=== PATIENT | female | born 2000 | race Caucasian/White ===

== ENCOUNTER 2023-01-05 09:22 | Emergency (ER) | payer OTHER, SELFPAY ==
[2023-01-05 09:25] VITALS: BP 122/92; PULSE 104; RESP 18; TEMP 36.8; O2SAT 99; BMI 31.2
--- NOTE | 2023-01-05 09:39 | XR_ITS ---
The [address] [address] Patient Name: FABY GALAN MRN: [id number] date: 2000 Sex: F Assigned Patient Location: ER Current Patient Location: ER Accession/Order Number: [id number] Exam Date: 01/05/2023 09:53 Report Date: 01/05/2023 10:54 At the request of: SAMANTA SALINAS Procedure: XR femur RT 2V PROCEDURE: XR femur RT 2V COMPARISON: None. HISTORY: trauma FINDINGS: BONES:No fracture, acute abnormality, or significant arthropathy. SOFT TISSUES:Negative. No visible soft tissue swelling. EFFUSION:None visible. OTHER: Negative. XR/XR femur RT 2V IMPRESSION: No acute radiographic abnormality Electronically authenticated by: FRANDY SAUCEDO Date: 01/05/2023 10:54
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
[2023-01-05] MEDS: ORPHENADRINE 60 MG/ 2 ML VIAL IM (10:03)
[2023-01-05] MEDS: METHYLPREDNISOLONE SOD SUCC PF 40 MG/ML VIAL IM (10:03)
== END 2023-01-05 11:42 | disposition home or self-care (01) ==
PROVIDERS: Emergency Provider Emergency Medicine
DX: M79.604 Pain in right leg (principal); V49.49XA Driver injured in collision with other motor vehicles in traffic accident, initial encounter
CPT/HCPCS: 73552; 96372; 99284; J2920

== ENCOUNTER 2023-06-28 14:50 | Emergency (ER) | payer OTHER, SELFPAY ==
[2023-06-28 15:05] VITALS: BP 97/74; PULSE 87; TEMP 37.1; O2SAT 99; BMI 31.1
--- NOTE | 2023-06-28 15:11 | ED.MEDCLEAR1 ---
HPI - Medical Clearance General Chief complaint: Medical Clearance Stated complaint: DIZZINESS Time Seen by Provider: 06/28/23 14:57 Source: patient Mode of arrival: walk-in Limitations: altered mental status Limitations comment: Mental Disability History of Present Illness HPI Narrative: The patient states that she is here to get out-patient testing done so that she can enroll in the [facility] program in [place] for people with eating disorders. She said that she has to get an EKG, labs and an H&P from her doctor. When she called her PCP, she was told that they could not get her in for a week or two. She decided to come to the ER to get these things done. She has no complaints. She eats fruit but says that she sometimes goes long periods of time without eating and refused to eat certain things out of concern for getting fat. She admits to poor body image. She is not making herself vomit. She is not abusing diuretics. She is not taking weight loss supplements or using non-prescribed drugs. She denies any dizziness, vomiting, diarrhea, abdominal pain, flank pain, urinary problems, bowel problems, chest pain or shortness of breath. Related Information Home Medications ?Medication ?Instructions ?Recorded ?Confirmed baclofen 10 mg tablet 10 mg PO Q8H 06/28/23 06/28/23 lamotrigine 200 mg tablet 200 mg PO Q12H 06/28/23 06/28/23 levothyroxine 75 mcg tablet 75 mcg PO DAILY 06/28/23 06/28/23 loratadine 10 mg tablet (Allergy 10 mg PO Q24H 06/28/23 06/28/23 Relief (loratadine)) lorazepam 1 mg tablet 1 mg PO DAILY PRN anxiety 06/28/23 06/28/23 prazosin 5 mg capsule 10 mg PO BEDTIME 06/28/23 06/28/23 pregabalin 25 mg capsule 25 mg PO DAILY 06/28/23 06/28/23 trazodone 100 mg tablet 200 mg PO BEDTIME 06/28/23 06/28/23 vilazodone 20 mg tablet 20 mg PO DAILY 06/28/23 06/28/23 Allergies Allergy/AdvReac Type Severity Reaction Status Date / Time buspirone Allergy Severe Verified 01/05/23 09:31 lamotrigine [From Lamictal] Allergy Severe Verified 01/05/23 09:31 lorazepam [From Ativan] Allergy Severe Verified 01/05/23 09:31 naproxen Allergy Severe Verified 01/05/23 09:31 paliperidone [From Invega] Allergy Severe Verified 01/05/23 09:31 Exam Narrative Exam Narrative: Nurses notes and vital signs reviewed and patient is not hypoxic. afebrile General: Well-appearing and in no apparent distress. Skin: Warm, dry, no pallor noted. No rash. Head: Normocephalic, atraumatic. Eye: Pupils are equal, round and EOMI. No scleral icterus. Ears, Nose, Mouth, and Throat: Oral mucosa is moist Cardiovascular: Regular Rate and Rhythm without murmur, gallop or rub. Respiratory: No accessory muscle use or respiratory distress. Lungs are clear to auscultation, no wheezing, rales or rhonchi Musculoskeletal: normal ROM GI: Abdomen is soft, non-distended. Normal bowel sounds. No tenderness to palpation. No rebound, guarding, or rigidity noted. Neurological: A&O x4. No cranial nerve dysfunction observed. No truncal ataxia. Moves all extremities. Sensation intact. Psychiatric: Cooperative and interactive. Normal mood and affect. Constitutional Vital Signs, click to edit/add: Last Vital Signs Temp 98.7 F 06/28/23 15:05 Pulse 87 06/28/23 15:05 Resp 16 06/28/23 15:05 BP 97/74 06/28/23 15:05 Pulse Ox 99 06/28/23 15:05 O2 Del Method Room Air 06/28/23 15:05 Course Vital Signs Vital signs: Vital Signs Temperature 98.7 F 06/28/23 15:05 Pulse Rate 87 06/28/23 15:05 Respiratory Rate 16 06/28/23 15:05 Blood Pressure 97/74 06/28/23 15:05 Pulse Oximetry 99 06/28/23 15:05 Oxygen Delivery Method Room Air 06/28/23 15:05 Temperature 98.7 F 06/28/23 15:05 Pulse Rate 87 06/28/23 15:05 Respiratory Rate 16 06/28/23 15:05 Blood Pressure 97/74 06/28/23 15:05 Pulse Oximetry 99 06/28/23 15:05 Oxygen Delivery Method Room Air 06/28/23 15:05 MDM - Medical Clearance MDM Narrative Medical decision making narrative: Orthostatics obtained and were negative. I saw and examined the patient. The patient showed me a website where she is supposed to get EKG, CMP, CBC, Mg, Phos. I offered to do these for her but warned her that because she is having no complaints and is not here for an emergent medical condition that her insurance will likely refuse to pay for the service and then she would be responsible for the bill. She does not want to take that chance, so she decided to call her PCP and schedule an appointment in the next week or two to get these tests. Discharge Plan Discharge Stand Alone Forms: Portal Instructions Chief Complaint: Medical Clearance Clinical Impression: Encounter for well adult exam without abnormal findings Patient Disposition: Home, Self-Care Time of Disposition Decision: 15:20 Prescriptions / Home Meds: No Action baclofen 10 mg tablet 10 mg PO Q8H lamotrigine 200 mg tablet 200 mg PO Q12H levothyroxine 75 mcg tablet 75 mcg PO DAILY loratadine [Allergy Relief (loratadine)] 10 mg tablet 10 mg PO Q24H lorazepam 1 mg tablet 1 mg PO DAILY PRN (Reason: anxiety) prazosin 5 mg capsule 10 mg PO BEDTIME pregabalin 25 mg capsule 25 mg PO DAILY trazodone 100 mg tablet 200 mg PO BEDTIME vilazodone 20 mg tablet 20 mg PO DAILY Print Language: Faroese Instructions: Normal Exam (ED) Referrals: Physician,Non-Staff, MD [Primary Care Provider] - 1 week
[2023-06-28 15:19] VITALS: BP 107/76; PULSE 114
[2023-06-28 15:20] VITALS: BP 113/79; BP 97/74; PULSE 122; PULSE 134
== END 2023-06-28 15:22 | disposition home or self-care (01) ==
PROVIDERS: Emergency Provider Emergency Medicine
DX: Z00.00 Encounter for general adult medical examination without abnormal findings (principal); Z79.899 Other long term (current) drug therapy; Z79.890 Hormone replacement therapy
CPT/HCPCS: 99284

== ENCOUNTER 2023-09-19 19:22 | Emergency (ER) | payer OTHER, SELFPAY ==
[2023-09-19 19:31] VITALS: BP 121/83; PULSE 96; TEMP 36.9; O2SAT 96; BMI 32.0
--- OUTSIDE RECORDS SUMMARY | 2023-09-19 19:45 | XMS_ITS | CCD ---
Author Organization [facility] ion [facility] Care Team Providers Care 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 Name Role Phone JULISSA, CANDACE Unavailable Unavailable JULISSA, CANDACE Unavailable Unavailable FEROZ, KHALID Unavailable Unavailable MIGUEL TURK Unavailable Unavailable FEROZ, KHALID Unavailable Unavailable FRANDY CARR Unavailable Unavailable MIGUEL ISLAS Unavailable Unavailable FEROZ, KHALID Unavailable Unavailable Ashley Shah Attending Oksana Katie Bond Attending Unavail able Feroz, Khalid Primary Care Unavailable Dawood Wang Unavailable Unavailable Feroz, Khalid Unavailable Unavailable Pan Riley Unavailable Unavailable Feroz, Khalid Unavailable Unavailable Feroz, Khalid Unavailable Unavailable Mary Mcfarlane Primary Care Provider [phone] Primary Care Unavailable HANNAH ADAME Attending Unavailable Toro Rodrigues MD Primary Care Provider Unknown, Pcp Unavailable Unavailable Candace Canela Unavailable UnavailRicardo Broussard PA-C Primary Care Provider Thomas Coffey Unavailable Unavailable Terrence ABARCA-Willem Ricardo Primary Care Provider Unavailable Primary Care Provider UnavailFranklin Rivera Unavailable Unavailable Nicko Garcia Unavailable UNKNOWN, PCP Primary Care Unavailable THOMAS COFFEY Attending Unavaila ble UNKNOWN, PCP Primary Care Unavailable Franklin Valencia Attending Unavailable UNKNOWN, PCP Primary Care Unavailable Nicko Garcia Attending UnavailWhitney Hare Unavailable Sangeeta Silvestre Unavailable TIMMIS, DR SHEIKH Admitting Unavailable TIMMIS, DR SHEIKH Consulting Unavailable TIMMIS, DR SHEIKH Attending Unavailable MISC, DR OVIEDO Primary Care Unavailable [facility]ENIA Hilton Consulting Unavailable Gilbert-Adonay PA-C, Ricardo Primary Care Provider Juan J Manzanares Unavailable [facility] Primary Care Provider JAIRO Espino Attending Provider Leighann Espino Attending Unavailable Leighann Espino Admitting Unavailable [facility] Primary Care Unavailable Unavailable Primary Care Provider Unavailabl e Flor Dyson Unavailable Gilbert-Adonay PA-C, Ricardo Primary Care Provider NATE GARCIA Referring Unavailable GILBERT-ADONAY, RICARDO Primary Care Unavailabl e GILBERT-ADONAY, RICARDO Referring Unavailabl e GILBERT-ADONAY, RICARDO Primary Care Unavailabl e GILBERT-ADONAY, RICARDO Primary Care Unavailabl e GILBERT-ADONAY, RICARDO Primary Care Unavailabl e GILBERT-ADONAY, RICARDO Referring Unavailabl e HENRI CORTEZ Attending Unavailable GILBERT ADONAY, RICARDO Referring Unavailabl e KELBLEY, HENRI Attending Unavailable GILBERT ADONAY, RICARDO Referring Unavailabl e MARINO BAUER Attending Unavailable GILBERT ADONAY, RICARDO Referring Unavailabl e HANNAHY, HENRI Attending Unavailable GILBERT ADONAY, RICARDO Referring Unavailabl e ARNULFO MARQUEZ Attending Unavailable KIARA EMERY Attending Unavailable GILBERT ADONAY, RICARDO Referring Unavailabl e KELBLEY, HENRI Attending Unavailable GILBERT ADONAY, RICARDO Referring Unavailabl e JIMMY, ARNULFO L Attending Unavailable MABEL UGARTE Attending Unavailable GILBERT ADONAY, RICARDO Referring Unavailabl e JENNY DEVI Attending Unavailable GILBERT ADONAY, RICARDO Referring Unavailabl e JENNY DEVI Attending Unavailable GILBERT ADONAY, RICARDO Referring Unavailabl e KELGABIY, HENRI Attending Unavailable GILBERT ADONAY, RICARDO Referring Unavailabl e HANNAHY, HENRI Attending Unavailable GILBERT ADONAY, RICARDO Referring Unavailabl e KELBLEY, HENRI Attending Unavailable GILBERT URIAS RAQUEL Referring Unavailadelina CORTEZ, HENRI Attending Unavailable RICARDO LALA Referring UnavailARNULFO Lofton Attending Unavailable MABEL UGARTE Attending Unavailable GILBERT URIAS RAQUEL Referring Unavailabl e DANA, HENRI Attending Unavailable GILBERT URIAS RICARDO Referring UnavailARNULFO [place]fton Attending Unavailable DANA, HENRI Attending Unavailable RICARDO LALA Referring UnavailARNULFO [place]fton Attending Unavailable Allergies Allergy Classification Reported Allergen(s) Allergy Type Date of Onset Reaction(s) Facility (5 sources) vortioxetine Drug Allergy [facility] Other (1 source) paliperidone Drug Allergy 3 [facility] [employer] (1 source) vortioxetine Drug Allergy 3 [facility] Medications Current Medications Medication Drug Class(es) Dates Sig (Normalized) Sig (Original) [id number] 200 actuat albuterol 0.09 mg/actuat metered dose inhaler (2 sources) beta2-Adrenergic Agonist ALBUTEROL AER HFA Quantity: 18 Refills: 0 Ordered: 13-Sep-2018 Cristin Rodriguez Generic Substitution Allowed albuterol sulfate HFA 108 (90 Base) MCG/ACT inhaler (1 source) albuterol sulfat e HFA 108 (90 Base) MCG/ACT inhaler Inhale into the lungs 0 Active amoxicillin 500 mg oral tablet (3 sources) Penicillin-class Antibacterial Start: 03-02-2023 take 1 tablet by mouth every twelve hours Amoxicillin 500 MG 1 tablet Orally Twice a day for 10 Feb, Active Start: 05-05-2022 take 1 tablet by noah th every twelve hours Amoxicillin 875 MG 1 tablet Orally every 12 hrs for 7 days May, Active baclofen 10 mg oral tablet (1 source) gamma-Aminobutyric Acid-ergic Agonist Start: 02-24-2023 take 1 tablet by mouth twice daily as needed baclofen (LIORESAL) 10 MG tablet Take 1 tablet by mouth 2 times daily as needed 0 02/24/2023 Active brompheniramine maleate 0.4 mg/ml / dextromethorphan hydrobromide 2 mg/ml / pseudoephedrine hydrochloride 6 mg/ml oral solution (2 sources) alpha-Adrenergic Agonist, Uncompetitive U-roflrp-F-aspartate Receptor Antagonist, Sigma-1 Agonist Start: 05-07-2022 take 10 mL by mouth every six hours Pseudoepcathi-Carlos hen-DM 30-2-10 MG/5ML 10 mL Orally every 6 hours for 5 days May, Active busPIRone hydrochloride 15 mg oral tablet (2 sources) Start: 03-24-2023 take 1 tablet by mouth three times daily busPIRone (BUSPAR) 15 MG tablet Take 15 mg by mouth 3 times daily 90 tablet 3 03/24/2023 Active busPIRone HCl Ac tive Dusrxjtgjqb-Pggbslbwh-Qbrmuh Ac (PLENITY) CAPS (1 source) Start: 11-03-2022 take 3 capsules by mouth at dinner Vdoajslbafa-Pxxovezpf-PsazlpUv (PLENITY) CAPS Indications: BMI 32.0-32.9,adult Take 3 capsules by mouth 20 minutes prior to lunch and dinner with a full glass of water 180 capsule 2 11/03/2022 Active cholecalciferol 0.025 mg ora l tablet (20 sources) Vit ami n D Start: 09-24-2021 take 1 tablet by mouth once daily vitamin D (D3-1000) 25 MCG (1000 UT) TABS tablet Indications: Vitamin D deficiency Take 1 tablet by mouth daily 90 tablet 3 10/12/2022 Active Start: 03-16-2021 take 1 tablet by noah th once daily vitamin D3 (CHOLECALCIFEROL) 25 MCG (1000 UT) TABS tablet Take 1 tablet by mouth daily 30 tablet 5 03/16/2021 Active Start: 07-11-2020 take 1 tablet by noah th once daily vitamin D3 (CHOLECALCIFEROL) 25 MCG (1000 UT) TABS tablet Take 1 tablet by mouth daily 30 tablet 5 07/11/2020 Active Comment on above: Take 1,000 Units by mouth once daily. fluticasone propionate 0.05 mg/actuat metered dose nasal spray (20 sources) Corticosteroid Start: take 1 spray(s) nasal route once daily fluticasone (FLONASE) 50 MCG/ACT nasal spray Indications: PND (post-nasal drip) 1 spray by Each Nostril route daily 16 g 0 06/29/2022 Active Start: 05-05-2022 take 1 spray(s) nasa l route once daily Fluticasone Propionate 50 MCG/ACT 1 spray in each nostril Nasally Once a day for 30 day(s) May, Active Start: 06-08-2021 take 1 spray(s) nasa l route once daily fluticasone (FLONASE) 50 MCG/ACT nasal spray Indications: Sinus congestion Instill 1 (ONE) spray IN EACH NOSTRIL DAILY 16 g 5 06/08/2021 Active gentamicin 1 mg/ml topical c ream (1 source) Start: 03-02-2023 gentamicin (GA RAMYCIN) 0.1 % cream Apply topically daily. 15 g 1 03/02/2023 Active glycopyrrolate 1 mg oral tab let (1 source) Start: 02-18-2020 glycopyrrolate (ROBINUL) 1 MG tablet Take 2 tabs QAM, and one tablet at night 90 tablet 3 02/18/2020 Active glycopyrrolate 1 mg oral tab let (16 sources) Start: 07-15-2020 glycopyrrolate (ROBINUL) 1 MG tablet TAKE 3 TABLETS EVERY MORNING and 1 (ONE) TABLET IN THE EVENING 120 tablet 1 07/15/2020 Active Start: 06-08-2019 glycopyrrolate (ROBINUL) 1 mg tablet Take 1 mg by mouth. 0 06/08/2019 Active Comment on above: Take 1 mg by mouth. hydrOXYzine hydrochloride 50 mg oral tablet (20 sources) Antihistamine Start: 2 End: 2 take 1 tablet by mouth once daily hydrOXYzine HCl (ATARAX) 50 MG tablet Indications: DENNIS (generalized anxiety disorder) Take 1 tablet by mouth nightly 14 tablet 2 09/28/2021 11/09/2021 Active Start: 07-30-2021 End: 09-16-2021 take 1 tablet by mouth once daily hydrOXYzine (ATARAX) 50 MG tablet Indications: DENNIS (generalized anxiety disorder) Take 1 tablet by mouth nightly 14 tablet 2 08/05/2021 09/16/2021 Active Start: 01-17-2020 take 1 tablet by noah th every eight hours for anxiety hydrOXYzine (ATARAX) 50 MG tablet Take one tablet po every 8 hours for anxiety. 60 tablet 0 01/17/2020 Active Start: 11-10-2018 take 1 tablet by noah th three to four times daily hydrOXYzine HCl - 50 MG Oral Tablet TAKE 1 TABLET 3-4 TIMES DAILY. Refills: 0 Start : 10-Nov-2018 Active Start: 06-06-2017 take 1 tablet by noah th every eight hours as needed hydrOXYzine HCl (ATARAX) 25 mg tablet Take 1 tablet by mouth three times daily as needed (anxiety). 45 tablet 3 06/06/2017 Active HYDROXYZ CLAUDIA CAP 50MG Quantity: 90 Refills: 0 Ordered: 13-Sep-2018 Cristin Rodriguez Generic Substitution Allowed HYDROXYZ HCL TAB 50MG Quantity: 90 Refills: 0 Ordered: 13-Sep-2018 Cristin Rodriguez Generic Substitution Allowed Comment on above: Take 1 tablet by noah th three times daily as needed (anxiety). ibuprofen 600 mg oral tablet (3 sources) Nonsteroidal Anti-inflammatory Drug Start: take 1 tablet by mouth three times daily at mealtime as needed ibuprofen (ADVIL;MOTRIN) 600 MG tablet TAKE 1 TABLET BY MOUTH WITH FOOD OR MILK THREE TIMES DAILY NEEDED 0 11/19/2022 Active Start: 09-13-2018 take 1 tablet by noah th every six hours as needed IBU 600 mg oral tablet ; 1 tab(s) orally every 6 hours, As Needed -for moderate pain Quantity: 20 Refills: 0 Ordered: 13-Sep-2018 Chelle Amaya Start: 13-Sep-2018 Generic Substitution Allowed lactase 3000 unt oral tablet (20 sources) Start: 09-02-2020 take 1 tablet by mouth three times daily at mealtime lactase (LACTAID) 3000 units tablet Take 1 tablet by mouth 3 times daily (with meals) 90 tablet 3 09/02/2020 Active lamoTRIgine 200 mg oral tablet (20 sources) Mood Stabilizer, Anti-epilepti c Agent Start: 02-02-2023 take 1 tablet by mouth twice daily lamoTRIgine (LAMICTAL) 200 MG tablet Take 1 tablet by mouth 2 times daily 60 tablet 3 02/02/2023 Active Start: 07-27-2021 take 1 tablet by noah th twice daily lamoTRIgine (LAMICTAL) 200 MG tablet Take 1 tablet by mouth 2 times daily 60 tablet 5 07/27/2021 Active Start: 06-24-2021 take 1 tablet by noah th twice daily lamoTRIgine (LAMICTAL) 150 mg tablet Take 150 mg by mouth twice daily. 0 06/24/2021 Active Start: 09-08-2020 take 0.5 tablet by m out twice daily lamoTRIgine (LAMICTAL) 100 MG tablet Take 0.5 tablets by mouth 2 times daily Stop medication if rash occurs. If you miss more than 3 days of this medication, call your doctor and do not restart the medication. 30 tablet 3 09/08/2020 Active Start: 08-15-2020 End: 09-12-2020 take 0.5 tablet by mouth twice daily, then take 1 tablet by mouth twice daily, then take 2 tablets by mouth twice daily lamoTRIgine (LAMICTAL) 25 MG tablet Take 0.5 tablets by mouth 2 times daily for 7 days, THEN 1 tablet 2 times daily for 14 days, THEN 2 tablets 2 times daily for 7 days. STOP medication if rash occurs. Go to extended-release for severe rash.. 63 tablet 0 08/15/2020 09/12/2020 Active LaMICtal Active Comment on above: Take 150 mg by mouth twice daily. levothyroxine sodium 0.075 mg oral tablet (20 sources) l-Thyroxine Start: take 1 tablet by mouth once daily levothyroxine (SYNTHROID) 75 MCG tablet Take 1 tablet by mouth daily 90 tablet 3 02/03/2023 Active Start: 05-19-2022 take 1 tablet by noah th once daily levothyroxine (SYNTHROID) 75 MCG tablet Take 1 tablet by mouth daily 90 tablet 3 05/19/2022 Active Start: 10-22-2021 take 1 tablet by noah th once daily levothyroxine (SYNTHROID) 75 MCG tablet Take 1 tablet by mouth daily 90 tablet 1 10/22/2021 Active Start: 12-24-2020 End: 07-06-2021 take 1 tablet by mouth once daily levothyroxine (SYNTHROID) 50 MCG tablet Take 1 tablet by mouth daily 90 tablet 3 07/06/2021 Active Start: 07-15-2020 take 1 tablet by noah th once daily levothyroxine (SYNTHROID) 50 MCG tablet Take 1 tablet by mouth daily 90 tablet 1 07/15/2020 Active Start: 11-10-2018 levothyroxine (SYNTHROID) 25 MCG tablet TAKE 1 TABLET ONCE DAILY 30 tablet 3 02/18/2020 Active Levothyroxine 25 mcg cap Take 25 mcg by mouth. 0 Active Levothyroxine So logan Active Comment on above: Take 25 mcg by mouth . liothyronine sodium 0.025 mg oral tablet (12 sources) l-Triiodothyroni ne Start: 07-17-2021 End: 11-14-2021 take 0.5 tablet by mouth once daily liothyronine (CYTOMEL) 25 MCG tablet TAKE 1/2 (ONE-HALF) OF A TABLET BY MOUTH DAILY 0 11/06/2021 Active Start: 06-24-2021 take 1 tablet by noah th once daily liothyronine (CYTOMEL) 5 MCG tablet Take 1 tablet by mouth daily 30 tablet 3 06/24/2021 Active lisdexamfetamine dimesylate 10 mg oral capsule (6 sources) Central Nervous System Stimulant Start: 05-04-2022 take 1 capsule by mouth once daily in the morning lisdexamfetamine (VYVANSE) 10 MG capsule Indications: Attention deficit hyperactivity disorder (ADHD), predominantly inattentive type Take 1 capsule by mouth every morning for 30 days. 30 capsule 0 05/04/2022 Active Vyvanse Not-Eric ng/PRN Vyvanse Active loratadine 10 mg oral tablet (20 sources) Start: 09-09-2021 take 1 tablet by mouth once daily loratadine (CLARITIN) 10 MG tablet Indications: Sinus congestion Take 1 tablet by mouth daily 30 tablet 5 11/03/2022 Active Start: 05-12-2021 take 1 tablet by noah th once daily loratadine (CLARITIN) 10 MG tablet Indications: Sinus congestion Take 1 tablet by mouth daily 30 tablet 3 05/12/2021 Active LORazepam 1 mg oral tablet (20 sources) Benzodiazepine Start: 01-13-2023 take 1 tablet by mouth once daily as needed for anxiety LORazepam (ATIVAN) 1 MG tablet TAKE 1 TABLET BY MOUTH NIGHTLY NEEDED FOR ANXIETY FOR 30 DAYS 0 01/13/2023 Active Start: 05-19-2022 End: 06-18-2022 take 1 tablet by mouth once daily as needed LORazepam (ATIVAN) 1 MG tablet Indications: DENNIS (generalized anxiety disorder) Take 1 tablet by mouth nightly as needed for Anxiety for up to 30 days. Max Daily Amount: 1 mg 10 tablet 2 05/19/2022 06/18/2022 Active Start: 10-10-2021 End: 11-23-2021 take 1 tablet by mouth once daily as needed for anxiety LORazepam (ATIVAN) 1 MG tablet Indications: DENNIS (generalized anxiety disorder) Take 1 tablet by mouth nightly as needed for Anxiety for up to 10 days. 5 tablet 1 11/13/2021 11/23/2021 Active Start: 09-24-2021 End: 10-08-2021 take 1 tablet by mouth once daily as needed for anxiety LORazepam (ATIVAN) 1 MG tablet Indications: DENNIS (generalized anxiety disorder) Take 1 tablet by mouth nightly as needed for Anxiety for up to 10 days. 5 tablet 1 09/28/2021 10/08/2021 Active Start: 09-02-2021 End: 09-12-2021 take 1 tablet by mouth once daily as needed for anxiety LORazepam (ATIVAN) 1 MG tablet Indications: DENNIS (generalized anxiety disorder) Take 1 tablet by mouth nightly as needed for Anxiety for up to 10 days. 5 tablet 1 09/02/2021 09/12/2021 Active Start: 08-05-2021 End: 08-15-2021 take 1 tablet by mouth once daily as needed for anxiety LORazepam (ATIVAN) 1 MG tablet Indications: DENNIS (generalized anxiety disorder) Take 1 tablet by mouth nightly as needed for Anxiety for up to 10 days. 5 tablet 1 08/05/2021 08/15/2021 Active Ativan Active melatonin 1 mg oral tablet (20 sources) Start: 03-28-2023 take 2 tablets by mouth once daily as needed for sleep melatonin 1 MG tablet TAKE 2 TABLETS BY MOUTH NIGHTLY NEEDED for sleep 60 tablet 3 03/28/2023 Active Start: 03-31-2022 take 2 tablets by mo [facility] once daily as needed for sleep melatonin 1 MG tablet Take 2 tablets by mouth nightly as needed for Sleep 60 tablet 3 03/31/2022 Active Start: 11-05-2021 take 1 tablet by noah once daily as needed melatonin 5 MG TABS tablet Indications: Other insomnia Take 1 tablet by mouth nightly as needed (insomnia) 30 tablet 3 11/05/2021 Active Start: 03-16-2021 take 1 tablet by noah th once daily as needed melatonin 5 MG TABS tablet Indications: Other insomnia Take 1 tablet by mouth nightly as needed (insomnia) 30 tablet 3 03/16/2021 Active Start: 08-15-2020 take 1 tablet by noah th once daily as needed melatonin 5 MG TABS tablet Indications: Other insomnia Take 1 tablet by mouth nightly as needed (insomnia) 30 tablet 3 08/15/2020 Active Start: 12-19-2019 melatonin 5 MG TABS tablet Indications: Other insomnia TAKE 1 TABLET DAILY 30 tablet 3 12/19/2019 Active Start: 08-01-2019 Melatonin 5 mg cap Take 5 mg by mouth. 0 08/01/2019 Active Melatonin Active MELATONIN CAP 10 MG Quantity: 30 Refills: 0 Ordered: 13-Sep-2018 Cristin Rodriguez Generic Substitution Allowed Comment on above: Take 5 mg by mouth. meloxicam 15 mg oral tablet (13 sources) Nonsteroidal Anti-inflammatory Drug Start: 09-12-19 take 1 tablet by mouth once daily as needed for pain meloxicam (MOBIC) 15 MG tablet Take 1 tablet by mouth daily as needed for Pain 30 tablet 3 08/03/2022 Active 24 hr metFORMIN hydrochloride 500 mg extended release oral tablet (20 sources) Biguanide Start: 03-18-19 23 take 2 tablets by mouth once daily at breakfast metFORMIN (GLUCOPHAGE-XR) 500 MG extended release tablet Take 2 tablets by mouth daily (with breakfast) 60 tablet 5 03/18/2022 Active Start: 10-08-2021 metFORMIN ER ( GLUCOPHAGE XR) 500 mg 24 hr tablet Start: 09-11-2021 take 2 tablets by mo uth once daily at breakfast metFORMIN (GLUCOPHAGE-XR) 500 MG extended release tablet Take 2 tablets by mouth daily (with breakfast) 60 tablet 3 09/11/2021 Active Start: 08-19-2021 take 1 tablet by noah th once daily at breakfast metFORMIN (GLUCOPHAGE-XR) 500 MG extended release tablet Take 1 tablet by mouth daily (with breakfast) 30 tablet 5 08/19/2021 Active metFORMIN HCl No t-Taking/PRN metFORMIN HCl Ac tive Multiple Vitamins-Minerals (THERAPEUTIC MULTIVITAMIN-MINERALS) tablet (1 source) Start: 01-24-2023 End: 01-24-2024 take 1 tablet by mouth once daily Multiple Vitamins-Minerals (THERAPEUTIC MULTIVITAMIN-MINERALS) tablet Take 1 tablet by mouth daily 30 tablet 11 01/24/2023 01/24/2024 Active naproxen 500 mg oral tablet (2 sources) Nonsteroidal Anti-inflammat ory Drug Start: 06-04-2022 take 1 tablet by mouth twice daily at mealtime naproxen (NAPROSYN) 500 MG tablet Indications: Paresthesia of right leg Take 1 tablet by mouth 2 times daily (with meals) 60 tablet 0 06/04/2022 Active Start: 10-28-2021 take 1 tablet by noah th every twelve hours as needed for pain naproxen (NAPROSYN) 500 MG tablet Take 1 tablet by mouth every 12 hours as needed for Pain 30 tablet 0 10/28/2021 Active nitrofurantoin, macrocrystals 25 mg / nitrofurantoin, monohydrate 75 mg oral capsule (1 source) Nitrofuran Antibacterial Start: 08-28-2020 End: 09-03-2020 take 1 capsule by mouth every twelve hours Macrobid 100 mg oral capsule ; 1 cap(s) orally every 12 hours Quantity: 14 Refills: 0 Ordered: 28-Aug-2020 Candace Canela Start: 28-Aug-2020 End: 03-Sep-2020 Generic Substitution Allowed Comments: Finish all this medication unless otherwise directed by prescriber.May discolor urine or feces.Take with food or milk. Comment on above: Finish all this medi cation unless otherwise directed by prescriber.May discolor urine or feces.Take with food or milk. 1.5 ml paliperidone palmitate 156 mg/ml prefilled syringe (20 sources) Atypical Antipsychotic Start: 03-30-2023 paliperidone palmitate ER (INVEGA SUSTENNA) IM injection 234 mg Start: 10-04-2022 paliperidone p almitate ER (INVEGA SUSTENNA) IM injection 156 mg Start: 11-11-2021 paliperidone p almitate ER (INVEGA SUSTENNA) IM injection 156 mg Start: 10-16-2021 End: 10-16-2021 inject 156 mg by intramuscular injection once paliperidone palmitate ER (INVEGA SUSTENNA) 156 MG/ML ASTRID IM injection Inject 156 mg into the muscle once for 1 dose 10/16/2021 is date of next injection 1 each 0 10/16/2021 Active Start: 10-06-2021 INVEGA SUSTENN A 156 mg/mL syrg injection Inject 156 mg into the muscle once for 1 dose (10/16/2021 is date of next injection) 0 10/06/2021 Active Start: 09-17-2021 End: 09-17-2021 inject 156 mg by intramuscular injection once paliperidone palmitate ER (INVEGA SUSTENNA) 156 MG/ML ASTRID IM injection Inject 156 mg into the muscle once for 1 dose 09/18/2021 is date of next injection 1 each 0 09/17/2021 09/17/2021 Active Start: 09-16-2021 paliperidone p almitate ER (INVEGA SUSTENNA) IM injection 156 mg Start: 07-29-2021 paliperidone p almitate ER (INVEGA SUSTENNA) IM injection 117 mg Start: 07-29-2021 paliperidone p almitate ER (INVEGA SUSTENNA) IM injection 117 mg Start: 07-29-2021 paliperidone p almitate ER (INVEGA SUSTENNA) IM injection 117 mg Start: 07-29-2021 paliperidone p almitate ER (INVEGA SUSTENNA) IM injection 117 mg Start: 07-29-2021 paliperidone p almitate ER (INVEGA SUSTENNA) IM injection 117 mg Start: 07-29-2021 paliperidone p almitate ER (INVEGA SUSTENNA) IM injection 117 mg Start: 07-17-2021 inject 156 mg by int ramuscular injection once paliperidone palmitate ER (INVEGA SUSTENNA) 156 MG/ML ASTRID IM injection Indications: DENNIS (generalized anxiety disorder) , Severe episode of recurrent major depressive disorder, without psychotic features (HCC) Inject 156 mg into the muscle once for 1 dose INJECTION DATE OF 07/27/21 1 each 0 08/12/2021 Active Comment on above: Inject 156 mg into t he muscle once for 1 dose (10/16/2021 is date of next injection) Paliperidone Palmitate ER (INVEGA HAFYERA) 1092 MG/3.5ML ASTRID (1 source) Start: Paliperidone Palmitate ER (INVEGA HAFYERA) 1092 MG/3.5ML ASTRID Inject 1,092 mg into the muscle once for 1 dose To be given every 6 months. 3.5 mL 0 05/03/2022 Active Paliperidone Palmitate ER ASTRID 1,092 mg (1 source) Start: 3 Paliperidone Palmitate ER ASTRID 1,092 mg prazosin 5 mg oral capsule (7 sources) alpha-Adrenergic Randall Start: 4 take 2 capsules by mouth once daily prazosin (MINIPRESS) 5 MG capsule Take 2 capsules by mouth nightly 60 capsule 3 03/09/2023 Active Start: 05-19-2022 End: 11-15-2022 take 2 capsules by mouth once daily prazosin (MINIPRESS) 2 MG capsule Take 2 capsules by mouth nightly 60 capsule 5 05/19/2022 11/15/2022 Active Minipress Active predniSONE 20 mg oral tablet (1 source) Start: 06-16-2020 End: 06-20-2020 take 1 tablet by mouth once daily predniSONE (DELTASONE) 20 MG tablet Take 1 tablet by mouth daily for 4 days 20 tablet 0 06/16/2020 06/20/2020 Active pregabalin 25 mg oral capsule (1 source) Start: 02-24-2023 take 1 capsule by mouth twice daily pregabalin (LYRICA) 25 MG capsule Take 1 capsule by mouth 2 times daily. 0 02/24/2023 Active propranolol hydrochloride 10 mg oral tablet (2 sources) beta-Adrenergic Randall Start: 08-15-2020 take 1 tablet by mouth three times daily as needed for anxiety propranolol (INDERAL) 10 MG tablet Take 1 tablet by mouth 3 times daily as needed (anxiety) 42 tablet 3 08/15/2020 Active Start: 05-13-2020 take 1 tablet by noah th three times daily as needed for anxiety propranolol (INDERAL) 10 MG tablet Take 1 tablet by mouth 3 times daily as needed (anxiety) 42 tablet 3 05/13/2020 Active risperiDONE (3 sources) Atypical Antipsychotic risperiDO NE Quantity: 0 Refills: 0 Ordered: 27-Jul-2021 Jaelyn Souza Generic Substitution Allowed 0.25 mg, 0.5 mg dose 1.5 ml semaglutide 1.34 mg/ml pen injector (1 source) Start: 03-09-19 24 Semaglutide,0.25 or 0.5MG/DOS, 2 MG/1.5ML SOPN Indications: BMI 30.0-30.9,adult Inject 0.25 mg into the skin once a week 3 Adjustable Dose Pre-filled Pen Syringe 2 03/09/2023 Active sertraline 100 mg oral tablet (20 sources) Serotonin Reuptake Inhibitor Start: 09-25-19 End: 05-23-19 23 take 0.5 tablet by mouth in the morning sertraline (ZOLOFT) 100 MG tablet Indications: Severe episode of recurrent major depressive disorder, without psychotic features (HCC) Take 0.5 tablets by mouth in the morning. 30 tablet 3 09/24/2021 05/22/2022 Active Start: 08-05-2021 End: 09-16-2021 take 2 tablets by mouth once daily, then take 1.5 tablets by mouth once daily, then take 1 tablet by mouth once daily sertraline (ZOLOFT) 100 MG tablet Indications: Severe episode of recurrent major depressive disorder, without psychotic features (HCC) Take 2 tablets by mouth daily for 7 days, THEN 1.5 tablets daily for 7 days, THEN 1 tablet daily for 14 days. 39 tablet 0 08/19/2021 Active Start: 07-17-2021 End: 11-14-2021 take 3 tablets by mouth once daily sertraline (ZOLOFT) 100 MG tablet Take 3 tablets by mouth daily 90 tablet 3 07/17/2021 11/14/2021 Active Start: 07-01-2021 End: 09-29-2021 take 2.5 tablets by mouth once daily sertraline (ZOLOFT) 100 MG tablet Take 2.5 tablets by mouth daily 75 tablet 0 07/30/2021 08/29/2021 Active Start: 06-18-2020 take 2 tablets by mo uth once daily sertraline (ZOLOFT) 100 MG tablet Take 2 tablets by mouth daily 60 tablet 5 06/18/2020 Active Start: 01-17-2020 sertraline (ZO LOFT) 25 mg tablet Take 125 mg by mouth. 0 01/17/2020 Active Start: 11-10-2018 sertraline (ZO LOFT) 100 mg tablet TAKE 1 TABLET ONCE DAILY take with 25mg tablet for total dose of 125mg) 0 09/22/2019 Active SERTRALINE TAB 1 00MG Quantity: 45 Refills: 0 Ordered: 13-Sep-2018 Cristin Rodriguez Generic Substitution Allowed Comment on above: TAKE 1 TABLET ONCE D AILY take with 25mg tablet for total dose of 125mg) Take 125 mg by mouth . traZODone hydrochloride 150 mg oral tablet (2 sources) Serotonin Reuptake Inhibitor Start: 02-02-2023 take 1 tablet by mouth once daily as needed for sleep traZODone (DESYREL) 150 MG tablet Take 1 tablet by mouth nightly as needed for Sleep 30 tablet 3 02/02/2023 Active take 1 tablet by noah th every twenty-four hours traZODone HCl 100 MG 1 tablet at bedtime Orally Once a day Active 24 hr venlafaxine 37.5 mg extended release oral capsule (1 source) Serotonin and Norepinephrine Reuptake Inhibitor Start: 07-11-2020 take 1 capsule by mouth once daily venlafaxine (EFFEXOR XR) 37.5 MG extended release capsule Take 1 capsule by mouth daily 30 capsule 3 07/11/2020 Active vilazodone hydrochloride 20 mg oral tablet (7 sources) Start: 02-02-2023 take 1.5 tablets by mouth once daily vilazodone HCl (VIIBRYD) 20 MG TABS Take 1.5 tablets by mouth daily 45 tablet 3 02/02/2023 Active Start: 05-19-2022 End: 11-15-2022 take 1 tablet by mouth once daily vilazodone hcl 20 MG TABS Take 1 tablet by mouth daily 30 tablet 5 05/19/2022 11/15/2022 Active Vilazodone HCl A ctive vortioxetine 20 mg oral tablet (2 sources) Start: 11-11-2021 take 1 tablet by mouth once daily VORTIoxetine HBr (TRINTELLIX) 20 MG TABS tablet Take 1 tablet by mouth daily 30 tablet 3 11/11/2021 Active Start: 10-19-2021 take 1 tablet by noah th in the morning VORTIoxetine (TRINTELLIX) 5 MG tablet Take 1 tablet by mouth in the morning. 30 tablet 1 10/19/2021 Active Completed/Discontinued Medications Medication Drug Class(es) Dates Sig (Normalized) Sig (Original) benzonatate 100 mg oral capsule (3 sources) Non-narcotic Antitussive Start: 05-27-2022 take 1 capsule by mouth three times daily as needed Tessalon Perles 100 MG 1 capsule as needed Orally Three times a day for 7 days May, Not-Taking/PRN cephalexin 500 mg oral capsule (2 sources) Cephalosporin Antibacterial Start: 08-02-2022 take 1 capsule by mouth every eight hours Cephalexin 500 MG 1 capsule Orally tid for 10 day(s) July, Not-Taking/PRN diphenhydrAMINE hydrochloride 25 mg oral tablet (1 source) Histamine-1 Receptor Antagonist Start: 06-16-2020 End: 06-16-2020 diphenhydrAMINE (BENADRYL) tablet 25 mg mupirocin 0.02 mg/mg topical ointment (2 sources) RNA Synthetase Inhibitor Antibacterial Start: 08-02-2022 Mupirocin 2 % 1 application to affected area Externally 3 times a day for 7 days July, Not-Taking/PRN ondansetron 4 mg disintegrating oral tablet (5 sources) Serotonin-3 Receptor Antagonist Start: 05-27-2022 take 1 tablet by mouth every eight hours Ondansetron 4 MG 1 tablet on the tongue and allow to dissolve Orally every 8 hours for 5 days May, Not-Taking/PRN Start: 08-28-2020 End: 08-30-2020 take 1 tablet by mouth every six hours as needed ondansetron 4 mg oral tablet, disintegrating ; 1 tab(s) orally every 6 hours, As Needed Quantity: 12 Refills: 0 Ordered: 28-Aug-2020 Candace Canela Start: 28-Aug-2020 End: 30-Aug-2020 Generic Substitution Allowed Start: 09-13-2018 take 1 tablet by noah th every four to six hours as needed for nausea and vomiting Zofran 4 mg oral tablet ; 1 tab(s) orally every 4 to 6 hours, As Needed -for nausea and vomiting Quantity: 20 Refills: 0 Ordered: 13-Sep-2018 Chelle Amaya Start: 13-Sep-2018 Generic Substitution Allowed phentermine hydrochloride 37.5 mg oral capsule (2 sources) Sympathomimetic Amine Anorectic take 1 capsule by mouth every twenty-four hours Adipex-P 37.5 MG 1 capsule Orally Once a day Not-Taking/PRN Problems Active Problems Problem Classification Problem Date Documented Da te Episodic/Chronic Anxiety disorders (20 sources) Anxiety; Translations: [Posttraumatic stress disorder] Onset: 06-26-2019 06-26-2019 Chronic Anxiety disorders (1 source) Nonpsychotic mental disorder, unspecified; Translations: [Nonpsychotic mental disorder, unspecified] Onset: 06-06-2017 Attention-deficit conduct and disruptive behavior disorders (20 sources) Attention deficit hyperactivity disorder; Translations: [Attention-deficit hyperactivity disorder, unspecified type] Onset: 10-06-2016 10-06-2016 Chronic Blindness and vision defects (2 sources) Other visual disturbances; Translations: [Visual discomfort, unspecified] Onset: 01-19-2017 Episodic Developmental disorders (6 sources) Unspecified intellectual disabilities; Translations: [Intellectual disability] Onset: 06-03-2017 06-06-2017 Chronic Epilepsy; convulsions (15 sources) Atypical absence seizure; 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, not intractable, without status epilepticus] Onset: 09-15-2018 09-15-2018 Chronic Headache, including migraine (8 sources) Headache; Translations: [Daily headache] Onset: 01-19-2017 11-19-2021 Episodic Comment on above: HEADACHE Headache, including migraine (4 sources) Headache, including migraine; Translations: [Headache, unspecified] Onset: 01-19-2017 11-19-2021 Comment on above: HEADACHE VOMITING Immunizations and screening for infectious disease (2 sources) Encounter for immunization; Translations: [Contact with and (suspected) exposure to other viral communicable diseases] Onset: 07-27-2021 Episodic Miscellaneous mental health disorders (1 source) Deliberate self-cutting; Translations: [Unspecified nonpsychotic mental disorder] 07-27-2021 Chronic Mood disorders (20 sources) Recurrent major depressive episodes, moderate ; Translations: [Major depressive disorder, recurrent, moderate] Onset: 05-31-2017 Resolved: 02-02-2023 06-19-2020 Chronic Mood disorders (4 sources) Major depressive disorder, single episode, unspecified; Translations: [Mood disorders] Onset: 05-17-2017 Nausea and vomiting (2 sources) Nausea with vomiting, unspecified; Translations: [Nausea] Onset: 11-19-2021 Episodic Nonspecific chest pain (1 source) Chest pain; Translations: [Chest pain, unspecified] Episodic Open wounds of extremities (4 sources) Cutting own wrists; Translations: [Open wound of wrist, without mention of complication] Onset: 07-27-2021 11-11-2021 Episodic Other aftercare (1 source) Other residential (current) drug therapy; Translations: [Other terminal press operator (current) drug therapy] Onset: 11-19-2021 Episodic Other connective tissue disease (1 source) Paraparesis; Translations: [Other symptoms and signs involving the musculoskeletal system] 04-13-2023 Episodic Other connective tissue disease (1 source) Other symptoms and signs involving the musculoskeletal system; Translations: [Other symptoms and signs involving the musculoskeletal system] Onset: 02-03-2023 Episodic Other ear and sense organ disorders (4 sources) Sensorineural hearing loss, unilateral, right ear, with restricted hearing on the contralateral side; Translations: [SENRNER HEAR LOS U R EAR RS CNTRALA] Onset: 05-31-2022 Chronic Other gastrointestinal disorders (2 sources) Nausea, vomiting and diarrhea; Translations: [Diarrhea] 08-28-2020 Episodic Other nervous system disorders (1 source) Meralgia paresthetica of right leg; Translations: [Meralgia paresthetica, right lower limb] Chronic Other nervous system disorders (1 source) Other chronic pain; Translations: [Other chronic pain] Onset: 02-03-2023 Chronic Other nervous system disorders (1 source) Meralgia paresthetica, right lower limb; Translations: [Meralgia paresthetica, right lower limb] Onset: 06-16-2022 Chronic Other nervous system disorders (1 source) Paresthesia of right lower limb; Translations: [Paresthesia of skin] Episodic Other non-traumatic joint disorders (2 sources) Knee pain; Translations: [Right knee pain] Episodic Other non-traumatic joint disorders (1 source) Shoulder pain; Translations: [Pain in right shoulder] Episodic Other skin disorders (1 source) Eruption; Translations: [Rash and other nonspecific skin eruption] Episodic Other upper respiratory infections (3 sources) Acute pharyngitis, unspecified; Translations: [Acute upper respiratory infection, unspecified] Episodic Otitis media and related conditions (2 sources) Acute serous otitis media, left ear; Translations: [Otitis media, unspecified, left ear] Episodic Personality disorders (20 sources) Borderline personality disorder; Translations: [Borderline personality disorder] Onset: 10-24-2020 10-24-2020 Chronic Residual codes; unclassified (3 sources) Impaired exercise tolerance; Translations: [Exercise intolerance] Episodic Skin and subcutaneous tissue infections (1 source) Cellulitis of unspecified toe Episodic Spondylosis; intervertebral disc disorders; other back problems (2 sources) Lumbago with sciatica; Translations: [Lumbago with sciatica, unspecified side] Onset: 02-03-2023 04-13-2023 Episodic Sprains and strains (1 source) Sprain of ankle; Translations: [Sprain of unspecified ligament of right ankle, initial encounter] Episodic Suicide and intentional self-inflicted injury (5 sources) Suicidal thoughts; Translations: [Suicidal ideation] Onset: 11-12-2021 11-11-2021 Episodic Thyroid disorders (20 sources) 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; Translations: [Other specified hypothyroidism] Onset: 01-09-2017 01-09-2017 Chronic Unclassified (1 source) [facility] as the place of occurrence of the external cause / Y92.219(ICD-9) Onset: 01-19-2017 Unclassified (2 sources) Laceration w/o foreign body of right upper arm, init encntr / S41.111A(ICD-9) Onset: 05-17-2017 Unclassified (1 source) Unspecified injury of head, initial encounter / S09.90XA(ICD-9) Onset: 01-19-2017 Unclassified (1 source) Concussion without loss of consciousness, initial encounter / S06.0X0A(ICD-9) Onset: 01-19-2017 Unclassified (1 source) Anxiety disorder, unspecified / F41.9(ICD-9) Onset: 05-17-2017 Unclassified (1 source) Activity, gymnastics / Y93.43(ICD-9) Onset: 01-19-2017 Unclassified (1 source) Intentional self-harm by other sharp object, init encntr / X78.8XXA(ICD-9) Onset: 05-17-2017 Unclassified (2 sources) Encounter for other general examination / Z00.8(ICD-9) Onset: 05-17-2017 Unclassified (1 source) Other visual disturbances / H53.8(ICD-9) Onset: 01-19-2017 Unclassified (1 source) Striking against other stationary object, initial encounter / W22.09XA(ICD-9) Onset: 01-19-2017 Unclassified (2 sources) ABDOMAINAL PAIN 08-28-2020 Comment on above: ABDOMAINAL PAIN Unclassified (4 sources) PSYCH EVAL 07-27-2021 Comment on above: PSYCH EVAL Unclassified (1 source) Deliberate self-cutting 07-27-2021 Unclassified (1 source) Self-cutting of wrist 11-11-2021 Unclassified (1 source) Personal history of nonsuicidal self-harm; Translations: [Personal history of nonsuicidal self-harm] Onset: 11-12-2021 Unclassified (1 source) Contact with and (suspected) exposure to COVID-19; Translations: [Contact with and (suspected) exposure to COVID-19] Onset: 11-12-2021 Unclassified (2 sources) Nonsuicidal self-harm; Translations: [Nonsuicidal self-harm] Onset: 07-27-2021 Unclassified (1 source) Pain in left elbow; Translations: [Pain in left elbow] Onset: 11-19-2022 Urinary tract infections (2 sources) Urinary tract infectious disease; Translations: [Urinary tract infection, site not specified] 08-28-2020 Episodic Past or Other Problems Problem Classification Problem Date Documented Da te Episodic/Chronic Epilepsy; convulsions (1 source) Atypical absence seizure; 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, atypical] Onset: 09-15-2018 09-15-2018 Episodic Other nervous system disorders (1 source) Paresthesia of skin; Translations: [Paresthesia of skin] Onset: 06-16-2022 Episodic Other skin disorders (20 sources) Hyperhidrosis; Translations: [Generalized hyperhidrosis] Onset: 04-01-2017 04-01-2017 Episodic Residual codes; unclassified (5 sources) Self-injurious behavior; Translations: [Other problems related to lifestyle] Onset: 06-01-2017 06-06-2017 Episodic Residual codes; unclassified (1 source) Insomnia; Translations: [Insomnia, unspecified] Onset: 11-10-2022 11-10-2022 Episodic Unclassified (1 source) Encounter for other general examination; Translations: [Encounter for other general examination] Onset: 05-17-2017 Unclassified (1 source) Laceration w/o foreign body of right upper arm, init encntr; Translations: [Laceration w/o foreign body of right upper arm, init encntr] Onset: 05-17-2017 Unclassified (1 source) Unspecified injury of head, initial encounter; Translations: [Unspecified injury of head, initial encounter] Onset: 01-19-2017 Unclassified (1 source) PSYCH 07-27-2021 Comment on above: PSYCH Unclassified (1 source) Cough R05.9 Unclassified (1 source) Contact with and (suspected) exposure to covid-19 Z20.822 NEGATED: Highlighted row has not occurred!Residual codes; unclassified (15 sources) Disease Episodic Results Test Name Value Interpretation Reference Range Facility Allergen, Food, Comprehensiv e Profile 09-08-2023 Allergen, Food, Barley IgE <0.10 Normal 0.00-0.34 [facility] Comment on above: Result Comment: ALLERGEN, INTERP, IMMUNOCAP SCORE IGE <0.10 Class 0 No significant level detected 0.10-0.34 Class 0/1 Clinical relevance undertermined 0.35 to 0.70 Class 1 Low 0.71 to 3.50 Class 2 Moderate 3.51 to 17.50 Class 3 High 17.51 to 50.00 Class 4 Very High 50.01 to 100.00 Class 5 Very High >100.00 Class 6 Very High units: kU/L Increasing ranges are reflective of increasing concentrations of allergen specific IgE. These concentrations may not correlate with the degree of clinical response or skin testing results when challenged with a specific allergen. The correlation of allergy laboratory results with the clinical history and in vivo reactivity to specific allergens is essential. A negative test may not rule out clinical allergy or even anaphylaxis. Allergen, Food, Beef IgE <0.10 Normal 0.00-0.34 [facility] Allergen, Food, Cabbage <0.10 Normal 0.00-0.34 [facility] Allergen, Food, Carrot <0.10 Normal 0.00-0.34 [facility] Allergen, Food, Chicken <0.10 Normal 0.00-0.34 [facility] Allergen, Food, Codfish IgE <0.10 Normal 0.00-0.34 [facility] Allergen, Food, [place] IgE <0.10 Normal 0.00-0.34 [facility] Allergen, Food, Crab IgE <0.10 Normal 0.00-0.34 [facility] Allergen, Food, Egg White <0.10 Normal 0.00-0.34 [facility] Allergen, Food, Grape IgE <0.10 Normal 0.00-0.34 [facility] Allergen, Food, Lettuce IgE <0.10 Normal 0.00-0.34 [facility] Allergen, Food, Milk (Cow) IgE <0.10 Normal 0.00-0.34 [facility] Allergen, Food, [place] Re[place] <0.10 Normal 0.00-0.34 [facility] Allergen, Food, Oat IgE <0.10 Normal 0.00-0.34 [facility] Allergen, Food, [place] IgE <0.10 Normal 0.00-0.34 [facility] Allergen, Food, Peanut IgE <0.10 Normal 0.00-0.34 [facility] Allergen, Food, Pepper C. annuum IgE <0.10 Normal 0.00-0.34 [facility] Allergen, Food, Pork IgE <0.10 Normal 0.00-0.34 [facility] Comment on above: Result Comment: Perf ormed at [facility], [address] [place] [address] . Allergen, Food, Potato <0.10 Normal 0.00-0.34 [facility] Allergen, Food, Rice IgE <0.10 Normal 0.00-0.34 [facility] Allergen, Food, [place] IgE <0.10 Normal 0.00-0.34 [facility] Allergen, Food, Shrimp IgE <0.10 Normal 0.00-0.34 [facility] Allergen, Food, Soybean IgE <0.10 Normal 0.00-0.34 [facility] Allergen, Food, Tomato IgE <0.10 Normal 0.00-0.34 [facility] Allergen, Food, Tuna IgE <0.10 Normal 0.00-0.34 [facility] Allergen, Food, Wheat IgE <0.10 Normal 0.00-0.34 [facility] Immunoglobulin E 32 IU/mL Normal 0-100 [facility] Comment on above: Result Comment: [facility], [address] [place] [id number] . B12/Folate Panelon Cobalamin (Vitamin B12) [Mass/Vol] 655 pg/mL Normal 232-1245 [facility] Folic Acid 18.9 ng/mL Normal 4.8-24.2 [facility] Comment on above: Result Comment: Perf ormed at [facility], [address] [place] [id number] . Vitamin D 25 OHon 09-03-2023 Vitamin D 25 OH 22.7 ng/mL Low 30.0-100.0 [facility] Comment on above: Result Comment: Reference Range: Vitamin D status Range Deficiency <20 ng/mL Mild Deficiency 20-30 ng/mL Sufficiency 30-100 ng/mL Toxicity >100 ng/mL Performed at [facility], [address] [place] [id number] . Basic Metabolic Panelon 08-06 Anion gap [Moles/Vol] 15 mmol/L Normal 9-15 [facility] Comment on above: Performed By: #### B MP #### [facility] [address] [place] [address] Calcium [Mass/Vol] 9.4 mg/dL Normal 8.5-9.9 [facility] Comment on above: Performed By: #### B MP #### [facility] [address] [place] [address] Chloride [Moles/Vol] 100 mmol/L Normal 95-107 [facility] Comment on above: Performed By: #### B MP #### [facility] [address] [place] [address] CO2 [Moles/Vol] 25 mmol/L Normal 20-31 [facility] Comment on above: Performed By: #### B MP #### [facility] [address] [place] [address] Creatinine [Mass/Vol] 0.89 mg/dL Normal 0.50-0.90 [facility] Comment on above: Performed By: #### B MP #### [facility] [address] [place] [address] GFR >90.0 Normal >60 [facility] Comment on above: Result Comment: Mario atric calculator link [email or web address]://www.[email or web address].org/[email or web address] Effective Dec 07, 2021 These results are not intended for use in patients <18 years of age. eGFR results are calculated without a race factor using the 2020 CKD-EPI equation. Careful clinical correlation is recommended, particularly when comparing to results calculated using previous equations. The CKD-EPI equation is less accurate in patients with extremes of muscle mass, extra-renal metabolism of creatinine, excessive creatinine ingestion, or following therapy that affects renal tubular secretion. Performed By: #### B MP #### [facility] [address] [place] [address] Glucose [Mass/Vol] 90 mg/dL Normal 70-99 [facility] Comment on above: Performed By: #### B MP #### [facility] [address] [place] [address] Potassium [Moles/Vol] 4.1 mmol/L Normal 3.4-4.9 [facility] Comment on above: Performed By: #### B MP #### [facility] [address] [place] [address] Sodium [Moles/Vol] 140 mmol/L Normal 135-144 [facility] Comment on above: Performed By: #### B MP #### [facility] [address] [place] [address] Urea nitrogen [Mass/Vol] 13 mg/dL Normal 6-20 [facility] Comment on above: Performed By: #### B MP #### [facility] [address] [place] [address] CBC With Platelet and Differ entialon 09-02-2023 Basophils (Bld) [#/Vol] 0.0 10*3/uL Normal 0.0-0.2 [facility] Comment on above: Performed By: #### C BCWD #### [facility] [address] [place] [address] Basophils/100 WBC (Bld) 0.3 % Normal [facility] Comment on above: Performed By: #### C BCWD #### [facility] [address] [place] [address] Eosinophils (Bld) [#/Vol] 0.1 10*3/uL Normal 0.0-0.7 [facility] Comment on above: Performed By: #### C BCWD #### [facility] [address] [place] [address] Eosinophils/100 WBC (Bld) 1.0 % Normal [facility] Comment on above: Performed By: #### C BCWD #### [facility] [address] [place] [address] Erythrocyte distribution width (RBC) [Ratio] 13.1 % Normal 11.5-14.5 [facility] Comment on above: Performed By: #### C BCWD #### [facility] [address] [place] [address] Hematocrit (Bld) [Volume fraction] 36.4 % Low 37.0-47.0 [facility] Comment on above: Performed By: #### C BCWD #### [facility] [address] [place] [address] Hemoglobin (Bld) [Mass/Vol] 11.8 g/dL Low 12.0-16.0 [facility] Comment on above: Performed By: #### C BCWD #### [facility] [address] [place] [address] Lymphocytes (Bld) [#/Vol] 2.1 10*3/uL Normal 1.0-4.8 [facility] Comment on above: Performed By: #### C BCWD #### [facility] [address] [place] [address] Lymphocytes/100 WBC (Bld) 29.3 % Normal [facility] Comment on above: Performed By: #### C BCWD #### [facility] [address] [place] [address] MCH (RBC) [Entitic mass] 31.2 pg Normal 27.0-31.3 [facility] Comment on above: Performed By: #### C BCWD #### [facility] [address] [place] [address] MCHC 32.4 % Low 33.0-37.0 [facility] Comment on above: Performed By: #### C BCWD #### [facility] [address] [place] [address] MCV (RBC) [Entitic vol] 96.3 fL Critically high 79.4-94.8 [facility] Comment on above: Performed By: #### C BCWD #### [facility] [address] [place] [address] Monocytes (Bld) [#/Vol] 0.6 10*3/uL Normal 0.2-0.8 [facility] Comment on above: Performed By: #### C BCWD #### [facility] [address] [place] [address] Monocytes/100 WBC (Bld) 7.7 % Normal [facility] Comment on above: Performed By: #### C BCWD #### [facility] [address] [place] [address] Neutrophils (Bld) [#/Vol] 4.4 10*3/uL Normal 1.4-6.5 [facility] Comment on above: Performed By: #### C BCWD #### [facility] [address] [place] [address] Neutrophils/100 WBC (Bld) 61.4 % Normal [facility] Comment on above: Performed By: #### C BCWD #### [facility] [address] [place] [address] Platelets (Bld) [#/Vol] 333 10*3/uL Normal 130-400 [facility] Comment on above: Performed By: #### C BCWD #### [facility] [address] [place] [address] RBC (Bld) [#/Vol] 3.78 10*6/uL Low 4.20-5.40 [facility] Comment on above: Performed By: #### C BCWD #### [facility] [address] [place] [address] WBC (Bld) [#/Vol] 7.1 10*3/uL Normal 4.8-10.8 [facility] Comment on above: Performed By: #### C BCWD #### [facility] [address] [place] [address] TSH w/Reflexon 08-08-2023 TSH w/Reflex 3.540 uIU/mL Normal 0.440-3.86 [facility] Comment on above: Result Comment: Free T4 will automatically reflex with a TSH result of <0.270 or >4.200 Performed By: #### C BCWD #### [facility] [facility] [address] [place] [address] CBC With Platelet and Differ entialon 06-29-2023 Basophils (Bld) [#/Vol] 0.0 10*3/uL Normal 0.0-0.2 [facility] Comment on above: Performed By: #### C BCWD #### [facility] [address] [place] [address] Basophils/100 WBC (Bld) 0.2 % Normal [facility] Comment on above: Performed By: #### C BCWD #### [facility] [address] [place] [address] Eosinophils (Bld) [#/Vol] 0.0 10*3/uL Normal 0.0-0.7 [facility] Comment on above: Performed By: #### C BCWD #### [facility] [address] [place] [address] Eosinophils/100 WBC (Bld) 0.7 % Normal [facility] Comment on above: Performed By: #### C BCWD #### [facility] [address] [place] [address] Erythrocyte distribution width (RBC) [Ratio] 13.1 % Normal 11.5-14.5 [facility] Comment on above: Performed By: #### C BCWD #### [facility] [address] [place] [address] Hematocrit (Bld) [Volume fraction] 37.5 % Normal 37.0-47.0 [facility] Comment on above: Performed By: #### C BCWD #### [facility] [address] [place] [address] Hemoglobin (Bld) [Mass/Vol] 11.8 g/dL Low 12.0-16.0 [facility] Comment on above: Performed By: #### C BCWD #### [facility] [address] [place] [address] Lymphocytes (Bld) [#/Vol] 2.0 10*3/uL Normal 1.0-4.8 [facility] Comment on above: Performed By: #### C BCWD #### [facility] [address] [place] [address] Lymphocytes/100 WBC (Bld) 35.4 % Normal [facility] Comment on above: Performed By: #### C BCWD #### [facility] [address] [place] [address] MCH (RBC) [Entitic mass] 30.8 pg Normal 27.0-31.3 [facility] Comment on above: Performed By: #### C BCWD #### [facility] [address] [place] [address] MCHC 31.5 % Low 33.0-37.0 [facility] Comment on above: Performed By: #### C BCWD #### [facility] [address] [place] [address] MCV (RBC) [Entitic vol] 97.9 fL Critically high 79.4-94.8 [facility] Comment on above: Performed By: #### C BCWD #### [facility] [address] [place] [address] Monocytes (Bld) [#/Vol] 0.5 10*3/uL Normal 0.2-0.8 [facility] Comment on above: Performed By: #### C BCWD #### [facility] [address] [place] [address] Monocytes/100 WBC (Bld) 8.3 % Normal [facility] Comment on above: Performed By: #### C BCWD #### [facility] [address] [place] [address] Neutrophils (Bld) [#/Vol] 3.2 10*3/uL Normal 1.4-6.5 [facility] Comment on above: Performed By: #### C BCWD #### [facility] [address] [place] [address] Neutrophils/100 WBC (Bld) 55.2 % Normal [facility] Comment on above: Performed By: #### C BCWD #### [facility] [address] [place] [address] Platelets (Bld) [#/Vol] 268 10*3/uL Normal 130-400 [facility] Comment on above: Performed By: #### C BCWD #### [facility] [address] [place] [address] RBC (Bld) [#/Vol] 3.83 10*6/uL Low 4.20-5.40 [facility] Comment on above: Performed By: #### C BCWD #### [facility] [address] [place] [address] WBC (Bld) [#/Vol] 5.8 10*3/uL Normal 4.8-10.8 [facility] Comment on above: Performed By: #### C BCWD #### [facility] [address] [place] [address] Comprehensive Metabolic Pane marcia 06-29-2023 Albumin [Mass/Vol] 4.6 g/dL Normal 3.5-4.6 [facility] Comment on above: Performed By: #### U AR #### [facility] [address] [place] [address] ALP [Catalytic activity/Vol] 75 U/L Normal 40-130 [facility] Comment on above: Performed By: #### U AR #### [facility] [address] [place] [address] ALT [Catalytic activity/Vol] 11 U/L Normal 0-33 [facility] Comment on above: Performed By: #### U AR #### [facility] [address] [place] [address] Anion gap [Moles/Vol] 11 mmol/L Normal 9-15 [facility] Comment on above: Performed By: #### U AR #### [facility] [address] [place] [address] AST [Catalytic activity/Vol] 18 U/L Normal 0-35 [facility] Comment on above: Performed By: #### U AR #### [facility] [address] [place] [address] Bilirubin [Mass/Vol] mg/dL Normal 0.2-0.7 [facility] Comment on above: Performed By: #### U AR #### [facility] [address] [place] [address] Calcium [Mass/Vol] 9.4 mg/dL Normal 8.5-9.9 [facility] Comment on above: Performed By: #### U AR #### [facility] [address] [place] [address] Chloride [Moles/Vol] 104 mmol/L Normal 95-107 [facility] Comment on above: Performed By: #### U AR #### [facility] [address] [place] [address] CO2 [Moles/Vol] 25 mmol/L Normal 20-31 [facility] Comment on above: Performed By: #### U AR #### [facility] [address] [place] [address] Creatinine [Mass/Vol] 0.88 mg/dL Normal 0.50-0.90 [facility] Comment on above: Performed By: #### U AR #### [facility] [address] [place] [address] GFR >90.0 Normal >60 [facility] Comment on above: Result Comment: Pedi atric calculator link https://www.kidney.org/professionals/kdoqi/gfr_calculatorped Effective Dec 07, 2021 These results are not intended for use in patients <18 years of age. eGFR results are calculated without a race factor using the 2020 CKD-EPI equation. Careful clinical correlation is recommended, particularly when comparing to results calculated using previous equations. The CKD-EPI equation is less accurate in patients with extremes of muscle mass, extra-renal metabolism of creatinine, excessive creatinine ingestion, or following therapy that affects renal tubular secretion. Performed By: #### U AR #### [facility] [address] [place] [address] Globulin (S) [Mass/Vol] 2.7 g/dL Normal 2.3-3.5 [facility] Comment on above: Performed By: #### U AR #### [facility] [address] [place] [address] Glucose [Mass/Vol] 97 mg/dL Normal 70-99 [facility] Comment on above: Performed By: #### U AR #### [facility] [address] [place] [address] Potassium [Moles/Vol] 4.6 mmol/L Normal 3.4-4.9 [facility] Comment on above: Performed By: #### U AR #### [facility] [address] [place] [address] Protein [Mass/Vol] 7.3 g/dL Normal 6.3-8.0 [facility] Comment on above: Performed By: #### U AR #### [facility] [address] [place] [address] Sodium [Moles/Vol] 140 mmol/L Normal 135-144 [facility] Comment on above: Performed By: #### U AR #### [facility] [address] [place] [address] Urea nitrogen [Mass/Vol] 16 mg/dL Normal 6-20 [facility] Comment on above: Performed By: #### U AR #### [facility] [address] [place] [address] Albumin [Mass/Vol] 4.7 g/dL Critically high 3.5-4.6 [facility] Comment on above: Performed By: #### C MP #### [facility] [address] [place] [address] ALP [Catalytic activity/Vol] 75 U/L Normal 40-130 [facility] Comment on above: Performed By: #### C MP #### [facility] [address] [place] [address] ALT [Catalytic activity/Vol] 12 U/L Normal 0-33 [facility] Comment on above: Performed By: #### C MP #### [facility] [address] [place] [address] Anion gap [Moles/Vol] 12 mmol/L Normal 9-15 [facility] Comment on above: Performed By: #### C MP #### [facility] [address] [place] [address] AST [Catalytic activity/Vol] 19 U/L Normal 0-35 [facility] Comment on above: Performed By: #### C MP #### [facility] [address] [place] [address] Bilirubin [Mass/Vol] mg/dL Normal 0.2-0.7 [facility] Comment on above: Performed By: #### C MP #### [facility] [address] [place] [address] Calcium [Mass/Vol] 9.4 mg/dL Normal 8.5-9.9 [facility] Comment on above: Performed By: #### C MP #### [facility] [address] [place] [address] Chloride [Moles/Vol] 102 mmol/L Normal 95-107 [facility] Comment on above: Performed By: #### C MP #### [facility] [address] [place] [address] CO2 [Moles/Vol] 24 mmol/L Normal 20-31 [facility] Comment on above: Performed By: #### C MP #### [facility] [address] [place] [address] Creatinine [Mass/Vol] 0.81 mg/dL Normal 0.50-0.90 [facility] Comment on above: Performed By: #### C MP #### [facility] [address] [place] [address] GFR >90.0 Normal >60 [facility] Comment on above: Result Comment: Mario atric calculator link https://www.kidney.org/professionals/kdoqi/gfr_calculatorped Effective Dec 07, 2021 These results are not intended for use in patients <18 years of age. eGFR results are calculated without a race factor using the 2020 CKD-EPI equation. Careful clinical correlation is recommended, particularly when comparing to results calculated using previous equations. The CKD-EPI equation is less accurate in patients with extremes of muscle mass, extra-renal metabolism of creatinine, excessive creatinine ingestion, or following therapy that affects renal tubular secretion. Performed By: #### C MP #### [facility] [address] [place] [address] Globulin (S) [Mass/Vol] 2.6 g/dL Normal 2.3-3.5 [facility] Comment on above: Performed By: #### C MP #### [facility] [address] [place] [address] Glucose [Mass/Vol] 96 mg/dL Normal 70-99 [facility] Comment on above: Performed By: #### C MP #### [facility] [address] [place] [address] Potassium [Moles/Vol] 4.5 mmol/L Normal 3.4-4.9 [facility] Comment on above: Performed By: #### C MP #### [facility] [address] [place] [address] Protein [Mass/Vol] 7.3 g/dL Normal 6.3-8.0 [facility] Comment on above: Performed By: #### C MP #### [facility] [address] [place] [address] Sodium [Moles/Vol] 138 mmol/L Normal 135-144 [facility] Comment on above: Performed By: #### C MP #### [facility] [address] [place] [address] Urea nitrogen [Mass/Vol] 15 mg/dL Normal 6-20 [facility] Comment on above: Performed By: #### C MP #### [facility] [address] [place] [address] HCG Quanton 06-29-2023 HCG Quant <0.1 Normal [facility] Comment on above: Result Comment: Gest ational Age Expected HCG values (mIU/ml) 3 weeks 5-72 4 weeks 10-708 5 weeks 217-8,245 6 weeks 152-32,177 8 weeks 31,366-149,094 12 weeks 27,107-201,615 16 weeks 8,904-55,332 18 weeks 9,649-55,271 Performed By: #### H CGQ #### [facility] [address] [place] [address] Lipid Panel Fastingon 2023 Cholesterol [Mass/Vol] 125 mg/dL Normal 0-199 [facility] Comment on above: Result Comment: ATP III Cholesterol classification is Desirable. Performed By: #### L IPDF #### [facility] [address] [place] [address] HDL Cholesterol Fasting 41 mg/dL Normal 40-59 [facility] Comment on above: Result Comment: ATP III HDL Cholesterol Classification is Desirable. Expected Values: Males: >55 = No Risk 35-55 = Moderate Risk <35 = High Risk Females: >65 = No Risk 45-65 = Moderate Risk <45 = High Risk NCEP Guidelines: Third Report July 2000 >59 = negative risk factor for CHD <40 = major risk factor for CHD Performed By: #### L IPDF #### [facility] [address] [place] [address] LDL Cholesterol (Calculated) Fasting 76 mg/dL Normal 0-129 [facility] Comment on above: Result Comment: ATP III LDL Classification is Optimal. Performed By: #### L IPDF #### [facility] [address] [place] [address] Triglycerides Fasting 38 mg/dL Normal 0-150 [facility] Comment on above: Result Comment: ATP III Triglycerides Classification is Normal. Performed By: #### L IPDF #### [facility] [address] [place] [address] Magnesiumon 06-29-2023 Magnesium [Mass/Vol] 2.0 mg/dL Normal 1.7-2.4 [facility] Comment on above: Performed By: #### M G #### [facility] [address] [place] [address] Phosphoruson 06-29-2023 Phosphate [Mass/Vol] 3.6 mg/dL Normal 2.3-4.8 [facility] Comment on above: Performed By: #### C BCWD #### [facility] [address] [place] [address] TSH w/Reflexon 04-24-2024 TSH w/Reflex 3.990 uIU/mL Critically high 0.440-3.86 [facility] Comment on above: Result Comment: Free T4 will automatically reflex with a TSH result of <0.270 or >4.200 Performed By: #### U AR #### [facility] [address] [place] [address] ELECTROMYOGRAMon 04-13-2023 ELECTROMYOGRAM [facility] [address] [facility] [place] [address] ELECTROMYOGRAM REPORT PATIENT NAME: FABY GALAN : 2000 MED REC NO: [id number] ROOM: ACCOUNT NO: [id number] ADMIT DATE: 04/13/2023 PROVIDER: Antolin Elise MD DATE OF EM04/13/2023 REASON FOR STUDY: Neurophysiological studies are requested for the patient's underlying numbness in the legs. This is mostly in the thighs and she has some back pain. FINDINGS: MOTOR NERVE CONDUCTION STUDIES: Motor nerve conduction study of the right common peroneal nerve shows normal amplitudes, latency, and conduction velocity. Motor nerve conduction study of the left common peroneal nerve shows normal amplitudes, latency, and conduction velocity. Motor nerve conduction study of the right tibial nerve shows normal amplitudes, latency, and conduction velocity. Motor nerve conduction study of the left tibial nerve shows normal amplitudes, latency, and conduction velocity. SENSORY NERVE CONDUCTION STUDIES: The right sural nerve conduction study shows normal peak latencies, amplitudes, and conduction velocity. The left sural nerve conduction study shows normal amplitudes, latency, and conduction velocity. The right superficial peroneal nerve shows normal peak latency, low amplitudes, and normal conduction velocity. The left superficial peroneal nerve shows normal peak latency, low amplitudes, and normal conduction velocity. The saphenous nerves are normal except for low amplitude seen in the right saphenous nerve. Needle electrode examination is entirely normal. IMPRESSION: Normal nerve conduction studies of the lower extremities. Needle electrode examination does not identify any chronic or active radiculopathies. Multiple sensory nerve conduction studies are evaluated to avoid an artifact of temperature differences. This test is personally performed and interpreted by me. Thank you GilbertTello for asking us to assist in the care of this patient. With kindest regards, ANTOLIN ELISE MD [id number] Doc#: [id number] CC: Normal [facility] COVID/FLU/RSV RT-PCRon 03-02 SARS-CoV-2 (COVID-19) RNA TAD+probe Ql (Unsp spec) Negative [facility] Other COVID/FLU/RSV RT-PCR Negative [facility] Other Quick Strepon 03-02-2023 S. pyogenes Org specific cx Ql (Throat) Negative [facility] Other Quick Strep [facility] Other MRI LUMBAR SPINE WO CONTRAST on 02-03-2023 MRI LUMBAR SPINE WO CONTRAST EXAMINATION: MRI OF THE LUMBAR SPINE WITHOUT CONTRAST, 02/03/2023 12:58 pm TECHNIQUE: Multiplanar multisequence MRI of the lumbar spine was performed without the administration of intravenous contrast. COMPARISON: None. HISTORY: ORDERING SYSTEM PROVIDED HISTORY: Meralgia paresthetica of right side, Weakness of right leg TECHNOLOGIST PROVIDED HISTORY: What reading provider will be dictating this exam?->CRC FINDINGS: BONES/ALIGNMENT: There is normal alignment of the spine. The vertebral body heights are maintained. The bone marrow signal appears unremarkable. SPINAL CORD: The conus terminates normally. SOFT TISSUES: No paraspinal mass identified. L1-L2: There is no significant disc herniation, spinal canal stenosis or neural foraminal narrowing. L2-L3: There is no significant disc herniation, spinal canal stenosis or neural foraminal narrowing. L3-L4: There is no significant disc herniation, spinal canal stenosis or neural foraminal narrowing. L4-L5: There is no significant disc herniation, spinal canal stenosis or neural foraminal narrowing. L5-S1: There is no significant disc herniation, spinal canal stenosis or neural foraminal narrowing. IMPRESSION: Unremarkable MRI of the lumbar spine. Interpreted by: Cindy Reddy MD Signed by: Cindy Reddy MD 02/03/23 Final result Normal [facility] Allergen, Region5 Respirator y Panel IgEon 01-29-2023 Allergen, Animal, Cat Dander IgE <0.10 Normal 0.00-0.34 [facility] Allergen, Animal, Dog Dander IgE <0.10 Normal 0.00-0.34 [facility] Allergen, Animal, Mouse Epithelium IgE 0.11 kU/L Normal 0.00-0.34 [facility] Allergen, Fungi/Mold, A. alternatas IgE <0.10 Normal 0.00-0.34 [facility] Comment on above: Result Comment: ALLERGEN, INTERP, IMMUNOCAP SCORE IGE <0.10 Class 0 No significant level detected 0.10-0.34 Class 0/1 Clinical relevance undertermined 0.35 to 0.70 Class 1 Low 0.71 to 3.50 Class 2 Moderate 3.51 to 17.50 Class 3 High 17.51 to 50.00 Class 4 Very High 50.01 to 100.00 Class 5 Very High >100.00 Class 6 Very High units: kU/L Increasing ranges are reflective of increasing concentrations of allergen specific IgE. These concentrations may not correlate with the degree of clinical response or skin testing results when challenged with a specific allergen. The correlation of allergy laboratory results with the clinical history and in vivo reactivity to specific allergens is essential. A negative test may not rule out clinical allergy or even anaphylaxis. Allergen, Fungi/Mold, A. fumigatus IgE <0.10 Normal 0.00-0.34 [facility] Allergen, Fungi/Mold, Hormodendrum <0.10 Normal 0.00-0.34 [facility] Allergen, Fungi/Mold, Muco racemosus IgE <0.10 Normal 0.00-0.34 [facility] Allergen, Fungi/Mold, P. notatum IgE <0.10 Normal 0.00-0.34 [facility] Allergen, Grass, [place] IgE <0.10 Normal 0.00-0.34 [facility] Allergen, Grass, Pan IgE <0.10 Normal 0.00-0.34 [facility] Allergen, Insect, Cockroach, [place]an IgE <0.10 Normal 0.00-0.34 [facility] Allergen, Mites, D. farinae IgE <0.10 Normal 0.00-0.34 [facility] Allergen, Mites, D. pteronyssinus IgE <0.10 Normal 0.00-0.34 [facility] Allergen, Tree, Birch IgE <0.10 Normal 0.00-0.34 [facility] Allergen, Tree, Julian/Maple IgE <0.10 Normal 0.00-0.34 [facility] Allergen, Tree, [place]/Red IgE <0.10 Normal 0.00-0.34 [facility] Allergen, Tree, [place] IgE <0.10 Normal 0.00-0.34 [facility] Allergen, Tree, Elm IgE <0.10 Normal 0.00-0.34 [facility] Allergen, Tree, Ulen IgE <0.10 Normal 0.00-0.34 [facility] Allergen, Tree, Pecan IgE <0.10 Normal 0.00-0.34 [facility] Allergen, Tree, [place] IgE <0.10 Normal 0.00-0.34 [facility] Allergen, Tree, [place] IgE <0.10 Normal 0.00-0.34 [facility] Allergen, Tree, White Indra IgE <0.10 Normal 0.00-0.34 [facility] Allergen, Tree, White [place] IgE <0.10 Normal 0.00-0.34 [facility] Allergen, [place], Common/Short Ragweed <0.10 Normal 0.00-0.34 [facility] Allergen, [place], Pigweed <0.10 Normal 0.00-0.34 [facility] Allergen, [place], Citizen Of [place] Thistle <0.10 Normal 0.00-0.34 [facility] Allergen, [place], Sheep [place] <0.10 Normal 0.00-0.34 [facility] Comment on above: Result Comment: Perf ormed at [facility], [address] [place] [id number] . Immunoglobulin E 26 IU/mL Normal <101 [facility] Comment on above: Result Comment: Perf ormed at [facility], [facility] [place] [address] . CBC With Platelet and Differ entialon 01-21-2023 Basophils (Bld) [#/Vol] 0.0 10*3/uL Normal 0.0-0.2 [facility] Comment on above: Performed By: #### C BCWD #### [facility] [address] [place] [address] Basophils/100 WBC (Bld) 0.2 % Normal [facility] Comment on above: Performed By: #### C BCWD #### [facility] [address] [place] [address] Eosinophils (Bld) [#/Vol] 0.1 10*3/uL Normal 0.0-0.7 [facility] Comment on above: Performed By: #### C BCWD #### [facility] [address] [place] [address] Eosinophils/100 WBC (Bld) 0.8 % Normal [facility] Comment on above: Performed By: #### C BCWD #### [facility] [address] [place] [address] Erythrocyte distribution width (RBC) [Ratio] 13.7 % Normal 11.5-14.5 [facility] Comment on above: Performed By: #### C BCWD #### [facility] [address] [place] [address] Hematocrit (Bld) [Volume fraction] 37.4 % Normal 37.0-47.0 [facility] Comment on above: Performed By: #### C BCWD #### [facility] [address] [place] [address] Hemoglobin (Bld) [Mass/Vol] 11.9 g/dL Low 12.0-16.0 [facility] Comment on above: Performed By: #### C BCWD #### [facility] [address] [place] [address] Lymphocytes (Bld) [#/Vol] 1.9 10*3/uL Normal 1.0-4.8 [facility] Comment on above: Performed By: #### C BCWD #### [facility] [address] [place] [address] Lymphocytes/100 WBC (Bld) 20.2 % Normal [facility] Comment on above: Performed By: #### C BCWD #### [facility] [address] [place] [address] MCH (RBC) [Entitic mass] 30.9 pg Normal 27.0-31.3 [facility] Comment on above: Performed By: #### C BCWD #### [facility] [address] [place] [address] MCHC 31.8 % Low 33.0-37.0 [facility] Comment on above: Performed By: #### C BCWD #### [facility] [address] [place] [address] MCV (RBC) [Entitic vol] 97.1 fL Critically high 79.4-94.8 [facility] Comment on above: Performed By: #### C BCWD #### [facility] [address] [place] [address] Monocytes (Bld) [#/Vol] 0.6 10*3/uL Normal 0.2-0.8 [facility] Comment on above: Performed By: #### C BCWD #### [facility] [address] [place] [address] Monocytes/100 WBC (Bld) 6.5 % Normal [facility] Comment on above: Performed By: #### C BCWD #### [facility] [address] [place] [address] Neutrophils (Bld) [#/Vol] 6.7 10*3/uL Critically high 1.4-6.5 [facility] Comment on above: Performed By: #### C BCWD #### [facility] [address] [place] [address] Neutrophils/100 WBC (Bld) 71.9 % Normal [facility] Comment on above: Performed By: #### C BCWD #### [facility] [address] [place] [address] Platelets (Bld) [#/Vol] 307 10*3/uL Normal 130-400 [facility] Comment on above: Performed By: #### C BCWD #### [facility] [address] [place] [address] RBC (Bld) [#/Vol] 3.85 10*6/uL Low 4.20-5.40 [facility] Comment on above: Performed By: #### C BCWD #### [facility] [address] [place] [address] WBC (Bld) [#/Vol] 9.3 10*3/uL Normal 4.5-11.0 [facility] Comment on above: Performed By: #### C BCWD #### [facility] [address] [place] [address] Comprehensive Metabolic Pane marcia 01-21-2023 Albumin [Mass/Vol] 4.5 g/dL Normal 3.5-4.6 [facility] Comment on above: Performed By: #### U AR #### [facility] [address] [place] [address] ALP [Catalytic activity/Vol] 69 U/L Normal 40-130 [facility] Comment on above: Performed By: #### U AR #### [facility] [address] [place] [address] ALT [Catalytic activity/Vol] 13 U/L Normal 0-33 [facility] Comment on above: Performed By: #### U AR #### [facility] [address] [place] [address] Anion gap [Moles/Vol] 16 mmol/L Critically high 9-15 [facility] Comment on above: Performed By: #### U AR #### [facility] [address] [place] [address] AST [Catalytic activity/Vol] 15 U/L Normal 0-35 [facility] Comment on above: Performed By: #### U AR #### [facility] [address] [place] [address] Bilirubin [Mass/Vol] 0.3 mg/dL Normal 0.2-0.7 [facility] Comment on above: Performed By: #### U AR #### [facility] [address] [place] [address] Calcium [Mass/Vol] 9.5 mg/dL Normal 8.5-9.9 [facility] Comment on above: Performed By: #### U AR #### [facility] [address] [place] [address] Chloride [Moles/Vol] 100 mmol/L Normal 95-107 [facility] Comment on above: Performed By: #### U AR #### [facility] [address] [place] [address] CO2 [Moles/Vol] 23 mmol/L Normal 20-31 [facility] Comment on above: Performed By: #### U AR #### [facility] [address] [place] [address] Creatinine [Mass/Vol] 0.74 mg/dL Normal 0.50-0.90 [facility] Comment on above: Performed By: #### U AR #### [facility] [address] [place] [address] GFR >60.0 Normal >60 [facility] Comment on above: Result Comment: Mario atric calculator link https://www.kidney.org/professionals/kdoqi/gfr_calculatorped Effective Dec 07, 2021 These results are not intended for use in patients <18 years of age. eGFR results are calculated without a race factor using the 2020 CKD-EPI equation. Careful clinical correlation is recommended, particularly when comparing to results calculated using previous equations. The CKD-EPI equation is less accurate in patients with extremes of muscle mass, extra-renal metabolism of creatinine, excessive creatinine ingestion, or following therapy that affects renal tubular secretion. Performed By: #### U AR #### [facility] [address] [place] [address] Globulin (S) [Mass/Vol] 2.5 g/dL Normal 2.3-3.5 [facility] Comment on above: Performed By: #### U AR #### [facility] [address] [place] [address] Glucose [Mass/Vol] 114 mg/dL Critically high 70-99 [facility] Comment on above: Performed By: #### U AR #### [facility] [address] [place] [address] Potassium [Moles/Vol] 4.1 mmol/L Normal 3.4-4.9 [facility] Comment on above: Performed By: #### U AR #### [facility] [address] [place] [address] Protein [Mass/Vol] 7.0 g/dL Normal 6.3-8.0 [facility] Comment on above: Performed By: #### U AR #### [facility] [address] [place] [address] Sodium [Moles/Vol] 139 mmol/L Normal 135-144 [facility] Comment on above: Performed By: #### U AR #### [facility] [address] [place] [address] Urea nitrogen [Mass/Vol] 12 mg/dL Normal 6-20 [facility] Comment on above: Performed By: #### U AR #### [facility] [address] [place] [address] TSH w/Reflexon 01-21-2023 TSH w/Reflex 3.570 uIU/mL Normal 0.440-3.86 [facility] Comment on above: Performed By: #### U AR #### [facility] [address] [place] [address] Urinalysis, reflex to cultur thiago 01-21-2023 Bilirubin Ql (U) Negative Normal Negative [facility] Comment on above: Performed By: #### U AR #### [facility] [address] [place] [address] Clarity (U) Clear Normal Clear [facility] Comment on above: Performed By: #### U AR #### [facility] [address] [place] [address] Color (U) Yellow Normal Straw/[place] [facility] Comment on above: Performed By: #### U AR #### [facility] [address] [place] [address] Glucose Ql (U) Negative Normal Negative [facility] Comment on above: Performed By: #### U AR #### [facility] [address] [place] [address] Hemoglobin Ql (U) Negative Normal Negative [facility] Comment on above: Performed By: #### U AR #### [facility] [address] [place] [address] Ketones Ql (U) TRACE Abnormal Negative [facility] Comment on above: Performed By: #### U AR #### [facility] [address] [place] [address] Leukocyte esterase Test strip Ql (U) Negative Normal Negative [facility] Comment on above: Performed By: #### U AR #### [facility] [address] [place] [address] Nitrite Ql (U) Negative Normal Negative [facility] Comment on above: Performed By: #### U AR #### [facility] [address] [place] [address] pH (U) 6.5 [pH] Normal 5.0-9.0 [facility] Comment on above: Performed By: #### U AR #### [facility] [address] [place] [address] Protein Ql (U) Negative Normal Negative [facility] Comment on above: Performed By: #### U AR #### [facility] [address] [place] [address] Specific gravity (U) [Rel density] 1.027 Normal 1.005-1.03 [facility] Comment on above: Performed By: #### U AR #### [facility] [address] [place] [address] Urine Reflexed to Culture Not Indicated Normal [facility] Comment on above: Performed By: #### U AR #### [facility] [address] [place] [address] Urobilinogen Qn (U) 0.2 {Gregorio'U}/dL Normal < 2.0 [facility] Comment on above: Performed By: #### U AR #### [facility] [address] [place] [address] CBC With Platelet and Differ entialon 01-13-2023 Basophils (Bld) [#/Vol] 0.0 10*3/uL Normal 0.0-0.2 [facility] Comment on above: Performed By: #### C BCWD #### [facility] [address] [place] [address] Basophils/100 WBC (Bld) 0.3 % Normal [facility] Comment on above: Performed By: #### C BCWD #### [facility] [address] [place] [address] Eosinophils (Bld) [#/Vol] 0.1 10*3/uL Normal 0.0-0.7 [facility] Comment on above: Performed By: #### C BCWD #### [facility] [address] [place] [address] Eosinophils/100 WBC (Bld) 1.4 % Normal [facility] Comment on above: Performed By: #### C BCWD #### [facility] [address] [place] [address] Erythrocyte distribution width (RBC) [Ratio] 13.6 % Normal 11.5-14.5 [facility] Comment on above: Performed By: #### C BCWD #### [facility] [address] [place] [address] Hematocrit (Bld) [Volume fraction] 38.3 % Normal 37.0-47.0 [facility] Comment on above: Performed By: #### C BCWD #### [facility] [address] [place] [address] Hemoglobin (Bld) [Mass/Vol] 12.1 g/dL Normal 12.0-16.0 [facility] Comment on above: Performed By: #### C BCWD #### [facility] [address] [place] [address] Lymphocytes (Bld) [#/Vol] 2.4 10*3/uL Normal 1.0-4.8 [facility] Comment on above: Performed By: #### C BCWD #### [facility] [address] [place] [address] Lymphocytes/100 WBC (Bld) 31.5 % Normal [facility] Comment on above: Performed By: #### C BCWD #### [facility] [address] [place] [address] MCH (RBC) [Entitic mass] 30.8 pg Normal 27.0-31.3 [facility] Comment on above: Performed By: #### C BCWD #### [facility] [address] [place] [address] MCHC 31.6 % Low 33.0-37.0 [facility] Comment on above: Performed By: #### C BCWD #### [facility] [address] [place] [address] MCV (RBC) [Entitic vol] 97.5 fL Critically high 79.4-94.8 [facility] Comment on above: Performed By: #### C BCWD #### [facility] [address] [place] [address] Monocytes (Bld) [#/Vol] 0.7 10*3/uL Normal 0.2-0.8 [facility] Comment on above: Performed By: #### C BCWD #### [facility] [address] [place] [address] Monocytes/100 WBC (Bld) 8.6 % Normal [facility] Comment on above: Performed By: #### C BCWD #### [facility] [address] [place] [address] Neutrophils (Bld) [#/Vol] 4.4 10*3/uL Normal 1.4-6.5 [facility] Comment on above: Performed By: #### C BCWD #### [facility] [address] [place] [address] Neutrophils/100 WBC (Bld) 57.7 % Normal [facility] Comment on above: Performed By: #### C BCWD #### [facility] [address] [place] [address] Platelets (Bld) [#/Vol] 333 10*3/uL Normal 130-400 [facility] Comment on above: Performed By: #### C BCWD #### [facility] [address] [place] [address] RBC (Bld) [#/Vol] 3.93 10*6/uL Low 4.20-5.40 [facility] Comment on above: Performed By: #### C BCWD #### [facility] [address] [place] [address] WBC (Bld) [#/Vol] 7.6 10*3/uL Normal 4.5-11.0 [facility] Comment on above: Performed By: #### C BCWD #### [facility] [address] [place] [address] XR elbow LT min 3V*on 2022 XR elbow LT min 3V* [address] [address] XRay Report Signed Patient: Faby Galan MR#: [id number] : 2000 Acct:[id number] Age/Sex: 22 / F ADM Date: 11/19/22 Loc: XDUCLY Room: Type: REG CLI Attending Dr: Leighann GILL Copies to: JAIRO Mcfarlane Ordering Provider: JAIRO Mcfarlane Date of Service: 11/19/22 XR/XR elbow LT min 3V*: Left elbow pain LEFT ELBOW - 4 VIEWS CLINICAL HISTORY: Abdominal pain for the past 6 days anteriorly. No injury. COMPARISON: None AP, lateral and both oblique views were obtained. There is no evidence of fracture or dislocation. There are no significant soft tissue abnormalities. There is no elbow effusion. XR/XR elbow LT min 3V* IMPRESSION: NO ACUTE BONY FINDINGS. Impression dictated by: Camila Perkins M.D.11/19/2022 12:58 PM Dictation Location: [place] [address] Transcribed By: [facility] 11/19/22 1258 Dictated By: Camila Perkins MD 11/19/22 1255 Signed By: 11/19/22 1258 Normal [facility] Vitamin D 25 OHon 10-14-2022 Vitamin D 25 [place] 21.7 ng/mL Low >29.9 [facility] Comment on above: Result Comment: Reference Range: Vitamin D status Range Deficiency <20 ng/mL Mild Deficiency 20-30 ng/mL Sufficiency 30-100 ng/mL Toxicity >100 ng/mL Performed at [facility], [address] [place] [address] . TSH w/Reflexon 10-13-2022 TSH w/Reflex 2.340 uIU/mL Normal 0.440-3.86 [facility] Comment on above: Performed By: #### U AR #### [facility] [address] [place] [address] Thyroxine Freeon 10-13-2022 Thyroxine Free 0.96 ng/dL Normal 0.84-1.68 [facility] Comment on above: Performed By: #### F RT4 #### [facility] [address] [place] [address] ELECTROMYOGRAMon 06-16-2022 ELECTROMYOGRAM [facility] [address] [place] [address] ELECTROMYOGRAM REPORT PATIENT NAME: FABY GALAN : 2000 MED REC NO: [id number] ROOM: ACCOUNT NO: [id number] ADMIT DATE: 06/16/2022 PROVIDER: Rashaad Crockett MD DATE OF EM06/16/2022 REFERRING PROVIDER: Dr. Louis. REASON FOR STUDY: The patient had numbness in the right thigh in the distribution of the lateral cutaneous nerve of the thigh. She has a positive family history of diabetes. FINDINGS: Motor nerve conduction velocities are normal in all the nerves tested. F-wave latencies are delayed in the common peroneal nerves and normal in the tibial nerves bilaterally. Distal motor and sensory latencies are normal in all the nerves tested. Amplitudes of motor and sensory responses are decreased in some of the nerves tested. On concentric needle electrode examination, elma-rb-siqagqvt denervation changes are present in the extensor digitorum brevis muscles. CLINICAL INTERPRETATION: The patient has symptoms consistent with meralgia paresthetica on the right side involving the lateral cutaneous nerve of the thigh on the right side. She does not have evidence of lumbar radiculopathy. The patient is developing changes of peripheral neuropathy of uncertain reason. She has a positive family history of diabetes and needs to be watched. If clinically indicated, other causes of peripheral neuropathy could also be looked into such as hypothyroidism, exposure to toxins, autoimmune disorder, etc. For the paresthesias, she could be tried on medications such as topiramate, gabapentin, Trileptal, etc. If clinically indicated, we could repeat the study in a year. Thank you Dr. Louis for allowing me to see this patient. Please feel free to call me if I can be of any further assistance regarding this patient's evaluation. RASHAAD CROCKETT MD [id number] Doc#: [id number] CC: Normal [facility] EMGon 06-16-2022 Rashaad Crockett MD - 06/16/2022 2:35 PM EDT [address] [address] ELECTROMYOGRAM REPORT PATIENT NAME: FABY GALAN : 2000 MED REC NO: [id number] ROOM: ACCOUNT NO: [id number] ADMIT DATE: 06/16/2022 PROVIDER: Rashaad Crockett MD DATE OF EM06/16/2022 REFERRING PROVIDER: Dr. Louis. REASON FOR STUDY: The patient had numbness in the right thigh in the distribution of the lateral cutaneous nerve of the thigh. She has a positive family history of diabetes. FINDINGS: Motor nerve conduction velocities are normal in all the nerves tested. F-wave latencies are delayed in the common peroneal nerves and normal in the tibial nerves bilaterally. Distal motor and sensory latencies are normal in all the nerves tested. Amplitudes of motor and sensory responses are decreased in some of the nerves tested. On concentric needle electrode examination, qbpn-dr-urmpxugp denervation changes are present in the extensor digitorum brevis muscles. CLINICAL INTERPRETATION: The patient has symptoms consistent with meralgia paresthetica on the right side involving the lateral cutaneous nerve of the thigh. She does not have evidence of lumbar radiculopathy. The patient is developing changes of peripheral neuropathy of uncertain reason. She has a positive family history of diabetes and needs to be watched. If clinically indicated, other causes of peripheral neuropathy could also be looked into such as hypothyroidism, exposure to toxins, autoimmune disorder, etc. For the paresthesias, she could be tried on medications such as topiramate, gabapentin, Trileptal, etc. If clinically indicated, we could repeat the study in a year. Thank you for allowing me to see this patient. Please feel free to call me if I can be of any further assistance regarding this patient's evaluation. RASHAAD CROCKETT MD [id number] Doc#: [id number] CC: [employer] Work Phone: EMGOrdered By: Rashaad lema on 06-16-2022 [employer] Phone: COVID/FLU/RSV RT-PCRon 05-27 SARS-CoV-2 (COVID-19) RNA TAD+probe Ql (Unsp spec) Negative [facility] Other COVID/FLU/RSV RT-PCR Negative [facility] Other XR LUMBAR SPINE (MIN 4 VIEWS )on 05-24-2022 XR LUMBAR SPINE (MIN 4 VIEWS) EXAMINATION: XRAY VIEWS OF THE LUMBAR SPINE 05/24/2022 9:53 am COMPARISON: None. HISTORY: ORDERING SYSTEM PROVIDED HISTORY: Paresthesia of right leg TECHNOLOGIST PROVIDED HISTORY: Reason for exam:->pain Is the patient ?->No What reading provider will be dictating this exam?->CRC FINDINGS: Vertebral body height is maintained. There is no listhesis. Posterior elements are normal appearance. There is no significant facet sclerosis. Disc spaces are preserved IMPRESSION: No significant radiographic abnormality Interpreted by: Mayra Watson MD Signed by: Mayra Watson MD 05/24/22 Final result Normal [facility] Quick Strepon 05-05-2022 S. pyogenes Org specific cx Ql (Throat) Negative [facility] Other Quick Strep [facility] Other Provider Note - ED v3on 11-05 Provider Note - ED v3 Provider Note: Chart Review: ED NOTES ED NOTES: History of present illness: 21-year-old otherwise healthy female complaining of frontal headache for the past 24 hours. Patient denies head injury or recent illness/fever. Patient states she has vomited 2 times and is also photophobic and phono phobic. Patient does not have significant past history of headaches. HISTORY OF PRESENTING ILLNESS FABY is a 21 year old Female and was seen by me at 19-Nov-2021 10:53 for a chief complaint of headache (N/V Took tylenol with no relief) . The historian is the patient. Triage Information: Most recent Vital Sign Value Date Temp (F): 98.9 11-19-2021 10:54 Temp (C): 37.2 11-19-2021 10:54 Heart Rate (beats/min): 109 11-19-2021 10:54 Respirations (breaths/min): 16 11-19-2021 10:54 SpO2 (%): 96 11-19-2021 10:54 BP Systolic (mm Hg): 119 11-19-2021 10:54 BP Diastolic (mm Hg): 71 11-19-2021 10:54 PAST MEDICAL HISTORY PSYCHOSOCIAL SCREENING: NO: concerns for safety at home, feelings of depression, feels like hurting others and feels like hurting self ALLERGIES/INTOLERANCES: No Known Allergies HEALTH HISTORY: No documented data. OUTPATIENT MEDICATIONS: Home Medications Review Status for Reconciliation: N/A Med Status: Incomplete Medication History Drug Name: LEVOTHYROXIN TAB 25MCG Instructions: null Drug Name: SERTRALINE TAB 100MG Instructions: null Drug Name: risperiDONE Instructions: null SIGNIFICANT EVENTS: Immunizations Description:Tdap Past Medical History Description:Hypothyroid Description:Developmental delay Description:anxiiety Description:self harm Description:Cutter REVIEW OF SYSTEMS NEUROLOGICAL: POSITIVE for: headache; All other systems reviewed and are negative PHYSICAL EXAM CONSTITUTIONAL: Appearance: well appearing Distress: no apparent HENMT: Head Examination: atraumatic EYES: Bilateral Eyes: clear CARDIOVASCULAR: Cardiac Rate: normal RESPIRATORY: Respiratory Distress: no respiratory distress GASTROINTESTINAL: Abdominal Exam: soft MUSCULOSKELETAL: Spine appears normal, range of motion is not limited, no muscle or joint tenderness. NEUROLOGICAL: Alert and oriented, no focal deficits, no motor or sensory deficits. SKIN: Skin normal color for race, warm, dry and intact. No evidence of trauma. PSYCHIATRIC: Alert and oriented to person, place, time/situation. normal mood and affect. No apparent risk to self or others. CRITICAL CARE VITAL SIGNS: T PRBP SpO2O2(LPM) %FiO2 Method 19-Nov-2021 14:43:[id number] 95 room air, no respiratory support 19-Nov-2021 10:54:[id number]/71 96 room air, no respiratory support MDM MDM/ED COURSE: Reevaluation of this patient after IV headache cocktail finds patient resting comfortably pain-free at this time wishing to go home. DISPOSITION Diagnosis/Annotation: ED Dx Name:Headache Code:R51 Disposition: discharged Type: home CONSULT CRITICAL CARE TIME Is this a critically ill patient: no Electronic Signatures: Nicko Garcia (PAC) (Signed 19-Nov-2021 17:31) Authored: ED Notes, HPI, PMH, ROS, PE, Results/Vital Signs, MDM/ED Course, Clinical Impression, Attestation, Chart Review, Scores Last Updated: 19-Nov-2021 17:31 by Nicko Garcia (PAC) References: 1. Data Referenced From Triage - ED 19-Nov-2021 10:54 Normal [facility] Risk Screen - Adult Emergenc yon 11-19-2021 Risk Screen - Adult Emergency Preferred Language: Preferred Language: Preferred Language for Discussing Health Care (patient/designee)French Advanced Directives: Advance Directive/DNRno Advance Directive Information Givenpatient/family declined Family Violence Adult: Abuse Screen: Are you or have you been threatened or abused physically, emotionally, or sexually by anyoneno Learning Assessment (Patient): Learning Assessment (Patient): Patient is Able to be Assessed for Learningyes Factors Influencing Readiness to Learnacuteness of illness Factors that Impact Ability to Learnnone Devices/Methods Used to Communicatecommunication board Learning Preferencesindividual instruction Cultural Considerationsnone Developmental Considerationsnone Anabaptism Considerationsnone Learning Assessment (Other Learner): Learning Assessment (Other Learner): Other learner availableno Pressure Injury/TB/Substance: Pressure Injury: Do you have a coughno Smoking Statusnever smoker Alcohol Usedenies Drug Usedenies Admission Risk Screen: Significant IndicatorsComplete CAGE: CAGE: Is this an injured patient at a Trauma Center ([facility]/[place]): no Electronic Signatures: Sintia Riley (NEHA) (Signed 19-Nov-2021 11:46) Authored: Preferred Language, Advanced Directives, Family Violence Adult, Learning Assessment (Patient), Learning Assessment (Other Learner), Pressure Injury/TB/Substance, Pressure Injury, CAGE Last Updated: 19-Nov-2021 11:46 by Sintia Riley (NEHA) Normal [facility] Triage - EDon 11-19-2021 Triage - ED Quick Triage: Are You no Have You Given In The Last 6 Weeksno Are You Currently Breastfeedingno Chart Review: ARRIVAL INFORMATION Mode of Arrival: private vehicle CHIEF COMPLAINT FABY GALAN is a Female patient with a chief complaint of headache (N/V Took tylenol with no relief). Onset of the Complaint: 18-Nov-2021 Triage Date/Time: 19-Nov-2021 10:54 ELEN: 3 Pain Rating (0-10): 10 = Severe Pain location: head Vital Signs: Temperature: 98.9F ( 37.2C) taken forehead Blood Pressure: 119/71 Mean: Heart Rate: 109 Respiratory Rate: 16 Pulse Oximetry: 96% on room air, no respiratory support. Height: 5 feet 1.00 inches. 154.9 CM Weight: 159.8 pounds. Calculated 72.5 kg. (stated) Calculated BMI (kg/m2): 30.215 Calculated BSA (m2) 1.77 Cough lasting greater than 3 weeks: no Patient immunocompromised related to: N/A Allergies: no Last menstrual period: 05-Nov-2021 Patient has homicidal thoughts: no Symptom Notes: . Symptoms Are POSITIVE For: anxiety, nausea and photophobia. Last Known Well: known Time Last Known Well Date/Time: 18-Nov-2021 Risk Screens Suicide Risk Screen In the Past Month: Have you wished you were or wished you could go to sleep and not wake up no In the Past Month: Have you had any actual thoughts of killing yourself no In Your Lifetime: Have you ever done anything, started to do anything, or prepared to do anything to end your life no Sahni Fall Scale Screening Has the patient fallen before (or is the patient in the ED as a result of a fall) has not had a fall Does the patient have an impaired gait does not have impaired gait Is the patient cognitively impaired not cognitively impaired Interventions: Sahni Fall Interventions: LOW INTERVENTIONS: *patient oriented to surroundings and call system, * patient/family falls education completed and documented, *patients fall status communicated during bedside handoff, *whiteboard updated, *mode of toileting discussed with patient, *bed in low position with brakes locked, *call light in reach, * non-skid footwear TRAVEL HISTORY Travel History Coronavirus Screening: no exposure or symptoms Travel Exposure History: NO travel to International locations in the past 30 days PAIN Pain Scale Used: ROMAN Pain Rating (0-10): 10 = Severe Past Medical History: Past Medical History Reviewedyes Electronic Signatures: Camila Rouse) (Signed 19-Nov-2021 10:59) Authored: Quick Triage, Risk Screens, Pain, Travel History, Chart Review, Scores, Past Medical History Last Updated: 19-Nov-2021 10:59 by Camila Rouse (RN) Normal [facility] ECHO Complete 2D W Doppler W Coloron 11-17-2021 Transthoracic Echoca rdiography Report (TTE) Demographics Patient Name ANGELIA HOBBS Gender Female M Patient Number [id number] Race Ethnicity Visit Number [id number] Room Number Corporate ID Date of Study 11/17/2021 Referring Physician Dayna Mendiola Number Date of 2000 Sales Superintendent Lena Linares Age 21 year(s) Interpreting [facility] Physician Cardiology Dayna Mendiola Procedure Type of Study TTE procedure:ECHO COMPLETE 2D W/DOP W/COLOR. Procedure Date Date: 11/17/2021 Start: 01:17 PM Study Location: Echo Lab Indications:Chest pain. Patient Status: Routine Height: 61 inches Weight: 162 pounds BSA: 1.73 m^2 BMI: 30.61 kg/m^2 BP: 104/70 mmHg Conclusions Summary Left ventricular ejection fraction is visually estimated at 50-55%. Normal left ventricular size and function. Mild pulmonic regurgitation present. Signature ---- ---- Findings Left Ventricle Left ventricular ejection fraction is visually estimated at 50-55%. Normal left ventricular size and function. Normal left ventricular wall thickness. Right Ventricle Normal right ventricular chamber size and function. Left Atrium Normal size left atrium. Right Atrium Normal right atrium size. Mitral Valve Structurally normal mitral valve. No evidence of mitral regurgitation. Tricuspid Valve Tricuspid valve is structurally normal. Trace tricuspid regurgitation . Aortic Valve Aortic valve appears to be tricuspid. No evidence of aortic valve regurgitation . Pulmonic Valve The pulmonic valve was not well visualized . Mild pulmonic regurgitation present. Pericardial Effusion No evidence of significant pericardial effusion is noted. Pleural Effusion No evidence of pleural effusion. Aorta \ Miscellaneous Aortic root dimension within normal limits. M-Mode Measurements (cm) LVIDd: 4.15 cm LVIDs: 1.92 cm IVSd: 1.11 cm IVSs: 1.45 cm LVPWd: 0.99 cm LVPWs: 1.54 cm Rt. Vent. Dimension: 1.42 cm AO Root Dimension: 2.47 cm ACS: 1.56 cm LVOT: 1.69 cm Doppler Measurements: AV Velocity:0.02 m/s MV Peak E-Wave: 0.72 m/s AV Peak Gradient: 8.34 mmHg MV Peak A-Wave: 0.52 m/s AV Mean Gradient: 4.44 mmHg AV Area (Continuity):2.16 cm^2 TR Velocity:1.74 m/s Estimated RAP:5 mmHg TR Gradient:12.12 mmHg RVSP:17.12 mmHg Valves Mitral Valve Peak E-Wave: 0.72 m/s Peak A-Wave: 0.52 m/s E/A Ratio: 1.39 Peak Gradient: 2.09 mmHg Deceleration Time: 107.8 msec Tissue Doppler E' Septal Velocity: 0.11 m/s E' Lateral Velocity: 0.15 m/s Aortic Valve Peak Velocity: 1.44 m/s Mean Velocity: 0.99 m/s Peak Gradient: 8.34 mmHg Mean Gradient: 4.44 mmHg Area (continuity): 2.16 cm^2 AV VTI: 25.21 cm Cusp Separation: 1.56 cm Tricuspid Valve Estimated RVSP: 17.12 mmHg Estimated RAP: 5 mmHg TR Velocity: 1.74 m/s TR Gradient: 12.12 mmHg Pulmonic Valve Estimated PASP: 17.12 mmHg LVOT Peak Velocity: 1.26 m/s Mean Velocity: 0.83 m/s Peak Gradient: 6.05 mmHg Mean Gradient: 3.19 mmHg LVOT Diameter: 1.69 cm LVOT VTI: 24.27 cm Structures Left Atrium LA Volume/Index: 42.13 ml /24 m^2 LA Area: 15.2 cm^2 Left Ventricle Diastolic Dimension: 4.15 cm Systolic Dimension: 1.92 cm Septum Diastolic: 1.11 cm Septum Systolic: 1.45 cm PW Diastolic: 0.99 cm PW Systolic: 1.54 cm FS: 53.7 % LV EDV/LV EDV Index: 76.25 ml/44 m^2 LV ESV/LV ESV Index: 11.43 ml/7 m^2 EF Calculated: 85 % LV Length: 7.42 cm LVOT Diameter: 1.69 cm Right Atrium RA Systolic Pressure: 5 mmHg Right Ventricle Diastolic Dimension: 1.42 cm RV Systolic Pressure: 17.12 mmHg Aorta/ Miscellaneous Aorta Aortic Root: 2.47 cm LVOT Diameter: 1.69 cm MLOZ CPACS Result, Unknown Prov ider - 11/17/2021 Transthoracic Echocardiography Report (TTE) Demographics Patient Name ANGELIA HOBBS Gender Female M Patient Number [id number] Race Ethnicity Visit Number [id number] Room Number Corporate ID Date of Study 11/17/2021 Referring Physician Dayna Mendiola Number Date of 2000 Sales Superintendent Lena Linares Age 21 year(s) Interpreting [facility] Physician Cardiology Dayna Mendiola Procedure Type of Study TTE procedure:ECHO COMPLETE 2D W/DOP W/COLOR. Procedure Date Date: 11/17/2021 Start: 01:17 PM Study Location: Echo Lab Indications:Chest pain. Patient Status: Routine Height: 61 inches Weight: 162 pounds BSA: 1.73 m^2 BMI: 30.61 kg/m^2 BP: 104/70 mmHg Conclusions Summary Left ventricular ejection fraction is visually estimated at 50-55%. Normal left ventricular size and function. Mild pulmonic regurgitation present. Signature ---- ---- Findings Left Ventricle Left ventricular ejection fraction is visually estimated at 50-55%. Normal left ventricular size and function. Normal left ventricular wall thickness. Right Ventricle Normal right ventricular chamber size and function. Left Atrium Normal size left atrium. Right Atrium Normal right atrium size. Mitral Valve Structurally normal mitral valve. No evidence of mitral regurgitation. Tricuspid Valve Tricuspid valve is structurally normal. Trace tricuspid regurgitation . Aortic Valve Aortic valve appears to be tricuspid. No evidence of aortic valve regurgitation . Pulmonic Valve The pulmonic valve was not well visualized . Mild pulmonic regurgitation present. Pericardial Effusion No evidence of significant pericardial effusion is noted. Pleural Effusion No evidence of pleural effusion. Aorta \ Miscellaneous Aortic root dimension within normal limits. M-Mode Measurements (cm) LVIDd: 4.15 cm LVIDs: 1.92 cm IVSd: 1.11 cm IVSs: 1.45 cm LVPWd: 0.99 cm LVPWs: 1.54 cm Rt. Vent. Dimension: 1.42 cm AO Root Dimension: 2.47 cm ACS: 1.56 cm LVOT: 1.69 cm Doppler Measurements: AV Velocity:0.02 m/s MV Peak E-Wave: 0.72 m/s AV Peak Gradient: 8.34 mmHg MV Peak A-Wave: 0.52 m/s AV Mean Gradient: 4.44 mmHg AV Area (Continuity):2.16 cm^2 TR Velocity:1.74 m/s Estimated RAP:5 mmHg TR Gradient:12.12 mmHg RVSP:17.12 mmHg Valves Mitral Valve Peak E-Wave: 0.72 m/s Peak A-Wave: 0.52 m/s E/A Ratio: 1.39 Peak Gradient: 2.09 mmHg Deceleration Time: 107.8 msec Tissue Doppler E' Septal Velocity: 0.11 m/s E' Lateral Velocity: 0.15 m/s Aortic Valve Peak Velocity: 1.44 m/s Mean Velocity: 0.99 m/s Peak Gradient: 8.34 mmHg Mean Gradient: 4.44 mmHg Area (continuity): 2.16 cm^2 AV VTI: 25.21 cm Cusp Separation: 1.56 cm Tricuspid Valve Estimated RVSP: 17.12 mmHg Estimated RAP: 5 mmHg TR Velocity: 1.74 m/s TR Gradient: 12.12 mmHg Pulmonic Valve Estimated PASP: 17.12 mmHg LVOT Peak Velocity: 1.26 m/s Mean Velocity: 0.83 m/s Peak Gradient: 6.05 mmHg Mean Gradient: 3.19 mmHg LVOT Diameter: 1.69 cm LVOT VTI: 24.27 cm Structures Left Atrium LA Volume/Index: 42.13 ml /24 m^2 LA Area: 15.2 cm^2 Left Ventricle Diastolic Dimension: 4.15 cm Systolic Dimension: 1.92 cm Septum Diastolic: 1.11 cm Septum Systolic: 1.45 cm PW Diastolic: 0.99 cm PW Systolic: 1.54 cm FS: 53.7 % LV EDV/LV EDV Index: 76.25 ml/44 m^2 LV ESV/LV ESV Index: 11.43 ml/7 m^2 EF Calculated: 85 % LV Length: 7.42 cm LVOT Diameter: 1.69 cm Right Atrium RA Systolic Pressure: 5 mmHg Right Ventricle Diastolic Dimension: 1.42 cm RV Systolic Pressure: 17.12 mmHg Aorta/ Miscellaneous Aorta Aortic Root: 2.47 cm LVOT Diameter: 1.69 cm [employer] Work Phone: ECHO Complete 2D W Doppler W ColorOrdered By: Unknown Result on 11-17-2021 [facility] [employer] Clinical Event Note-discharg e follow upon 11-12-2021 Clinical Event Note-discharge follow up Clinical Event: Clinical Event Note: Topicdischarge follow up Details spoke with patient. advised her that if she needs anything to call her primary care dr or come see us. I also advised her about the survey coming in the mail soon Electronic Signatures: Maryuri Bowie (PT SVS REP) (Signed 12-Nov-2021 12:00) Authored: Clinical Event Note Last Updated: 12-Nov-2021 12:00 by Maryuri Bowie (PT SVS REP) Normal [facility] Provider Note - ED Care Lezama nguyễnon 11-12-2021 Provider Note - ED Care Transition ED Care Transition: Chart Review: ED NOTES ED NOTES: Signed out to me be by the previous provider pending psychiatric evaluation. I did discussion with the social work/psychiatry who is comfortable with discharge with safety plan. Patient will be discharged in the care of her family members. RESULTS/VITAL SIGNS RESULTS: Recent Lab Results: I have reviewed these laboratory results: Complete Blood Count + Differential 11-Nov-2021 18:29:00 ResultValue White Blood Cell Count 13.3 H Red Blood Cell Count 3.82 L HGB 11.3 L HCT 35.4 L MCV 93 MCHC 31.9 L PLT 281 RDW-CV 12.9 Neutrophil % 79.3 Immature Granulocytes % 0.4 Lymphocyte % 14.0 Monocyte % 6.1 Eosinophil % 0.1 Basophil % 0.1 Neutrophil Count 10.59 H Lymphocyte Count 1.87 Monocyte Count 0.81 Eosinophil Count 0.01 Basophil Count 0.01 Comprehensive Metabolic Panel 11-Nov-2021 18:29:00 ResultValue Glucose, Serum 123 H NA 136 K 3.6 CL 98 Bicarbonate, Serum 30 Anion Gap, Serum 12 BUN 15 CREAT 0.87 GFR Female >90 Calcium, Serum 9.5 ALB 4.5 ALKP 60 T Pro 7.2 T Bili 0.4 Alanine Aminotransferase, Serum 14 Aspartate Transaminase, Serum 16 Ethanol Level 11-Nov-2021 18:29:00 ResultValue Ethanol Level <10 Acetylsalicylic Acid Level, Serum 11-Nov-2021 18:29:00 ResultValue Acetylsalicylic Acid Level, Serum <3 Acetaminophen Level, Serum 11-Nov-2021 18:29:00 ResultValue Acetaminophen Level, Serum <10.0 Creatine Kinase, Level 11-Nov-2021 18:29:00 ResultValue Creatine Kinase, Level 128 Drug Screen, Urine 11-Nov-2021 18:27:00 ResultValue Comments. SEE BELOW Drug screen results are presumptive and should not be used to assess compliance with prescribed medication. Contact the performing [facility] laboratory to add-on definitive confirmatory testing if clinically indicated. .Toxicology scre Amphetamine Screen, Urine PRESUMPTIVE NEGATIVE CUTOFF LEVEL: 500 NG/ML Cross-reactivity has been reported with high concentrations of the following drugs: buproprion, chloroquine, chlorpromazine, ephedrine, mephentermine, fenfluramine, phentermine, phenylpropanolamine Barbiturate Screen, Urine PRESUMPTIVE NEGATIVE PRESUMPTIVE NEGATIVE CUTOFF LEVEL: 200 NG/ML Benzodiazepine Screen, Urine PRESUMPTIVE NEGATIVE PRESUMPTIVE NEGATIVE CUTOFF LEVEL: 200 NG/ML Cannabinoid Screen, Urine PRESUMPTIVE NEGATIVE PRESUMPTIVE NEGATIVE CUTOFF LEVEL: 50 NG/ML Cocaine Metabolite Screen, Urine PRESUMPTIVE NEGATIVE PRESUMPTIVE NEGATIVE CUTOFF LEVEL: 150 NG/ML Fentanyl Screen, Urine PRESUMPTIVE NEGATIVE PRESUMPTIVE NEGATIVE CUTOFF LEVEL: 5 NG/ML Methadone Screen, Urine PRESUMPTIVE NEGATIVE CUTOFF LEVEL: 150 NG/ML The metabolite G-iywvg-xublkadwneigcx (LAAM) is not detected by this method in concentrations that would be found in the urine of patients on LAAM therapy. Opiate Screen, Urine PRESUMPTIVE NEGATIVE CUTOFF LEVEL: 300 NG/ML The opiate screen does not detect fentanyl, meperidine, or tramadol. Oxycodone is not consistently detected (refer to Oxycodone Screen, Urine result). Oxycodone Screen, Urine (item) PRESUMPTIVE NEGATIVE CUTOFF LEVEL: 100 NG/ML This test will accurately detect both oxycodone and oxymorphone. PCP Screen, Urine PRESUMPTIVE NEGATIVE CUTOFF LEVEL: 25 NG/ML Cross-reactivity has been reported with dextromethorphan. Urine Test 11-Nov-2021 18:27:00 ResultValue HCG, Urine NEGATIVE Urinalysis 11-Nov-2021 18:27:00 ResultValue Color, Urine YELLOW Reference Range: STRAW,YELLOW Appearance, Urine HAZY Specific [place], Urine 1.015 pH, Urine 7.5 Protein, Urine NEGATIVE Glucose, Urine NEGATIVE Blood, Urine TRACE A Ketones, Urine NEGATIVE Bilirubin, Urine NEGATIVE Urobilinogen, Urine <2.0 Nitrite, Urine NEGATIVE Leukocyte Esterase, Urine SMALL (1+) A Coronavirus 2019, Screen Asymptomatic 11-Nov-2021 18:27:00 ResultValue Fluid Source Nasal, Nasopharyngeal Coronavirus 2019,PCR NOT DETECTED Reference Range: Not Detected .This test has received FDA Emergency Use Authorization (EUA) and has been verified by [facility]. This test is only authorized for the duration of time that circumsta Urinalysis, Microscopic 11-Nov-2021 18:27:00 ResultValue White Cells 10 A Red Blood Cells 2 Epithelial Cells, Squamous 2 Bacteria, Urine 1+ A VITAL SIGNS: T PRBP SpO2O2(LPM) %FiO2 Method 12-Nov-2021 01:17:[id number] 99 room air, no respiratory support 11-Nov-2021 17:52:[id number]/75 96 room air, no respiratory support CLINICAL IMPRESSION Diagnosis/Annotation: ED Dx Name:Self-cutting of wrist Code:S61.519A Name:Suicidal thoughts Code:R45.851 Disposition: discharged Type: home ATTESTATION CRITICAL CARE TIME Is this a critically ill patient: no Electronic Signatures: Easton Nicholson) (Signed 12-Nov-2021 02:14) Authored (more content not included)... Normal [facility] ACETAMINOPHENon 11-11-2021 Acetaminophen [Mass/Vol] ug/mL Normal 10.0 - 30.0 [facility] Comment on above: Performed By: #### H CGS #### [address] [id number] ALCOHOLon 11-11-2021 Ethanol [Mass/Vol] mg/dL Normal [facility] Comment on above: Result Comment: FOR MEDICAL USE ONLY. . REF VALUES <10 Performed By: #### H CGS #### [address] [id number] CBC AND DIFFERENTIALon 11-11 % AUTOMATED IMMATURE GRAN 0.4 % Normal 0.0 - 0.9 [facility] Comment on above: Result Comment: Nydia ture Granulocyte Count (IG) includes promyelocytes, myelocytes and metamyelocytes but does not include bands. Percent differential counts (%) should be interpreted in the context of the absolute cell counts (cells/L). Performed By: #### C MP #### [address] [id number] Basophils (Bld) [#/Vol] 0.01 10*3/uL Normal 0.00 - 0.10 [facility] Comment on above: Performed By: #### C MP #### [address] [id number] Basophils/100 WBC (Bld) 0.1 % Normal 0.0 - 2.0 [facility] Comment on above: Performed By: #### C MP #### [address] [id number] Eosinophils (Bld) [#/Vol] 0.01 10*3/uL Normal 0.00 - 0.70 [facility] Comment on above: Performed By: #### C MP #### [address] [id number] Eosinophils/100 WBC (Bld) 0.1 % Normal 0.0 - 6.0 [facility] Comment on above: Performed By: #### C MP #### [address] [id number] Erythrocyte distribution width (RBC) [Ratio] 12.9 % Normal 11.5 - 14.5 [facility] Comment on above: Performed By: #### C MP #### [address] [id number] Hematocrit (Bld) [Volume fraction] 35.4 % Low 36.0 - 46.0 [facility] Comment on above: Performed By: #### C MP #### [address] [id number] Hemoglobin (Bld) [Mass/Vol] 11.3 g/dL Low 12.0 - 16.0 [facility] Comment on above: Performed By: #### C MP #### [address] [id number] Lymphocytes (Bld) [#/Vol] 1.87 10*3/uL Normal 1.20 - 4.80 [facility] Comment on above: Performed By: #### C MP #### [address] [id number] Lymphocytes/100 WBC (Bld) 14.0 % Normal 13.0 - 44.0 [facility] Comment on above: Performed By: #### C MP #### [address] [id number] MCHC (RBC) [Mass/Vol] 31.9 g/dL Low 32.0 - 36.0 [facility] Comment on above: Performed By: #### C MP #### [address] [id number] MCV (RBC) [Entitic vol] 93 fL Normal 80 - 100 [facility] Comment on above: Performed By: #### C MP #### [address] [id number] Monocytes (Bld) [#/Vol] 0.81 10*3/uL Normal 0.10 - 1.00 [facility] Comment on above: Performed By: #### C MP #### [address] [id number] Monocytes/100 WBC (Bld) 6.1 % Normal 2.0 - 10.0 [facility] Comment on above: Performed By: #### C MP #### [address] [id number] Neutrophils (Bld) [#/Vol] 10.59 10*3/uL High 1.20 - 7.70 [facility] Comment on above: Performed By: #### C MP #### [address] [id number] Neutrophils/100 WBC (Bld) 79.3 % Normal 40.0 - 80.0 [facility] Comment on above: Performed By: #### C MP #### [address] [id number] Platelets (Bld) [#/Vol] 281 10*3/uL Normal 150 - 450 [facility] Comment on above: Performed By: #### C MP #### [address] [id number] RBC 3.82 x10E12/L Low 4.00 - 5.20 [facility] Comment on above: Performed By: #### C MP #### [address] [id number] WBC (Bld) [#/Vol] 13.3 10*3/uL High 4.4 - 11.3 [facility] Comment on above: Performed By: #### C MP #### [address] [id number] COMPREHENSIVE PANELon 2021 Albumin [Mass/Vol] 4.5 g/dL Normal 3.4 - 5.0 [facility] Comment on above: Performed By: #### U A #### [address] [id number] ALP [Catalytic activity/Vol] 60 U/L Normal 33 - 110 [facility] Comment on above: Performed By: #### U A #### [address] [id number] ALT [Catalytic activity/Vol] 14 U/L Normal 7 - 45 [facility] Comment on above: Result Comment: Tonie ents treated with Sulfasalazine may generate falsely decreased results for ALT. Performed By: #### U A #### [address] [id number] Anion gap [Moles/Vol] 12 mmol/L Normal 10 - 20 [facility] Comment on above: Performed By: #### U A #### [address] [id number] AST [Catalytic activity/Vol] 16 U/L Normal 9 - 39 [facility] Comment on above: Performed By: #### U A #### [address] [id number] Bilirubin [Mass/Vol] 0.4 mg/dL Normal 0.0 - 1.2 [facility] Comment on above: Performed By: #### U A #### [address] [id number] Calcium [Mass/Vol] 9.5 mg/dL Normal 8.6 - 10.3 [facility] Comment on above: Performed By: #### U A #### [address] [id number] Chloride [Moles/Vol] 98 mmol/L Normal 98 - 107 [facility] Comment on above: Performed By: #### U A #### [address] [id number] Creatinine [Mass/Vol] 0.87 mg/dL Normal 0.50 - 1.05 [facility] Comment on above: Performed By: #### U A #### [address] [id number] eGFR FEMALE >90 Normal >90 [facility] Comment on above: Result Comment: CALC ULATIONS OF ESTIMATED GFR ARE PERFORMED USING THE 2020 CKD-EPI STUDY REFIT EQUATION WITHOUT THE RACE VARIABLE FOR THE IDMS-TRACEABLE CREATININE METHODS. https://jasn.asnjournals.org/content/early//ASN.8006629205 Performed By: #### U A #### [address] [id number] Glucose [Mass/Vol] 123 mg/dL High 74 - 99 [facility] Comment on above: Performed By: #### U A #### [address] [id number] HCO3 (Bld) [Moles/Vol] 30 mmol/L Normal 21 - 32 [facility] Comment on above: Performed By: #### U A #### [address] [id number] Potassium [Moles/Vol] 3.6 mmol/L Normal 3.5 - 5.3 [facility] Comment on above: Performed By: #### U A #### [address] [id number] Protein [Mass/Vol] 7.2 g/dL Normal 6.4 - 8.2 [facility] Comment on above: Performed By: #### U A #### [address] [id number] Sodium [Moles/Vol] 136 mmol/L Normal 136 - 145 [facility] Comment on above: Performed By: #### U A #### [address] [id number] Urea nitrogen [Mass/Vol] 15 mg/dL Normal 6 - 23 [facility] Comment on above: Performed By: #### U A #### [address] [id number] CORONAVIRUS 2019, SCREEN ASY MPTOMATICon 11-11-2021 SARS-CoV-2 (COVID-19) RNA TAD+probe Ql (Unsp spec) Not detected Normal Not Detected [facility] Comment on above: Result Comment: . This test has received FDA Emergency Use Authorization (EUA) and has been verified by [facility]. This test is only authorized for the duration of time that circumstances exist to justify the authorization of the emergency use of in vitro diagnostic tests for the detection of SARS-CoV-2 virus and/or diagnosis of COVID-19 infection under section 564(b)(1) of the Act, 21 U.S.C. 360bbb-3(b)(1), unless the authorization is terminated or revoked sooner. [facility] is certified under CLIA-88 as qualified to perform high complexity testing. Testing is performed in the [facility] laboratory located at [address] [place] [address]. SARS-CoV-2/Flu/RSV Multiplex Test: Fact sheet for providers: https://www.fda.gov/media/835465/download Fact sheet for patients: https://www.fda.gov/media/454334/download Performed By: #### U A #### [address] [id number] Lab Specimen Source Nasal, Nasopharyngeal Normal [facility] Comment on above: Performed By: #### U A #### [address] [id number] CREATINE KINASEon 11-11-2021 CK [Catalytic activity/Vol] 128 U/L Normal 0 - 215 [facility] Comment on above: Performed By: #### C MP #### [address] [id number] Covid 19 Resultson 2 SARS-CoV-2 (COVID-19) RNA TAD+probe Ql (Unsp spec) NEGATIVE COVID-19 Test Coronaviruses are common world-wide and are the cause of many common colds. SARS-COV2 is a new coronavirus that began circulating worldwide in 2019 so we are calling it COVID-19. It has been estimated that four out of five patients with COVID-19 will recover at home without the need for medical attention. Symptoms of COVID-19 may include cough, fever, shortness of breath, loss of taste or smell and other flu-like symptoms including chills, sore muscles, sore throat, and headache. Severe illness is more common in older people and people with other health problems such as high blood pressure, obesity, and immune system problems. If the test is positive, you have COVID-19. You will be contacted by the ordering physicians office and instructed to remain on home isolation, in accordance with CDC guidelines. You may also be contacted by the [facility] to see if any of your close contacts may have been exposed to the virus and need to quarantine. If the test is negative, you likely do not have COVID-19 at this time, but you still may have a different illness that can spread to other people (like Influenza, or the Flu) and could still be at risk for getting COVID-19. We recommend that you stay away from other people to limit the spread of illness until your symptoms are improving and you are fever-free for 24 hours without the use of fever lowering medications such as acetaminophen or ibuprofen. No test is 100% accurate so if you are still concerned you may have COVID-19, talk to your doctor about the need to continue to stay away from others. Medicines Unless your provider told you not to use the following: Acetaminophen (Tylenol and others) is generally safe. Anti-inflammatory medications, such as Ibuprofen (Advil or Motrin) or Naproxen (Aleve) can also be used. Klxq-txi-iujogpq cough and cold medicines can be used according to the instructions on the package. Some vqhr-xtg-gqqhaxc medicines also contain acetaminophen. Make sure you are not taking more than your recommended dose. For those not hospitalized, there is no specific treatment available for this illness. Antibiotics do not treat Coronaviruses. Follow-Up Follow up with your doctor by scheduling a virtual visit or consider follow-up at one of our urgent care fever clinics. If you are having difficulty breathing, or are very weak and having difficulty standing, this is a medical emergency. Call 911 or have someone take you to the nearest emergency room immediately. If possible, wear a facemask. Additional guidance from the CDC for patients who tested POSITIVE for COVID-19 How to isolate: Isolate yourself in a specific room at home and limit your contact with others. Use a separate bathroom from other members of the household, when possible. Leave home only to get essential medical care. Do not go to work, school or public areas. Avoid using public transportation, ride-sharing, or taxis. Restrict contact with pets and other animals. If you must care for your pet or be around animals while you are sick, wash your hands before and after your interaction and wear a facemask. Make sure that shared spaces in the home have good airflow, such as by an air conditioner or an opened window, weather permitting. Personal Hygiene Procedures: Wear a face mask when in the same room as other people or pets. If a face mask interferes with your breathing, others should wear a mask when sharing space with you. Frequent hand-washing: wash your hands with soap and water for at least 20 seconds. If soap and water are not available, use alcohol-based hand carrier blower. Avoid touching your eyes, nose, and mouth with unwashed hands. Household Hygiene Procedures: Avoid sharing personal household items such as dishes, glassware, cups, eating utensils, towels or bedding with other people or pets in your home. After use, these items should be washed with soap and hot water. Disinfect all high-touch surfaces every day with antibacterial cleaning solutions such as Lysol wipes, bleach, cleansers, etc. High-touch surfaces include tabletops, doorknobs, bathroom fixtures, toilets, phones, keyboards, tablets and bedside tables. Immediately clean any surfaces that may have blood, poop or body fluids on them, using antibacterial cleaning solutions such as Lysol wipes, bleach, cleansers, etc. If clothing or bedding come into contact with blood, poop or body fluids, they should be washed immediately. Follow the directions on the laundry detergent and clothing labels but hot water is recommended when possible. Stopping home isolation precautions: If possible, consult your doctor before stopping home isolation precautions. According to the CDC, you can discontinue home isolation precautions when you have met both of these criteria: Your fever and respiratory symptoms have been gone for 24 yari (more content not included)... Normal [facility] DRUG SCREEN,URINEon 11-12-19 22 AMPHETAMINE SCREEN,U Negative Normal NEGATIVE [facility] Comment on above: Result Comment: CUTO FF LEVEL: 500 NG/ML Cross-reactivity has been reported with high concentrations of the following drugs: buproprion, chloroquine, chlorpromazine, ephedrine, mephentermine, fenfluramine, phentermine, phenylpropanolamine, pseudoephedrine, and propranolol. Performed By: #### D RUG3 #### [address] [id number] BARBITURATES SCREEN,U Negative Normal NEGATIVE [facility] Comment on above: Result Comment: CUTO FF LEVEL: 200 NG/ML Performed By: #### D RUG3 #### [address] [id number] BENZODIAZEPINES SCREEN,U Negative Normal NEGATIVE [facility] Comment on above: Result Comment: CUTO FF LEVEL: 200 NG/ML Performed By: #### D RUG3 #### [address] [id number] CANNABINOIDS SCREEN,U Negative Normal NEGATIVE [facility] Comment on above: Result Comment: CUTO FF LEVEL: 50 NG/ML Performed By: #### D RUG3 #### [address] [id number] COCAINE METABOLITE SCREEN,U Negative Normal NEGATIVE [facility] Comment on above: Result Comment: CUTO FF LEVEL: 150 NG/ML Performed By: #### D RUG3 #### [address] [id number] DRUG SCREEN COMMENT SEE BELOW Normal [facility] Comment on above: Result Comment: Drug screen results are presumptive and should not be used to assess compliance with prescribed medication. Contact the performing [facility] laboratory to add-on definitive confirmatory testing if clinically indicated. . Toxicology screening results are reported qualitatively. The concentration must be greater than or equal to the cutoff to be reported as positive. The concentration at which the screening test can detect an individual drug or metabolite varies. The absence of expected drug(s) and/or drug metabolite(s) may indicate non-compliance, inappropriate timing of specimen collection relative to drug administration, poor drug absorption, diluted/adulterated urine, or limitations of testing. For medical purposes only; not valid for forensic use. . Interpretive questions should be directed to the laboratory medical directors. Performed By: #### D RUG3 #### [address] [id number] FENTANYL SCREEN,URINE Negative Normal NEGATIVE [facility] Comment on above: Result Comment: CUTO FF LEVEL: 5 NG/ML Performed By: #### D RUG3 #### [address] [id number] METHADONE SCREEN,U Negative Normal NEGATIVE [facility] Comment on above: Result Comment: CUTO FF LEVEL: 150 NG/ML The metabolite W-gbgai-maehznxawbvjka (LAAM) is not detected by this method in concentrations that would be found in the urine of patients on LAAM therapy. Performed By: #### D RUG3 #### [address] [id number] OPIATES SCREEN,U Negative Normal NEGATIVE [facility] Comment on above: Result Comment: CUTO FF LEVEL: 300 NG/ML The opiate screen does not detect fentanyl, meperidine, or tramadol. Oxycodone is not consistently detected (refer to Oxycodone Screen, Urine result). Performed By: #### D RUG3 #### [address] [id number] OXYCODONE SCREEN,U Negative Normal NEGATIVE [facility] Comment on above: Result Comment: CUTO FF LEVEL: 100 NG/ML This test will accurately detect both oxycodone and oxymorphone. Performed By: #### D RUG3 #### [address] [id number] PCP SCREEN,U Negative Normal NEGATIVE [facility] Comment on above: Result Comment: CUTO FF LEVEL: 25 NG/ML Cross-reactivity has been reported with dextromethorphan. Performed By: #### D RUG3 #### [facility] [address], [place] [id number] HCG,URINEon 11-11-2021 Beta HCG ( test) Ql (U) Negative Normal Negative [facility] Comment on above: Performed By: #### H CGU #### [address] [id number] Provider Note - ED v3on Provider Note - ED v3 Provider Note: Chart Review: ED NOTES ED NOTES: Chief Complaint: Self-harm, SI History of Present Illness: This is a 21-year-old female presenting for psychiatric evaluation. Patient reports today she had worsening symptoms of depression and thoughts of suicide. Patient used a razor blade to make cuts on her right forearm. History of prior self-harm and depression. States she follows with outpatient psychiatry and therapist. Does not report any specific stressor or event that made her symptoms worse. Denies any ingestions. History of prior psychiatric hospitalizations. Review of Systems All systems negative except as noted in HPI or elsewhere in the chart Constitutional: no fever, chills Eyes: no redness, discharge, pain ENT: no sore throat, nosebleeds Cardiovascular: no chest pain, leg edema Respiratory: no shortness of breath, cough GI: no nausea, vomiting, diarrhea, pain : no dysuria, discharge Musculoskeletal: no myalgia, neck/back pain Skin: no rash, +lacerations Neurological: no headache, numbness, change in function, weakness, AMS, speech change Psychiatric: no AMS, agitation. + Depression, SI Metabolic: no fatigue, polyuria Hematologic: no bleeding, bruising, petechiae Allergic: no atopic dermatitis PMFSH Nursing notes reviewed and confirmed by me. Past Medical History: Developmental delay, anxiety, depression Past Surgical History: Social History: no smoking, alcohol use, substance abuse Allergies and Medications: See nurses notes. Physical Exam Constitutional: Vital signs per nursing notes. Well developed, well nourished. No acute distress. Psychiatric: alert and oriented to person, place, and time; flat affect; memory intact Eyes: PERRL; conjunctivae and lids normal; EOMI ENT: MMM Neck: neck supple, no meningismus; trachea midline without deviation Chest: no masses or tenderness Respiratory: normal respiratory effort and excursion, lungs CTAB Cardiovascular: regular rate and rhythm; symmetric pulses; no edema; normal capillary refill; distal pulses present Neurological: normal speech; CN II-XII grossly normal, motor and sensory function intact; no nystagmus GI: no masses, tenderness, rebound or guarding Lymphatic: no adenopathy of neck Musculoskeletal: normal gait, no deformity Skin: Right volar forearm with superficial hemostatic linear abrasions GCS: 15 HISTORY OF PRESENTING ILLNESS FABY is a 21 year old Female and was seen by me at 11-Nov-2021 18:00 for a chief complaint of psychiatric evaluation (SI, cutting self on arm) . Triage Information: Most recent Vital Sign Value Date Temp (F): 97.5 11-11-2021 17:52 Temp (C): 36.4 11-11-2021 17:52 Heart Rate (beats/min): 114 11-11-2021 17:52 Respirations (breaths/min): 18 11-11-2021 17:52 SpO2 (%): 96 11-11-2021 17:52 BP Systolic (mm Hg): 118 11-11-2021 17:52 BP Diastolic (mm Hg): 75 11-11-2021 17:52 PAST MEDICAL HISTORY ALLERGIES/INTOLERANCES: No Known Allergies HEALTH HISTORY: No documented data. OUTPATIENT MEDICATIONS: Home Medications Review Status for Reconciliation: N/A Med Status: Incomplete Medication History Drug Name: LEVOTHYROXIN TAB 25MCG Instructions: null Drug Name: SERTRALINE TAB 100MG Instructions: null Drug Name: risperiDONE Instructions: null SIGNIFICANT EVENTS: Immunizations Description:Tdap Past Medical History Description:Hypothyroid Description:Developmental delay Description:anxiiety Description:self harm Description:Cutter CRITICAL CARE RESULTS: Recent Lab Results: I have reviewed these laboratory results: Complete Blood Count + Differential 11-Nov-2021 18:29:00 ResultValue White Blood Cell Count 13.3 H Red Blood Cell Count 3.82 L HGB 11.3 L HCT 35.4 L MCV 93 MCHC 31.9 L PLT 281 RDW-CV 12.9 Neutrophil % 79.3 Immature Granulocytes % 0.4 Lymphocyte % 14.0 Monocyte % 6.1 Eosinophil % 0.1 Basophil % 0.1 Neutrophil Count 10.59 H Lymphocyte Count 1.87 Monocyte Count 0.81 Eosinophil Count 0.01 Basophil Count 0.01 Comprehensive Metabolic Panel 11-Nov-2021 18:29:00 ResultValue Glucose, Serum 123 H NA 136 K 3.6 CL 98 Bicarbonate, Serum 30 Anion Gap, Serum 12 BUN 15 CREAT 0.87 GFR Female >90 Calcium, Serum 9.5 ALB 4.5 ALKP 60 T Pro 7.2 T Bili 0.4 Alanine Aminotransferase, Serum 14 Aspartate Transaminase, Serum 16 Ethanol Level 11-Nov-2021 18:29:00 ResultValue Ethanol Level <10 Acetylsalicylic Acid Level, Serum 11-Nov-2021 18:29:00 ResultValue Acetylsalicylic Acid Level, Serum <3 Acetaminophen Level, Serum 11-Nov-2021 18:29:00 ResultValue Acetaminophen Level, Serum <10.0 Creatine Kinase, Level 11-Nov-2021 18:29:00 ResultValue Creatine Kinase, Level 128 Drug Screen, Urine 11-Nov-2021 18:27:00 ResultValue Comments. SEE BELOW Drug screen results are presu (more content not included)... Normal [facility] SALICYLATEon 11-11-2021 SALICYLATE <3 Normal 4 - 20 [facility] Comment on above: Performed By: #### U A #### [address] [id number] Triage - EDon 11-11-2021 Triage - ED Quick Triage: Are You no Have You Given In The Last 6 Weeksno Are You Currently Breastfeedingno The patient and/or guardian verbally acknowledges placement for services into the following (when Urgent Care Service hours are operating):emergency department Chart Review: PRIMARY ASSESSMENT FABY GALAN's primary assessment is Within Defined Limits. The airway is open and patent. Breathing spontaneous and unlabored with clear breath sounds bilaterally. Circulation is normal with good peripheral pulses. Skin is warm and dry and color is normal for race. TREATMENT PRIOR TO ARRIVAL Treatment Prior to Arrival: Prior to arrival in the Emergency Department FABY GALAN had treatment conducted by EMS which included the following; see ambulance record. ARRIVAL INFORMATION Means of Arrival: stretcher Mode of Arrival: ambulance Agency Name: [facility] Arrival From: home Accompanied By: self and marketing administrator Language: Spoken Language Preferred: French Reading Language Preferred: French Emblem Cutter Requested: no operations lieutenant was requested CHIEF COMPLAINT FABY GALAN is a Female patient with a chief complaint of psychiatric evaluation (SI, cutting self on arm). Triage Date/Time: 11-Nov-2021 17:52 ELEN: 2 Pain Rating (0-10): 0 = None Vital Signs: Temperature: 97.5F ( 36.4C) taken forehead Blood Pressure: 118/75 Mean: Heart Rate: 114 Respiratory Rate: 18 Pulse Oximetry: 96% on room air, no respiratory support. Height: 5 feet 1.00 inches. 154.9 CM Weight: 158.7 pounds. Calculated 72.0 kg. (stated) Calculated BMI (kg/m2): 30.007 Calculated BSA (m2) 1.76 [place] Coma Scale: Best Eye Response: (E4) spontaneous Best Motor Response: (M6) obeys commands Best Verbal Response: (V5) oriented Nupur Score: 15 [place] Assessment Qualifiers: patient not sedated/intubated Allergies: no Mask applied: yes Patient has homicidal thoughts: no Risk Screens Suicide Risk Screen In the Past Month: Have you wished you were or wished you could go to sleep and not wake up yes In the Past Month: Have you had any actual thoughts of killing yourself yes In the Past Month: Have you been thinking about how you might do this yes In the Past Month: Have you had these thoughts and had some intention of acting on them yes In the Past Month: Have you started to work out or worked out the details of how to kill yourself Do you intend to carry out this plan yes In Your Lifetime: Have you ever done anything, started to do anything, or prepared to do anything to end your life yes Was this within the past 3 months yes Suicide Risk Interventions Low Suicide Risk Interventions: consider EPAT referral consult consider behavioral health resources will be given at discharge Moderate Suicide Risk Interventions: Interventions initiated: comfort care provided, items from room which may be used to harm self removed, patient placed in an easily observable room with curtain remaining open, patient placed in gown and wanded, provider notified, remaining risks identified and mitigated, therapeutic diversion offered (puzzles, games, journaling, TV blank box) family/visitor advised to maintain control of own personal belongings in room; finger food diet enforced; frequent rounding with irregular checks at a minimum of every 15 minutes to assess psych safety performed (patient easily observed); hourly behavioral assessment performed; patient placed in psych safe room and personal belongings secured High Suicide Risk Interventions: patient under constant observation at all timesicon high Items removed from room: bedside table/carts, bulletin board push pins and tasks, cleaning solutions/chemicals, coat hangers, gloves, IV poles, linen bin, loose cords (monitor cords, electric, tubing), otoscope, oxygen/oxygen canister, plastic bags (including trash bags), suction regulators, sharp or glass objects, sharps container, and scissors Remaining risks identified and mitigated: bed/stretcher Sahni Fall Scale Screening Has the patient fallen before (or is the patient in the ED as a result of a fall) has not had a fall Does the patient have an impaired gait does not have impaired gait Is the patient cognitively impaired not cognitively impaired Interventions: Sahni Fall Interventions: LOW INTERVENTIONS: *patient oriented to surroundings and call system, * patient/family falls education completed and documented, *patients fall status communicated during bedside handoff, *whiteboard updated, *mode of toileting discussed with patient, *bed in low position with brakes locked, *call light in reach, * non-skid footwear TRAVEL HISTORY Travel History Coronavirus Screening: no exposure or symptoms Travel Exposure History: NO travel to International locations in the past 30 days PAIN Pain (more content not included)... Normal [facility] UA MICROSCOPICon 11-11-2021 BACTERIA 1+ /HPF Abnormal [facility] Comment on above: Performed By: #### U AMIC #### [address] [id number] RBC 2 /HPF Normal 0-5 [facility] Comment on above: Performed By: #### U AMIC #### [address] [id number] SQUAMOUS EPITH. CELLS 2 /HPF Normal [facility] Comment on above: Performed By: #### U AMIC #### [address] [id number] WBC 10 /HPF Abnormal 0-5 [facility] Comment on above: Performed By: #### U AMIC #### [address] [id number] URINALYSISon 11-11-2021 Appearance (U) HAZY Normal CLEAR [facility] Comment on above: Performed By: #### U A #### [address] [id number] Bilirubin Ql (U) Negative Normal NEGATIVE [facility] Comment on above: Performed By: #### U A #### [address] [phone] Color (U) YELLOW Normal STRAW,YELL OW [facility] Comment on above: Performed By: #### U A #### [address] [id number] Glucose Ql (U) Negative Normal NEGATIVE [facility] Comment on above: Performed By: #### U A #### [address] [id number] Hemoglobin Ql (U) TRACE Abnormal NEGATIVE [facility] Comment on above: Performed By: #### U A #### [address] [id number] Ketones Ql (U) Negative Normal NEGATIVE [facility] Comment on above: Performed By: #### U A #### [address] [id number] Leukocyte esterase Test strip Ql (U) SMALL (1+) Abnormal NEGATIVE [facility] Comment on above: Performed By: #### U A #### [address] [id number] Nitrite Ql (U) Negative Normal NEGATIVE [facility] Comment on above: Performed By: #### U A #### [address] [id number] pH (U) 7.5 [pH] Normal 5.0 - 8.0 [facility] Comment on above: Performed By: #### U A #### [address] [id number] Protein Ql (U) Negative Normal NEGATIVE [facility] Comment on above: Performed By: #### U A #### [address] [id number] Specific gravity (U) [Rel density] 1.015 Normal 1.005 - 1.035 [facility] Comment on above: Performed By: #### U A #### [facility] [address], [place] [phone] Urobilinogen (U) [Mass/Vol] mg/dL Normal 0.0 - 1.9 [facility] Comment on above: Performed By: #### U A #### [address] [phone] CNOVon 10-13-2021 CNOV Office Visit ([facility] ) ANGELIAFABY BEDOLLA ([id number]) 4 F Date Time Provider Department 10/13/21 1:10 PM MARK KENNY [facility] During your visit today, we recorded the following information about you: Temperature Pulse Respiration Blood pressure 98 degrees 92/minute 20/minute 101/59 Weight Last Period 72.3 kg 10/05/21 Mark Kenny PA-C 10/13/2021 3:11 PM Signed This note was created using NoteWriter. Subjective Faby Galan is a 21 year old female. HPI [facility]: 21 year old female Patient presents with: Ankle Pain: Right ankle, started hurting this morning. Thinks she overstretched it in gymnastics yesterday HPI- Faby is a 21 year old female with past medical history of intellectual disability, depression, self-injurious behavior who presents for evaluation of the above chief complaint. Patient presents for right ankle pain. She states she was stretching at gymnastics class yesterday and thinks she pulled it the wrong way. She denies any trauma to the area. It is better with resting the area, worse with ambulating. The nurse notes to me prior to entering the room that she saw some cuts on patient's wrists. I did ask patient about them, patient declines letting me look at them. She states she did see her counselor before coming here today. She denies any suicidal or homicidal ideation, she states she does feel safe at home. PMH significant for : PAST MEDICAL HISTORY Diagnosis Date Hypothyroid 2017 No past surgical history on file. ALLERGIES Patient has no known allergies. MEDICATIONS sertraline (ZOLOFT) 25 mg tablet Take 125 mg by mouth. glycopyrrolate (ROBINUL) 1 mg tablet Take 1 mg by mouth. Melatonin 5 mg cap Take 5 mg by mouth. sertraline (ZOLOFT) 100 mg tablet TAKE 1 TABLET ONCE DAILY take with 25mg tablet for total dose of 125mg) hydrOXYzine HCl (ATARAX) 25 mg tablet Take 1 tablet by mouth three times daily as needed (anxiety). Levothyroxine 25 mcg cap Take 25 mcg by mouth. No family history on file. Social History Tobacco Use Smoking status: Never Passive exposure: Yes Smokeless tobacco: Never Substance Use Topics Alcohol use: No Drug use: No No other acute complaints or symptoms at this time. Patient's last menstrual period was 10/05/2021. Tobacco Use: Never Review of Systems Constitutional: Negative for chills and fever. Musculoskeletal: Positive for arthralgias. Negative for gait problem and joint swelling. Skin: Negative for rash and wound. Neurological: Negative for weakness and numbness. Objective BP 101/59 Pulse 92 Temp 36.7 ?C (98 ?F) Resp 20 Wt 72.3 kg (159 lb 8 oz) LMP 10/05/2021 SpO2 98% Physical Exam Vitals reviewed. Constitutional: General: She is not in acute distress. Appearance: Normal appearance. She is well-developed, well-groomed and overweight. She is not ill-appearing or toxic-appearing. Cardiovascular: Rate and Rhythm: Normal rate and regular rhythm. Pulses: Dorsalis pedis pulses are 2+ on the right side. Posterior tibial pulses are 2+ on the right side. Heart sounds: Normal heart sounds. Pulmonary: Effort: Pulmonary effort is normal. Breath sounds: Normal breath sounds and air entry. Musculoskeletal: Feet: Skin: General: Skin is warm and dry. Findings: No bruising or rash. Neurological: Mental Status: She is alert and oriented to person, place, and time. Gait: Gait is intact. Psychiatric: Mood and Affect: Mood normal. Behavior: Behavior is cooperative. Assessment and Plan ASSESSMENT/PLAN: 1. Sprain of ligament of right ankle, initial encounter - ICD9: 845.00, ICD10: S93.401A - XR ANKLE GENERAL 3V AP/LAT/OBL RIGHT -may use your mobic to help with pain -BIBI bandage is applied. Rest and elevate the affected painful area. Apply cold compresses intermittently. As pain recedes, begin normal activities slowly as tolerated. If not improving in one week, see PCP. If symptoms progressively worsen, report to ER for evaluation. Patient verbalized understanding of plan. Please follow up with Primary Care Provider or with a Specialist if consulted for current condition. Go to the ER immediately if you have any of the following symptoms: Chest pain, shortness of breath, severe headache, high fever, nausea, vomiting, abdominal pain, dizziness/light headedness, feeling like you are going to pass out, weakness, or for any other new or worsening symptoms. Mark Kenny PA-C 10/13/2021 1:37 PM Signed ASSESSMENT/PLAN: 1. Sprain of ligament of right ankle, initial encounter - ICD9: 845.00, ICD10: S93.401A - XR ANKLE GENERAL 3V AP/LAT/OBL RIGHT -may use your mobic to help with pain -BIBI bandage is applied. Rest and elevate the affected painful area. Apply cold compresses intermittently. As pain recedes, begin normal activities slowly as tolerated. If not (more content not included)... Normal [facility] Jie 10-13-2021 TERESAN Telephone ([facility]) FABY GALAN ([id number]) 4 F Date Time Provider Department 10/13/21 MARK KENNY [facility] During your visit today, we recorded the following information about you: Mark Kenny PA-C 10/13/2021 2:32 PM Signed Please call patient and give her the following message : x-rays of the ankle do not show a fracture. Please continue with the plan of care that we discussed for sprain. Danielle Carrera MA 10/13/2021 3:46 PM Signed Verified name and . Relayed below message. Verbalized understanding. Danielle Debi FILLER SHREDDER Allergies As of Date: 10/13/2021 (No Known Allergies) Date Reviewed: 10/13/2021 Reviewed by: Ameya Aaron MA - Fully Assessed Reason for Visit: Results [95] Cmt: X-rays of the ankle Prescriptions as of 10/13/2021 - VITAMIN D 25 mcg (1,000 unit) tab tablet Take 1,000 Units by mouth once daily. - lamoTRIgine (LAMICTAL) 150 mg tablet Take 150 mg by mouth twice daily. - loratadine (CLARITIN) 10 mg tablet - LORazepam (ATIVAN) 1 mg tablet - meloxicam (MOBIC) 15 mg tablet - metFORMIN ER (GLUCOPHAGE XR) 500 mg 24 hr tablet - INVEGA SUSTENNA 156 mg/mL syrg injection Inject 156 mg into the muscle once for 1 dose (10/16/2021 is date of next injection) - sertraline (ZOLOFT) 25 mg tablet Take 125 mg by mouth. - glycopyrrolate (ROBINUL) 1 mg tablet Take 1 mg by mouth. - Melatonin 5 mg cap Take 5 mg by mouth. - sertraline (ZOLOFT) 100 mg tablet TAKE 1 TABLET ONCE DAILY take with 25mg tablet for total dose of 125mg) - hydrOXYzine HCl (ATARAX) 25 mg tablet Take 1 tablet by mouth three times daily as needed (anxiety). - Levothyroxine 25 mcg cap Take 25 mcg by mouth. Problem List As Of Date 10/13/2021 Noted Resolved Depression [F32.A] 05/31/2017 Self-injurious behavior [Z72.89] 06/01/2017 Intellectual disability [F79] 06/03/2017 Encounter Status:Closed by MARK KENNY on 10/13/21 Normal [facility] No Panel Informationon 10-13 [facility] XR ANKLE 3V AP/LAT/OBL RTon 10-13-2021 XR ANKLE 3V AP/LAT/OBL RT * * *Final Report* * * DATE OF EXAM: Oct 13 2021 1:57PM CHX [id number] - XR ANKLE 3V AP/LAT/OBL RT / PROCEDURE REASON: Sprain of ligament of right ankle, initial encounter * * * * Physician Interpretation * * * * RIGHT ANKLE, 3 VIEWS, 10/13/2021. HISTORY: Injury. Sprain of the ligament of right ankle. Ankle pain. COMPARISON: None TECHNIQUE: AP, lateral, and internal oblique views. RESULTS: The bones appear intact and normally aligned. There is no widening of the ankle mortise. The joint spaces appear normal. There are no soft tissue calcifications. There is a focal area of sclerosis in the right calcaneus, most consistent with a benign bone [place] IMPRESSION: Within normal limits. No acute changes. Golf Professional: [facility] Transcribe Date/Time: Oct 13 2021 1:58P Dictated by : KEVIN JOHN MD This examination was interpreted and the report reviewed and electronically signed by: KEVIN JOHN MD on Oct 13 2021 2:00PM EST [id number] Normal [facility] MRI SHOULDER RIGHT WO CONTRA STon 09-03-2021 Unremarkable MRI right shoulder. [facility] RADIOLOGY EXAMINATION: MRI YOLANDA ULDER RIGHT WO CONTRAST HISTORY: M25.511 Acute pain of right shoulder ICD10 gymnastics related injury. TECHNIQUE: Routine non-contrast MRI of the shoulder , right side COMPARISON: Radiographs 08/26/2021. RESULT: Rotator cuff tendons: Appear intact. Long head biceps tendon: Intact with appropriate location. Muscle: Muscle bulk and signal intensity are within normal limits. Labrum: Appears intact. Bones and Marrow: No evidence of fracture or bone marrow replacing process. Glenohumeral Joint: Cartilage appears intact. No joint effusion or synovitis. Acromioclavicular Joint: Within normal limits. Other: No other significant abnormality. [facility] RADIOLOGY Teofilo Logan M D - 09/03/2021 EXAMINATION: MRI SHOULDER RIGHT WO CONTRAST HISTORY: M25.511 Acute pain of right shoulder ICD10 gymnastics related injury. TECHNIQUE: Routine non-contrast MRI of the shoulder , right side COMPARISON: Radiographs 08/26/2021. RESULT: Rotator cuff tendons: Appear intact. Long head biceps tendon: Intact with appropriate location. Muscle: Muscle bulk and signal intensity are within normal limits. Labrum: Appears intact. Bones and Marrow: No evidence of fracture or bone marrow replacing process. Glenohumeral Joint: Cartilage appears intact. No joint effusion or synovitis. Acromioclavicular Joint: Within normal limits. Other: No other significant abnormality. IMPRESSION: Unremarkable MRI right shoulder. [facility] Phone: Radiology Study observation (narrative) [facility] Phone: MRI SHOULDER RIGHT WO CONTRA STOrdered By: Teofilo Logan on 09-03-2021 [facility] Phone: ACETAMINOPHENon 07-27-2021 ACETAMINOPHEN Canceled Normal [facility] Comment on above: Order Comment: TEST COMPREHENSIVE PANEL WAS CANCELLED, 07/27/2021 21:28 Patient Discharged. Performed By: #### C MP #### [address] [id number] ALCOHOLon 07-27-2021 ALCOHOL Canceled Normal [facility] Comment on above: Order Comment: TEST ALCOHOL WAS CANCELLED, 07/27/2021 21:28 Patient Discharged. Result Comment: FOR MEDICAL USE ONLY. Performed By: #### A LC #### [address] [id number] CBC AND DIFFERENTIALon 07-27 % AUTOMATED IMMATURE GRAN Canceled Normal [facility] Comment on above: Order Comment: TEST CBC AND DIFFERENTIAL WAS CANCELLED, 07/27/2021 21:28 Patient Discharged. Result Comment: Nydia ture Granulocyte Count (IG) includes promyelocytes, myelocytes and metamyelocytes but does not include bands. Percent differential counts (%) should be interpreted in the context of the absolute cell counts (cells/L). Performed By: #### C BCDF #### [address], [place] [id number] % BASOPHIL Canceled Normal [facility] Comment on above: Order Comment: TEST CBC AND DIFFERENTIAL WAS CANCELLED, 07/27/2021 21:28 Patient Discharged. Performed By: #### C BCDF #### [address], [place] [id number] % EOSINOPHIL Canceled Normal [facility] Comment on above: Order Comment: TEST CBC AND DIFFERENTIAL WAS CANCELLED, 07/27/2021 21:28 Patient Discharged. Performed By: #### C BCDF #### [address], [place] [id number] % LYMPHOCYTE Canceled Normal [facility] Comment on above: Order Comment: TEST CBC AND DIFFERENTIAL WAS CANCELLED, 07/27/2021 21:28 Patient Discharged. Performed By: #### C BCDF #### [address] [id number] % MONOCYTE Canceled Normal [facility] Comment on above: Order Comment: TEST CBC AND DIFFERENTIAL WAS CANCELLED, 07/27/2021 21:28 Patient Discharged. Performed By: #### C BCDF #### [address], [place] [id number] % NEUTROPHIL Canceled Normal [facility] Comment on above: Order Comment: TEST CBC AND DIFFERENTIAL WAS CANCELLED, 07/27/2021 21:28 Patient Discharged. Performed By: #### C BCDF #### [address], [place] [id number] BASOPHIL Canceled Normal [facility] Comment on above: Order Comment: TEST CBC AND DIFFERENTIAL WAS CANCELLED, 07/27/2021 21:28 Patient Discharged. Performed By: #### C BCDF #### [address], [place] [id number] DIFFERENTIAL Canceled Normal [facility] Comment on above: Order Comment: TEST CBC AND DIFFERENTIAL WAS CANCELLED, 07/27/2021 21:28 Patient Discharged. Performed By: #### C BCDF #### [address] [id number] EOSINOPHIL Canceled Normal [facility] Comment on above: Order Comment: TEST CBC AND DIFFERENTIAL WAS CANCELLED, 07/27/2021 21:28 Patient Discharged. Performed By: #### C BCDF #### [address] [id number] HCT Canceled Normal [facility] Comment on above: Order Comment: TEST CBC AND DIFFERENTIAL WAS CANCELLED, 07/27/2021 21:28 Patient Discharged. Performed By: #### C BCDF #### [address] [id number] HGB Canceled Normal [facility] Comment on above: Order Comment: TEST CBC AND DIFFERENTIAL WAS CANCELLED, 07/27/2021 21:28 Patient Discharged. Performed By: #### C BCDF #### [address] [id number] LYMPHOCYTE Canceled Normal [facility] Comment on above: Order Comment: TEST CBC AND DIFFERENTIAL WAS CANCELLED, 07/27/2021 21:28 Patient Discharged. Performed By: #### C BCDF #### [address] [id number] MCHC Canceled Normal [facility] Comment on above: Order Comment: TEST CBC AND DIFFERENTIAL WAS CANCELLED, 07/27/2021 21:28 Patient Discharged. Performed By: #### C BCDF #### [address] [id number] MCV Canceled Normal [facility] Comment on above: Order Comment: TEST CBC AND DIFFERENTIAL WAS CANCELLED, 07/27/2021 21:28 Patient Discharged. Performed By: #### C BCDF #### [address] [id number] MONOCYTE Canceled Normal [facility] Comment on above: Order Comment: TEST CBC AND DIFFERENTIAL WAS CANCELLED, 07/27/2021 21:28 Patient Discharged. Performed By: #### C BCDF #### [address] [id number] NEUTROPHIL Canceled Normal [facility] Comment on above: Order Comment: TEST CBC AND DIFFERENTIAL WAS CANCELLED, 07/27/2021 21:28 Patient Discharged. Performed By: #### C BCDF #### [address] [id number] NUCLEATED RBC Canceled Normal [facility] Comment on above: Order Comment: TEST CBC AND DIFFERENTIAL WAS CANCELLED, 07/27/2021 21:28 Patient Discharged. Performed By: #### C BCDF #### [address] [id number] PLT Canceled Normal [facility] Comment on above: Order Comment: TEST CBC AND DIFFERENTIAL WAS CANCELLED, 07/27/2021 21:28 Patient Discharged. Performed By: #### C BCDF #### [address] [id number] RBC Canceled Normal [facility] Comment on above: Order Comment: TEST CBC AND DIFFERENTIAL WAS CANCELLED, 07/27/2021 21:28 Patient Discharged. Performed By: #### C BCDF #### [address] [id number] RDW-CV Canceled Normal [facility] Comment on above: Order Comment: TEST CBC AND DIFFERENTIAL WAS CANCELLED, 07/27/2021 21:28 Patient Discharged. Performed By: #### C BCDF #### [address] [id number] WBC Canceled Normal [facility] Comment on above: Order Comment: TEST CBC AND DIFFERENTIAL WAS CANCELLED, 07/27/2021 21:28 Patient Discharged. Performed By: #### C BCDF #### [address] [id number] COMPREHENSIVE PANELon 2021 ALBUMIN Canceled Normal [facility] Comment on above: Order Comment: TEST COMPREHENSIVE PANEL WAS CANCELLED, 07/27/2021 21:28 Patient Discharged. Performed By: #### C MP #### [address] [id number] ALKALINE PHOSPHATASE Canceled Normal [facility] Comment on above: Order Comment: TEST COMPREHENSIVE PANEL WAS CANCELLED, 07/27/2021 21:28 Patient Discharged. Performed By: #### C MP #### [address] [id number] ALT Canceled Normal [facility] Comment on above: Order Comment: TEST COMPREHENSIVE PANEL WAS CANCELLED, 07/27/2021 21:28 Patient Discharged. Result Comment: Tonie ents treated with Sulfasalazine may generate falsely decreased results for ALT. Performed By: #### C MP #### [address], [place] [id number] ANION GAP Canceled Normal [facility] Comment on above: Order Comment: TEST COMPREHENSIVE PANEL WAS CANCELLED, 07/27/2021 21:28 Patient Discharged. Performed By: #### C MP #### [address] [id number] AST Canceled Normal [facility] Comment on above: Order Comment: TEST COMPREHENSIVE PANEL WAS CANCELLED, 07/27/2021 21:28 Patient Discharged. Performed By: #### C MP #### [address], [place] [id number] BICARBONATE Canceled Normal [facility] Comment on above: Order Comment: TEST COMPREHENSIVE PANEL WAS CANCELLED, 07/27/2021 21:28 Patient Discharged. Performed By: #### C MP #### [address] [id number] BILIRUBIN,TOTAL Canceled Normal [facility] Comment on above: Order Comment: TEST COMPREHENSIVE PANEL WAS CANCELLED, 07/27/2021 21:28 Patient Discharged. Performed By: #### C MP #### [address], [place] [id number] CALCIUM Canceled Normal [facility] Comment on above: Order Comment: TEST COMPREHENSIVE PANEL WAS CANCELLED, 07/27/2021 21:28 Patient Discharged. Performed By: #### C MP #### [address] [id number] CHLORIDE Canceled Normal [facility] Comment on above: Order Comment: TEST COMPREHENSIVE PANEL WAS CANCELLED, 07/27/2021 21:28 Patient Discharged. Performed By: #### C MP #### [address] [id number] CREATININE Canceled Normal [facility] Comment on above: Order Comment: TEST COMPREHENSIVE PANEL WAS CANCELLED, 07/27/2021 21:28 Patient Discharged. Performed By: #### C MP #### [address] [id number] eGFR FEMALE Canceled Normal [facility] Comment on above: Order Comment: TEST COMPREHENSIVE PANEL WAS CANCELLED, 07/27/2021 21:28 Patient Discharged. Result Comment: CALC ULATIONS OF ESTIMATED GFR ARE PERFORMED USING THE 2020 CKD-EPI STUDY REFIT EQUATION WITHOUT THE RACE VARIABLE FOR THE IDMS-TRACEABLE CREATININE METHODS. https://jasn.asnjournals.org/content/early/ASN.0775731459 Performed By: #### C MP #### [address] [id number] eGFR MALE Canceled Normal [facility] Comment on above: Order Comment: TEST COMPREHENSIVE PANEL WAS CANCELLED, 07/27/2021 21:28 Patient Discharged. Result Comment: CALC ULATIONS OF ESTIMATED GFR ARE PERFORMED USING THE 2020 CKD-EPI STUDY REFIT EQUATION WITHOUT THE RACE VARIABLE FOR THE IDMS-TRACEABLE CREATININE METHODS. https://jasn.asnjournals.org/content/early/ASN.0902200485 Performed By: #### C MP #### [address] [id number] GLUCOSE Canceled Normal [facility] Comment on above: Order Comment: TEST COMPREHENSIVE PANEL WAS CANCELLED, 07/27/2021 21:28 Patient Discharged. Performed By: #### C MP #### [address] [place] [id number] POTASSIUM Canceled Normal [facility] Comment on above: Order Comment: TEST COMPREHENSIVE PANEL WAS CANCELLED, 07/27/2021 21:28 Patient Discharged. Performed By: #### C MP #### [address] [id number] SODIUM Canceled Normal [facility] Comment on above: Order Comment: TEST COMPREHENSIVE PANEL WAS CANCELLED, 07/27/2021 21:28 Patient Discharged. Performed By: #### C MP #### [address] [id number] TOTAL PROTEIN Canceled Normal [facility] Comment on above: Order Comment: TEST COMPREHENSIVE PANEL WAS CANCELLED, 07/27/2021 21:28 Patient Discharged. Performed By: #### C MP #### [address] [id number] UREA NITROGEN Canceled Normal [facility] Comment on above: Order Comment: TEST COMPREHENSIVE PANEL WAS CANCELLED, 07/27/2021 21:28 Patient Discharged. Performed By: #### C MP #### [address] [id number] CREATINE KINASEon 07-27-2021 CREATINE KINASE Canceled Normal [facility] Comment on above: Order Comment: TEST CREATINE KINASE WAS CANCELLED, 07/27/2021 21:28 Patient Discharged. Performed By: #### C K #### [address] [id number] DRUG SCREEN,URINEon 07-28-19 AMPHETAMINE SCREEN,U Canceled Normal [facility] Comment on above: Order Comment: TEST COMPREHENSIVE PANEL WAS CANCELLED, 07/27/2021 21:28 Patient Discharged. Result Comment: CUTO FF LEVEL: 500 NG/ML Cross-reactivity has been reported with high concentrations of the following drugs: buproprion, chloroquine, chlorpromazine, ephedrine, mephentermine, fenfluramine, phentermine, phenylpropanolamine, pseudoephedrine, and propranolol. Performed By: #### C MP #### [address], [place] [id number] BARBITURATES SCREEN,U Canceled Normal [facility] Comment on above: Order Comment: TEST COMPREHENSIVE PANEL WAS CANCELLED, 07/27/2021 21:28 Patient Discharged. Result Comment: CUTO FF LEVEL: 200 NG/ML Performed By: #### C MP #### [address], [place] [id number] BENZODIAZEPINES SCREEN,U Canceled Normal [facility] Comment on above: Order Comment: TEST COMPREHENSIVE PANEL WAS CANCELLED, 07/27/2021 21:28 Patient Discharged. Result Comment: CUTO FF LEVEL: 200 NG/ML Performed By: #### C MP #### [address], [place] [id number] CANNABINOIDS SCREEN,U Canceled Normal [facility] Comment on above: Order Comment: TEST COMPREHENSIVE PANEL WAS CANCELLED, 07/27/2021 21:28 Patient Discharged. Result Comment: CUTO FF LEVEL: 50 NG/ML Performed By: #### C MP #### [address], [place] [id number] COCAINE METABOLITE SCREEN,U Canceled Normal [facility] Comment on above: Order Comment: TEST COMPREHENSIVE PANEL WAS CANCELLED, 07/27/2021 21:28 Patient Discharged. Result Comment: CUTO FF LEVEL: 150 NG/ML Performed By: #### C MP #### [address], [place] [id number] DRUG SCREEN COMMENT Canceled Normal [facility] Comment on above: Order Comment: TEST COMPREHENSIVE PANEL WAS CANCELLED, 07/27/2021 21:28 Patient Discharged. Result Comment: Drug screen results are presumptive and should not be used to assess compliance with prescribed medication. Contact the performing [facility] laboratory to add-on definitive confirmatory testing if clinically indicated. . Toxicology screening results are reported qualitatively. The concentration must be greater than or equal to the cutoff to be reported as positive. The concentration at which the screening test can detect an individual drug or metabolite varies. The absence of expected drug(s) and/or drug metabolite(s) may indicate non-compliance, inappropriate timing of specimen collection relative to drug administration, poor drug absorption, diluted/adulterated urine, or limitations of testing. For medical purposes only; not valid for forensic use. . Interpretive questions should be directed to the laboratory medical directors. Performed By: #### C MP #### [address] [id number] FENTANYL SCREEN,URINE Canceled Normal [facility] Comment on above: Order Comment: TEST COMPREHENSIVE PANEL WAS CANCELLED, 07/27/2021 21:28 Patient Discharged. Result Comment: CUTO FF LEVEL: 1 NG/ML Performed By: #### C MP #### [address] [id number] METHADONE SCREEN,U Canceled Normal [facility] Comment on above: Order Comment: TEST COMPREHENSIVE PANEL WAS CANCELLED, 07/27/2021 21:28 Patient Discharged. Result Comment: CUTO FF LEVEL: 150 NG/ML The metabolite [id number] (LAAM) is not detected by this method in concentrations that would be found in the urine of patients on LAAM therapy. Performed By: #### C MP #### [address] [id number] OPIATES SCREEN,U Canceled Normal [facility] Comment on above: Order Comment: TEST COMPREHENSIVE PANEL WAS CANCELLED, 07/27/2021 21:28 Patient Discharged. Result Comment: CUTO FF LEVEL: 300 NG/ML The opiate screen does not detect fentanyl, meperidine, or tramadol. Oxycodone is not consistently detected (refer to Oxycodone Screen, Urine result). Performed By: #### C MP #### [address] [id number] OXYCODONE SCREEN,U Canceled Normal [facility] Comment on above: Order Comment: TEST COMPREHENSIVE PANEL WAS CANCELLED, 07/27/2021 21:28 Patient Discharged. Result Comment: CUTO FF LEVEL: 100 NG/ML This test will accurately detect both oxycodone and oxymorphone. Performed By: #### C MP #### [address] [place] [id number] PCP SCREEN,U Canceled Normal [facility] Comment on above: Order Comment: TEST COMPREHENSIVE PANEL WAS CANCELLED, 07/27/2021 21:28 Patient Discharged. Result Comment: CUTO FF LEVEL: 25 NG/ML Cross-reactivity has been reported with dextromethorphan. Performed By: #### C MP #### [address] [id number] HCG,SERUM QUALITATIVEon 07-06 HCG,SERUM QUALITATIVE Canceled Normal [facility] Comment on above: Order Comment: TEST HCG,SERUM QUALITATIVE WAS CANCELLED, 07/27/2021 21:28 Patient Discharged. Performed By: #### H CGS #### [address] [id number] INFLUENZA A/B, COVID 2019 PC R,SYMPTOMATICon 07-27-2021 INFLUENZA A, PCR Canceled Normal [facility] Comment on above: Order Comment: TEST HCG,SERUM QUALITATIVE WAS CANCELLED, 07/27/2021 21:28 Patient Discharged. Result Comment: Resp iratory virus testing is performed routinely by PCR for Influenza A/B and RSV. Not Detected results do not preclude Influenza A/B or RSV infections since the adequacy of sample collection or low viral burden may impact the clinical sensitivity of this test method. Performed By: #### H CGS #### [address] [id number] INFLUENZA B, PCR Canceled Normal [facility] Comment on above: Order Comment: TEST HCG,SERUM QUALITATIVE WAS CANCELLED, 07/27/2021 21:28 Patient Discharged. Result Comment: Resp iratory virus testing is performed routinely by PCR for Influenza A/B and RSV. Not Detected results do not preclude Influenza A/B or RSV infections since the adequacy of sample collection or low viral burden may impact the clinical sensitivity of this test method. Performed By: #### H CGS #### [address] [id number] SARS-CoV-2 (COVID-19) RNA TAD+probe Ql (Unsp spec) Canceled Normal [facility] Comment on above: Order Comment: TEST HCG,SERUM QUALITATIVE WAS CANCELLED, 07/27/2021 21:28 Patient Discharged. Result Comment: . This test has received FDA Emergency Use Authorization (EUA) and has been verified by [facility]. This test is only authorized for the duration of time that circumstances exist to justify the authorization of the emergency use of in vitro diagnostic tests for the detection of SARS-CoV-2 virus and/or diagnosis of COVID-19 infection under section 564(b)(1) of the Act, 21 U.S.C. 360bbb-3(b)(1), unless the authorization is terminated or revoked sooner. [facility] is certified under CLIA-88 as qualified to perform high complexity testing. Testing is performed in the [facility] laboratory located at [address] [place] [address]. SARS-CoV-2/Flu/RSV Multiplex Test: Fact sheet for providers: https://www.fda.gov/media/812044/download Fact sheet for patients: https://www.fda.gov/media/792676/download Performed By: #### H CGS #### [address] [id number] Lab Specimen Source Nasal, Nasopharyngeal Normal [facility] Comment on above: Order Comment: TEST HCG,SERUM QUALITATIVE WAS CANCELLED, 07/27/2021 21:28 Patient Discharged. Performed By: #### H CGS #### [address] [id number] Provider Note - ED v3on 07-06 Provider Note - ED v3 Provider Note: Chart Review: ED NOTES ED NOTES: HPI: 21-year-old female presents the emergency department for self cutting. When I asked the patient how long she been feeling this way she says it has been going on for a while . She states I do not want to kill myself, I just want to stop feeling bad . She was unable to further elaborate on this. She does have a history of SI and self cutting in the past. She does report that she cut the medial aspect of her right thigh with a razor blade. States that bleeding is controlled without external pressure, denies anticoagulant use. Denies HI however she states that she does occasionally hear voices. She states I hear people calling my name that are not there . She denies any known history of schizophrenia. She does take multiple medications for her depression and PTSD, she does follow-up with a psychiatrist and a therapist. She says that she does feel that her outpatient resources are helping her. She denies anything in particular that is causing her to feel this way, she denies any stresses or issues at home, work, or school. She denies pain or injury anywhere else. Denies all other symptoms. Social Hx: Denies tobacco, alcohol, drug use. Medical Hx: Medical history significant for hypothyroidism, anxiety, depression, PTSD, bipolar, and OCD. Immunizations are up-to-date. Denies allergies. Surgical HX: Denies ROS Constitutional: Negative for lightheadedness, fatigue, anorexia, chills, diaphoresis, fever, weakness Eyes: Negative for lid swelling, pain, photophobia, redness, vision changes Ears: Negative for discharge, itching, hearing loss, pain, tinnitus Nose: Negative for congestion, discharge, nosebleeds, obstruction Mouth/teeth: Negative for mouth lesions, tooth trauma, toothache Throat/neck: Negative for sore throat, dysphagia, hoarseness, neck pain, neck stiffness Cardiovascular: Negative for chest pain, diaphoresis, peripheral edema, PND, orthopnea, palpitations Respiratory: Negative for cough, dyspnea, hemoptysis, pleuritic chest pain, wheezing Gastrointestinal: Negative for abdominal pain, constipation, diarrhea, nausea, vomiting, bowel habit change, hematochezia, melena, or rectal pain. Genitourinary: Negative for dysuria, flank pain, frequency, hematuria, urgency, urine output changes Musculoskeletal: Negative for pain, sensory deficits, stiffness, weakness. Endocrine: Negative for weight changes, heat/cold intolerance, hot flashes, polydipsia, polyuria Integumentary: Positive for lacerations over the right thigh. Negative for abrasions, dryness, hives, itching, jaundice, lesions, lumps, petechiae, pruritus, rash Neurological: Negative for headaches, altered mental status, dizziness, gait changes, LOC, extremity numbness, vertigo Psychiatric: Positive for self cutting and hallucinations. Negative for anxiety, depression, hallucinations, insomnia, mood changes, HI Heme/lymph: Negative for anemia, easy bleeding, easy bruising, jaundice, night sweats, swollen lymph glands Review of systems is otherwise negative unless stated above or in history of present illness. Physical exam: Constitutional: Patient is well-nourished and well-developed. Sitting comfortably in the room and in no distress. Oriented to person, place, time, and situation. HEENT: Head is normocephalic, atraumatic. Patient's airway is patent. Tympanic membranes are clear bilaterally. Nasal mucosa clear. Mouth with normal mucosa. Throat is not erythematous and there are no oropharyngeal exudates, uvula is midline. No obvious facial deformities. Eyes: Clear bilaterally. Pupils are equal round and reactive to light and accommodation. Extraocular movements intact. Cardiac: Regular rate, regular rhythm. Heart sounds S1, S2. No murmurs, rubs, or gallops. PMI nondisplaced. No JVD. Respiratory: Regular respiratory rate and effort. Breath sounds are clear and equal bilaterally, no adventitious lung sounds. Patient is speaking in full sentences and is in no apparent respiratory distress. No use of accessory muscles. Gastrointestinal: Abdomen is soft, nondistended, and nontender. There are no obvious deformities. No rebound tenderness or guarding. Bowel sounds are normal active. Genitourinary: No CVA or flank tenderness. Musculoskeletal: No reproducible tenderness. No obvious bony deformities. Patient has equal range of motion in all extremities and no strength deficiencies. No muscle or joint tenderness. No back or neck tenderness. Capillary refill less than 3 seconds. Strong peripheral pulses. No sensory deficits. Neurological: Patient is alert and oriented. No focal deficits. 5/5 strength in all extremities. Cranial nerves II through XII intact. GCS15. Skin: Patient has 2 superficial lacerations (10 cm and 5 cm) over the medial aspect of her right thigh, they are mildl (more content not included)... [facility] Risk Screen - Adult Emergenc yon 07-27-2021 Risk Screen - Adult Emergency Preferred Language: Preferred Language: Preferred Language for Discussing Health Care (patient/designee)French Advanced Directives: Advance Directive/DNRno Family Violence Adult: Abuse Screen: Are you or have you been threatened or abused physically, emotionally, or sexually by anyoneno Learning Assessment (Patient): Learning Assessment (Patient): Patient is Able to be Assessed for Learningyes Factors Influencing Readiness to Learninformation requested; interest in learning Factors that Impact Ability to Learnnone Devices/Methods Used to Communicatenone Learning Preferencesindividual instruction; skill demonstration; verbal instruction; written material Cultural Considerationsnone Developmental Considerationsnone Anabaptism Considerationsnone Learning Assessment (Other Learner): Learning Assessment (Other Learner): Other learner availableno Pressure Injury/TB/Substance: Pressure Injury: Pressure Injury Present on Admissionno Do you have a coughno Smoking Statusnever smoker Alcohol Usedenies Drug Usedenies Drug 2 Usedenies Admission Risk Screen: Significant IndicatorsComplete CAGE: CAGE: Is this an injured patient at a Trauma Center ([facility]/[place]): no Electronic Signatures: Jaelyn Souza (STAFF N) (Signed 27-Jul-2021 12:35) Authored: Preferred Language, Advanced Directives, Family Violence Adult, Learning Assessment (Patient), Learning Assessment (Other Learner), Pressure Injury/TB/Substance, Pressure Injury, CAGE Last Updated: 27-Jul-2021 12:35 by Jaelyn Souza (STAFF N) [facility] SALICYLATEon 07-27-2021 SALICYLATE Canceled Normal [facility] Comment on above: Order Comment: TEST COMPREHENSIVE PANEL WAS CANCELLED, 07/27/2021 21:28 Patient Discharged. Performed By: #### C MP #### [address] [id number] TSHon 07-27-2021 TSH Canceled Normal [facility] Comment on above: Order Comment: TEST TSH WAS CANCELLED, 07/27/2021 21:28 Patient Discharged. Result Comment: TSH testing is performed using different testing methodology at [facility] than at other [facility]. Direct result comparisons should only be made within the same method. Performed By: #### T SH2 #### [address] [id number] Triage - EDon 07-27-2021 Triage - ED Quick Triage: Are You no Have You Given In The Last 6 Weeksno Are You Currently Breastfeedingno The patient and/or guardian verbally acknowledges placement for services into the following (when Urgent Care Service hours are operating):emergency department Chart Review: PRIMARY ASSESSMENT ABCD Normal Findings: airway open and patent, breathing normal, circulation normal and alert and oriented TREATMENT PRIOR TO ARRIVAL EMS REPORTED VITAL SIGNS Blood Pressure: 125/82 Mean: Heart Rate: 104 Respiratory Rate: 20 Pulse Oximetry: 97% Comments: Patient has history of cutting ARRIVAL INFORMATION Means of Arrival: stretcher Mode of Arrival: ambulance [facility] Name: [facility] Arrival From: home Accompanied By: marketing administrator Language: Spoken Language Preferred: French Reading Language Preferred: French MDRO: History of MDRO: no Present on Arrival: Device Present on Arrival to ED: no Pressure Ulcer Present on Arrival to ED: no CHIEF COMPLAINT FABY GALAN is a Female patient with a chief complaint of psychiatric evaluation ( I just feel like I want to . I do not want to kill myself. I just don't want to feel like this. Patient cut herself twice in the thigh.'). Triage Date/Time: 27-Jul-2021 12:24 ELEN: 3 Pain Rating (0-10): 0 = None Vital Signs: Temperature: 97.8F ( 36.6C) taken temporal Blood Pressure: 111/78 Mean: Heart Rate: 91 Respiratory Rate: 18 Pulse Oximetry: 97% on room air, no respiratory support. Height: 5 feet 1.00 inches. 154.9 CM Weight: 149.9 pounds. Calculated 68.0 kg. (stated) Calculated BMI (kg/m2): 28.340 Calculated BSA (m2) 1.71 Gowrie Coma Scale: Best Eye Response: (E4) spontaneous Best Motor Response: (M6) obeys commands Best Verbal Response: (V5) oriented Nupur Score: 15 Cough lasting greater than 3 weeks: no Allergies: no Patient has homicidal thoughts: no Risk Screens Suicide Risk Screen In the Past Month: Have you wished you were or wished you could go to sleep and not wake up no In the Past Month: Have you had any actual thoughts of killing yourself no In Your Lifetime: Have you ever done anything, started to do anything, or prepared to do anything to end your life no Sahni Fall Scale Screening Has the patient fallen before (or is the patient in the ED as a result of a fall) has not had a fall Does the patient have an impaired gait does not have impaired gait Is the patient cognitively impaired not cognitively impaired Interventions: Sahni Fall Interventions: LOW INTERVENTIONS: *patient oriented to surroundings and call system, * patient/family falls education completed and documented, *patients fall status communicated during bedside handoff, *whiteboard updated, *mode of toileting discussed with patient, *bed in low position with brakes locked, *call light in reach, * non-skid footwear PAST MEDICAL HISTORY Immunization History: Last Known Tetanus Immunization: Greater than 5 years but less than 10 years TRAVEL HISTORY Travel History Coronavirus Screening: no exposure or symptoms Travel Exposure History: NO travel to International locations in the past 30 days PAIN Pain Scale Used: ROMAN Pain Rating (0-10): 0 = None Pain Management Interventions: relaxation, quiet environment facilitated and positioning Past Medical History: Past Medical History 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: Past Medical History, Active self harm: Past Medical History, Active anxiiety: Past Medical History, Active Developmental delay: Past Medical History, Active Hypothyroid: Past Medical History, Active Electronic Signatures: Jaelyn Souza (STAFF N) (Signed 27-Jul-2021 12:33) Entered: Risk Screens, Pain, Arrival, Pre-arrival, ABCD, Immunizations, Travel History, Chart Review, Past Medical History Authored: Quick Triage, Risk Screens, Pain, Arrival, Pre-arrival, ABCD, Immunizations, Travel History, Chart Review, Past Medical History Last Updated: 27-Jul-2021 12:33 by Jaelyn Souza (STAFF N) [facility] URINALYSISon 07-27-2021 Appearance (U) Canceled Normal [facility] Comment on above: Order Comment: TEST COMPREHENSIVE PANEL WAS CANCELLED, 07/27/2021 21:28 Patient Discharged. Performed By: #### C MP #### [address] [id number] ASCORBIC ACID Canceled Normal [facility] Comment on above: Order Comment: TEST COMPREHENSIVE PANEL WAS CANCELLED, 07/27/2021 21:28 Patient Discharged. Result Comment: Conc entrations > = 20 mg/dL of ascorbic acid can be expected to cause strong interference in the reactions testing for glucose, nitrite and blood. It is recommended to discontinue Vitamin C administration and retest in 10 hours. Performed By: #### C MP #### [address] [id number] Bilirubin Ql (U) Canceled Normal [facility] Comment on above: Order Comment: TEST COMPREHENSIVE PANEL WAS CANCELLED, 07/27/2021 21:28 Patient Discharged. Performed By: #### C MP #### [address] [id number] Color (U) Canceled Normal [facility] Comment on above: Order Comment: TEST COMPREHENSIVE PANEL WAS CANCELLED, 07/27/2021 21:28 Patient Discharged. Performed By: #### C MP #### [address] [id number] Glucose Ql (U) Canceled Normal [facility] Comment on above: Order Comment: TEST COMPREHENSIVE PANEL WAS CANCELLED, 07/27/2021 21:28 Patient Discharged. Performed By: #### C MP #### [address] [id number] Hemoglobin Ql (U) Canceled Normal [facility] Comment on above: Order Comment: TEST COMPREHENSIVE PANEL WAS CANCELLED, 07/27/2021 21:28 Patient Discharged. Performed By: #### C MP #### [address] [id number] Ketones Ql (U) Canceled Normal [facility] Comment on above: Order Comment: TEST COMPREHENSIVE PANEL WAS CANCELLED, 07/27/2021 21:28 Patient Discharged. Performed By: #### C MP #### [address] [id number] Leukocyte esterase Test strip Ql (U) Canceled Normal [facility] Comment on above: Order Comment: TEST COMPREHENSIVE PANEL WAS CANCELLED, 07/27/2021 21:28 Patient Discharged. Performed By: #### C MP #### [address] [id number] Nitrite Ql (U) Canceled [facility] Comment on above: Order Comment: TEST COMPREHENSIVE PANEL WAS CANCELLED, 07/27/2021 21:28 Patient Discharged. Performed By: #### C MP #### [address] [id number] pH Canceled Normal [facility] Comment on above: Order Comment: TEST COMPREHENSIVE PANEL WAS CANCELLED, 07/27/2021 21:28 Patient Discharged. Performed By: #### C MP #### [address] [id number] Protein Ql (U) Canceled Normal [facility] Comment on above: Order Comment: TEST COMPREHENSIVE PANEL WAS CANCELLED, 07/27/2021 21:28 Patient Discharged. Performed By: #### C MP #### [address] [id number] Specific gravity (U) [Rel density] Canceled Normal [facility] Comment on above: Order Comment: TEST COMPREHENSIVE PANEL WAS CANCELLED, 07/27/2021 21:28 Patient Discharged. Performed By: #### C MP #### [address] [id number] UROBILINOGEN Canceled [facility] Comment on above: Order Comment: TEST COMPREHENSIVE PANEL WAS CANCELLED, 07/27/2021 21:28 Patient Discharged. Performed By: #### C MP #### [address] [id number] US HEAD NECK SOFT TISSUE THY ROIDOrdered By: Miguel Islas on 08-26-2020 NORMAL SIZE THYROID GLAND. HETEROGENEOUS SIGNAL PSEUDONODULE ECHOTEXTURE OF THYROID. HYPEREMIA THYROID GLAND. 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 0.7 CM TR 3 NODULE RIGHT LOBE. NO FOLLOW-UP NEEDED ACCORDING TO ACR WHITE PAPER RECOMMENDATIONS. Reference: ACR Thyroid Imaging, Recording and Data System (TI-RADS): White Paper of the ACR TI-RADS Committee. Journal of the [employer]. Volume 14, Issue 5, July 2016, pages 587-595. Please note that description of thyroid nodules in this report is based on the 2017 Thyroid Imaging, Reporting and Data System (TI- RADS) established by the [employer] to help provide guidance regarding management of thyroid nodules based on their appearance. These are offered in an attempt to assist the referring physician in their decision process and help address the current over diagnosis of thyroid cancer. These guidelines are considered recommendations and guidance and do not represent rules or absolute standards of care. [employer] Phone: EXAMINATION: ULTRASO UND THYROID CLINICAL HISTORY: Mani's disease. Hypothyroidism. Dysphagia. COMPARISONS: None available. FINDINGS: Biplanar images were obtained. The right lobe measures 5 x 1.7 x 1.3 cm with a volume of 5.7 mL. The left lobe measures 5.2 x 1.8 x 1.2 cm with a volume of 5.8 mL. The isthmus measures 0.46 cm. The thyroid gland is normal in size. The thyroid gland has a diffusely heterogeneous echotexture, similar nodular, and is hyperemic diffusely on color Doppler imaging. Nodule noted below. Right Lobe: 1. Location: Mid, medial Size: 0.7 x 0.5 x 0.4 cm Composition: Solid or almost completely solid: 2 Points Echogenicity:Hyperechoic or isechoic: 1 Point Shape: Wider than tall : 0 Points Margin: Smooth: 0 Points Echogenic Foci: None or large comet tail artifacts: 0 Points ACR Ti-Rads Category : TR 3: 3 Points Mildly suspicious FNA if greater than 2.5 cm Follow if greater than 1.5 cm Follow-Up : No follow-up needed according to ACR white paper recommendations Left Lobe: Unremarkable. Isthmus: Unremarkable. [employer] Phone: Remington, Karie Incoming R adiant Results From [facility] - 08/26/2020 10:12 AM EDT EXAMINATION: ULTRASOUND THYROID CLINICAL HISTORY: Mani's disease. Hypothyroidism. Dysphagia. COMPARISONS: None available. FINDINGS: Biplanar images were obtained. The right lobe measures 5 x 1.7 x 1.3 cm with a volume of 5.7 mL. The left lobe measures 5.2 x 1.8 x 1.2 cm with a volume of 5.8 mL. The isthmus measures 0.46 cm. The thyroid gland is normal in size. The thyroid gland has a diffusely heterogeneous echotexture, similar nodular, and is hyperemic diffusely on color Doppler imaging. Nodule noted below. Right Lobe: 1. Location: Mid, medial Size: 0.7 x 0.5 x 0.4 cm Composition: Solid or almost completely solid: 2 Points Echogenicity:Hyperechoic or isechoic: 1 Point Shape: Wider than tall : 0 Points Margin: Smooth: 0 Points Echogenic Foci: None or large comet tail artifacts: 0 Points ACR Ti-Rads Category : TR 3: 3 Points Mildly suspicious FNA if greater than 2.5 cm Follow if greater than 1.5 cm Follow-Up : No follow-up needed according to ACR white paper recommendations Left Lobe: Unremarkable. Isthmus: Unremarkable. IMPRESSION: NORMAL SIZE THYROID GLAND. HETEROGENEOUS SIGNAL PSEUDONODULE ECHOTEXTURE OF THYROID. HYPEREMIA THYROID GLAND. 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 0.7 CM TR 3 NODULE RIGHT LOBE. NO FOLLOW-UP NEEDED ACCORDING TO ACR WHITE PAPER RECOMMENDATIONS. Reference: ACR Thyroid Imaging, Recording and Data System (TI-RADS): White Paper of the ACR TI-RADS Committee. Journal of the [employer] [employer]. Volume 14, Issue 5, July 2016, pages [phone]. Please note that description of thyroid nodules in this report is based on the 2017 Thyroid Imaging, Reporting and Data System (TI- RADS) established by the [employer] to help provide guidance regarding management of thyroid nodules based on their appearance. These are offered in an attempt to assist the referring physician in their decision process and help address the current over diagnosis of thyroid cancer. These guidelines are considered recommendations and guidance and do not represent rules or absolute standards of care. [employer] Phone: [employer] Phone: PT Progress Noteon 1 PT Progress Note No report was sent [facility] Progress Noteon 1 PT Progress Note Therapy Diagnosis Assessed Right knee pain (719.46) (M25.561) Plan Plan for DC next visit. Progress with POC, as tolerated. Assessment Examined knee due to fall yesterday, no apparent injury. Pt tolerated progressing difficulty of several exercises this session, indicating improvements in strength and muscular endurance. No reports of increased pain throughout session, only muscle fatigue as expected. Pt progressing well towards therapy goals. C9 is set to after next session, plan for DC with continued HEP next visit. Interdisciplinary Team Communication: Physical Therapy . Response to treatment: improved strength and improved flexibility. Patient was able to complete today's treatment with some difficulty. Adult Risk Screening Initial Fall Risk Screening: FABY has fallen in the last 6 months. She has fallen due to Tripped over curb. Her fall did not result in injury. Pain Scale: On a scale of 0 to 10, the patient rates the pain at 0. Insurance Insurance reviewed Visit number: 9 Approved number of visits: 12 03/10/20-06/06/20 Subjective Patient reports:. Pt reports overall knee has been doing well. She's been going up the stairs. She tripped over a curb yesterday and fell yesterday. She had increased knee pain at first, but doesn't seem to have any increased pain now. She quit her job at [email or web address] on Apr 24 and she feels she's had a faster recovery since. Home program performing as directed: Yes. Precautions: none. Treatment Time in clinic started at 8:48 am Time in clinic ended at 9:28 am Total time in clinic is 40 minutes. Total timed code time is 40 minutes. Treatment Performed Today: see exercise flow sheet. Therapeutic exercise (45921): timed minutes 40, units 3. 'Scores and Scales' Signatures Electronically signed by : Pan Riley, PT; May 27 2020 9:33AM EST (Author) [facility] Progress Noteon PT Progress Note Therapy Diagnosis Assessed Right knee pain (719.46) (M25.561) Plan Goals: Goals set and discussed today. By discharge FABY GALAN will achieve the following goals: Pt will report at least 75% improvement in pain of R knee during everyday activities. (MET) Pt will demo ability to ambulate 50' on level surface without pain or gait deviation. (NOT MET) Pt will demo >/= 4+/5 strength of R knee musculature without pain. (MET) Pt will demo >/= 4+/5 strength of R hip musculature without pain. (MET) Pt will demo symmetrical A/PROM of R knee to L without pain. (MET) Pt will demo symmetrical A/PROM of R hip to L without pain. (MET) Pt will improve R hamstring flexibility with 90/90 testing to lacking no more than 10 deg. Pt will improve LEFS score by at least 9 points (MCID) to reflect increased ease in completing ADLs/IADLs. Baseline 03/18/2020: needs improvement. Pt will demo independence and report compliance with HEP. (ongoing) Finish remaining visits utilizing original goals. Progress with POC, as tolerated. Assessment Pt will report at least 75% improvement in pain of R knee during everyday activities. (MET) Pt will demo ability to ambulate 50' on level surface without pain or gait deviation. (NOT MET) Pt will demo >/= 4+/5 strength of R knee musculature without pain. (MET) Pt will demo >/= 4+/5 strength of R hip musculature without pain. (MET) Pt will demo symmetrical A/PROM of R knee to L without pain. (MET) Pt will demo symmetrical A/PROM of R hip to L without pain. (MET) Pt will improve R hamstring flexibility with 90/90 testing to lacking no more than 10 deg. (MET) Pt will improve LEFS score by at least 9 points (MCID) to reflect increased ease in completing ADLs/IADLs. Baseline 03/18/2020: needs improvement. Pt will demo independence and report compliance with HEP. (ongoing) Patient would benefit from P.T. 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 Adult Risk Screening Pain Scale: On a scale of 0 to 10, the patient rates the pain at 0. Insurance Insurance reviewed Visit number: 8 Approved number of visits: 12 03/10/20-06/06/20 Subjective Patient reports:. Patient denies right knee pain entering clinic today. She reports that she is still having trouble with stairs and with running. It does cause some pain 3 or 4/10 pain. Objective Ortho Knee AROM. (degrees) Flexion: R 135 , L 136. Extension: R 0 , L 0. Knee strength. (lbs) Flexion: R 4+/5 , L 5/5. Extension: R 4+/5 , L 5/5. Hip AROM. (degrees) Flexion: R wnl , L. Abduction: R wnl , L. Extension: R nt , L. Hip strength. (lbs) Flexion: R 4+/5 , L 4+/5. Abduction: R 4+/5 , L 4+/5. Extension: R 4+/5 , L. Ankle AROM. (degrees) Dorsiflexion: R wnl , L. Plantarflexion: R wnl , L. Ankle strength. (MMT) Dorsiflexion: R 5/5 , L. Plantarflexion: R 5/5 , L. Hamstring Lengths with hip at 90 degrees: R -10 , L -9. Treatment Time in clinic started at 9:30 am Time in clinic ended at 10:15 am Total time in clinic is 45 minutes. Total timed code time is 45 minutes. Treatment Performed Today: see exercise flow sheet. Therapeutic exercise (86053): timed minutes 45, units 3 . Includes re-eval testing. 'Scores and Scales' Signatures Electronically signed by : Anibal Nichols, PT; May 21 2020 12:15PM EST (Author) [facility] Therapy Re-eval Noteon 05-21 Therapy Re-eval Note Therapy Diagnosis Assessed 1. Right knee pain (719.46) (M25.561) Plan Goals: Goals set and discussed today. By discharge FABY GALAN will achieve the following goals: Pt will report at least 75% improvement in pain of R knee during everyday activities. (MET) Pt will demo ability to ambulate 50' on level surface without pain or gait deviation. (NOT MET) Pt will demo >/= 4+/5 strength of R knee musculature without pain. (MET) Pt will demo >/= 4+/5 strength of R hip musculature without pain. (MET) Pt will demo symmetrical A/PROM of R knee to L without pain. (MET) Pt will demo symmetrical A/PROM of R hip to L without pain. (MET) Pt will improve R hamstring flexibility with 90/90 testing to lacking no more than 10 deg. Pt will improve LEFS score by at least 9 points (MCID) to reflect increased ease in completing ADLs/IADLs. Baseline 03/18/2020: 23/80 needs improvement. Pt will demo independence and report compliance with HEP. (ongoing) Finish remaining visits utilizing original goals. Progress with POC, as tolerated. Assessment Pt will report at least 75% improvement in pain of R knee during everyday activities. (MET) Pt will demo ability to ambulate 50' on level surface without pain or gait deviation. (NOT MET) Pt will demo >/= 4+/5 strength of R knee musculature without pain. (MET) Pt will demo >/= 4+/5 strength of R hip musculature without pain. (MET) Pt will demo symmetrical A/PROM of R knee to L without pain. (MET) Pt will demo symmetrical A/PROM of R hip to L without pain. (MET) Pt will improve R hamstring flexibility with 90/90 testing to lacking no more than 10 deg. (MET) Pt will improve LEFS score by at least 9 points (MCID) to reflect increased ease in completing ADLs/IADLs. Baseline 03/18/2020: 23 needs improvement. Pt will demo independence and report compliance with HEP. (ongoing) Patient would benefit from P.T. 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 Adult Risk Screening Pain Scale: On a scale of 0 to 10, the patient rates the pain at 0. Insurance Insurance reviewed Visit number: 8 Approved number of visits: 12 03/10/20-06/06/20 Subjective Patient reports:. Patient denies right knee pain entering clinic today. She reports that she is still having trouble with stairs and with running. It does cause some pain 3 or 4/10 pain. Objective Ortho Knee AROM. (degrees) Flexion: R 135 , L 136. Extension: R 0 , L 0. Knee strength. (lbs) Flexion: R 4+/5 , L 5/5. Extension: R 4+/5 , L 5/5. Hip AROM. (degrees) Flexion: R wnl , L. Abduction: R wnl , L. Extension: R nt , L. Hip strength. (lbs) Flexion: R 4+/5 , L 4+/5. Abduction: R 4+/5 , L 4+/5. Extension: R 4+/5 , L. Ankle AROM. (degrees) Dorsiflexion: R wnl , L. Plantarflexion: R wnl , L. Ankle strength. (MMT) Dorsiflexion: R 5/5 , L. Plantarflexion: R 5/5 , L. Hamstring Lengths with hip at 90 degrees: R -10 , L -9. Treatment Time in clinic started at 9:30 am Time in clinic ended at 10:15 am Total time in clinic is 45 minutes. Total timed code time is 45 minutes. Treatment Performed Today: see exercise flow sheet. Therapeutic exercise (86484): timed minutes 45, units 3 . Includes re-eval testing. 'Scores and Scales' Signatures Electronically signed by : Anibal Nichols, PT; May 21 2020 12:15PM EST (Author) [facility] Progress Noteon 1 PT Progress Note No report was sent [facility] Progress Noteon 1 PT Progress Note No report was sent [facility] Progress Noteon 1 PT Progress Note Therapy Diagnosis Assessed Right knee pain (719.46) (M25.561) Plan Progress with POC, as tolerated. Assessment Pt reported slightly increased pain with almost all exercises today, including quad sets, however reported it was bearable. Able to progress several exercises. Added wall sits to HEP, which pt reported did not cause much increased pain. Administered e-stim at end of session to aid with pain decrease. Pt reported 0/10 pain at end of session after e-stim. Will continue to monitor pain. Interdisciplinary Team Communication: Physical Therapy . Response to treatment: decreased pain, improved strength and improved flexibility. Patient was able to complete today's treatment with some difficulty. Insurance Insurance reviewed Visit number: 7 Approved number of visits: 12 03/10/20-05/02/20 Subjective Patient reports:. Pt reports she was working on her feet all day yesterday and her pain was increased. It is still in increased pain today, but not as bad. She reports it was all black and blue last night, which is usual and is always gone by the morning. She still has trouble standing/walking on it for more than [address] Ocasio last week, who would like her to start trying to wean out of the brace. Pain Scale: On a scale of 0 to 10, the patient rates the pain at 5. Home program performing as directed: Yes. Precautions: none. Objective Ortho No bruising on or around R knee No TTP of structures around R knee. Treatment Time in clinic started at 8:47 am Time in clinic ended at 9:52 am Total time in clinic is 65 minutes. Total timed code time is 45 minutes. Treatment Performed Today: see exercise flow sheet. Therapeutic exercise (63215): timed minutes 45, units 3 . 8:47-9:32 . Modalities: untimed minutes 20, units 1 . 9:32-9:52 IFC to right knee intensity to tolerance at end of session with ice pack. 'Scores and Scales' Signatures Electronically signed by : Pan Riley, PT; Apr 18 2020 10:00AM EST (Author) [facility] Progress Noteon 1 PT Progress Note No report was sent [facility] Progress Noteon 1 PT Progress Note Therapy Diagnosis Assessed Right knee pain (719.46) (M25.561) Plan Progress with POC, as tolerated. Assessment Pt tolerated progressing difficulty of several exercises and addition of several exercises this session, indicating improvements in strength and muscular endurance. Minor increase in pain during standing exercises, but tolerable. Pt reported 0/10 pain after e-stim. No skin abnormalities noted after modalities. Pt would benefit from PT to continue to progress right knee strength, ROM and improve overall function. Interdisciplinary Team Communication: Physical Therapy . Response to treatment: improved strength and improved flexibility. Patient was able to complete today's treatment with some difficulty. Insurance Insurance reviewed Visit number: 6 Approved number of visits: 12 03/10/20-05/02/20 Subjective Patient reports:. Pt reports pain was not as bad waking up this morning. She feels it is improving overall. She was playing with her dog yesterday and moved her knee awkwardly which resulted in extreme pain for several minutes. Pain Scale: On a scale of 0 to 10, the patient rates the pain at 5. Home program performing as directed: Yes. Precautions: none. Treatment Time in clinic started at 8:45 am Time in clinic ended at 9:45 am Total time in clinic is 60 minutes. Total timed code time is 40 minutes. Treatment Performed Today: see exercise flow sheet. Therapeutic exercise (73168): timed minutes 40, units 3 . 8:45-9:25 . Modalities: untimed minutes 20, units 1 . 9:25-9:45 IFC to right knee intensity to tolerance at end of session with ice pack. 'Scores and Scales' Signatures Electronically signed by : Pan Riley PT; Apr 10 2020 10:54AM EST (Author) [facility] Progress Noteon 1 PT Progress Note Therapy Diagnosis Assessed Right knee pain (719.46) (M25.561) Plan Frequency and duration:. POC amended to 12 visits per C9, dates 03/10/20-05/02/20. Progress with POC, as tolerated. Assessment Decreased pain and increased knee flexion ROM during MWM of right fibular head. Pt tolerated progressing difficulty of several exercises and addition of several exercises this session, indicating improvements in strength and muscular endurance. Pt reported 0/10 pain after e-stim. No skin abnormalities noted after modalities. Pt would benefit from PT to continue to progress right knee strength, ROM and improve overall function. Interdisciplinary Team Communication: Physical Therapy . Response to treatment: improved strength and improved flexibility. Patient was able to complete today's treatment with some difficulty. Insurance Insurance reviewed Visit number: 5 Approved number of visits: 12 03/10/20-05/02/20 Subjective Patient reports:. Pt reports that she woke up with pain this morning. She was on her feet for a while yesterday at work which caused some increased pain. Home program performing as directed: Yes. Precautions: none. Objective Ortho posterior displacement of fibular head noted with heel slides. PROM right knee 0-93 degrees. Treatment Time in clinic started at 9:30 am Time in clinic ended at 10:30 am Total time in clinic is 60 minutes. Total timed code time is 40 minutes. Treatment Performed Today: see exercise flow sheet. Therapeutic exercise (68997): timed minutes 40, units 2 . 9:30-10:10 including MWM right fibular head to prevent posterior displacement of fibula. Modalities: untimed minutes 20, units 1 . 10:10-10:30 IFC to right knee intensity to tolerance at end of session with ice pack. 'Scores and Scales' Signatures Electronically signed by : Pan Riley PT; Apr 03 2020 10:33AM EST (Author) [facility] Progress Noteon 1 PT Progress Note Therapy Diagnosis Assessed Right knee pain (719.46) (M25.561) Plan Progress with POC, as tolerated. Assessment decreased pain and increased knee flexion ROM during MWM of right fibular head. patient tolerated progression of strengthening exercises today with minimal increase in soreness which decreased after estim and ice. 0/10 pain reported in right knee at end of session. No skin abnormalities noted after modalities. Pt would benefit from PT to continue to progress right knee strength, ROM and improve overall function. Insurance Insurance reviewed Visit number: 4 Approved number of visits: 10 Subjective Patient reports:. Pt denies current resting pain in right knee but states that she had sharp pain when she got out of bed this am. Pain level was 8/10. She states that pain seems better overall but she is still experiencing increased swelling at end of work shift. Objective Ortho posterior displacement of fibular head noted with heel slides. AROM right knee 0-100 degrees. Treatment Time in clinic started at 8:45 Time in clinic ended at 9:40 Total time in clinic is 55 minutes. Total timed code time is 35 minutes. Treatment Performed Today: see exercise flow sheet. Therapeutic exercise (35719): timed minutes 35, units 2 . 8:00-8:35 including MWM right fibular head to prevent posterior displacement of fibula. Modalities: untimed minutes 20, units 1 . 8:35-8:55 IFC to right knee intensity to tolerance at end of session with ice pack. 'Scores and Scales' Signatures Electronically signed by : Jihan Sousa TRACK REPAIR PERSON; Apr 01 2020 12:50PM EST (Author) Electronically signed by : Pan Riley PT; Apr 02 2020 10:56AM EST (Author) [facility] Progress Noteon 1 PT Progress Note Therapy Diagnosis Assessed Right knee pain (719.46) (M25.561) Plan Progress with POC, as tolerated. Assessment Pt reported decreased discomfort with heel slide during MWM of fibular head. Was not able to progress exercises as all strengthening exercises caused increased pain today, therefore focused on stretches and manual. Held LAQ and quad sets after 5 reps due to increased pain. Decreased pain following treatment, pt report 4-5/10. Pt would benefit from PT to continue to progress strength/ROM and improve overall function. Response to treatment: improved flexibility, improved tissue mobility and decreased swelling. Patient was able to complete today's treatment with much difficulty. Insurance Insurance reviewed Visit number: 3 Approved number of visits: 10 Subjective Patient reports:. Pt reports her knee felt better after last session until she went to see Dr. Ocasio and she had to flex her knee as much as possible which brought the pain back. She's been doing the exercises, which she reports gave her a little bit of pain yesterday. Pain Scale: On a scale of 0 to 10, the patient rates the pain at 8. Please identify location of pain: R knee. Home program performing as directed: Yes. Precautions: none. Objective Ortho Minimal swelling R knee Posterior displacement of R fibular head with heel slides. Treatment Time in clinic started at 9:27 am Time in clinic ended at 10:10 am Total time in clinic is 43 minutes. Total timed code time is 43 minutes. Therapeutic exercise (01854): timed minutes 18, units 1 . 9:52-10:10. Manual Therapy (51321): timed minutes 25, units 1 . 9:27-9:52 MWM R fibular head to prevent posterior displacement of fibula STM to R lateral hamstring, retrograde massage to R knee to decrease swelling Gr. II-III Anterior fibular head mobs. 'Scores and Scales' Signatures Electronically signed by : Pan Riley, PT; Mar 27 2020 12:06PM EST (Author) [facility] Progress Noteon PT Progress Note Therapy Diagnosis Assessed Right knee pain (719.46) (M25.561) Plan Progress with POC, as tolerated. Assessment patient had no complaints of increased pain at end of session. decreased discomfort with heel slide during MWM of fibular head. Pt would benefit from PT to continue to progress strength/ROM and improve overall function. Insurance Insurance reviewed Visit number: 2 Approved number of visits: 10 Subjective Patient reports:. Pt denies current pain in her right knee but states that she had trouble sleeping last night due to pain. She states that pain was a 10/10 last night. She states that she has been having increased pain after performing HEP. Objective Ortho Reviewed HEP. Modified hamstring and gastroc stretches to be performed sitting in chair with LE on stool versus long sitting. Also instructed to hold hamstring curls due to tightness in left lateral hamstring Minimal swelling noted right knee posterior displacement of left fibular head noted with heel slides. Treatment Time in clinic started at 8:45 Time in clinic ended at 9:30 Total time in clinic is 45 minutes. Total timed code time is 45 minutes. Therapeutic exercise (09870): timed minutes 30, units 2. Manual Therapy (76460): timed minutes 15, units 1 . MWM left fibular head to prevent posterior displacement of fibula STM to left lateral hamstring, retrograde massage to left knee to decrease swelling. 'Scores and Scales' Signatures Electronically signed by : Jihan Sousa, TRACK REPAIR PERSON; Mar 25 2020 3:47PM EST (Author) Electronically signed by : Pan Riley, PT; Mar 26 2020 5:37PM EST (Author) [facility] Progress Noteon PT Progress Note No report was sent [facility] Initial Evaluationon 03-07 PT Initial Evaluation Therapy Diagnosis Assessed Right knee pain (719.46) (M25.561) Plan of Care Goals: Goals set and discussed today. By discharge FABY GALAN will achieve the following goals: Pt will report at least 75% improvement in pain of R knee during everyday activities. Pt will demo ability to ambulate 50' on level surface without pain or gait deviation. Pt will demo >/= 4+/5 strength of R knee musculature without pain. Pt will demo >/= 4+/5 strength of R hip musculature without pain. Pt will demo symmetrical A/PROM of R knee to L without pain. Pt will demo symmetrical A/PROM of R hip to L without pain. Pt will improve R hamstring flexibility with 90/90 testing to lacking no more than 10 deg. Pt will improve LEFS score by at least 9 points (MCID) to reflect increased ease in completing ADLs/IADLs. Baseline 03/18/2020: 23/ Pt will demo independence and report compliance with HEP. Planned interventions include: cryotherapy, education/instruction, electrical stimulation, home program, hot pack, kinesiotaping, manual therapy, therapeutic activities, therapeutic exercises, ultrasound and vasopneumatic device w/ cold. Frequency and duration: 2 time(s) a week, for 6 weeks, for 12 visits. Potential to achieve rehab goals is good Plan of care was developed with input and agreement by the patient. Assessment Pt is a 19 year old female who participated in a PT evaluation today due to R knee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 (none)Author Type: Registered NurseType: Nursing Progress NoteFiled: 06/05/2017 5:42 PMNote Text: Nursing Progress NotePatient Name: Faby GalanMRN: [id number] Location: [place] [address] [address]* ___Pt awake around 8:15AM. Pt ate breakfast in dining room, good appetite(ate 100% breakfast), socializing with peers appropriately. Pt presentsmildly anxious and shy, giggling when asked questions, pleasant and inbehavioral control. Pt denies current SI/HI/ urges for SIB and agrees toinform staff if feeling unsafe. Pt is med adherent and statesunderstanding of medications; no complaint of side effects/none observed.Nursing plan of care and IDTP reviewed. Will continue to monitor andsupport.1400 Pt admits to feeling urges and is requesting PRN atarax. Given 25mg and RN walked around unit with Pt. She was able to state that she wasfeeling better and joined group activities. In behavioral control; no SIBobserved.1600 Pt participating in groups, managing anxiety and is in behavioralcontrol.1740 Pt tearful and sitting on floor of her room, c/o urges to cut. Ptwas able to maintain safety with RN 1:1 support.This note was completed by: Josie Hammer RN [facility] NURSING PROG HNO ID: [id number] thor: Nicole (Rn) SURAJ Dubonervice: NursingAuthor Type: Registered NurseType: Nursing Progress NoteFiled: 06/05/2017 6:30 AMNote Text: Nursing Progress NotePatient Name: Faby GalanMRN: [id number] Location: [place] [address]/[place] [address]* ___ Pt. calm, in behavioral control. She partially attended movie group, leftapproximately at 2000 and asked for HS meds because she wanted to go tosleep. Pt. sleeping by 2029. Treatment plan reviewed.629 - Pt. appeared to have slept through out the night.This note was completed by: Nicole Dubon RN [facility] PLAN OF CAREon 06-05-2017 PLAN OF CARE HNO ID: [id number] thor: LEONORA Osegueraervice: Pediatric PsychiatryAuthor Type: PhysicianType: Plan of CareFiled: 06/05/2017 7:59 AMNote Text:TREATMENT PLANADMISSIONAdmission Date:05/31/2017Level of Care: InpatientAnticipated Length of Stay: 3-4 daysCustody Concerns:None - See Phone/Visitation BookPsychosocial Assessment:See Psychosocial Assessment for Community Providers.Safety Assessment: - Clinical Nurse Assessment of Risk Completed: Yes- Clinical Physician Assessment of Risk with [place]-Suicide SeverityRating Scale Risk Assessment completed: - Please see HANDP- DCFS Notified? NoReason for Admission:SuicidalSelf Injurious BehaviorsTarget Symptoms:self-injury or suicidal thinkingStrengths:The patient is good physical health.Limitations:Interperson al conflict with family membersPrecautions:StandardDAI LY PROGRESSPsychiatric Diagnosis and Plan:Active Hospital Problems Diagnosis Date Noted- Intellectual disability 06/03/2017 Overview Note: FSIQ 67-family referred to BDD- Self-injurious behavior 06/01/2017 Overview Note: - Standard unit precautions- Depression 05/31/2017 Overview Note: - Wean lexapro 20mg daily- Titrate zoloft, starting at 25 mg daily 06/02Expected Outcomes:Absence of suicidal thoughts per patient report. Achieved June 02, 2017Complete a suicide prevention plan. In ProgressComplete a health promotion plan. Achieved June 03, 2017Attends and participates in groups. Achieved June 02, 2017Able to complete a structured multi-step task. Achieved June 02, 2017Eating 50% of meals. Achieved June 02, 2017Sleeping 6 hours per night. Achieved June 02, 2017Independent ADL's. Achieved June 02, 2017Identifies names of medication and reason for taking. In ProgressFamily meeting. Achieved: day of admissionAble to return to school full-time/part-time. In ProgressOutpatient aftercare finalized. In ProgressAftercare PlanPsychiatryTherapySchoolInt erventions:PhysicianMedication assessment/adjustment/educatio nDaily 1:1 with patientInitial and ongoing psychiatric assessmentMeeting with familyContact outpatient psychiatristConsults/Labs/MRI/ CTEvaluation: ongoingNursingSuicide/escape/a ssault/withdrawal precautionsNursing Assessment twice per dayEducate regarding: Health Promotion Plan and ReviewEncourage involvement in [place] therapiesHealthy coping skillsRelaxationEvaluation: ongoingSocial WorkFamily meetingObtain collateral data from community resources and outside providers (Seepsychosocial assessment)Discharge planning with family, community resources and outpatientprovidersEvaluation: ongoingRehabiliation TherapyAssessmentDaily Educational Groups or 1:1'sCreative expressionCognitive task skillsLeisure skills/social skillsSelf-esteem/self care skillsCoping skillsEvaluation: ongoingEducationAssessmentCont act school/forms completedParticipationEvaluati on:ATTENDANCETrainees:Trainee not in attendanceSocial Work/Social Work Trainees:Shante Okeefeing:Josie Phelan Physician:Signature:Candace Martino MDApril 20177:44 AM [facility] PROGRESSon 06-05-2017 PROGRESS HNO ID: [id number] thor: LEONORA Osegueraervice: Pediatric PsychiatryAuthor Type: PhysicianType: Progress NotesFiled: 06/05/2017 9:48 AMNote Text:CHILD AND ADOLESCENT PSYCHIATRYPROGRESS NOTEPATIENT NAME: Faby GalanMRN: [id number] of SERVICE: 06/05/17TIME of SERVICE: 9:44 AMSUBJECTIVE:Per nursing notes:Assessed patient and created/reviewed nursing plan of care for patient.Communicated direction and delegated nusing tasks and activities to LEARNING ADMINISTRATOR,mental health workers and PCNAs. RN provided oversight and evaluation;giving clarification and feedback; as well as adjusting nursing plan ofcare as needed.1130 She attended and was engaged in morning group.1200 Informed NEHA Walker of patient's physical and behavioral observationsthis morning.1720 - Patient came to nurse's station to request the medication thathelps me when I want to cut. PRN hydroxyzine given per order. After themedication was administered, the patient returned to group.?Pt. calm, in behavioral control. She partially attended movie group, leftapproximately at 1999 and asked for HS meds because she wanted to go tosleep. Pt. sleeping by 2029. Treatment plan reviewed.629 - Pt. appeared to have slept through out the night.New problems on the unit since the last encounter: Eugenioport from the patient:-doing OK -feels tired -states she slept well yesterday-experienced AH of her name being called x1 yesterday while in shower -able to realize it was not real-tried the pill for my urges to cut -states it helped a medium amount -would like it to help more -believes it may have increased anxiety-denies side effects to any medications-denies SI-denies HI-denies current AVH-states grandmother had told patient that if she needed to come back [facility] she would be here for 90 days-biggest worry is that i'm going to have to stay for 2 or 3 years Any new medication reactions since the last encounter: NoCollateral: Spoke with grandmother and grandfather June 05, 2017 0921-provided with patient update-tentative dc for tomorrow-discussed self harm versus suicidal ideation-family wants new psychiatrist -would like contact information-discussed Faby's difficulty with distress tolerance -family asked if that was normal MEDICATIONS:Current hospital medications:glycopyrrolate 1 mg tab(s) (ROBINUL) 1 mg ORAL AT BEDTIMEsertraline 25 mg tab(s) (ZOLOFT) 25 mg ORAL AT BEDTIMEhydrOXYzine HCl 25 mg tab(s) (ATARAX) 25 mg ORAL TID PRN[START ON 06/05/2017] escitalopram oxalate 5 mg tab(s) (LEXAPRO) 5 mg ORALDAILYmelatonin 3 mg tab(s) 3 mg ORAL AT BEDTIMEacetaminophen 650 mg tab(s) (TYLENOL) 650 mg ORAL q 6 H PRNlevothyroxine 25 mcg tab(s) (SYNTHROID) 25 mcg ORAL DAILY (6 AM)ALLERGIESNo Known AllergiesMEDICAL HISTORY:CURRENT PCP: No primary care provider on file.MAJOR MEDICAL ILLNESSES:ACTIVE PROBLEM LISTDepressionSelf-Injurious BehaviorIntellectual DisabilityOBJECTIVE 06/02/180831/568580NM: 116/87 108/68 113/65 106/70Pulse: 102 98 98 98Resp: 20 18 18Temp: 36.7 ?C (98.1 ?F) 36.8 ?C (98.2 ?F) 36.8 ?C (98.2 ?F) 36.5 ?C (97.7?F)TempSrc: Oral Oral Oral OralSpO2: 98% 98% 99%Weight:Height:Last 3 Encounter Wt Readings: Date: Wt: 05/31/2017 55.8 kg (123 lb 0.3 oz) (64 %, Z= 0.35)*Last 3 Encounter Ht Readings: Date: Ht: 05/31/2017 154 cm (5' 0.63 ) (11 %, Z= -1.23)*Body mass index is 23.53 kg/(m2).PHYSICAL EXAMGeneral / Constitutional: 17 year old year old girl who is in no acutedistress, well appearing, alert, well-hydrated, well nourished.Neurological: Gait is within normal limits with grossly normal strengthand no abnormal movements. CN II-XII: grossly intact.MENTAL STATUS EXAMINATION:Appearance: 17 year old girl, appearing younger than her stated age,wearing a long sleeved shirt and pajama pants. Seen and evaluated inpatient room Brown hair in messy bunBehavior: Polite and engaged, but Immature for chronologic age and remainssocially awkward. good eye contact.Speech/Language: Difficulties noted with s sound. appropriate use oflanguageMood: Described as good Affect: bright affect. Doesn't appear depressed or sad. Mood incongruentThought Content: No insight into triggers for depressed mood or urges tocut. Minimal insight into how to manage distress. Similar thought contentto previous days. Feels that she needs to stay until things are better .Doesn't appreciate personal control over managing thoughts and feelings.Thought Process: The thought process is organized and linear, butsuperficialHallucinations: She does not appear internally stimulatedSuicidal ideas/plans: The patient denies suicidal ideation, intent orplan. No current urges to self harmHomicidal ideas/plan: Patient denies any homicidal ideation, plan orintent at this time.Anxiety: She denies and does not appear anxiousConcentration: She demonstrates age appropriate attention throughout theinterviewJudgment: Demonstrates marked impairment of judgmentInsight: The patient demonstrates poor insight- likely baselineLABORATORY DATA:The laboratory results have been reviewed. Any pertinent findings sincethe last assessment? No.Formulation:Faby was admitted on 05/31/2017 to Inpatient Psychiatry.Faby Galan is a 17 year old female diagnosed with depression-unspecified, deliberate self cutting, anxiety- unspecified. Her treatmentregimen currently includes: Lexapro taper and Zoloft titration. Atarax PRNfor anxiety. She is going to be referred for DBT based IOP. She finds thatthe medication are not helpful at this time. [facility] [employer]. There are ongoing safety concerns as the patient requiresinpatient hospitalization.Faby Galan's previous diagnoses include: depression and possibleADHD. Shee has a biologic predisposition for mental health problems, asevidenced by a family history of substance use, depression, anxiety,suicide attempts (mom). She has poor coping mechanisms including immaturecoping skills (including self-injurious behavior), frequent perceivedattacks on their ego, externalization of symptoms. Faby Morenoergendorses numerous social stressors including - school stressors, cutting.Past medication trials include: Abilify (caused SI), Lexapro (no benefitnoted)Faby is admitted with concern for increase in cutting and SI. The patientbegan cutting in December 2016 and says she enjoys it and uses it as astress relief. There is concern that there is an underlying learningdisorder which may put the patient at greater risk for trying high riskbehaviors as her friends are. At this time, the patient would benefit fromongoing hospitalization in order to further observe her and provideappropriate treatment.The status of the patient is improving.The patient continues to meet the criteria of inpatient psychiatrichospitalization due to:risk of harm to self and psychiatrically unstableActive Hospital Problems Diagnosis Date Noted- Intellectual disability 06/03/2017 Overview Note: FSIQ 65-family referred to BDD- Self-injurious behavior 06/01/2017 Overview Note: - Standard unit precautions- Depression 05/31/2017 Overview Note: - Wean lexapro 20mg daily- Titrate zoloft, starting at 25 mg daily 06/02Candace Martino [id number] AMPager: [id number] [facility] SOCIAL WORKon 06-05-2017 SOCIAL WORK HNO ID: [id number] thor: Flor Wells) JorgeService: Social WorkAuthor Type: Social WorkerType: Social WorkFiled: 06/05/2017 2:55 PMNote Text:CHILD AND ADOLESCENT PSYCHIATRYSOCIAL WORKONGOING ASSESSMENTPATIENT NAME: Faby GalanADDRESS: [address] [facility] [facility] [address]AODGEQ: BluMRN: [id number] DATE: 05/31/2017DATE of SERVICE: 06/05/2017Faby was discussed in treatment team. Faby is not ready for dischargeat the time of this note.refractory worker present when the doctor called the grandma. Discussed theprojected d/c for Tuesday June 06, 2017.Follow-up:PsychiatryName: Dr. Claudia BaeAgency: [place]Location: [facility] FacilityPhone: [facility]: [phone] appointment confirmed for June 08, 2017 at 4pmPlease speak with Fiordaliza Cheung after this appointment who can further assistin securing out patient mental health services.??TherapistName: ?[facility]: [phone]: [phone] appointment confirmed? ?No, on wait list for services?[facility] Board of Developmental Disabilities [address] [phone] and request to speak with Gurdeep Velasquez who can assist incompleting the intake to see if patient is [facility].?SIGNATURE: ESE Hernandez-SDATE of SERVICE: 06/05/2017TIME of SERVICE: 8:56 AM [facility] NURSING PROGon 06-04-2017 NURSING PROG HNO ID: [id number] thor: Franklin (Neha) SURAJ Gabrielervice: NursingAuthor Type: Registered NurseType: Nursing Progress NoteFiled: 06/04/2017 5:24 PMNote Text: Nursing Progress NotePatient Name: Faby GalanMRElsy: [id number] Location: [id number]-[id number]-9528/-PPSY-450* ___1720 - Patient came to nurse's station to request the medication thathelps me when I want to cut. PRN hydroxyzine given per order. After themedication was administered, the patient returned to group.This note was completed by: Franklin Gabriel RN [facility] NURSING PROG O ID: [id number] thor: MERY Araiza Lpnervice: NursingAuthor Type: LICENSED NURSEType: Nursing Progress NoteFiled: 06/04/2017 12:28 PMNote Text: Nursing Progress NotePatient Name: Faby MorenoHuntsville Hospital SystemN: [id number] Location: ZU-HJGT-2083/-PPSY-450* ___Assessed patient and created/reviewed nursing plan of care for patient.Communicated direction and delegated nusing tasks and activities to LEARNING ADMINISTRATOR,mental health workers and PCNAs. RN provided oversight and evaluation;giving clarification and feedback; as well as adjusting nursing plan ofcare as needed.1130 She attended and was engaged in morning group.1200 Informed RN Aaron of patient's physical and behavioral observationsthis morning.This note was completed by: Franklin Gabriel RN [facility]: [id number] thor: Nona Araiza Lpnice: (none)Author Type: LICENSED NURSEType: Nursing Progress NoteFiled: 06/04/2017 11:24 AMNote Text: Nursing Progress NotePatient Name: Faby MckeonlisetteMultiCare [facility]: [id number] Location: WE-MEXW-4649/[facility]450* ___Daily Note: She awakened by 0830. She presents calm, quiet and pleasant. She denied SI, AH and urges to SIB with this ad copy writer this morning. Sheate an adequate breakfast.0900 Informed NEHA Walker of patient's physical and behavioral observationsthis morning.1045 Dr. Martino informed this ad copy writer that she approved patient'sgrandmother to bring in her own deodorant due to her endocrinologyIssues. This ad copy writer informed NEHA Walker of this information. Nursinginstruction order placed.This note was completed by: Miriam Guerrero LPN [facility] NURSING PROG HNO ID: [id number] thor: Saurav Dangeloice: (none)Author Type: (none)Type: Nursing Progress NoteFiled: 06/03/2017 10:02 PMNote Text: Nursing Progress NotePatient Name: Faby GalanMRN: [id number] Location: [id number]-[id number]-5889/[facility]* ___Daily Note: Patient is pleasant and cooperative. Her mood is somewhatlabile. At change of shift, patient was smiling and very happy. Afterthe movie, patient was more reserved and somber. She denies current SI.Per dayshift, patient had a couple fluctuations in mood during morning andafternoon as well. Patient denies AVH; denies AVILES or other pain. She ismed compliant. Patient fell asleep around 2200. Treatment plan reviewed.Q15 min checks maintained. Will continue to monitor patient for safety,comfort, and support.This note was completed by: TEOFILO Morales, RN-[facility] PLAN OF CAREon 06-04-2017 PLAN OF CARE HNO ID: [id number] thor: LEONORA Osegueraervice: Pediatric PsychiatryAuthor Type: PhysicianType: Plan of CareFiled: 06/04/2017 7:45 AMNote Text:TREATMENT PLANADMISSIONAdmission Date:05/31/2017Level of Care: InpatientAnticipated Length of Stay: 3-4 daysCustody Concerns:None - See Phone/Visitation BookPsychosocial Assessment:See Psychosocial Assessment for Community Providers.Safety Assessment: - Clinical Nurse Assessment of Risk Completed: Yes- Clinical Physician Assessment of Risk with [place]-Suicide SeverityRating Scale Risk Assessment completed: - Please see HANDP- DCFS Notified? NoReason for Admission:SuicidalSelf Injurious BehaviorsTarget Symptoms:self-injury or suicidal thinkingStrengths:The patient is good physical health.Limitations:Interperson al conflict with family membersPrecautions:StandardDAI LY PROGRESSPsychiatric Diagnosis and Plan:Active Hospital Problems Diagnosis Date Noted- Intellectual disability 06/03/2017 Overview Note: FSIQ 67-family referred to BDD- Self-injurious behavior 06/01/2017 Overview Note: - Standard unit precautions- Depression 05/31/2017 Overview Note: - Wean lexapro 20mg daily- Titrate zoloft, starting at 25 mg daily 06/02Expected Outcomes:Absence of suicidal thoughts per patient report. Achieved June 02, 2017Complete a suicide prevention plan. In ProgressComplete a health promotion plan. Achieved June 03, 2017Attends and participates in groups. Achieved June 02, 2017Able to complete a structured multi-step task. Achieved June 02, 2017Eating 50% of meals. Achieved June 02, 2017Sleeping 6 hours per night. Achieved June 02, 2017Independent ADL's. Achieved June 02, 2017Identifies names of medication and reason for taking. In ProgressFamily meeting. Achieved: day of admissionAble to return to school full-time/part-time. In ProgressOutpatient aftercare finalized. In ProgressAftercare PlanPsychiatryTherapySchoolInt erventions:PhysicianMedication assessment/adjustment/educatio nDaily 1:1 with patientInitial and ongoing psychiatric assessmentMeeting with familyContact outpatient psychiatristConsults/Labs/MRI/ CTEvaluation: ongoingNursingSuicide/escape/a ssault/withdrawal precautionsNursing Assessment twice per dayEducate regarding: Health Promotion Plan and ReviewEncourage involvement in [facility] therapiesHealthy coping skillsRelaxationEvaluation: ongoingSocial WorkFamily meetingObtain collateral data from community resources and outside providers (Seepsychosocial assessment)Discharge planning with family, community resources and outpatientprovidersEvaluation: ongoingRehabiliation TherapyAssessmentDaily Educational Groups or 1:1'sCreative expressionCognitive task skillsLeisure skills/social skillsSelf-esteem/self care skillsCoping skillsEvaluation: ongoingEducationAssessmentCont act school/forms completedParticipationEvaluati on:ATTENDANCETrainees:LEONORA Mcknightocial Work/Social Work Trainees:Shante Warding:Christie Covington Physician:Signature:Candace Martino [facility] 20177:44 AM [facility] PROGRESSon 06-04-2017 PROGRESS HNO ID: [id number] thor: LEONORA Osegueraervice: Pediatric PsychiatryAuthor Type: PhysicianType: Progress NotesFiled: 06/04/2017 9:27 AMNote Text:CHILD AND ADOLESCENT PSYCHIATRYPROGRESS NOTEPATIENT NAME: Faby GalanMRN: [id number] of SERVICE: 06/04/2017TIME of SERVICE: 7:59 AMSUBJECTIVE:Per nursing notes:Pt is pleasant and cooperative. Offers no complaints. Attending groups,socially appropriate.?Patient is pleasant and cooperative. Her mood is somewhat labile. Atchange of shift, patient was smiling and very happy. After the movie,patient was more reserved and somber. She denies current SI. Perdayshift, patient had a couple fluctuations in mood during morning andafternoon as well. Patient denies AVH; denies AVILES or other pain. She ismed compliant. Patient fell asleep around 2200. Treatment plan reviewed.Q15 min checks maintained. Will continue to monitor patient for safety,comfort, and support.New problems on the unit since the last encounter: NoReport from the patient:-doing good today -yesterday was a bad day -unsure why she had a bad day -unsure what she could have changed to make it a better day -not sure why today is a better day-states she heard a creepy voice twice yesterday calling my name -denies current SI/HI-denies current AVH-believes staying sleepy today will help her stay in a good mood-good appetite-decreased sleep last nightAny new medication reactions since the last encounter: NoCollateral: NoMEDICATIONS:Current hospital medications:glycopyrrolate 1 mg tab(s) (ROBINUL) 1 mg ORAL AT BEDTIMEsertraline 25 mg tab(s) (ZOLOFT) 25 mg ORAL AT BEDTIMEhydrOXYzine HCl 25 mg tab(s) (ATARAX) 25 mg ORAL TID PRNescitalopram oxalate 10 mg tab(s) (LEXAPRO) 10 mg ORAL DAILY[START ON 06/05/2017] escitalopram oxalate 5 mg tab(s) (LEXAPRO) 5 mg ORALDAILYmelatonin 3 mg tab(s) 3 mg ORAL AT BEDTIMEacetaminophen 650 mg tab(s) (TYLENOL) 650 mg ORAL q 6 H PRNlevothyroxine 25 mcg tab(s) (SYNTHROID) 25 mcg ORAL DAILY (6 AM)ALLERGIESNo Known AllergiesMEDICAL HISTORY:CURRENT PCP: No primary care provider on file.MAJOR MEDICAL ILLNESSES:ACTIVE PROBLEM LISTDepressionSelf-Injurious BehaviorIntellectual DisabilityOBJECTIVE 06/01/18086BP: 107/83 116/87 108/68 113/65Pulse: 107 102 98 98Resp: 18 20 18 18Temp: 37.3 ?C (99.1 ?F) 36.7 ?C (98.1 ?F) 36.8 ?C (98.2 ?F) 36.8 ?C (98.2?F)TempSrc: Oral Oral Oral OralSpO2: 98% 98% 99%Weight: 55.8 kg (123 lb 0.3 oz)Height: 154 cm (5' 0.63 )Last 3 Encounter Wt Readings: Date: Wt: 05/31/2017 55.8 kg (123 lb 0.3 oz) (64 %, Z= 0.35)*Last 3 Encounter Ht Readings: Date: Ht: 05/31/2017 154 cm (5' 0.63 ) (11 %, Z= -1.23)*Body mass index is 23.53 kg/(m2).PHYSICAL EXAMGeneral / Constitutional: 17 year old year old girl who is in no acutedistress, well appearing, alert, well-hydrated, well nourished.Neurological: Gait is within normal limits with grossly normal strengthand no abnormal movements. CN II-XII: grossly intact.MENTAL STATUS EXAMINATION:Appearance: 17 year old girl, appearing younger than her stated age,wearing a red long sleeved shirt and pajama pants. Brown hair in messy bunBehavior: Polite and engaged, but Immature for chronologic age andsocially awkward. good eye contact.Speech/Language: Difficulties noted with s sound. appropriate use oflanguageMood: Described as good Affect: bright affect. Doesn't appear depressed or sadThought Content: No insight into triggers for depressed mood or urges tocut. Minimal insight into how to manage distress. Similar thought contentto previous days.Thought Process: The thought process is organized and linear, butsuperficialHallucinations: She does not appear internally stimulatedSuicidal ideas/plans: The patient denies suicidal ideation, intent orplan. No current urges to self harmHomicidal ideas/plan: Patient denies any homicidal ideation, plan orintent at this time.Anxiety: She denies and does not appear anxiousConcentration: She demonstrates age appropriate attention throughout theinterviewJudgment: Demonstrates marked impairment of judgmentInsight: The patient demonstrates poor insight- likely baselineLABORATORY DATA:The laboratory results have been reviewed. Any pertinent findings sincethe last assessment? No.Formulation:Faby was admitted on 05/31/2017 to Inpatient Psychiatry.Faby Galan is a 17 year old female diagnosed with depression-unspecified, deliberate self cutting, anxiety- unspecified. Her treatmentregimen currently includes: Lexapro taper and Zoloft titration. Atarax PRNfor anxiety. She is going to be referred for DBT based IOP. She finds thatthe medication are not helpful at this time. [facility] [employer]. There are ongoing safety concerns as the patient requiresinpatient hospitalization.Faby Galan's previous diagnoses include: depression and possibleADHD. Shee has a biologic predisposition for mental health problems, asevidenced by a family history of substance use, depression, anxiety,suicide attempts (mom). She has poor coping mechanisms including immaturecoping skills (including self-injurious behavior), frequent perceivedattacks on their ego, externalization of symptoms. Faby Morenoergendorses numerous social stressors including - school stressors, cutting.Past medication trials include: Abilify (caused SI), Lexapro (no benefitnoted)Faby is admitted with concern for increase in cutting and SI. The patientbegan cutting in December 2016 and says she enjoys it and uses it as astress relief. There is concern that there is an underlying learningdisorder which may put the patient at greater risk for trying high riskbehaviors as her friends are. At this time, the patient would benefit fromongoing hospitalization in order to further observe her and provideappropriate treatment.The status of the patient is improving.The patient continues to meet the criteria of inpatient psychiatrichospitalization due to:risk of harm to self and psychiatrically unstableActive Hospital Problems Diagnosis Date Noted- Intellectual disability 06/03/2017 Overview Note: FSIQ 65-family referred to BDD- Self-injurious behavior 06/01/2017 Overview Note: - Standard unit precautions- Depression 05/31/2017 Overview Note: - Wean lexapro 20mg daily- Titrate zoloft, starting at 25 mg daily 06/02Candace Martino [facility] 20177:59 AMPager: [id number] [facility] NURSING PROGon 06-03-2017 NURSING PROG HNO ID: [id number] thor: Connor (Rn) SURAJ Vazquezervice: (none)Author Type: Registered NurseType: Nursing Progress NoteFiled: 06/03/2017 3:10 PMNote Text: Nursing Progress NotePatient Name: Faby GalanMRN: [id number] Location: [place] [address]/ZU-JIFE-0716 ___Daily Note: Pt is pleasant and cooperative. Offers no complaints.Attending groups, socially appropriate.This note was completed by: Connor Vazquez RN [facility] NURSING PROG HNO ID: [id number] thor: Miriam ([place]init[place]) Nona Guerreroice: (none)Author Type: LICENSED NURSEType: Nursing Progress NoteFiled: 06/03/2017 1:55 PMNote Text: Nursing Progress NotePatient Name: Faby GalanMRN: [id number] Location: [place] [address] [address]* ___Daily Note: This morning, she presents calm and pleasant. She denies AHand urges to SIB. When asked about her coping skills she uses when havingSIB, she said she listens to music or deep breathing. She ate an adequatebreakfast. Her last BM was 06/02/17. Dr. Martino informed this writerthat when she has urges to SIB, she will use plastic madsen to scratch self. Encourage to eat with other peers and count plastic madsen.0900 Informed NEHA Ryan of patient's physical and behavioral observationsthis morning. ITP reviewed.1200 She attended AM groups. At this time, she presents sad and tearyeyed. Patient laying on the chair clutching her argent[place] bear. Patient saidshe just feels this way and has no reason to be sad. She remains safe.Asked if she wanted to walk with this ad copy writer around the unit, shedeclined.Informed NEHA Walker of patient's physical and behavioral observations thismorning.1335 After NEHA Ryan assessed and concurred, patient was given 650 mgtylenol for 8 out of 10 sharp head ache with 10 being the worst.Encouraged patient to turn lights off and lay in her bed.This note was completed by: Miriam Guerrero LPN [facility] NURSING PROG HNO ID: [id number] thor: Connor (Rn) SURAJ Vazquezervice: (none)Author Type: Registered NurseType: Nursing Progress NoteFiled: 06/03/2017 8:21 AMNote Text: Nursing Progress NotePatient Name: Faby GalanMRN: [id number] Location: [place] [address]/[place] [address]* ___Daily Note: Assessed patient and created/reviewed nursing plan of care forpatient. Communicated direction and delegated nusing tasks and activitiesto LEARNING ADMINISTRATOR, mental health workers and PCNAs. RN provided oversight andevaluation; giving clarification and feedback; as well as adjustingnursing plan of care as needed.This note was completed by: Connor Vazquez RN, [facility]RN [facility] PLAN OF CAREon 06-03-2017 PLAN OF CARE HNO ID: [id number] thor: LEONORA Osegueraervice: Pediatric PsychiatryAuthor Type: PhysicianType: Plan of CareFiled: 06/03/2017 10:02 AMNote Text:TREATMENT PLANADMISSIONAdmission Date:05/31/2017Level of Care: InpatientAnticipated Length of Stay: 3-4 daysCustody Concerns:None - See Phone/Visitation BookPsychosocial Assessment:See Psychosocial Assessment for Community Providers.Safety Assessment: - Clinical Nurse Assessment of Risk Completed: Yes- Clinical Physician Assessment of Risk with [place]-Suicide SeverityRating Scale Risk Assessment completed: - Please see HANDP- DCFS Notified? NoReason for Admission:SuicidalSelf Injurious BehaviorsTarget Symptoms:self-injury or suicidal thinkingStrengths:The patient is good physical health.Limitations:Interperson al conflict with family membersPrecautions:StandardDAI LY PROGRESSPsychiatric Diagnosis and Plan:Active Hospital Problems Diagnosis Date Noted- Self-injurious behavior 06/01/2017 Overview Note: - Standard unit precautions- Depression 05/31/2017 Overview Note: - Wean lexapro 20mg daily- Titrate zoloft, starting at 25 mg daily 06/02Expected Outcomes:Absence of suicidal thoughts per patient report. Achieved June 02, 2017Complete a suicide prevention plan. In ProgressComplete a health promotion plan. Achieved June 03, 2017Attends and participates in groups. Achieved June 02, 2017Able to complete a structured multi-step task. Achieved June 02, 2017Eating 50% of meals. Achieved June 02, 2017Sleeping 6 hours per night. Achieved June 02, 2017Independent ADL's. Achieved June 02, 2017Identifies names of medication and reason for taking. In ProgressFamily meeting. Achieved: day of admissionAble to return to school full-time/part-time. In ProgressOutpatient aftercare finalized. In ProgressAftercare PlanPsychiatryTherapySchoolInt erventions:PhysicianMedication assessment/adjustment/educatio nDaily 1:1 with patientInitial and ongoing psychiatric assessmentMeeting with familyContact outpatient psychiatristConsults/Labs/MRI/ CTEvaluation: ongoingNursingSuicide/escape/a ssault/withdrawal precautionsNursing Assessment twice per dayEducate regarding: Health Promotion Plan and ReviewEncourage involvement in mill[place] therapiesHealthy coping skillsRelaxationEvaluation: ongoingSocial WorkFamily meetingObtain collateral data from community resources and outside providers (Seepsychosocial assessment)Discharge planning with family, community resources and outpatientprovidersEvaluation: ongoingRehabiliation TherapyAssessmentDaily Educational Groups or 1:1'sCreative expressionCognitive task skillsLeisure skills/social skillsSelf-esteem/self care skillsCoping skillsEvaluation: ongoingEducationAssessmentCont act school/forms completedParticipationEvaluati on:ATTENDANCETrainees:LEONORA Mcknightocial Work/Social Work Trainees:Laurent TIWARIursing:Sneha Brenner Physician:Signature:Candace Martino [facility] 20179:09 AM [facility] PROGRESSon 06-03-2017 PROGRESS HNO ID: [id number] thor: LEONORA Osegueraervice: Pediatric PsychiatryAuthor Type: PhysicianType: Progress NotesFiled: 06/03/2017 10:08 AMNote Text:CHILD AND ADOLESCENT PSYCHIATRYPROGRESS NOTEPATIENT NAME: Faby GalanMRN: [id number] of SERVICE: 06/03/2017TIME of SERVICE: 10:03 AMSUBJECTIVE:Per nursing notes: Patient is guarded and anxious, but is very pleasant towards this ad copy writer. She is slightly awkward, but is polite and respectful towards staff andother patients. Patient denies current SI, but reports that she hadfleeting SI x2 earlier in the day. Patient denies HI and AVH; deniespain. Patient does not appear internally stimulated. She attended about3/4 of the movie and went to sleep around 2049. She is med compliant andtolerated HS meds without difficulty. Treatment plan reviewed. Q15 minchecks maintained. Will continue to monitor patient for safety, comfort,and support.? Assessed patient and created/reviewed nursing plan of care for patient.Communicated direction and delegated nusing tasks and activities to LEARNING ADMINISTRATOR,mental health workers and PCNAs. RN provided oversight and evaluation;giving clarification and feedback; as well as adjusting nursing plan ofcare as needed.?This morning, she presents calm and pleasant. She denies AH and urges toSIB. When asked about her coping skills she uses when having SIB, shesaid she listens to music or deep breathing. She ate an adequatebreakfast. Her last BM was 06/02/17. Dr. Martino informed this writerthat when she has urges to SIB, she will use plastic madsen to scratch self. Encourage to eat with other peers and count plastic madsen.0900 Informed NEHA Ryan of patient's physical and behavioral observationsthis morning. ITP reviewed.?New problems on the unit since the last encounter: NoReport from the patient:-mood is good -feels different than yesterday - I'm happier than yesterday -able to describe distraction techniques -coloring and word searches, walking with staff-no current urges to self harm - If I felt that way and had a fork I might -denies SI-denies HI-denies AVH - that's been really good here -tolerating medications - I don't think they're working Any new medication reactions since the last encounter: NoCollateral: NoMEDICATIONS:Current hospital medications:glycopyrrolate 1 mg tab(s) (ROBINUL) 1 mg ORAL AT BEDTIMEsertraline 25 mg tab(s) (ZOLOFT) 25 mg ORAL AT BEDTIMEhydrOXYzine HCl 25 mg tab(s) (ATARAX) 25 mg ORAL TID PRNescitalopram oxalate 10 mg tab(s) (LEXAPRO) 10 mg ORAL DAILY[START ON 06/05/2017] escitalopram oxalate 5 mg tab(s) (LEXAPRO) 5 mg ORALDAILYmelatonin 3 mg tab(s) 3 mg ORAL AT BEDTIMEacetaminophen 650 mg tab(s) (TYLENOL) 650 mg ORAL q 6 H PRNlevothyroxine 25 mcg tab(s) (SYNTHROID) 25 mcg ORAL DAILY (6 AM)ALLERGIESNo Known AllergiesMEDICAL HISTORY:CURRENT PCP: No primary care provider on file.MAJOR MEDICAL ILLNESSES:ACTIVE PROBLEM LISTDepressionSelf-Injurious BehaviorOBJECTIVE 06/01/18086BP: 107/83 116/87 108/68 113/65Pulse: 107 102 98 98Resp: 18 20 18 18Temp: 37.3 ?C (99.1 ?F) 36.7 ?C (98.1 ?F) 36.8 ?C (98.2 ?F) 36.8 ?C (98.2?F)TempSrc: Oral Oral Oral OralSpO2: 98% 98% 99%Weight: 55.8 kg (123 lb 0.3 oz)Height: 154 cm (5' 0.63 )Last 3 Encounter Wt Readings: Date: Wt: 05/31/2017 55.8 kg (123 lb 0.3 oz) (64 %, Z= 0.35)*Last 3 Encounter Ht Readings: Date: Ht: 05/31/2017 154 cm (5' 0.63 ) (11 %, Z= -1.23)*Body mass index is 23.53 kg/(m2).PHYSICAL EXAMGeneral / Constitutional: 17 year old year old girl who is in no acutedistress, well appearing, alert, well-hydrated, well nourished.Neurological: Gait is within normal limits with grossly normal strengthand no abnormal movements. CN II-XII: grossly intact.MENTAL STATUS EXAMINATION:Appearance: 17 year old girl, appearing younger than her stated age,wearing a brown fashion sweater and legging pants. Brown hair in messy bunBehavior: Polite and engaged, but Immature for chronologic age andsocially awkward. good eye contact.Speech/Language: Difficulties noted with s sound. appropriate use oflanguageMood: Described as good Affect: bright affectThought Content: No insight into triggers for depressed mood or urges tocut. Minimal insight into how to manage distressThought Process: The thought process is looseHallucinations: She does not appear internally stimulatedSuicidal ideas/plans: The patient denies suicidal ideation, intent orplan. No current urges to self harmHomicidal ideas/plan: Patient denies any homicidal ideation, plan orintent at this time.Anxiety: She denies and does not appear anxiousConcentration: She demonstrates age appropriate attention throughout theinterviewJudgment: Demonstrates marked impairment of judgmentInsight: The patient demonstrates poor insightLABORATORY DATA:The laboratory results have been reviewed. Any pertinent findings sincethe last assessment? No.Formulation:Faby was admitted on 05/31/2017 to Inpatient Psychiatry.Faby Galan is a 17 year old female diagnosed with depression-unspecified, deliberate self cutting, anxiety- unspecified. Her treatmentregimen currently includes: Lexapro taper and Zoloft titration. Atarax PRNfor anxiety. She is going to be referred for DBT based IOP. She finds thatthe medication are not helpful at this time. [facility]. There are ongoing safety concerns as the patient requiresinpatient hospitalization.Faby Galan's previous diagnoses include: depression and possibleADHD. Shee has a biologic predisposition for mental health problems, asevidenced by a family history of substance use, depression, anxiety,suicide attempts (mom). She has poor coping mechanisms including immaturecoping skills (including self-injurious behavior), frequent perceivedattacks on their ego, externalization of symptoms. Faby Xieorses numerous social stressors including - school stressors, cutting.Past medication trials include: Abilify (caused SI), Lexapro (no benefitnoted)Faby is admitted with concern for increase in cutting and SI. The patientbegan cutting in December 2016 and says she enjoys it and uses it as astress relief. There is concern that there is an underlying learningdisorder which may put the patient at greater risk for trying high riskbehaviors as her friends are. At this time, the patient would benefit fromongoing hospitalization in order to further observe her and provideappropriate treatment.The status of the patient is improving.The patient continues to meet the criteria of inpatient psychiatrichospitalization due to:risk of harm to self and psychiatrically unstableActive Hospital Problems Diagnosis Date Noted- Self-injurious behavior 06/01/2017 Overview Note: - Standard unit precautions- Depression 05/31/2017 Overview Note: - Wean lexapro 20mg daily- Titrate zoloft, starting at 25 mg daily 06/02[facility] 201710:02 AMPager: [phone] [facility] SOCIAL WORKon 06-03-2017 SOCIAL WORK HNO ID: [id number] thor: Laurent Wells) PlanovskyService: Social WorkAuthor Type: Social WorkerType: Social WorkFiled: 06/03/2017 1:54 PMNote Text:CHILD AND ADOLESCENT PSYCHIATRYSOCIAL WORKONGOING ASSESSMENTPATIENT NAME: Faby GalanADDRESS: [address] [place] [address]IIOMXB: BluMRN: [id number] DATE: 05/31/2017DATE of SERVICE: 06/03/2017Faby was discussed in treatment team. Faby is not ready for dischargeat the time of this note.Collateral information collected:Phone call and message left for Danay to call back and set up nextpsychiatry appointment and to determine where the patient is on the waitlist for therapy .Follow-up:- Current psychiatrist? ?Yes, ?Name: Dr. Claudia BaeAgency: [place]Location: [facility] FacilityPhone: Cze: [phone] appointment confirmed for June 08, 2017 at 4pmPlease speak with Fiordaliza Cheung after this appointment who can further assistin securing out patient mental health services.??- Current therapistName: ?Agency: KokoChanelhone: [phone]: [phone] appointment confirmed? ?No, [facility] Board of Developmental Disabilities [address] [place] [address] [phone] and request to speak with Gurdeep Velasquez who can assist incompleting the intake to see if [facility].SIGNATURE: LULU SandovalWDATE of SERVICE: 06/03/2017TIME of SERVICE: 9:05 AM [facility] NURSING PROGon 06-02-2017 NURSING PROG HNO ID: [id number] thor: Saurav Dangeloice: (none)Author Type: (none)Type: Nursing Progress NoteFiled: 06/02/2017 10:54 PMNote Text: Nursing Progress NotePatient Name: Faby GalanMRN: [id number] Location: [place] [address] [address]* ___Daily Note: Patient is guarded and anxious, but is very pleasant towards[facility] ad copy writer. She is slightly awkward, but is polite and respectfultowards staff and other patients. Patient denies current SI, but reportsthat she had fleeting SI x2 earlier in the day. Patient denies HI andAVH; denies pain. Patient does not appear internally stimulated. Sheattended about 3/4 of the movie and went to sleep around 2049. She is medcompliant and tolerated HS meds without difficulty. Treatment planreviewed. Q15 min checks maintained. Will continue to monitor patient forsafety, comfort, and support.This note was completed by: TEOFILO Morales, RN-BC [facility] NURSING PROG HNO ID: [id number] thor: Josie (Rn) Arthur Hammerice: (none)Author Type: Registered NurseType: Nursing Progress NoteFiled: 06/02/2017 2:10 PMNote Text: Nursing Progress NotePatient Name: Faby GalanMRN: [id number] Location: [id number]/[facility]* ___ Pt awake around 8 AM. Pt ate breakfast in her room, good appetite. Ptpresents pleasant and cooperative, states her mood is better and sleptwell last night. Pt thanked this RN for stuffed animal I slept with itall night and named her Fiordaliza. Pt denies current SI/HI/urges for SIB andagrees to inform staff if feeling unsafe. Pt is med adherent and statesunderstanding of medication (started sertraline last night); no complaintof side effects/none observed. Nursing plan of care and IDTP reviewed.Will continue to monitor and support.?1400 Pt engaged in pleasant visit with grandparents, playing card game.This note was completed by: Josie Hammer, RN [facility] NURSING PROG O ID: [id number] thor: Tala (Rn) SURAJ Brookeervice: NursingAuthor Type: Registered NurseType: Nursing Progress NoteFiled: 06/02/2017 6:26 AMNote Text: Nursing Progress NotePatient Name: Faby GalanMRN: [id number] Location: [id number]/[facility]* ___Daily Note:2210 pt attended the movie tonight after being encouraged tocome out of her room. pt was tearful at shift change and was given astuffed animal by the nurse on the previous shift. she did come outeventually and also had a snack. she took her meds and went to bed.AP/EP/SP and safety checks maintained. ITP reviewed.0625 pt has been sleeping since 2153 and has slept all night. resp evenand unlabored while sleeping with no signs of distress. q 15 min checksand safety maintained.This note was completed by: Tala Brooke RN [facility] PLAN OF CAREon 06-02-2017 PLAN OF CARE HNO ID: [id number] thor: LEONORA Osegueraervice: Pediatric PsychiatryAuthor Type: PhysicianType: Plan of CareFiled: 06/02/2017 8:21 AMNote Text:TREATMENT PLANADMISSIONAdmission Date:05/31/2017Level of Care: InpatientAnticipated Length of Stay: 3-4 daysCustody Concerns:None - See Phone/Visitation BookPsychosocial Assessment:See Psychosocial Assessment for Community Providers.Safety Assessment: - Clinical Nurse Assessment of Risk Completed: Yes- Clinical Physician Assessment of Risk with [place]-Suicide SeverityRating Scale Risk Assessment completed: - Please see HANDP- DCFS Notified? NoReason for Admission:SuicidalSelf Injurious BehaviorsTarget Symptoms:self-injury or suicidal thinkingStrengths:The patient is good physical health.Limitations:Interperson al conflict with family membersPrecautions:StandardDAI LY PROGRESSPsychiatric Diagnosis and Plan:Active Hospital Problems Diagnosis Date Noted- Self-injurious behavior 06/01/2017 Overview Note: - Standard unit precautions- Depression 05/31/2017 Overview Note: - Wean lexapro 20mg daily- Titrate zoloft, starting at 25 mg daily 06/02Expected Outcomes:Absence of suicidal thoughts per patient report. Achieved June 02, 2017Complete a suicide prevention plan. In ProgressComplete a health promotion plan. In ProgressAttends and participates in groups. Achieved June 02, 2017Able to complete a structured multi-step task. Achieved June 02, 2017Eating 50% of meals. Achieved June 02, 2017Sleeping 6 hours per night. Achieved June 02, 2017Independent ADL's. Achieved June 02, 2017Identifies names of medication and reason for taking. In ProgressFamily meeting. Achieved: day of admissionAble to return to school full-time/part-time. In ProgressOutpatient aftercare finalized. In ProgressAftercare PlanPsychiatryTherapySchoolInt erventions:PhysicianMedication assessment/adjustment/educatio nDaily 1:1 with patientInitial and ongoing psychiatric assessmentMeeting with familyContact outpatient psychiatristConsults/Labs/MRI/ CTEvaluation: ongoingNursingSuicide/escape/a ssault/withdrawal precautionsNursing Assessment twice per dayEducate regarding: Health Promotion Plan and ReviewEncourage involvement in [facility] therapiesHealthy coping skillsRelaxationEvaluation: ongoingSocial WorkFamily meetingObtain collateral data from community resources and outside providers (Seepsychosocial assessment)Discharge planning with family, community resources and outpatientprovidersEvaluation: ongoingRehabiliation TherapyAssessmentDaily Educational Groups or 1:1'sCreative expressionCognitive task skillsLeisure skills/social skillsSelf-esteem/self care skillsCoping skillsEvaluation: ongoingEducationAssessmentCont act school/forms completedParticipationEvaluati on:ATTENDANCETrainees:Trainees not in attendanceSocial Work/Social Work Trainees:Laurent Aguirre LISWNursing:Josie Phelan Physician:Signature:Candace Martino [facility] 20178:20 AMPager: [phone] [facility] PROGRESSon 06-02-2017 PROGRESS HNO ID: [id number] thor: LEONORA Osegueraervice: Pediatric PsychiatryAuthor Type: PhysicianType: Progress NotesFiled: 06/02/2017 3:17 PMNote Text:CHILD AND ADOLESCENT PSYCHIATRYPROGRESS NOTEPATIENT NAME: Faby GalanMRN: [id number] of SERVICE: 06/02/2017TIME of SERVICE: 3:13 PMSUBJECTIVE:Per nursing notes:Daily Note:2210 pt attended the movie tonauctionpoint after being encouraged tocome out of her room. pt was tearful at shift change and was given astuffed animal by the nurse on the previous shift. she did come outeventually and also had a snack. she took her meds and went to bed.AP/EP/SP and safety checks maintained. ITP reviewed.0625 pt has been sleeping since 2153 and has slept all night. resp evenand unlabored while sleeping with no signs of distress. q 15 min checksand safety maintained.Pt awake around 8?AM. ?Pt ate breakfast in her room, good appetite. Ptpresents pleasant and cooperative, states her mood is better and sleptwell last night. Pt thanked this RN for stuffed animal I slept with itall night and named her Fiordaliza. ?Pt denies current SI/HI/urges for SIB andagrees to inform staff if feeling unsafe. Pt is med adherent and statesunderstanding of medication (started sertraline last night); no complaintof side effects/none observed. ?Nursing plan of care and IDTP reviewed.??Will continue to monitor and support.??1400 Pt engaged in pleasant visit with grandparents, playing card game.New problems on the unit since the last encounter: NoReport from the patient:-doing OK - I really want to cut' -unable to identify any triggers - I'm just a really depressing person -poor sleep last night due to environmental factors-denies SI -doesn't want to cut as suicide attempt -denies any passive wishes-denies HI-denies AVH even though this was reported by [facility] last night asinterrupting participation in groups-tolerating medications, no voiced side effectsAny new medication reactions since the last encounter: NoCollateral: Yes,Met with grandparents during FCR-reviewed ETR finding and IQ testing -FSIQ is 65-reviewed impact of IQ of 65-provided with name of BDD to contactMEDICATIONS:Current hospital medications:sertraline 25 mg tab(s) (ZOLOFT) 25 mg ORAL AT BEDTIMEhydrOXYzine HCl 25 mg tab(s) (ATARAX) 25 mg ORAL TID PRNescitalopram oxalate 10 mg tab(s) (LEXAPRO) 10 mg ORAL DAILY[START ON 06/05/2017] escitalopram oxalate 5 mg tab(s) (LEXAPRO) 5 mg ORALDAILYmelatonin 3 mg tab(s) 3 mg ORAL AT BEDTIMEacetaminophen 650 mg tab(s) (TYLENOL) 650 mg ORAL q 6 H PRNlevothyroxine 25 mcg tab(s) (SYNTHROID) 25 mcg ORAL DAILY (6 AM)ALLERGIESNo Known AllergiesMEDICAL HISTORY:CURRENT PCP: No primary care provider on file.MAJOR MEDICAL ILLNESSES:ACTIVE PROBLEM LISTDepressionSelf-Injurious BehaviorOBJECTIVE 05/31/1817BP: 106/62 107/83 116/87 108/68Pulse: 89 107 102 98Resp: 16 18 20 18Temp: 36.9 ?C (98.4 ?F) 37.3 ?C (99.1 ?F) 36.7 ?C (98.1 ?F) 36.8 ?C (98.2?F)TempSrc: Oral Oral Oral OralSpO2: 99% 98% 98%Weight: 55.8 kg (123 lb 0.3 oz)Height: 154 cm (5' 0.63 )Last 3 Encounter Wt Readings: Date: Wt: 05/31/2017 55.8 kg (123 lb 0.3 oz) (64 %, Z= 0.35)*Last 3 Encounter Ht Readings: Date: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 [id number] thor: Jose MorseTech) Amadou JonesService: (none)Author Type: TechnicianType: ED NotesFiled: 05/31/2017 1:34 PMNote Text: Security at bedside for wanding all belongings wanded, inventoried andplaced in bags in bin at desk.[facility] ED NOTE HNO ID: [id number] thor: Yue MorseRn) Mary, RNService: NursingAuthor Type: Registered NurseType: ED NotesFiled: 05/31/2017 1:42 PMNote Text: Pt alert and oriented in room. Grandfather (legal guardian) sitting inhall. Pt states she cuts to relieve stress. Currently having SI without aplan. Denies HI. States she does have hallucination and delusions ofpeople telling her to hurt herself and the voices tell her You aren'tworth it. You are not important. Belongings inventoried and sheet filledout and signed by grandfather. [facility] ED NOTE HNO ID: [id number] Author: Amadou Reveles (Tech) Service: (none) Author Type: Cold Roll Packer Sheet Iron Type: ED Notes Filed: 05/31/2017 1:33 PM Note Text: Security called for wanding [facility] ED NOTE HNO ID: [id number] thor: Gail MorseRn) Syed RNService: NursingAuthor Type: Registered NurseType: ED NotesFiled: 05/31/2017 1:04 PMNote Text:Pt bib grandfather, legal guardian. Pt has some SI; denies plan. DeniesHI. Grandfather states pt has been cutting. Pt cut her inner thighs andarms last night. [facility] ED PROV NOTEon 05-31-2017 ED PROV NOTE HNO ID: [id number] thor: Carly Dykes MDService: Emergency MedicineAuthor Type: PhysicianType: ED Provider NotesFiled: 05/31/2017 3:41 PMNote Text:ED Provider NotePatient Name: Faby GalanMRN: [id number] DATE: 05/31/17HistoryPatient presents with:Suicidal IdeationHPI Comments: 17 year old female presents with cutting and suicidalideation. The patient states that she has cut her thighs and arms to makeherself feel better as well as to try to kill herself. She states thatshe thinks about suicide but currently denies suicidal thoughts and plan.She states that she tried to kill herself one year ago by overdosing onmedication. Denies any recent ingestions. Denies HI. States that shehears a voice telling her that she is worthless. She sees apsychiatrist and has plans to start seeing a counselor. No previouspsychiatric hospitalizations. Lives with grandparents, brothers, andnephew. States that she feels safe at home and at school. Identifiesrecent stressors as not being able to go to gymnastics class. Grandfather is interviewed. He states that the patient cuts herself allof the time. [facility], but they have not receivedany additional help. Grandfather is adamant that the patient requiresadmission.Takes lexapro for depression, melatonin for sleep, and levothyroxine forhypothyroidism.History provided by: ParentPAST MEDICAL HISTORYDiagnosis Date- Hypothyroid 2018No past surgical history on file.No family history on file.Social HistorySocial History Main Topics- Smoking status: Never Smoker- Smokeless tobacco: Never Used- Alcohol use No- Drug use: No- Sexual activity: NoALLERGIESNo Known AllergiesReview of SystemsConstitutional: Negative for fever.Gastrointestinal: Negative for abdominal pain.Skin: Positive for wound.Allergic/Immunologic: Negative for immunocompromised state.Neurological: Negative for headaches.Psychiatric/Behavior al: Positive for hallucinations, self-injury andsuicidal ideas.All other systems reviewed and are negative.Physical ExamBP 124/74 Pulse 102 Temp (Src) 98.1 (Temporal Artery) Resp 20 Wt127 lb 6.8 oz (57.8kg) SpO2 98% LMP 05/26/2017Physical ExamConstitutional: She is oriented to person, place, and time. She appearswell-developed and well-nourished. No distress.HENT:Head: Normocephalic and atraumatic.Right Ear: External ear normal.Left Ear: External ear normal.Eyes: Conjunctivae are normal.Neck: Neck supple. No thyromegaly present.Cardiovascular: Normal rate, regular rhythm, normal heart sounds andintact distal pulses.No murmur heard.Pulmonary/Chest: Effort normal and breath sounds normal. No respiratorydistress. She has no wheezes.Abdominal: Soft. She exhibits no distension. There is no tenderness. Thereis no rebound and no guarding.Musculoskeletal: She exhibits no edema.Lymphadenopathy: She has no cervical adenopathy.Neurological: She is alert and oriented to person, place, and time. Sheexhibits normal muscle tone.Skin: Skin is warm and dry. No rash noted.Superficial linear healing lacerations to bilateral forearmsSuperficial linear lacerations to upper right thighPsychiatric: She has a normal mood and affect.Nursing note and vitals reviewed.Diagnostic TestingLabs ReviewedCOMPREHENSIVE METABOLIC PANEL (AK,AV,EU,FV,HL,ADAN,MM,SP) - Abnormal;Notable for the following: Result Value Glucose 136 (*) All other components within normal limitsURINALYSIS WITH MICROSCOPIC (AK,AV,EU,FV,HL,ADAN,MM,SP) - Abnormal; Notablefor the following: Clarity Hazy (*) Hemoglobin/Blood,Ur Moderate (*) Leukest Moderate (*) WBC, Urine 10-25 (*) RBC, Urine Rare (*) Epithelial Cells SEE COMMENT (*) All other components within normal limitsHCG URINE - ED(POC) - NormalCBC + AUTO DIFF (AK,AV,EU,FV,HL,ADAN,MM,SP)TSH BLOOD (AK,AV,EU,FV,HL,ADAN,MM,SP)ALCOH OL / ETHANOL BLOOD (AK,AV,EU,FV,HL,ADAN,MM,SP)URINE DRUG SCREEN (AK,AV,EU,FV,HL,ADAN,MM,SP)Proce duresMedical Decision Making / ED CourseED CourseMedically cleared.Interviewed by Shira from behavioral health intake and accepted foradmission at [facility] by Dr. Madrid.Admitted to the pediatric psychiatric unit.No diagnosis found.Melissa Patient was ADMITTED TO: Peds PsychiatryCondition at time of disposition: stableSIGNATURE: Kelsey Kumar MD05/31/17 1541 [facility] Ethanolon 05-31-2017 Ethanol mg/dL Normal <11 [facility] Comment on above: Performed By: #### C BCDIF, ALCO, CMP, TSH ####[facility] [place], [place] [phone] NURSING PROGon 05-31-2017 NURSING PROG HNO ID: [id number] thor: Alice (Rn) Tip, SURAJervice: NursingAuthor Type: Registered NurseType: Nursing Progress NoteFiled: 06/01/2017 2:29 AMNote Text: Nursing Progress NotePatient Name: Faby GalanMRN: [id number] Location: [place] [address] [address]* ___Daily Note:2119 Pt attended group movie, left early back to her room. Melatonin perorders. Pt states she has had thoughts of self-harm today, denies SI/HI.Discussed coping techniques, pt states she does not have a plan and cankeep herself safe while she is here. Encouraged her to talk with nursingif thoughts get worse or with any further needs. Radio turned on for herfor distraction. Pt states she has had AH in the past but not at thistime. AP/EP/SP and safety precautions maintained.2129 Pt sleepingThis note was completed by: Alice Whelan RN [facility] TSHon 05-31-2017 Thyroid stimulating hormone (TSH) 1.930 uU/mL Normal 0.400-5.50 0 [facility] Comment on above: Result Comment: If t he patient is , TSH reference range varies by gestational period:First Trimester 0.100-2.500 uU/mLSecond Trimester 0.200-3.000 uU/mLThird Trimester 0.300-3.000 uU/mLReferences: 1. Dinero L, Shai M, Jaime EK, et al. Management of Thyroid Dysfunction during and : An Endocrine Society Clinical Practice Guideline. J Clin Endocrinol Metab, 2012:97:5722-1908. 2. Laurent DS. Overview of thyroid disease in . UpToDate. 2016. Accessed on August 22, 2015. Performed By: #### C BCDIF, ALCO, CMP, TSH ####[place] [address] Toxicology Screen,Uron 05-31 Amphetamines, Urine Negative Normal Negative [facility] Comment on above: Result Comment: Cuto ff threshold at 1000 ng/mL. Performed By: #### U AWMIC, UTOX2 ####[place] [address] Barbiturates, Urine Negative Normal Negative [facility] Comment on above: Result Comment: Cuto ff threshold at 200 ng/mL. Performed By: #### U AWMIC, UTOX2 ####[place] [address] Benzodiazepines, Ur Negative Normal Negative [facility] Comment on above: Result Comment: Cuto ff threshold at 200 ng/mL. Performed By: #### U AWMIC, UTOX2 ####[place] [address] Cannabinoids, Urine Negative Normal Negative [facility] Comment on above: Result Comment: Cuto ff threshold at 50 ng/mL. Performed By: #### U AWMIC, UTOX2 ####[place] [address] Cocaine, Urine Negative Normal Negative [facility] Comment on above: Result Comment: Cuto ff threshold at 300 ng/mL. Performed By: #### U AWMIC, UTOX2 ####[place] [address] Ethanol, Urine <11 Normal <11 [facility] Comment on above: Performed By: #### U AWCHERYL, UTOX2 ####[place] [phone] Opiates, Urine Negative Normal Negative [facility] Comment on above: Result Comment: Cuto ff threshold at 300 ng/mL. Performed By: #### U AWCHERYL, UTOX2 ####[place] [phone] Oxycodone, Urine Negative Normal Negative [facility] Comment on above: Result Comment: Cuto ff threshold at 100 ng/mL.Comment:Immunoassay screen only. Cross reactivity with other substances can occur with immunoassay screening. Detection of any drug(s) in this urine toxicology panel is presumptive only. These tests are for medical purposes only and should not be used for compliance monitoring, legal, or forensic use.In clinical settings, confirmatory testing is at the practitioner's discretion [1]. If clinically indicated, confirmation by high specificity, quantitative methodology may be requested on the same specimen through Client Services ([phone]) if contacted within 48 hours of initial testing.[1]Substance Abuse and Mental Health Services Administration (2012). Clinical Drug Testing in Primary Care Technical Assistance Publication Series 32. Department of Health and Human Services, [place], p.10. Performed By: #### U JAMEY, UTOX2 ####[place] [id number] Phencyclidine, Urine Negative Normal Negative [facility] Comment on above: Result Comment: Cuto ff threshold at 25 ng/mL. Performed By: #### U JAMEY UTOX2 ####[place] [id number] Urinalysis with Microscopico n 05-31-2017 Bilirubin, Urine Negative Normal Negative [facility] Comment on above: Performed By: #### U JAMEY UTOX2 ####[place] [phone] Comments SEE COMMENT Normal [facility] Comment on above: Result Comment: Micr oscopic Examination Performed Performed By: #### U JAMEY, UTOX2 ####[place] [address] Erythrocytes (RBC) Rare Critically abnormal Negative [facility] Comment on above: Performed By: #### U AWMIC, UTOX2 ####[place] [address] Hemoglobin mass conc (Bld) Moderate Critically abnormal Negative [facility] Comment on above: Performed By: #### U AWMIC, UTOX2 ####[place] [address] Leukest Moderate Critically abnormal Negative [facility] Comment on above: Performed By: #### U AWMIC, UTOX2 ####[place] [address] pH of blood 7.0 [pH] Normal 5.0-8.0 [facility] Comment on above: Performed By: #### U AWMIC, UTOX2 ####[place] [address] Protein, Urine Negative Normal Negative [facility] Comment on above: Performed By: #### U AWMIC, UTOX2 ####[place] [address] Specific [place], Ur 1.015 Normal 1.005-1.03 0 [facility] Comment on above: Performed By: #### U AWMIC, UTOX2 ####[place] [address] Urine, clarity Hazy Critically abnormal Clear [facility] Comment on above: Performed By: #### U AWMIC, UTOX2 ####[place] [address] Urine, color Yellow Normal Yellow [facility] Comment on above: Performed By: #### U AWMIC, UTOX2 ####[place] [address] Urine, epithelial cells in sediment SEE COMMENT Critically abnormal Negative [facility] Comment on above: Result Comment: Rare Squamous Epithelial Cells Performed By: #### U AWMIC, UTOX2 ####[place] [address] Urine, glucose presence Negative Normal Negative [facility] Comment on above: Performed By: #### U AWMIC, UTOX2 ####[place] [address] Urine, ketones presence Negative Normal Negative [facility] Comment on above: Performed By: #### U AWMIC, UTOX2 ####[place] [address] Urine, mucus presence in sediment Present Normal [facility] Comment on above: Performed By: #### U AWMIC, UTOX2 ####[place] [address] Urine, nitrite presence Negative Normal Negative [facility] Comment on above: Performed By: #### U AWMIC, UTOX2 ####[place] [address] Urine, urobilinogen <2.0 Normal <2.0 [facility] Comment on above: Performed By: #### U AWMIC, UTOX2 ####[place] [address] WBC (Leukocytes) 10-25 Critically abnormal Negative [facility] Comment on above: Performed By: #### U AWMIC, UTOX2 ####[place] [address] Alcoholon 05-17-2017 Ethanol mg/dL Normal <10 [facility] Comment on above: Performed By: #### 1 [id number] ####[facility] [address] [place] [address] CBC With Differentialon 05-05 Basophils Auto #/vol (Bld) 0.03 10*3/uL Normal 0.01-0.07 [facility] Comment on above: Performed By: #### 2 556874 ####[facility] [address] [place] [address] Basophils/100 WBC Auto (Bld) 0.3 % Normal 0.1-1.2 [facility] Comment on above: Performed By: #### 2 [id number] ####[facility] [address] [place] [address] Eosinophils 0.03 10*3/uL Low 0.04-0.50 [facility] Comment on above: Performed By: #### 2 [id number] ####[place] [id number] [place] [address] Eosinophils/100 leukocytes 0.3 % Normal 0.0-8.1 [facility] Comment on above: Performed By: #### 2 [id number] ####[place] [id number] [place] [address] Erythrocyte distribution width Auto Ratio (RBC) 12.2 % Normal 12.0-15.4 [facility] Comment on above: Performed By: #### 2 [id number] ####[address] [address] Erythrocytes (RBC) 3.71 10*6/uL Low 4.10-5.10 [facility] Comment on above: Performed By: #### 2 991851 ####[facility] [address] [place] [address] Hematocrit (HCT) 36.6 % Low 37.0-49.0 [facility] Comment on above: Performed By: #### 2 525536 ####[place] [address] [place] [address] Hemoglobin mass conc (Bld) 11.9 g/dL Low 12.4-14.8 [facility] Comment on above: Performed By: #### 2 117120 ####[facility] [address] [place] [address] Imm Grans Absolute 0.03 10*3/uL Normal 0.00-0.21 [facility] Comment on above: Performed By: #### 2 322132 ####[facility] [address] [place] [address] Immature granulocytes #/vol (Bld) 0.3 % Normal [facility] Comment on above: Performed By: #### 2 380858 ####[facility] [address] [place] [address] Lymphocytes 2.66 10*3/uL Normal 0.40-2.84 [facility] Comment on above: Performed By: #### 2 [id number] ####[facility] [address] [facility] [place] [address] Lymphocytes/100 leukocytes 23.0 % Normal 15.7-50.5 [facility] Comment on above: Performed By: #### 2 837031 ####[facility] [address] [facility] [place] [address] MCH 32.1 pg Normal 25.0-35.0 [facility] Comment on above: Performed By: #### 2 122311 ####[facility] [address] [place] [address] MCHC mass conc (RBC) 32.5 g/dL Normal 32.0-35.9 [facility] Comment on above: Performed By: #### 2 665818 ####[facility] [address] [place] [address] MCV 98.7 fL Normal 78.0-100.0 [facility] Comment on above: Performed By: #### 2 071180 ####[facility] [address] [place] [address] Monocytes 1.13 10*3/uL High 0.25-0.83 [facility] Comment on above: Performed By: #### 2 586557 ####[facility] [address] [place] [address] Monocytes/100 leukocytes 9.8 % Normal 4.8-12.7 [facility] Comment on above: Performed By: #### 2 877958 ####[facility] [address] [facility] [place] [address] Neutrophils Absolute 7.67 10*3/uL High 1.95-6.85 [facility] Comment on above: Performed By: #### 2 830745 ####[facility] [address] [facility] [place] [address] Neutrophils/100 leukocytes 66.3 % Normal 36.8-73.2 [facility] Comment on above: Performed By: #### 2 624712 ####[facility] [address] [place] [address] NRBC Absolute 0.00 10*3/uL Normal [facility] Comment on above: Performed By: #### 2 991527 ####[facility] [address] [place] [address] NRBC Automated 0.0 /100{WBCs} Normal [facility] Comment on above: Performed By: #### 2 267653 ####[facility] [address] [place] [address] Platelet mean volume (PMV) 9.0 fL Low 9.9-12.1 [facility] Comment on above: Performed By: #### 2 119615 ####[facility] [address] [place] [address] Platelets 291 10*3/uL Normal 155-404 [facility] Comment on above: Performed By: #### 2 103899 ####[facility] [address] [place] [address] RDW SD 44.2 fL Normal 39.3-48.6 [facility] Comment on above: Performed By: #### 2 972143 ####[facility] [address] [facility] [place] [address] WBC (Leukocytes) 11.6 10*3/uL Normal 4.5-13.5 [facility] Comment on above: Performed By: #### 2 869185 ####[facility] [address] [place] [address] Comprehensive Metabolic Pane marcia 05-17-2017 Alanine aminotransferase (ALT) 17 U/L Normal 7-45 [facility] Comment on above: Performed By: #### 1 [id number] ####[facility] [address] [place] [address] Albumin 4.8 g/dL Normal 3.4-5.0 [facility] Comment on above: Performed By: #### 1 [id number] ####[facility] [address] [place] [address] Albumin/Globulin Ratio 1.8 {ratio} Normal 0.9-2.4 [facility] Comment on above: Performed By: #### 1 608189 ####[facility] [address] [place] [address] Alkaline phosphatase (ALP) 93 U/L Normal 35-122 [facility] Comment on above: Performed By: #### 1 635101 ####[facility] [address] [place] [address] Anion gap 12 mmol/L Normal 10-20 [facility] Comment on above: Performed By: #### 1 514676 ####[facility] [address] [place] [address] Aspartate aminotransferase (AST) 21 U/L Normal 10-60 [facility] Comment on above: Performed By: #### 1 294139 ####[facility] [address] [place] [address] Bicarbonate (HCO3) 27 mmol/L Normal 18-27 [facility] Comment on above: Performed By: #### 1 683248 ####[facility] [address] [place] [address] Bilirubin (total) 0.4 mg/dL Normal 0.0-1.2 [facility] Comment on above: Performed By: #### 1 959249 ####[facility] [address] [place] [address] BUN/Creatinine Ratio 27 mg/mg High 5-25 [facility] Comment on above: Performed By: #### 1 161642 ####[facility] [address] [place] [address] Calcium 9.9 mg/dL Normal 8.5-10.7 [facility] Comment on above: Performed By: #### 1 082151 ####[facility] [address] [place] [address] Chloride 102 mmol/L Normal 98-107 [facility] Comment on above: Performed By: #### 1 487512 ####[facility] [address] [place] [address] Creatinine 0.55 mg/dL Normal 0.50-1.05 [facility] Comment on above: Performed By: #### 1 294379 ####[facility] [address] [place] [address] eGFR (MDRD) See Below Normal [facility] Comment on above: Result Comment: GFR not calculated on patients <18 years of age Performed By: #### 1 165807 ####[facility] [address] [place] [address] Glucose mass conc 91 mg/dL Normal 70-106 [facility] Comment on above: Performed By: #### 1 577200 ####[facility] [address] [place] [address] Potassium molar conc 3.5 mmol/L Normal 3.4-4.7 [facility] Comment on above: Performed By: #### 1 746188 ####[facility] [address] [facility] [place] [address] Protein 7.4 g/dL Normal 6.4-8.2 [facility] Comment on above: Performed By: #### 1 728564 ####[facility] [address] [place] [address] Sodium 137 mmol/L Normal 136-145 [facility] Comment on above: Performed By: #### 1 955250 ####[facility] [address] [facility] [place] [address] Urea nitrogen 15 mg/dL Normal 6-23 [facility] Comment on above: Performed By: #### 1 848232 ####[facility] [address] [place] [address] Drugs of Abuse, Urine(7)on 0 05-17-2017 Amphetamines/[place] mphetamines, Urine Not Detected Normal [facility] Comment on above: Performed By: #### 7 041935 ####[facility] [address] [place] [address] Barbiturates, Urine Not Detected Normal [facility] Comment on above: Performed By: #### 7 741041 ####[facility] [address] [place] [address] Benzodiazepines, Urine Not Detected Normal [facility] Comment on above: Performed By: #### 7 045933 ####[facility] [address] [place] [address] Cannabinoids, Urine Not Detected Normal [facility] Comment on above: Performed By: #### 7 857277 ####[facility] [address] [place] [address] Cocaine, Urine Not Detected Normal [facility] Comment on above: Performed By: #### 7 299721 ####[facility] [address] [place] [address] Methadone, Urine Not Detected Normal [facility] Comment on above: Performed By: #### 7 304026 ####[facility] [address] [place] [address] Opiates, Urine Not Detected Normal [facility] Comment on above: Performed By: #### 7 999640 ####[facility] [address] [place] [address] PCP, Urine Not Detected Normal [facility] Comment on above: Result Comment: Urin e toxicology screen results are to be used for medicalpurposes only. It is recommended that any result reportedas Detected be confirmed by a more specific alternativechemical method.Drug Analyzed Cutoff Concentration(ng/mL)Barbiturates 200Benzodiazepines 200Cocaine 150Opiates 300Amphetamines 500Cannabinoids 50Methadone 150PCP 25 Performed By: #### 7 358787 ####[facility] [address] [place] [address] Test (Serum)on Test, Serum Negative Normal [facility] Comment on above: Performed By: #### 3 752140 ####[facility] [address] [place] [address] CT HEAD/BRAIN W/O CONTRASTon 01-19-2017 CT HEAD/BRAIN W/O CONTRAST DATE OF EXAM: Jan 19 2017 5:14PMCLINICAL HISTORY/ Name: JUSTEN GALANY:CT HEAD/BRAIN W/O CONTRAST; 01/19/2017 5:14 pmINDICATION:Trauma.COMPARISON :None. CLINICIAN:HAMZAH SANTIAGO:Noncontrast axial CT scan of head was performed. Angled reformats in brain and bone windows were generated. The images were reviewed in bone, brain, blood and soft tissue windows.FINDINGS:CSF Spaces: The ventricles, sulci and basal cisterns are within normal limits.Parenchyma: The garcia-white differentiation is intact. There is no mass effect or midline shift. There is no extraaxial fluid collection. There is no intracranial hemorrhage.Calvarium: The calvarium is unremarkable.Paranasal sinuses and mastoids: Visualized paranasal sinuses and mastoids are clear.CONCLUSION: IMPRESSION:No evidence of acute cortical ischemia or intracranial hemorrhage.No evidence of intracranial hemorrhage or displaced skull fracture. Normal [facility] Vital Signs Date Time Vital Sign Value Performing Clinician Facility 03-02-2023 16:15-0500 Body height 157.48 cm Flor Karis Other [facility] Other 03-02-2023 16:15-0500 Body mass index (BMI) [Ratio] 31.09 kg/m2 Flor Karis Other [facility] Other 03-02-2023 16:15-0500 Body temperature 99 [degF] Flor Karis Other [facility] Other 03-02-2023 16:15-0500 Body weight 77.11 kg Flor Karis Other [facility] Other 03-02-2023 16:15-0500 Diastolic blood pressure 72 mm[Hg] Flor Akris Other [facility] Other 03-02-2023 16:15-0500 Respiratory rate 18 /min Flor Karis Other [facility] Other 03-02-2023 16:15-0500 SaO2% (BldA) [Mass fraction] 98 % Florcorine Dyson Other [facility] Other 03-02-2023 16:15-0500 Systolic blood pressure 116 mm[Hg] Florcorine Dyson Other [facility] Other 08-02-2022 12:05-0400 Body height 154.94 cm Juan J Manzanares Other [facility] Other 08-02-2022 12:05-0400 Body mass index (BMI) [Ratio] 33.74 kg/m2 Juan J Manzanares Other [facility] Other 08-02-2022 12:05-0400 Body temperature 97.8 [degF] Juan J Manzanares Other [facility] Other 08-02-2022 12:05-0400 Body weight 81.01 kg Juan J Manzanares Other [facility] Other 08-02-2022 12:05-0400 Respiratory rate 20 /min Juan J Manzanares Other [facility] Other 08-02-2022 12:05-0400 SaO2% (BldA) [Mass fraction] 96 % Juan J Manzanares Other [facility] Other 05-27-2022 10:00-0400 Body height 154.94 cm Sangeeta Konrad Other [facility] Other 05-27-2022 10:00-0400 Body mass index (BMI) [Ratio] 31.93 kg/m2 Sangeeta Savageler Other [facility] Other 05-27-2022 10:00-0400 Body temperature 98.4 [degF] Sangeeta Silvestre Other [facility] Other 05-27-2022 10:00-0400 Body weight 76.66 kg Sangeeta Silvestre Other [facility] Other 05-27-2022 10:00-0400 Respiratory rate 18 /min Sangeeta Silvestre Other [facility] Other 05-27-2022 10:00-0400 SaO2% (BldA) [Mass fraction] 96 % Sangeeta Silvestre Other [facility] Other 05-05-2022 11:15-0500 Body height 154.94 cm Whitney Macault Other [facility] Other 05-05-2022 11:15-0500 Body mass index (BMI) [Ratio] 32.87 kg/m2 Whitney Meghan Other [facility] Other 05-05-2022 11:15-0500 Body temperature 98.9 [degF] Whitney Meghan Other [facility] Other 05-05-2022 11:15-0500 Body weight 78.93 kg Whitney Meghan Other [facility] Other 05-05-2022 11:15-0500 Respiratory rate 18 /min Whitney Meghan Other [facility] Other 05-05-2022 11:15-0500 SaO2% (BldA) [Mass fraction] 97 % Whitney Meghan Other [facility] Other 11-19-2021 16:43-0400 Diastolic blood pressure 60 mm[Hg] Pcp Unknown [facility] 11-19-2021 16:43-0400 Heart rate 102 /min Pcp Unknown [facility] 11-19-2021 16:43-0400 Respiratory rate 17 /min Pcp Unknown [facility] 11-19-2021 16:43-0400 SaO2% (BldA) [Mass fraction] 95 % Pcp Unknown [facility] 11-19-2021 16:43-0400 Systolic blood pressure 99 mm[Hg] Pcp Unknown [facility] 11-19-2021 12:54-0400 Body height 154.9 cm Pcp Unknown [facility] 11-19-2021 12:54-0400 Body temperature 98.96 [degF] Pcp Unknown [facility] 11-19-2021 12:54-0400 Body weight 72.5 kg Pcp Unknown [facility] 11-12-2021 03:17-0400 Diastolic blood pressure 72 mm[Hg] Pcp Unknown [facility] 11-12-2021 03:17-0400 Heart rate 92 /min Pcp Unknown [facility] 11-12-2021 03:17-0400 Respiratory rate 18 /min Pcp Unknown [facility] 11-12-2021 03:17-0400 SaO2% (BldA) [Mass fraction] 99 % Pcp Unknown [facility] 11-12-2021 03:17-0400 Systolic blood pressure 116 mm[Hg] Pcp Unknown [facility] 10-13-2021 13:17-0400 Body temperature 98.01 [degF] Mark Kenny PA-C Work Phone: [facility] 10-13-2021 13:17-0400 Body weight 72.35 kg Mark Kenny PA-C Work Phone: [facility] 10-13-2021 13:17-0400 Diastolic blood pressure 59 mm[Hg] Mark Kenny PA-C Work Phone: [facility] 10-13-2021 13:17-0400 Heart rate 92 /min Mark Kenny PA-C Work Phone: [facility] 10-13-2021 13:17-0400 Respiratory rate 20 /min Mark Larsonello PA-C Work Phone: [facility] 10-13-2021 13:17-0400 SaO2% (BldA) [Mass fraction] 98 % Mark Kenny PA-C Work Phone: [facility] 10-13-2021 13:17-0400 Systolic blood pressure 101 mm[Hg] Mark Kenny PA-C Work Phone: [facility] 07-27-2021 16:03-0400 Diastolic blood pressure 72 mm[Hg] Pcp Unknown [facility] 07-27-2021 16:03-0400 Heart rate 99 /min Pcp Unknown [facility] 07-27-2021 16:03-0400 Respiratory rate 16 /min Pcp Unknown [facility] 07-27-2021 16:03-0400 SaO2% (BldA) [Mass fraction] 98 % Pcp Unknown [facility] 07-27-2021 16:03-0400 Systolic blood pressure 130 mm[Hg] Pcp Unknown [facility] 07-27-2021 14:24-0400 Body height 154.9 cm Pcp Unknown [facility] 07-27-2021 14:24-0400 Body temperature 97.88 [degF] Pcp Unknown [facility] 07-27-2021 14:24-0400 Body weight 68 kg Pcp Unknown [facility] 06-16-2020 00:02-0400 BMI (Body Mass Index) 24.56 kg/m2 [employer] Work Phone: 06-16-2020 00:02-0400 Body Temperature 98.4 [degF] [employer] Work Phone: 06-16-2020 00:02-0400 Body weight 58.97 kg Hannah [employer] Work Phone: 06-16-2020 00:02-0400 BP Diastolic 80 mm[Hg] Hannah [employer] Work Phone: 06-16-2020 00:02-0400 BP Systolic 109 mm[Hg] Hannah [employer] Work Phone: 06-16-2020 00:02-0400 Height 154.9 cm Hannah [employer] Work Phone: 06-16-2020 00:02-0400 Pulse (Heart Rate) 100 /min Hannah [employer] Work Phone: 06-16-2020 00:02-0400 Pulse Oximetry 100 % [facility] [employer] Work Phone: 06-16-2020 00:02-0400 Respiratory Rate 12 /min Hannah [employer] Work Phone: 11-10-2018 12:58-0400 BMI (Body Mass Index) 18.99 kg/m2 [facility] [employer] Work Phone: 11-10-2018 12:58-0400 Body Temperature 98.1 [degF] [facility] [employer] Work Phone: 11-10-2018 12:58-0400 Body weight 46.5 kg [facility] [employer] Work Phone: 11-10-2018 12:58-0400 BP Diastolic 77 mm[Hg] [facility] [employer] Work Phone: 11-10-2018 12:58-0400 BP Systolic 120 mm[Hg] [facility] [employer] Work Phone: 11-10-2018 12:58-0400 BSA (Body Surface Area) 1.43 m2 [facility] [employer] Work Phone: 11-10-2018 12:58-0400 [facility] Work Phone: 11-10-2018 12:58-0400 Pulse (Heart Rate) 102 /min [facility] [employer] [employer] Work Phone: 11-10-2018 12:58-0400 Respiratory Rate 18 /min [facility] Work Phone: 11-10-2018 12:58-0400 13 1 [facility] Work Phone: Comment on above: 2-20 Weight Percentile 11-10-2018 12:58-0400 17 1 [facility] Work Phone: Comment on above: 2-20 Stature Percentile 11-10-2018 12:58-0400 26 1 [facility] Work Phone: Comment on above: BMI Percentile Encounters Encounter Date Encounter Type Care Provider Facility Start: 04-27-2023 End: 04-27-2023 ambulatory HENRI DANA Not Available Start: 04-13-2023 End: 04-14-2023 ambulatory RICARDO DELATORRE [facility] Start: 04-13-2023 End: 04-13-2023 Subsequent hospital visit by physician Antolin Elise MD Work Phone: [facility] Comment on above: Low back pain with s ciatica, sciatica laterality unspecified, unspecified back pain laterality, unspecified chronicity; Bilateral leg weakness Start: 03-31-2023 End: 03-31-2023 ambulatory JENNYCathi DEVI Not Available Start: 03-24-2023 End: 03-24-2023 ambulatory JENNY TATTERSALL Not Available Start: 03-21-2023 End: 03-21-2023 ambulatory MABEL UGARTE Not Available Start: 03-16-2023 End: 03-16-2023 ambulatory ARNULFO MARQUEZ Not Available Start: 03-14-2023 End: 03-14-2023 ambulatory HENRI KELBLEY Not Available Start: 03-11-2023 End: 03-11-2023 ambulatory MARINO BAUER Not Available Start: 03-09-2023 End: 03-09-2023 ambulatory HENRI KELBLEY Not Available Start: 03-03-2023 End: 03-03-2023 ambulatory HENRI KELBLEY Not Available Start: 03-02-2023 End: 03-02-2023 ambulatory Flor Karis Other [facility] Other Start: 03-02-2023 Office outpatient vi sit 15 minutes Flor Karis [facility] Start: 02-23-2023 End: 02-23-2023 ambulatory ARNULFO L MARQUEZ Not Available Start: 02-16-2023 End: 02-16-2023 ambulatory HENRI KELBLEY Not Available Start: 02-16-2023 End: 02-16-2023 ambulatory ARNULFO L MARQUEZ Not Available Start: 02-15-2023 End: 02-15-2023 ambulatory HENRI KELBLEY Not Available Start: 02-09-2023 End: 02-09-2023 ambulatory MABEL Aguirre BOBARTOLO Not Available Start: 02-08-2023 End: 02-08-2023 ambulatory ARNULFO L MARQUEZ Not Available Start: 02-04-2023 End: 02-04-2023 ambulatory HENRI KELBLEY Not Available Start: 02-03-2023 End: 02-06-2023 ambulatory RICARDO HUNTADONAY [facility] Start: 02-02-2023 End: 02-02-2023 ambulatory HENRI KELBLEY Not Available Start: 01-31-2023 End: 01-31-2023 ambulatory HENRI KELBLEY Not Available Start: 01-26-2023 End: 01-26-2023 ambulatory HENRI KELBLEY Not Available Start: 01-24-2023 End: 01-24-2023 ambulatory HENRI KELBLEY Not Available Start: 01-19-2023 End: 01-19-2023 ambulatory KIARA EMERY Not Available Start: 01-19-2023 End: 01-19-2023 ambulatory ARNULFO L MARQUEZ Not Available Start: 11-19-2022 End: 11-19-2022 ambulatory Leighann Lymond Facility:[facility] Start: 11-19-2022 End: 11-19-2022 ambulatory [facility] Work Phone: [facility] Work Phone: Start: 11-19-2022 End: 11-19-2022 Patient encounter procedure [facility] Work Phone: [facility] Work Phone: Start: 08-02-2022 End: 08-02-2022 ambulatory Juan J Manzanares Other [facility] Other Start: 08-02-2022 Office outpatient vi sit 15 minutes Juan J Lepanto [facility] Start: 06-16-2022 End: 06-17-2022 ambulatory NATE GARCIA [facility] Start: 06-16-2022 End: 06-16-2022 Subsequent hospital visit by physician Rashaad Crockett MD Work Phone: [facility] Comment on above: Meralgia paraestheti ca, right; Paresthesia of right leg Start: 05-31-2022 End: 06-01-[address] KORI SERRANO Facility: Start: 05-27-2022 End: 05-27-2022 ambulatory Sangeeta Silvestre Other [facility] Other Start: 05-27-2022 Office outpatient vi sit 25 minutes Sangeeta Silvestre [facility] Start: 05-24-2022 End: 05-24-2022 ambulatory RICARDO DELATORRE [facility] Start: 05-07-2022 End: 05-07-2022 ambulatory Sangeeta Silvestre Other [employer] Other Start: 05-07-2022 Telephone encounter Sangeeta Silvestre [facility] Start: 05-05-2022 End: 03-01-2023 ambulatory Whitney Christianson Other [facility] [employer] Other Start: 05-05-2022 Office outpatient vi sit 25 minutes Whitney Christianson [facility] Start: 11-19-2021 End: 11-19-2021 Emergency department patient visit Nicko Garcia [facility] 10 Start: 11-17-2021 End: 11-17-2021 Subsequent hospital visit by physician Dread Echo Rm 1 Echocardiogram Comment on above: Chest pain, unspecif ied type Start: 11-11-2021 End: 11-12-2021 Emergency department patient visit Franklin Valencia [facility] 08 Start: 10-22-2021 End: 10-22-2021 Subsequent hospital visit by physician Weather Strip Mechanic 1 Schedule DREAD DIET NUTRITION Start: 10-13-2021 Telephone encounter Mark leary PA-C Work Phone: [facility] Comment on above: Results (X-rays of t he ankle) Start: 10-13-2021 End: 10-13-2021 Subsequent hospital visit by physician Xr [facility] [employer] General Radiology Comment on above: Sprain of ligament o f right ankle, initial encounter [S93.401A] Start: 10-13-2021 End: 10-13-2021 Office outpatient visit 15 minutes Mark Kenny PA-C Work Phone: [facility] Comment on above: Sprain of ligament o f right ankle, initial encounter (Primary Dx) Start: 10-12-2021 End: 10-12-2021 Subsequent hospital visit by physician Sukhdeep Patton PT [facility] Comment on above: Arrived Start: 10-07-2021 End: 10-07-2021 Subsequent hospital visit by physician Sukhdeep Patton PT [facility] Comment on above: Arrived Start: 09-30-2021 End: 09-30-2021 Subsequent hospital visit by physician Sukhdeep Patton PT [facility] Comment on above: Arrived Start: 09-28-2021 End: 09-28-2021 Subsequent hospital visit by physician Nata Erazo PT [facility] Comment on above: Arrived Start: 09-25-2021 End: 09-25-2021 Subsequent hospital visit by physician Nata Erazo PT [facility] Comment on above: Arrived Start: 09-23-2021 End: 09-23-2021 Subsequent hospital visit by physician Kevination [facility] Comment on above: Canceled (Patient co ndition) Start: 09-16-2021 End: 09-16-2021 Subsequent hospital visit by physician Sukhdeep Patton PT [facility] Comment on above: Arrived Start: 09-03-2021 End: 09-05-2021 Subsequent hospital visit by physician Robbin Dalton Mri Room 1 [facility] Imaging MRI Comment on above: Acute pain of right shoulder Start: 09-02-2021 End: 09-02-2021 Subsequent hospital visit by physician Sukhdeep Patton PT [facility] Comment on above: Arrived Start: 08-26-2021 End: 08-26-2021 Subsequent hospital visit by physician Ursula Dick TRACK REPAIR PERSON [facility] Comment on above: Arrived Start: 08-24-2021 End: 08-24-2021 Subsequent hospital visit by physician Ursula Dick TRACK REPAIR PERSON [facility] Comment on above: Arrived Start: 08-19-2021 End: 08-19-2021 Subsequent hospital visit by physician Sukhdeep Patton PT [facility] Comment on above: Arrived Start: 08-17-2021 End: 08-17-2021 Subsequent hospital visit by physician Ursula Dick TRACK REPAIR PERSON [facility] Comment on above: Arrived Start: 08-14-2021 End: 08-14-2021 Subsequent hospital visit by physician Ursula Dick TRACK REPAIR PERSON [facility] Comment on above: Arrived Start: 08-12-2021 End: 08-12-2021 Subsequent hospital visit by physician Sukhdeep Patton PT [facility] Comment on above: Arrived Start: 08-07-2021 End: 08-07-2021 Subsequent hospital visit by physician Cancellation [facility] Comment on above: Canceled (Other) Start: 08-05-2021 End: 08-05-2021 Subsequent hospital visit by physician Ursula Dick TRACK REPAIR PERSON [facility] Comment on above: Arrived Start: 07-31-2021 End: 07-31-2021 Subsequent hospital visit by physician Cancellation [facility] Comment on above: Canceled (Lack of Tr ansportation) Start: 07-27-2021 End: 07-27-2021 Emergency department patient visit Thomas Coffey [facility] 16 Start: 07-22-2021 End: 07-22-2021 Subsequent hospital visit by physician Gurdeep Riley TRACK REPAIR PERSON [facility] Comment on above: Arrived Start: 07-20-2021 End: 07-20-2021 Subsequent hospital visit by physician Sukhdeep Patton PT [facility] Comment on above: Arrived Start: 07-13-2021 End: 07-13-2021 Subsequent hospital visit by physician Cancellation [facility] Comment on above: Canceled (Other) Start: 07-09-2021 End: 07-09-2021 Subsequent hospital visit by physician Gurdeep Riley TRACK REPAIR PERSON [facility] Comment on above: Arrived Start: 07-06-2021 End: 07-06-2021 Subsequent hospital visit by physician Sukhdeep Patton PT [facility] Comment on above: Arrived Start: 08-28-2020 End: 08-28-2020 Emergency department patient visit Candace Canela [facility] 25 Start: 08-26-2020 End: 08-28-2020 Subsequent hospital visit by physician Robbin Dalton Ultrasound Room 2 [facility] Imaging Ultrasound Comment on above: Hypothyroidism due t o Mani's thyroiditis Start: 06-16-2020 End: 06-16-2020 Emergency department patient visit MARY MCFARLANE [facility] Start: 06-16-2020 End: 06-16-2020 Emergency department patient visit Hannah Adame Work Phone: [facility] Comment on above: Rash and other nonsp ecific skin eruption (Primary Dx) Start: 04-18-2020 Patient encounter procedure [facility] Work Phone: Start: 04-10-2020 [facility] Work Phone: Start: 04-03-2020 Patient encounter procedure [facility] Work Phone: Start: 04-01-2020 Patient encounter procedure Pan [facility] Work Phone: Start: 03-27-2020 Patient encounter procedure Pan [facility] Work Phone: Start: 03-25-2020 Patient encounter procedure Pan [facility] Work Phone: Start: 03-19-2020 Patient encounter procedure Pan [facility] Work Phone: Start: 01-21-2020 End: 01-21-2020 Subsequent hospital visit by physician Xr [facility] General Radiology Comment on above: Acute pain of right knee [M25.561] Start: 10-12-2019 End: 10-12-2019 Subsequent hospital visit by physician Xr [facility] General Radiology Comment on above: Sprain of ligament o f right ankle, initial encounter [S93.401A] Start: 12-01-2018 Patient encounter procedure [facility] Work Phone: Start: 11-10-2018 Patient encounter procedure [facility] Work Phone: Start: 04-04-2018 [id number] Start: 09-28-2017 Patient encounter MIGUEL sanchez:[facility] [employer] Start: 05-31-2017 End: 06-06-2017 Evaluation and management of inpatient [facility] Start: 05-17-2017 Patient encounter procedure Ashley Shah Facility:[id number] Start: 05-17-2017 End: 05-18-2017 Emergency department patient visit SARKIS OCONNOR Facility:[facility] Start: 01-19-2017 End: 01-19-2017 Emergency department patient visit SARKIS OCONNOR Facility:[facility] Procedures Date Procedure Procedure Detail Performing Clinician Start: 04-13-2023 EMG Ricardo Cruz PA-C Work Phone: Start: 11-19-2022 Plain X-ray of left elbow [facility] Work Phone: Start: 06-16-2022 EMG Nate richardson MD Work Phone: Start: 11-17-2021 Echo tthrc r-t 2d w/wom-mode compl spec&colr d Loai F Marouf DO Work Phone: Start: 11-11-2021 End: 11-11-2021 EKG impression Franklin Thuan Erik Start: 10-13-2021 Radex ankle complete minimum 3 views Mark Kenny PA-C Work Phone: Start: 09-03-2021 Mri any jt upper extremity w/o contrast matrl Ricardo Delatorre PA-C Work Phone: Start: 08-26-2020 Us soft tissue head & neck real time imge docm Miguel ABARCA Work Phone: Start: 01-21-2020 Radiologic exam knee complete 4/more views Darlene Wall APRN.CNP Work Phone: Start: 10-12-2019 Radex ankle complete minimum 3 views Mark Kenny PA-C Work Phone: Plan of Treatment Date Care Activity Detail Author Start: 07-28-2031 DTaP/Tdap/Td vaccine (7 - Td or Tdap) DTaP/Tdap/Td vaccine (7 - Td or Tdap) [facility] Start: 07-28-2031 Urine microalbumin profile DTaP,Tdap,Td Vaccine (5 - Td or Tdap) [facility] Start: 11-18-2024 DTaP/Tdap/Td vaccine (6 - Td or Tdap) DTaP/Tdap/Td vaccine (6 - Td or Tdap) [facility] Start: 11-18-2024 DTaP/Tdap/Td vaccine (6 - Td) DTaP/Tdap/Td vaccine (6 - Td) [facility] Work Phone: Start: 04-13-2024 Depression Monitoring Depression Mon itoring [facility] Start: 05-20-2023 Depression Monitoring Depression Mon itoring [facility] Start: 11-05-2022 COVID-19 Vaccine ( season) COVID-19 Vaccine ( season) [facility] Start: 11-05-2022 Influenza vaccination Influenza Vacc ine (#1) [facility] Start: 10-05-2022 Influenza vaccination [facility] Start: 08-13-2022 End: 08-13-2022 Patient encounter procedure 08/13/2022 Office Visit Endocrinology Miguel Islas PA [address] [address] [facility] Endocrinology Start: 06-21-2022 End: 06-21-2022 Patient encounter procedure 06/21/2022 Office Visit Family Medicine Ricardo Delatorre PA-C [address] [place] [address] [facility] Start: 06-11-2022 Thyroid stimulating hormone measurement [facility] Start: 05-13-2022 Depression Monitoring [facility] Start: 01-21-2022 End: 01-21-2022 Patient encounter procedure 01/21/2022 Office Visit Endocrinology Miguel Islas PA [address] [address] [facility] Start: 11-26-2021 End: 11-26-2021 Patient encounter procedure 11/26/2021 Office Visit Family Medicine Ricardo Delatorre PA-C [address] [place] [address] [facility] Start: 11-23-2021 End: 11-23-2021 Patient encounter procedure 11/23/2021 Office Visit Orthopedic Surgery Teofilo Gomez, TEVIN [address] [place] [address] [facility] Start: 11-11-2021 Psychological assessment Psychological assessment Date: 11-Nov-2021 [facility] Start: 11-05-2021 Influenza vaccination B [facility] Start: 10-22-2021 End: 10-22-2021 Patient encounter procedure [facility] Start: 10-16-2021 End: 10-16-2021 Nursing evaluation of patient and report 10/16/2021 Nurse Only Family Medicine [facility] Start: 10-15-2021 End: 10-15-2021 Patient encounter procedure 10/15/2021 Office Visit Orthopedic Surgery Teofilo Gomez, TEVIN [address] [place] [address] [facility] Start: 10-13-2021 End: 10-13-2021 Patient encounter procedure [facility] Start: 10-08-2021 End: 10-08-2021 Patient encounter procedure 10/08/2021 Appointment Physical Therapy Nata Erazo, PT [facility] Start: 10-06-2021 End: 10-06-2021 Patient encounter procedure 10/06/2021 Appointment Physical Therapy Sukhdeep Patton, PT [facility] Start: 09-30-2021 End: 09-30-2021 Patient encounter procedure 09/30/2021 Appointment Physical Therapy Nata Erazo, PT [facility] Start: 09-28-2021 End: 09-28-2021 Patient encounter procedure 09/28/2021 Appointment Physical Therapy Nata Erazo, PT [facility] Start: 09-25-2021 End: 09-25-2021 Patient encounter procedure 09/25/2021 Appointment Physical Therapy [facility] Start: 09-24-2021 End: 09-24-2021 Patient encounter procedure 09/24/2021 Office Visit Orthopedic Surgery Teofilo Gomez PA [address] [facility] [address] [place] [address] [facility] Start: 09-23-2021 End: 09-23-2021 Patient encounter procedure 09/23/2021 Appointment Physical Therapy Sukhdeep Patton, PT [facility] Start: 09-18-2021 End: 09-18-2021 Patient encounter procedure 09/18/2021 Appointment Physical Therapy Carmela James, PT [facility] Start: 09-17-2021 End: 09-17-2021 Patient encounter procedure 09/17/2021 Appointment Physical Therapy Sukhdeep Patton, PT [facility] Start: 09-16-2021 End: 09-16-2021 Patient encounter procedure 09/16/2021 Appointment Physical Therapy Sukhdeep Patton, PT [facility] Start: 09-03-2021 End: 09-03-2021 Patient encounter procedure 09/03/2021 Appointment Radiology [facility] Start: 09-02-2021 End: 09-02-2021 Patient encounter procedure 09/02/2021 Appointment Physical Therapy Sukhdeep Patton PT [facility] Start: 08-31-2021 End: 08-31-2021 Patient encounter procedure 08/31/2021 Appointment Physical Therapy Sukhdeep Patton, PT [facility] Start: 08-26-2021 End: 08-26-2021 Patient encounter procedure [facility] Start: 08-24-2021 End: 08-24-2021 Patient encounter procedure 08/24/2021 Appointment Physical Therapy Ursula Dick TRACK REPAIR PERSON [facility] Start: 08-19-2021 End: 08-19-2021 Patient encounter procedure 08/19/2021 Appointment Physical Therapy Sukhdeep Patton PT [facility] Start: 08-17-2021 End: 08-17-2021 Patient encounter procedure [facility] Start: 08-17-2021 Subsequent hospital visit by physician 08/17/2021 Hospital Encounter Physical Therapy Ursula Dick PTA [facility] Start: 08-14-2021 End: 08-14-2021 Patient encounter procedure 08/14/2021 Appointment Physical Therapy Ursula Dick PTA [facility] Start: 08-12-2021 End: 08-12-2021 Patient encounter procedure 08/12/2021 Appointment Physical Therapy Sukhdeep Patton PT [facility] Start: 08-07-2021 End: 08-07-2021 Patient encounter procedure [facility] Start: 08-05-2021 End: 08-05-2021 Patient encounter procedure 08/05/2021 Appointment Physical Therapy Ursula Dick PTA [facility] Start: 07-31-2021 End: 07-31-2021 Patient encounter procedure 07/31/2021 Appointment Physical Therapy Gurdeep Riley PTA [facility] Start: 07-29-2021 End: 07-29-2021 Patient encounter procedure 07/29/2021 Appointment Physical Therapy Sukhdeep Patton PT [facility] Start: 07-27-2021 End: 07-27-2021 Patient encounter procedure 07/27/2021 Office Visit Behavioral Health Candace Walsh MD [address] [place] [address] [facility] Start: 07-22-2021 End: 07-22-2021 Patient encounter procedure 07/22/2021 Appointment Physical Therapy Gurdeep Riley PTA [facility] Start: 07-20-2021 End: 07-20-2021 Patient encounter procedure 07/20/2021 Appointment Physical Therapy Sukhdeep Patton PT [facility] Start: 07-17-2021 End: 07-17-2021 Patient encounter procedure 07/17/2021 Appointment Physical Therapy [facility] Start: 07-13-2021 End: 07-13-2021 Patient encounter procedure 07/13/2021 Appointment Physical Therapy Gurdeep Riley PTA [facility] Start: 07-09-2021 End: 07-09-2021 Patient encounter procedure 07/09/2021 Appointment Physical Therapy Gurdeep Riley PTA [facility] Start: 07-01-2021 Thyroid stimulating hormone measurement TSH testing [facility] [employer] Phone: Start: 2021 Urine microalbumin profile DTAP,TDAP,TD (1 - Tdap) [facility] Start: 11-14-2020 TSH Qn TSH testing [facility] [employer] Phone: Start: 11-05-2020 Influenza vaccination Flu vacc ine (Season Ended) [facility] [employer] Phone: Start: 09-09-2020 End: 09-09-2020 Patient encounter procedure 09/09/2020 Office Visit Family Medicine Toro Rodrigues MD [address] [place] [address] [phone] [facility] Start: 06-19-2020 End: 06-19-2020 Virtual Visit 06/19/2020 Virtual Visit [facility] Candace Walsh MD [address] [place] [address] [phone] [facility] Start: 2020 CHLAMYDIA SCREENING (18-24) CHLAMYDIA SCREENING (18-24) [facility] Start: 2020 GC (GONORRHEA) SCREENING (18-24) GC (GONORRHEA) SCREENING (18-24) [facility] Start: 2020 Hepatitis C screening Hepatitis C [facility] Start: 2020 HEPATITIS C SCREENING HEPATITIS [facility] Start: 2020 HIV SCREENING HIV SCREENING [facility] Start: 06-13-2018 Meningococcal B Vaccine: Consider Based On Risk (2 of 2 - Risk Bexsero 2-dose series) Meningococcal B Vaccine: Consider Based On Risk (2 of 2 - Risk Bexsero 2-dose series) [facility] Start: 2018 COVID-19 Vaccine (1) COVID-19 Vaccin e (1) [employer] Phone: Start: 2018 Screening for Chlamydia trachomatis [facility] Start: 2017 HIV screening HIV screen [facility] Start: 2016 PEDS TO ADULT TRANSITION ANNUAL ASSESSMENT PEDS TO ADULT TRANSITION ANNUAL ASSESSMENT [facility] Start: 2014 Adult depression screening assessment DEPRESSION SCREENING [facility] Start: 2014 COVID-19 Vaccine (1) COVID-19 Vaccin e (1) [facility]: Start: 2014 PEDS TO ADULT TRANSITION INITIAL DISCUSSION PEDS TO ADULT TRANSITION INITIAL DISCUSSION [facility] Start: 2013 HPV VACCINE (1 - 2-dose series) HPV VACCINE (1 - 2-dose series) [facility] Start: 2012 MENINGOCOCCAL B: Consider based on risk (1 of 2 - Risk Bexsero 2-dose series) MENINGOCOCCAL B: Consider based on risk (1 of 2 - Risk Bexsero 2-dose series) [facility] Start: 01-18-2008 Hepatitis B Vaccine (3 of 3 - 3-dose series) Hepatitis B Vaccine (3 of 3 - 3-dose series) [facility] Start: 2007 COVID-19 Vaccine (1) COVID-19 Vaccin e (1) [facility] Start: 2002 COVID-19 Vaccine (#1) COVID-19 Vacci ne (#1) [facility] [employer] Start: 2002 HEPATITIS B (1 of 3 - 3-dose series) HEPATITIS B (1 of 3 - 3-dose series) [facility] Start: 2002 Hepatitis C screening Hepatitis C sc henri [facility] Phone: EMG [facility] Neurology Ro utine Low back pain with sciatica, sciatica laterality unspecified, unspecified back pain laterality, unspecified chronicity Bilateral leg weakness 04/13/2023 11:12 AM EST [facility] Work Phone: NEGATED: Highlighted row has been ruled out! Planned Goals not documented [facility] Work Phone: Immunizations Immunization Date Immunization Notes Care Provider Aaliyah king 07-07-2022 COVID-19, PFIZER Bivalent, DO NOT Dilute, (age 12y+), IM, 30 mcg/0.3 mL Antolin Elise MD Work Phone: [facility] 07-27-2021 tetanus toxoid, redu wendi diphtheria toxoid, and acellular pertussis vaccine, adsorbed Pcp Unknown [facility] 01-12-2021 Influenza, injectabl e, Madin [place] Canine Kidney, preservative free, quadrivalent Sukhdeep Patton PT [facility] Work Phone: 05-16-2018 meningococcal B vacc ine, recombinant, OMV, adjuvanted [facility] 05-16-2018 meningococcal oligosaccharide (groups A, C, Y and W-135) diphtheria toxoid conjugate vaccine (MCV4O) [facility] Work Phone: 04-28-2017 influenza, injectabl e, quadrivalent, preservative free [facility] Work Phone: 04-28-2017 influenza virus vacc ine, unspecified formulation [facility] 01-27-2017 Influenza Vaccine, unspecified formulation [facility] Work Phone: 01-27-2017 influenza, injectabl e, quadrivalent, preservative free Sukhdeep Patton [employer] [facility] Work Phone: 05-23-2015 human papilloma viru s vaccine, quadrivalent [facility] Work Phone: 02-21-2015 human papilloma viru s vaccine, quadrivalent [facility] Work Phone: 02-21-2015 Influenza Vaccine, unspecified formulation [facility] Phone: 02-21-2015 influenza virus vacc ine, unspecified formulation Sukhdeep Patton [facility] Phone: 02-21-2015 poliovirus vaccine, inactivated Sukhdeep Patton [facility] Phone: 02-21-2015 varicella virus vaccine Sukhdeep grubbs [facility] Phone: 11-18-2014 hepatitis A vaccine, pediatric/adolescent dosage, 2 dose schedule Sukhdeep Tarun Terrell [facility] Phone: 11-18-2014 human papilloma viru s vaccine, quadrivalent [facility] Phone: 11-18-2014 measles, mumps and rubella virus vaccine Sukhdeep Patton [facility] Phone: 11-18-2014 meningococcal polysaccharide (groups A, C, Y and W-135) diphtheria toxoid conjugate vaccine (MCV4P) [facility] Phone: 11-18-2014 poliovirus vaccine, inactivated [facility] Phone: 11-18-2014 tetanus toxoid, redu wendi diphtheria toxoid, and acellular pertussis vaccine, adsorbed [facility] Phone: 11-18-2014 varicella virus vaccine Hannah Cavazos [facility] Phone: 02-10-2012 DTaP-hepatitis B and poliovirus vaccine Sukhdeep Patton [facility] Phone: 02-10-2012 hepatitis A vaccine, pediatric/adolescent dosage, 2 dose schedule Sukhdeep Tarun Terrell [facility] Phone: 02-10-2012 influenza virus vacc ine, unspecified formulation Sukhdeep Tarun Terrell [facility] Phone: 02-10-2012 measles, mumps and rubella virus vaccine Sukhdeep Patton [facility] [employer] Phone: 12-19-2008 diphtheria, tetanus toxoids and acellular pertussis vaccine [facility] [employer] Phone: 12-19-2008 measles, mumps and rubella virus vaccine [facility] Work Phone: 11-23-2007 DTaP-hepatitis B and poliovirus vaccine [facility] [employer] Phone: 11-23-2007 hepatitis A vaccine, pediatric/adolescent dosage, 2 dose schedule Sukhdeep Patton [facility] [employer] Phone: 11-23-2007 hepatitis A vaccine, unspecified formulation [facility] [employer] Phone: 11-23-2007 measles, mumps and rubella virus vaccine [facility] [employer] Phone: 11-23-2007 varicella virus vaccine [facility] Phone: 03-06-2007 DTaP-hepatitis B and poliovirus vaccine [facility] Phone: 03-06-2007 haemophilus influenz ae type b vaccine, PRP-T conjugate [facility] Phone: 03-06-2007 hepatitis A vaccine, pediatric/adolescent dosage, 2 dose schedule [facility]ukhdeep [facility]ton [facility] [facility] Phone: 03-06-2007 hepatitis A vaccine, unspecified formulation [facility] Turn[employer] On [employer] Phone: 03-06-2007 Influenza Vaccine, unspecified formulation [facility] Turn[employer] On [employer] Phone: 03-06-2007 influenza virus vacc ine, unspecified formulation Sukhdeep Patton [facility] [employer] Phone: 2002 diphtheria, tetanus toxoids and acellular pertussis vaccine Hannah Eliassen [employer] Phone: 2002 diphtheria, tetanus toxoids and acellular pertussis vaccine, unspecified formulation Sukhdeep Patton [employer] Phone: 2002 haemophilus influenz ae type b vaccine, PRP-T conjugate [facility]: 2002 hepatitis B vaccine, pediatric or pediatric/adolescent dosage Sukhdeep Patton [employer] Phone: 2002 hepatitis B vaccine, unspecified formulation Hannah Eliassen [employer] Phone: 2002 pneumococcal conjuga te vaccine, 7 valent [facility] [employer] Phone: 2002 poliovirus vaccine, inactivated [facility] [employer] Phone: Payers Date Payer Category Payer Self-pay 2015 Medicaid [id number] 2015 Unknown [id number] 2002 Unknown [id number] 2.16.840.1.285124.3.579.2.356 2002 Unknown [id number] 2.16.840.1.905579.3.579.2.356 2002 Unknown [id number] 2.16.840.1.234944.3.579.2.1067 2002 Unknown [id number] 2.16.840.1.275717.3.579.2.1068 2002 Unknown [id number] 2.16.840.1.004253.3.579.2.1068 2002 Unknown [id number] 2.16.84 0.1.008656.3.579.2.593 2002 Unknown [id number] 2.16.840.1.958176.3.579.2.182 2002 Unknown [id number] 2.16.840.1.193127.3.579.2.182 2002 Unknown [id number] 2.16.840.1.007522.3.579.2.182 2002 Unknown [id number] 2.16.840.1.844190.3.579.2.182 2002 Unknown [id number] 2.16.840.1.488889.3.579.2.1259 2002 Unknown [id number] 2.16.840.1.401107.3.579.2.1259 2002 Unknown [id number] 2.16.840.1.628484.3.579.2.1259 2002 Unknown [id number] 2.16.840.1.190009.3.579.2.1259 2002 Unknown [id number] 2.16.840.1.464492.3.579.2.1259 2002 Unknown [id number] 2.16.840 .1.328765.3.579.2.1259 2002 Unknown [id number] 2.16.840 .1.257155.3.579.2.1259 2002 Unknown [id number] 2.16.840 .1.603179.3.579.2.1259 2002 Unknown [id number] 2.16.840 .1.949180.3.579.2.1259 2002 Unknown [id number] 2.16.840 .1.252429.3.579.2.1259 2002 Unknown [id number] 2.16.840 .1.433834.3.579.2.1259 2002 Unknown [id number] 2.16.840 .1.121435.3.579.2.1259 2002 Unknown [id number] 2.16.840 .1.303328.3.579.2.9 2002 Unknown [id number] 2.16.840 .1.940070.3.579.2.9 2002 Unknown [id number] 2.16.840 .1.011423.3.579.2.9 2002 Unknown [id number] 2.16.840 .1.118075.3.579.2.9 2002 Unknown [id number] 2.16.840 .1.723620.3.579.2.9 2002 Unknown [id number] 2.16.840 .1.123865.3.579.2.9 2002 Unknown [id number] 2.16.840 .1.706591.3.579.2.9 2002 Unknown [id number] 2.16.840 .1.216032.3.579.2.9 2002 Unknown [id number] 2.16.840. 1.097877.3.579.2.9 2002 Unknown [id number] 2.16.840. 1.201244.3.579.2.1259 1964 Unknown [id number] 2.16.840.1.189912.3.579.2.185 1959 Unknown [id number] 2. 16.840.1.350069.19 Unknown [employer] Unknown [id number] 2.16.840.1.517264.3.579.2.531 Social History Date Type Detail Facility Assertion Unknown if ever smoked [facility] [employer] Work Phone: Start: 01-30-2020 End: 06-24-2021 Tobacco smoking status NHIS Never smoker [employer] Start: 01-30-2020 End: 06-24-2021 Tobacco use and exposure Never used [employer] Work Phone: Start: 2002 Sex Assigned At Not on file M [employer] Work Phone: Start: 09-12-2019 End: 11-16-2021 Exposure to SARS-CoV-2 (event) Not sure [employer] Phone: Tobacco smoking consumption unknown [facility] Start: 07-06-2021 End: 03-23-2023 Alcohol intake Ex-drinker (finding) [employer] Work Phone: Start: 09-02-2020 End: 05-19-2022 History SDOH Financial 5 [employer] Phone: Start: 09-02-2020 End: 05-19-2022 History SDOH Food Worry 1 [employer] Phone: History of tobacco use Passive smoker [facility] Start: 10-12-2019 End: 10-13-2021 Alcohol intake Current non-drinker of alcohol (finding) [facility] Start: 10-13-2021 End: 05-19-2022 Sex Assigned At [facility] [employer] Other Start: 05-19-2022 History SDOH Transport Non-Med 2 [employer] Work Phone: Start: 2002 Sex Assigned At Female F [facility] Start: 10-13-2021 End: 05-19-2022 History of Social function [facility] National Score (1-100), lower number is lower risk Not on file [facility] (I/We) worried whether (my/our) food would run out before (I/we) got money to buy more. Never true [employer] At any time in the past 12 months, were you homeless or living in usp [including now]? No [facility] Functional Status Date Assessment Result Facility NEGATED: Highlighted row Functional performance Functional status health issues are not documented Disease [employer] Work Phone: Mental Status Date Assessment Result Facility NEGATED: Highlighted row Cognitive function [Interpretation] Cognitive status health issues are not documented Disease [employer] Work Phone: Clinical Notes 10-12-2019 to 03-02-2023 Note Date & Type Note Facility 03-02-2023 Evaluation note Encounter Date Diagnosis Assessment Notes Feb, Contact with and (suspected) exposure to covid-19 (ICD-10 - Z20.822) Feb, Left acute otitis media (ICD-10 - H66.92) Rest. Dirnk plenty of water. Take the amoxicillin 500 mg by mouth twice daily for 10 days for your left ear infection. Take tylenol or mortin for fever or discomfort. [facility] if symptoms persist or worsen,. Patient is a 22 yo female who presents with complaints of sore throat, cough, congestion, and left ear pain with headaches and fevers for the past week. DDX includes strep, covid, flu, RSV. Patient tested negative for covid, flu, RSV, strep. Her exam indicated a viral URI with viral etiology for sore throat. Exam was positive for left otitis media with redness and bulging of the left TM. Patient is being discharge with prescription for amoxicillin 500 mg twice daily for 01 days and encouraged to follow up with PCP if symptoms persist or worsen. Feb, Sore throat (ICD-10 - J02.9) [employer] Other 05-29-2023 Evaluation note* Encounter Date Diagnosis Assessment Notes Treatment Notes Treatment Clinical Notes July, Infection of toenail (ICD-10 - L03.039) Exam consistent with paronychia of L. great toe. Advised patient that she will most likely have to have part of her toenail removed .Patient stated, fuck no I'm not having that done today or ever. Educated about benefits vs risks of having the procedure vs not having procedure. She does not want the procedure. Follow up with family doctor in 7-10 days if still having symptoms. July, Other Ingrown toenail material was printed [employer] Other 03-27-2023 NoteEXAMINATION: MRI IACS WO W CON PROCEDURE: MRI IACS WO W CON COMPARISON: None. HISTORY: Sensorineural hearing loss in right ear TECHNIQUE: A variety of imaging planes and parameters were utilized for visualization of suspected pathology. Images were performed without and with ml intravenous [employer] contrast. FINDINGS: IACS: No evidence of acoustic schwannoma or other posterior fossa mass. INNER EARS: No abnormal signal intensity. MIDDLE EARS: No fluid or abnormal soft tissue. MASTOIDS: No fluid or abnormal soft tissue. SKULL BASE: Negative. Cavernous sinus and Meckel's caves are normal. CEREBRUM: No edema, hemorrhage, mass, acute infarction, or inappropriate atrophy. CEREBELLUM: No edema, hemorrhage, mass, acute infarction, or inappropriate atrophy. BRAINSTEM: No edema, hemorrhage, mass, acute infarction, or inappropriate atrophy. CSF SPACES: Ventricles, cisterns, and sulci are appropriate for age. No hydrocephalus, subarachnoid hemorrhage, or mass. SINUSES: Limited views demonstrate no significant mucosal thickening or fluid. ORBITS: Limited views are unremarkable. OTHER: No abnormal meningeal or parenchymal enhancement. IMPRESSION: 1. No abnormal or suspicious findings to account for patient's symptoms. Electronically authenticated by: KENIA REED Date: 2022-05-31 13:05[facility]03-23-2023 Evaluation note* Encounter Date Diagnosis Assessment Notes Treatment Notes Treatment Clinical Notes May, Viral URI with cough (ICD-10 - J06.9) Advised patient that COVID/Influenza A/B/RSV PCR test was negative today. Advised patient that will treat as viral URI. Supportive care as directed, increase fluids and rest, Tylenol/Motrin as directed, rx of Tessalon Perles, cool mist humidifier, throat lozenges. Discussed infection control practices such as good hand washing and mask wearing. Patient to follow up with PCP if symptoms persist or worsen despite treatment. Immediate eval for SOB, difficulty breathing, chest pain, fevers that do not break with antipyretic or any other concerning symptoms as reviewed on patient education handout. Patient verbalizes understanding and is agreeable to treatment plan. Patient left in stable condition May, Nausea (ICD-10 - R11.0) Will send in rx of Zofran to use as directed as needed. Follow above treatment plan recommendations. May, Contact with and (suspected) exposure to other viral communicable diseases (ICD-10 - Z20.828) [employer] Other 03-01-2023 Evaluation note* Encounter Date Diagnosis Assessment Notes Treatment Notes Treatment Clinical Notes May, Sore throat (ICD-10 - J02.9) May, Non-recurrent acute serous otitis media of left ear (ICD-10 - H65.02) Ear infections are often a secondary infection caused from an URI, the flu or allergies. Take medication as directed. Complete all doses, even if you feel better. Tylenol or ibuprofen can help with pain. Warm pack to area for comfort helps as well. Follow up with primary care provider if no improvement of symptoms. May, Cough (ICD-10 - R05.9) [employer] Other 08-18-2022 History of Present illness Narrative* Adri Oconnor MS, RD, LD - 10/22/2021 9:00 AM EDT OUTPATIENT NUTRITION COUNSELING Faby Galan is a 21 y.o. female Reason for Counseling: Weight gain Subjective/Current Data: Pt presents with weight gain/difficulty losing weight. 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 Exercises 2-3x/week. No food allergies. Rarely eats fast food. No alcohol intake. Drinks 2 cups of water daily. No pop or juice. Reports a strong family hx of DM2. Pt admits to often skipping meals and states she does not like a lot of protein options. 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 Labs: Chemistry CBC/Coags Misc. No results for input(s): NA, K, CL, CO2, BUN, CREATININE, GLUCOSE, CA in the last 72 hours. No results for input(s): PHOS in the last 72 hours. No results for input(s): WBC, RBC, HGB, HCT, MCV, MCH, MCHC, RDW, PLT, MPV in the last 72 hours. No results for input(s): LABALBU in the last 72 hours. Invalid input(s): PREALBUMIN Lab Results Component Value Date/Time LABA1C 5.1 07/01/2020 01:09 PM Anthropometric Measures: Height: 5'1 Weight: 158 lb (71.7kg) Godfrey Body Weight: 105 lb (47.7 kg) Godfrey Body Weight %: >100% BMI: 29.9 Overweight Wt Readings from Last 20 Encounters: 09/24/21 158 lb (71.7 kg) (87 %, Z= 1.11)* 09/22/21 158 lb (71.7 kg) (87 %, Z= 1.11)* 09/11/21 158 lb (71.7 kg) (87 %, Z= 1.11)* 08/27/21 157 lb (71.2 kg) (86 %, Z= 1.08)* 08/26/21 157 lb (71.2 kg) (86 %, Z= 1.08)* 08/19/21 161 lb (73 kg) (88 %, Z= 1.19)* 08/05/21 153 lb 8 oz (69.6 kg) (84 %, Z= 0.99)* 07/06/21 155 lb (70.3 kg) (85 %, Z= 1.04)* 07/01/21 152 lb (68.9 kg) (83 %, Z= 0.95)* 06/24/21 150 lb 6.4 oz (68.2 kg) (82 %, Z= 0.91)* 06/24/21 155 lb (70.3 kg) (85 %, Z= 1.04)* 06/17/21 149 lb 8 oz (67.8 kg) (81 %, Z= 0.88)* 04/30/21 142 lb 8 oz (64.6 kg) (75 %, Z= 0.66)* 04/01/21 145 lb (65.8 kg) (78 %, Z= 0.76)* 03/16/21 149 lb (67.6 kg) (81 %, Z= 0.89)* 02/16/21 139 lb 3.2 oz (63.1 kg) (71 %, Z= 0.57)* 02/04/21 139 lb (63 kg) (71 %, Z= 0.56)* 02/02/21 140 lb 6.4 oz (63.7 kg) (73 %, Z= 0.62)* 01/12/21 142 lb (64.4 kg) (75 %, Z= 0.68)* 09/02/20 142 lb 3.2 oz (64.5 kg) (77 %, Z= 0.72)* * Growth percentiles are based on [facility] (Girls, 2-20 Years) data. Assessment and Plan: I instructed the pt today on basic healthful nutrition. We discussed the importance of not skipping meals and being sure to eat 3 well rounded meals per day. Emphasis was placed on water intake, exercise and making small healthy swaps throughout the day. We reviewed label reading and the myplate method.Together we practiced coming up with a meal plan that works best with the pt's lifestyle. I explained to the pt the importance of mindful/intuitive eating and to not view this as a diet but as a lifestyle change . A large focus was placed on the pt's core relationship with food. Pt was receptive to education and asked appropriate questions. Nutritional Requirements: Estimated Energy Needs: Weight Used: 71.7kg Method Used: 22kcal/kg Estimated kcal Needs: 1600 kcal per day Protein Needs: Weight used: 71.7 kg 1 g/kg = 72 g per day Nutrition Diagnosis and Goal Problem: Food and nutrition related knowledge deficit Etiology/related to: No prior nutrition education Symptoms/Signs/as evidenced by: 24 hour food recall, BMI Goal: 1) Include a protein and carb at breakfast 2) Include a protein, carb and veg at lunch and dinner 2) Avoid skipping meals 3) Drink at least 8-9 cups of water per day 4) increase protein intake (65-72g daily) Education Needs: Provided Weight loss guidelines, weight loss tips, 1600kcal 5 day menu NUTRITION RECOMMENDATIONS / MONITORING / EVALUATION 1. Name and Office phone number given for reference. Adri Oconnor MS, CANDICE, OCTAVIO documented in this encounterBON [facility] Work Phone: [phone]) 355-277308-09-2022 NoteHNO ID: [id number] Author: RT Consuelo(R) Service: ? Author Type: Technologist Type: Progress Notes Filed: 10/13/2021 1:56 PM Note Text: Radiology Service Progress Note PATIENT NAME: Faby Galan DATE OF SERVICE: October 13, 2021 TIME: 1:56 PM PATIENT IDENTITY VERIFICATION COMPLETED USING TWO (2) IDENTIFIERS: Name and Date of confirmed by patient verbally. FALL SCREENING: Has the patient had 2 falls in the last year or 1 fall with injury or currently using an Ambulatory Assistive Device (Walker, Cane, Wheelchair, Crutches, etc.)? No PATIENT GENDER DATA: Female. status: : No status: NO. PATIENT RELEVANT IMPLANT DATA REVIEWED: Not Applicable RADIOLOGY DEPARTMENT: General X-ray: Exam(s) Completed: Lower Extremity X-Ray(s): Ankle, Right PERIPHERAL IV DATA: Not applicable SIGNED BY: RT Consuelo(R) October 13, 2021 1:56 [facility]08-09-2022 NoteHNO ID: [id number] Author: Mark Kenny PA-C Service: ? Author Type: Physician Picker And Packer Type: Progress Notes Filed: 10/13/2021 3:11 PM Note Text: This note was created using [employer]. Subjective Faby Galan is a 21 year old female. HPI [facility] CC: 21 year old female Patient presents with: Ankle Pain: Right ankle, started hurting this morning. Thinks she overstretched it in gymnastics yesterday HPI- Faby is a 21 year old female with past medical history of intellectual disability, depression, self-injurious behavior who presents for evaluation of the above chief complaint. Patient presents for right ankle pain. She states she was stretching at gymnastics class yesterday and thinks she pulled it the wrong way. She denies any trauma to the area. It is better with resting the area, worse with ambulating. The nurse notes to me prior to entering the room that she saw some cuts on patient's wrists. I did ask patient about them, patient declines letting me look at them. She states she did see her counselor before coming here today. She denies any suicidal or homicidal ideation, she states she does feel safe at home. PMH significant for : PAST MEDICAL HISTORY Diagnosis Date Hypothyroid 2017 No past surgical history on file. ALLERGIES Patient has no known allergies. MEDICATIONS sertraline (ZOLOFT) 25 mg tablet Take 125 mg by mouth. glycopyrrolate (ROBINUL) 1 mg tablet Take 1 mg by mouth. Melatonin 5 mg cap Take 5 mg by mouth. sertraline (ZOLOFT) 100 mg tablet TAKE 1 TABLET ONCE DAILY take with 25mg tablet for total dose of 125mg) hydrOXYzine HCl (ATARAX) 25 mg tablet Take 1 tablet by mouth three times daily as needed (anxiety). Levothyroxine 25 mcg cap Take 25 mcg by mouth. No family history on file. Social History Tobacco Use Smoking status: Never Passive exposure: Yes Smokeless tobacco: Never Substance Use Topics Alcohol use: No Drug use: No No other acute complaints or symptoms at this time. Patient's last menstrual period was 10/05/2021. Tobacco Use: Never Review of Systems Constitutional: Negative for chills and fever. Musculoskeletal: Positive for arthralgias. Negative for gait problem and joint swelling. Skin: Negative for rash and wound. Neurological: Negative for weakness and numbness. Objective BP 101/59 Pulse 92 Temp 36.7 ?C (98 ?F) Resp 20 Wt 72.3 kg (159 lb 8 oz) LMP 10/05/2021 SpO2 98% Physical Exam Vitals reviewed. Constitutional: General: She is not in acute distress. Appearance: Normal appearance. She is well-developed, well-groomed and overweight. She is not ill-appearing or toxic-appearing. Cardiovascular: Rate and Rhythm: Normal rate and regular rhythm. Pulses: Dorsalis pedis pulses are 2+ on the right side. Posterior tibial pulses are 2+ on the right side. Heart sounds: Normal heart sounds. Pulmonary: Effort: Pulmonary effort is normal. Breath sounds: Normal breath sounds and air entry. Musculoskeletal: Feet: Skin: General: Skin is warm and dry. Findings: No bruising or rash. Neurological: Mental Status: She is alert and oriented to person, place, and time. Gait: Gait is intact. Psychiatric: Mood and Affect: Mood normal. Behavior: Behavior is cooperative. Assessment and Plan ASSESSMENT/PLAN: 1. Sprain of ligament of right ankle, initial encounter - ICD9: 845.00, ICD10: S93.401A - XR ANKLE GENERAL 3V AP/LAT/OBL RIGHT -may use your mobic to help with pain -BIBI bandage is applied. Rest and elevate the affected painful area. Apply cold compresses intermittently. As pain recedes, begin normal activities slowly as tolerated. If not improving in one week, see PCP. If symptoms progressively worsen, report to ER for evaluation. Patient verbalized understanding of plan. Please follow up with Primary Care Provider or with a Specialist if consulted for current condition. Go to the ER immediately if you have any of the following symptoms: Chest pain, shortness of breath, severe headache, high fever, nausea, vomiting, abdominal pain, dizziness/light headedness, feeling like you are going to pass out, weakness, or for any other new or worsening symptoms. [facility]08-09-2022 Instructions* Patient Instructions* Mark Kenny PA-C - 10/13/2021 1:37 PM EDT ASSESSMENT/PLAN: 1. Sprain of ligament of right ankle, initial encounter - ICD9: 845.00, ICD10: S93.401A - XR ANKLE GENERAL 3V AP/LAT/OBL RIGHT -may use your mobic to help with pain -BIBI bandage is applied. Rest and elevate the affected painful area. Apply cold compresses intermittently. As pain recedes, begin normal activities slowly as tolerated. If not improving in one week, see PCP. If symptoms progressively worsen, report to ER for evaluation. Patient verbalized understanding of plan. Please follow up with Primary Care Provider or with a Specialist if consulted for current condition. Go to the ER immediately if you have any of the following symptoms: Chest pain, shortness of breath, severe headache, high fever, nausea, vomiting, abdominal pain, dizziness/light headedness, feeling like you are going to pass out, weakness, or for any other new or worsening symptoms. SPRAINS / STRAINS GENERAL INFORMATION: A sprain is when the ligaments of a joint are stretched and injured. A strain is when a muscle is overstretched and some fibers are torn. These injuries can take several weeks to heal. INSTRUCTIONS: 1. To minimize swelling, keep the injured limb above the level of your heart as much as possible. If it is your leg that is injured, elevate it on some pillows whenever you are sitting or lying down. 2. Apply ice to the injury for 15 minutes each hour for the first two days. Put the ice in a plastic bag and place a thin towel between the bag of ice and your skin. 3. After the first 1 to 2 days, you may apply heat to the injury to help relieve pain. You may use a warm heating pad, whirlpool bath, or warm moist towels for 15-20 minutes every hour (while awake) for 48 hours. 4. You may use medicines for pain such as acetaminophen, ibuprofen or aspirin (unless otherwise instructed by your physician). 5. If you were given a brace, splint, or elastic bandage, wear it until otherwise instructed by your health care provider. Adjust elastic bandage for comfort. It should be tight enough for support, but not so tight that it causes numbness or tingling. Take it off and rewrap it at least once a day. 6. If you have been told to use crutches, do not bear weight until your health care provider instructs you otherwise. 7. When you are allowed to return to normal activity, warm up before exercise to avoid future muscle strains. CONTACT YOUR DOCTOR OR RETURN TO THE ED IF: 1. You have increased pain or swelling of the affected area. 2. You notice coldness or blue discoloration of the fingers or toes (depending on site of injury). [facility] History of Present illness Narrative* Mark Kenny PA-C - 10/13/2021 1:21 PM EDT Images from the original note were not included. This note was created using [employer]. Subjective Faby Galan is a 21 year old female. HPI [facility] CC: 21 year old female Patient presents with: Ankle Pain: Right ankle, started hurting this morning. Thinks she overstretched it in gymnastics yesterday HPI- Faby is a 21 year old female with past medical history of intellectual disability, depression, self-injurious behavior who presents for evaluation of the above chief complaint. Patient presentsfor right ankle pain. She states she was stretching at gymnastics class yesterday and thinks she pulled it the wrong way. She denies any trauma to the area. It is better with resting the area, worse with ambulating. The nurse notes to me prior to entering the room that she saw some cuts on patient's wrists. I did ask patient about them, patient declines letting me look at them. She states she did see her counselor before coming here today. She denies any suicidal or homicidal ideation, she states she does feelsafe at home. PMH significant for : PAST MEDICAL HISTORY Diagnosis Date Hypothyroid 2018 No past surgical history on file. ALLERGIES Patient has no known allergies. MEDICATIONS sertraline (ZOLOFT) 25 mg tablet Take 125 mg by mouth. glycopyrrolate (ROBINUL) 1 mg tablet Take 1 mg by mouth. Melatonin 5 mg cap Take 5 mg by mouth. sertraline (ZOLOFT) 100 mg tablet TAKE 1 TABLET ONCE DAILY take with 25mg tablet for total dose of 125mg) hydrOXYzine HCl (ATARAX) 25 mg tablet Take 1 tablet by mouth three times daily as needed (anxiety). Levothyroxine 25 mcg cap Take 25 mcg by mouth. No family history on file. Social History Tobacco Use Smoking status: Never Passive exposure: Yes Smokeless tobacco: Never Substance Use Topics Alcohol use: No Drug use: No No other acute complaints or symptoms at this time. Patient's last menstrual period was 10/05/2021. Tobacco Use: Never Review of Systems Constitutional: Negative for chills and fever. Musculoskeletal: Positive for arthralgias. Negative for gait problem and joint swelling. Skin: Negative for rash and wound. Neurological: Negative for weakness and numbness. Objective BP 101/59 Pulse 92 Temp 36.7 C (98 F) Resp 20 Wt 72.3 kg (159 lb 8 oz) LMP 10/05/2021 SpO2 98% Physical Exam Vitals reviewed. Constitutional: General: She is not in acute distress. Appearance: Normal appearance. She is well-developed, well-groomed and overweight. She is not ill-appearing or toxic-appearing. Cardiovascular: Rate and Rhythm: Normal rate and regular rhythm. Pulses: Dorsalis pedis pulses are 2+ on the right side. Posterior tibial pulses are 2+ on the right side. Heart sounds: Normal heart sounds. Pulmonary: Effort: Pulmonary effort is normal. Breath sounds: Normal breath sounds and air entry. Musculoskeletal: Feet: Skin: General: Skin is warm and dry. Findings: No bruising or rash. Neurological: Mental Status: She is alert and oriented to person, place, and time. Gait: Gait is intact. Psychiatric: Mood and Affect: Mood normal. Behavior: Behavior is cooperative. Assessment and Plan ASSESSMENT/PLAN: 1. Sprain of ligament of right ankle, initial encounter - ICD9: 845.00, ICD10: S93.401A - XR ANKLE GENERAL 3V AP/LAT/OBL RIGHT -may use your mobic to help with pain -BIBI bandage is applied. Rest and elevate the affected painful area. Apply cold compresses intermittently. As pain recedes, begin normal activities slowly as tolerated. If not improving in one week, see PCP. If symptoms progressively worsen, report to ER for evaluation. Patient verbalized understanding of plan. Please follow up with Primary Care Provider or with a Specialist if consulted for current condition. Go to the ER immediately if you have any of the following symptoms: Chest pain, shortness of breath, severe headache, high fever, nausea, vomiting, abdominal pain, dizziness/light headedness, feeling like you are going to pass out, weakness, or for any other new or worsening symptoms. [facility] History of Present illness Narrative* Sukhdeep Patton, PT - 10/12/2021 8:00 AM EDT [facility] Outpatient Physical Therapy Treatment Note Date: 10/12/2021 Patient: Faby Galan : 2000 Confirmed: Yes Referring Provider: Marnie Melara DO Secondary Referring Provider (If applicable): Medical Diagnosis: Pain in right shoulder [M25.511] Acute R shoulder pain Treatment Diagnosis: R shoulder pain and decreased mobility. Decreased shoulder ROM, decreased shoulder strength, decreased body mechanics with job requirements, decreased posture, increased pain, UEFS 45/80 Visit Information: Insurance: Payor: [employer] / [facility] [place] / Product Type: *No Product type* / PT Visit Information Onset Date: 06/03/21 PT Insurance Information: [facility] Total # of Visits to Date: 21 No Show: 0 Progress Note Due Date: 10/16/21 Canceled Appointment: 5 Progress Note Counter: 08/10 units Subjective Information: Subjective: Pt reporting being able to do push ups and planks with little pain over the weekend. HEP Compliance: [x] Good [] Fair [] Poor [] Reports not doing due to: Pain Screening Patient Currently in Pain: Denies Treatment: Exercises: Exercises Exercise 1: sidelying abduction without pain and neutral scapular alignmen (provided passively x 10 Exercise 3: prone rows 2# x5 horizontal abd x 10 w ith 1 lb , lower trap no weight, emphasizing scapular retraction Exercise 4: supine pec stretch progress to ER w/ towel under arm with 1 lb x 10 and IR with 1 lb ensuring scapular retraction Exercise 5: quadruped A/P weight shifts then reaching with each UE forward, Prone prop on forearms with forward reach then planks for 20 sec x 4 Exercise 7: B scapular retraction with red theraband resistance x 10, unilateral triceps extension with scapular retraction using red theraband resistance x 10 Exercise 9: B scapular pull downs with green theraband x 10 Exercise 11: men push ups x 1, women push up Exercise 12: wall slide up/down, wall ball , clockwise and CCW x 5 in each direction Exercise 13: 3-pt touch w/ 0.5kg ball x5 Exercise 15: Standing BUE PNF D2 diagonal pattern (flexion, abduction and ER) Manual: Manual Therapy Soft Tissue Mobilizaton: STM to R lateral aspect of pectorals Other: total manual 5 Objective Measures: Strength: [] NT [x] MMT completed: Other: R middle trap and lower trap 4/5 Strength RUE R Shoulder Flexion: 5/5 R Shoulder Extension: 5/5 R Shoulder ABduction: 5/5 R Shoulder Internal Rotation: 5/5 R Shoulder External Rotation: 5/5 R Elbow Flexion: 5/5 R Elbow Extension: 5/5 ROM: [] NT [x] ROM measurements: AROM RUE (degrees) R Shoulder Flexion 0-180: 0-170 with scapulohumeral alignment R Shoulder Extension 0-45: 45 R Shoulder ABduction 0-180: 0-160 with scapulohumeral alignment R Shoulder Int Rotation 0-70: 70 R Shoulder Ext Rotation 0-90: 90 AROM Cervical Spine Cervical Spine AROM : WNL Assessment: Assessment: Reviewed HEP with emphasis on scapular strengthening and stability of the R shoulder and scapula during prone and quadruped exercises. Pt has no pain, but this is due, in part, to previous injection approx 2 weeks ago. Instructed importance of HEP completion in order to attain the best outcomes for stability and function of the R shoulder. Pt verbalized and demonstrated understanding during HEP completion Treatment Diagnosis: R shoulder pain and decreased mobility. Decreased shoulder ROM, decreased shoulder strength, decreased body mechanics with job requirements, decreased posture, increased pain, UEFS 45/80 Patient Education: [] NA PT Education: Home Exercise Program Post-Pain Assessment: Pain Rating (0-10 pain scale): 0 /10 Location and pain description same as pre-treatment unless indicated. 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 Short Term Goals Completed by 4-5 visits Goal Status STG 1 Pt will exhibit increased R shoulder flexion and abduction to >150 to prevent neck and lumbar hyperextension while reacing overhead in prep for gymnastics Met STG 2 Pt will be independent with HEP Met Belt Brander Goals Completed by 9-10 visits Goal Status LTG 1 Pt will exhibit 5/5 shoulder and scapular to safely perform push ups and UE weightbearing as needed for gymnastics Not Met LTG 2 Pt will demo correct technique for completion of guarding students with gymnastics as well asdemonstrating correct technique when instructing studentsin order to safely complete job requirements Not Met LTG 3 Pt will self correct rounded posture into neutral in order to perform HEP correctly to assistwith decreasing pain complaints. Met LTG 4 Pain level with decrease to 2/10 or less during UE weightbearing during gymnastics performance Met LTG 5 Functional mobility to improve via UEFS to 60/80 or more Met Plan: Frequency/Duration: Plan Plan Comment: d/c PT services Pt to continue current HEP. See objective section for any therapeutic exercise changes, additions or modifications this date. Therapy Time: PT Individual Minutes Time In: 801 Time Out: 08 Minutes: 54 Procedure Minutes:0 Timed Activity Minutes Units Ther Ex 40 3 Manual (objective measures included) 14 1 * Sukhdeep Patton PT - 10/12/2021 8:00 AM EDT [facility] PHYSICAL THERAPY PLAN OF CARE [address] [place] [address] [] Certification [] Recertification [] Plan of Care [] Progress Note [x] Discharge Referring Provider: Marnie Melara DO From: SUKHDEEP PATTON PT Patient: Faby Galan (21 y.o. female) : 2000 Date: 10/12/2021 Medical Diagnosis: Pain in right shoulder [M25.511] Acute R shoulder pain Treatment Diagnosis: R shoulder pain and decreased mobility. Decreased shoulder ROM, decreased shoulder strength, decreased body mechanics with job requirements, decreased posture, increased pain, UEFS 45/80 Plan of Care/Certification Expiration Date: Progress Report Period from: 08/19/2021 to 10/12/2021 Visits to Date: 21 No Show: 0 Cancelled Appts: 5 OBJECTIVE: Short Term Goals - Time Frame for Short term goals: 4-5 visits Goals Current/Discharge status Status Short term goal 1: Pt will exhibit increased R shoulder flexion and abduction to >150 to preventneck and lumbar hyperextension while reacing overhead in prep for gymnastics AROM RUE (degrees) R Shoulder Flexion 0-180: 0-170 with scapulohumeral alignment R Shoulder Extension 0-45: 45 R Shoulder ABduction 0-180: 0-160 with scapulohumeral alignment R Shoulder Int Rotation 0-70: 70 R Shoulder Ext Rotation 0-90: 90 Met Short term goal 2: Pt will be independent with HEP Independent Met Belt Brander Goals - Time Frame for terminal press operator goals : 9-10 visits Goals Current/ Discharge status Status correction goal 1: Pt will exhibit 5/5 shoulder and scapular to safely perform push ups and UE weightbearing as needed for gymnastics 4/5 B scapular strength Not Met correction goal 2: Pt will demo correct technique for completion of guarding students with gymnastics as well as demonstrating correct technique when instructing studentsin order to safely complete job requirements Pt exhibits poor technique and timing in attempts to provide guarding for hand standsand gymnastics. Not Met correction goal 3: Pt will self correct rounded posture into neutral in order to perform HEP correctly to assist with decreasing pain complaints. Improved neutral postural alignment Met terminal press operator goal 4: Pain level with decrease to 2/10 or less during UE weightbearing during gymnastics performance Met in quadruped Met terminal press operator goal 5: Functional mobility to improve via UEFS to 60/80 or more 76/80 Met Assessment: Reviewed HEP with emphasis on scapular strengthening and stability of the R shoulder and scapula during prone and quadruped exercises. Pt has no pain, but this is due, in part, to previous injection approx 2 weeks ago. Instructed importance of HEP completion in order to attain the best outcomes for stability and function of the R shoulder. Pt verbalized and demonstrated understanding during HEP completion PT Education: Home Exercise Program PLAN: [x] Plan Comment: d/c PT services Patient Status:[] Continue/ Initiate plan of Care [x] Discharge PT. Recommend pt continue with HEP. [] Additional visits requested, Please re-certify for additional visits: [] Hold Signature: If you have any questions or concerns, please don't hesitate to call. Thank you for your referral. I have reviewed this plan of care and certify a need for medically necessary rehabilitation services. Physician Signature: Date: Please sign and return [facility] Work Phone: 1(848) 230-236008-03-2022 History of Present illness Narrative* Sukhdeep Patton PT - 10/07/2021 1:00 PM EDT [facility] Outpatient Physical Therapy Treatment Note Date: 10/07/2021 Patient: Faby Andie Galan : 2000 Confirmed: Yes Referring Provider: Marnie Melara DO Secondary Referring Provider (If applicable): Medical Diagnosis: Pain in right shoulder [M25.511] Acute R shoulder pain Treatment Diagnosis: R shoulder pain and decreased mobility. Decreased shoulder ROM, decreased shoulder strength, decreased body mechanics with job requirements, decreased posture, increased pain, UEFS 45/80 Visit Information: Insurance: Payor: [facility] / Plan: [facility] MEDICAID / Product Type: *No Product type* / PT Visit Information Onset Date: 06/03/21 PT Insurance Information: [employer] Total # of Visits to Date: Plan of Care/Certification Expiration Date: 10/16/21 No Show: 0 Progress Note Due Date: 10/16/21 Canceled Appointment: 5 Progress Note Counter: 5/4-6 by 10/16/2021 14/24 units Subjective Information: Subjective: Pt reports she isn't having pain right now, but was having 3/10 pain this pain HEP Compliance: [] Good [] Fair [] Poor [] Reports not doing due to: Pain Screening Patient Currently in Pain: Denies Treatment: Exercises: Exercises Exercise 1: sidelying abduction without pain and neutral scapular alignmen (provided passively x 10 Exercise 2: supine BUE flexion to endrange without pain x 10 Exercise 3: prone rows 2# x5 horizontal abd x 10 w ith 1 lb , lower trap no weight, emphasizing scapular retraction Exercise 4: supine pec stretch progress to ER w/ towel under arm with 1 lb x 10 and IR with 1 lb ensuring scapular retraction Exercise 5: quadruped A/P weight shifts then reaching with each UE forward, Prone prop on forearms with forward reach then planks for 20 sec x 4 Exercise 6: S/L scapular depression/reaching 5''x10 - and S/L punch forward and retract arm back x 10 Exercise 7: B scapular retraction with red theraband resistance x 10, unilateral triceps extension with scapular retraction using red theraband resistance x 10 Exercise 8: corner stretch 3x30 Exercise 9: B scapular pull downs with green theraband x 10 Exercise 10: plank on forearms x 20 sec x 4 Exercise 11: men push ups x 5 Exercise 12: wall slide up/down, wall ball , clockwise and CCW x 5 in each direction Exercise 13: 3-pt touch w/ 0.5kg ball x5 Exercise 16: scifit UE ergometer x 2.5 min forward, 2.5 min backward L 4 Treatment Reasoning Limitations addressed: Mobility, Strength, Flexibility Progressed: Complexity of movement Manual: Manual Therapy Soft Tissue Mobilizaton: STM to R lateral aspect of pectorals Other: total manual 8 Treatment Reasoning Limitations addressed: Tissue extensibility, Joint motion *Indicates exercise, modality, or manual techniques to be initiated when appropriate Objective Measures: Strength: [x] NT [] MMT completed: ROM: [x] NT [] ROM measurements: Assessment: Body Structures, Functions, Activity Limitations Requiring Skilled Therapeutic Intervention: Decreased ROM, Decreased body mechanics, Decreased tolerance to work activity, Decreased strength, Increased pain, Decreased posture Assessment: Attempted spotting return to work activities and pt was unable to catch legs from a person doing a handstand. This was more in part due to pt's poor timing ability vs. inability to safely catch using UEs. Progressed scapular stability with quadruped exs moving towards plank completion and push ups. Pt exhibits weakness, but able to complete. Pt is not pushing self during HEP completion as was very tired with strengthening/stabilization progression this visit. Treatment Diagnosis: R shoulder pain and decreased mobility. Decreased shoulder ROM, decreased shoulder strength, decreased body mechanics with job requirements, decreased posture, increased pain, UEFS 45/80 Patient Education: [x] Added push ups and planks to HEP Post-Pain Assessment: Pain Rating (0-10 pain scale): 1-2 /10 Location and pain description same as pre-treatment unless indicated. 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 Short Term Goals Completed by 4-5 visits Goal Status STG 1 Pt will exhibit increased R shoulder flexion and abduction to >150 to prevent neck and lumbar hyperextension while reacing overhead in prep for gymnastics Met STG 2 Pt will be independent with HEP In progress Group Home Goals Completed by 9-10 visits Goal Status LTG 1 Pt will exhibit 5/5 shoulder and scapular to safely perform push ups and UE weightbearing as needed for gymnastics In progress LTG 2 Pt will demo correct technique for completion of guarding students with gymnastics as well asdemonstrating correct technique when instructing studentsin order to safely complete job requirements In progress LTG 3 Pt will self correct rounded posture into neutral in order to perform HEP correctly to assistwith decreasing pain complaints. In progress LTG 4 Pain level with decrease to 2/10 or less during UE weightbearing during gymnastics performance In progress LTG 5 Functional mobility to improve via UEFS to 60/80 or more In progress LTG 6 Plan: Frequency/Duration: Plan Plan Frequency: 2 Plan weeks: 3 additional Current Treatment Recommendations: Strengthening, ROM, Endurance training, Manual Therapy - Soft Tissue Mobilization, Manual Therapy - Joint Manipulation, Return to work related activity, Home exercise program, Patient/Caregiver education & training, Modalities, Integrated dry needling Plan Comment: Preparing for d/c next visit as per insurance limitations Pt to continue current HEP. See objective section for any therapeutic exercise changes, additions or modifications this date. Therapy Time: PT Individual Minutes Time In: 1300 Time Out: 1357 Minutes: 57 Timed Code Treatment Minutes: 57 Minutes Procedure Minutes:0 Timed Activity Minutes Units Ther Ex 49 3 Manual 8 1 [facility] Work Phone: 1(273) 884-875907-27-2022 History of Present illness Narrative* Sukhdeep Patton, PT - 09/30/2021 3:30 PM EDT [facility] Outpatient Physical Therapy Treatment Note Date: 09/30/2021 Patient: Faby Galan : 2000 Confirmed: Yes Referring Provider: Marnie Melara DO Secondary Referring Provider (If applicable): Medical Diagnosis: Pain in right shoulder [M25.511] Acute R shoulder pain Treatment Diagnosis: R shoulder pain and decreased mobility. 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 HEP Compliance: [] Good [] Fair [] Poor [] Reports not doing due to: Pain Screening Pain Assessment: 0-10 Pain Level: 1 Treatment: Exercises: Exercises Exercise 1: sidelying abduction without pain and neutral scapular alignmen (provided passively x 10 Exercise 2: supine RUE flexion to endrange without pain x 10 Exercise 3: prone rows 2# x5 horizontal abd x 10 w ith 1 lb , lower trap no weight, emphasizing scapular retraction Exercise 4: supine pec stretch progress to ER w/ towel under arm with 1 lb x 10 and IR with 1 lb ensuring scapular retraction Exercise 6: S/L scapular depression/reaching 5''x10 - pt reports relief w/ this exercise Exercise 7: B scapular retraction with red theraband resistance x 10, unilateral triceps extension with scapular retraction using red theraband resistance x 10 Exercise 9: B scapular pull downs with red theraband Exercise 15: Standing RUE PNF D2 diagonal pattern (flexion, abduction and ER) Exercise 16: scifit UE ergometer x 2 min forward, 2 min backward Manual: Manual Therapy PNF: RUE diagonal pattern with manual assist Soft Tissue Mobilizaton: STM to R pectorals Other: Manual cues on scapula facilitating scapular retraction and depression while in sidelying and prone total manual 15 Modalities: *Indicates exercise, modality, or manual techniques to be initiated when appropriate Objective Measures: Strength: [x] NT [] MMT completed: ROM: [x] NT [] ROM measurements: Observations: [x] Pt exhibits poor quality of movement on return to midline from abducted, flexed or scaption elevation positions Assessment: Body Structures, Functions, Activity Limitations Requiring Skilled Therapeutic Intervention: Decreased ROM, Decreased body mechanics, Decreased tolerance to work activity, Decreased strength, Increased pain, Decreased posture Assessment: Pt continues to exhibit jerky motion on return to midline from abduction, horizontal abduction, and scaption. Focus of treatment on fluidity of movement of the RUE with the initiation of diagonal UE PNF patterns. Strengthening progressed with focus on good quality motion. Treatment Diagnosis: R shoulder pain and decreased mobility. Decreased shoulder ROM, decreased shoulder strength, decreased body mechanics with job requirements, decreased posture, increased pain, UEFS 45/80 Therapy Prognosis: Good Patient Education: [x] Reviewed HEP Post-Pain Assessment: Pain Rating (0-10 pain scale): 1/10 Location and pain description same as pre-treatment unless indicated. 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 Short Term Goals Completed by 4-5 visits Goal Status STG 1 Pt will exhibit increased R shoulder flexion and abduction to >150 to prevent neck and lumbar hyperextension while reacing overhead in prep for gymnastics Met STG 2 Pt will be independent with HEP In progress Group Home Goals Completed by 9-10 visits Goal Status LTG 1 Pt will exhibit 5/5 shoulder and scapular to safely perform push ups and UE weightbearing as needed for gymnastics In progress LTG 2 Pt will demo correct technique for completion of guarding students with gymnastics as well asdemonstrating correct technique when instructing studentsin order to safely complete job requirements In progress LTG 3 Pt will self correct rounded posture into neutral in order to perform HEP correctly to assistwith decreasing pain complaints. In progress LTG 4 Pain level with decrease to 2/10 or less during UE weightbearing during gymnastics performance In progress LTG 5 Functional mobility to improve via UEFS to 60/80 or more In progress LTG 6 Plan: Frequency/Duration: Plan Plan Frequency: 2 Plan weeks: 3 additional Specific Instructions for Next Treatment: PNF patterns of the RUE for fluid motion Pt to continue current HEP. See objective section for any therapeutic exercise changes, additions or modifications this date. Therapy Time: PT Individual Minutes Time In: 1537 Time Out: 1630 Minutes: 53 Timed Code Treatment Minutes: 53 Minutes Procedure Minutes:0 Timed Activity Minutes Units Ther Ex 38 3 Manual 15 1 [facility] Work Phone: 1(351) 950-162707-25-2022 History of Present illness Narrative* Nata L Kacey, PT - 09/28/2021 8:00 AM EDT [facility] Outpatient Physical Therapy Treatment Note Date: 09/28/2021 Patient: Faby Galan : 2000 Confirmed: Yes Referring Provider: Marnie Melara DO Secondary Referring Provider (If applicable): Medical Diagnosis: Pain in right shoulder [M25.511] Treatment Diagnosis: R shoulder pain and decreased mobility. Decreased shoulder ROM, decreased shoulder strength, decreased body mechanics with job requirements, decreased posture, increased pain, UEFS 45/80 Visit Information: Insurance: Payor: [facility] / Plan: [facility] MEDICAID / Product Type: *No Product type* / PT Visit Information Onset Date: 06/03/21 PT Insurance Information: inContact Total # of Visits to Date: 18 Plan of Care/Certification Expiration Date: 10/16/21 No Show: 0 Progress Note Due Date: 10/16/21 Canceled Appointment: 5 Progress Note Counter: new approval 24 units by 10/16/2021 10of 0/24 units Subjective Information: Subjective: Patient reports that the cortisone injection is still helping her. Overall her shoulderhas less pain Comments: Injection 09/25/2021 HEP Compliance: [x] Good [] Fair [] Poor [] Reports not doing due to: Pain Screening Patient Currently in Pain: Yes Pain Assessment: 0-10 Pain Level: 3 Post Treatment Pain Level: 0 Pain Type: Acute pain Pain Location: Shoulder Pain Orientation: Right Pain Descriptors: Aching Pain Frequency: Continuous Treatment: Exercises: Exercises Exercise 1: sidelying abduction without pain and neutral scapular alignmen (provided passively) Exercise 2: supine RUE flexion to endrange without pain x 10 Exercise 3: prone rows 2# x5 horizontal abd x 10 w ith 1 lb , lower trap no weight, emphasizing scapular retraction Exercise 4: supine pec stretch progress to ER w/ towel under arm with 1 lb x 10 and IR with 1 lb ensuring scapular retraction Exercise 5: quadruped A/P weight shifts then reaching with each UE forward, Prone prop on forearms with forward reach on RUE then B scapular retraction x 10, Exercise 6: S/L scapular depression/reaching 5''x10 - pt reports relief w/ this exercise Exercise 7: B scapular retraction with red theraband resistance x 10, unilateral triceps extension with scapular retraction using red theraband resistance x 10 Exercise 8: corner stretch 3x30 Exercise 9: B scapular pull downs Exercise 10: Standing, forearms on wall, alternating scapular retraction. Exercise 12: wall ball up/down, lateral, clockwise and CCW x 5 in each direction Exercise 13: 3-pt touch w/ 0.5kg ball x5 Exercise 14: scapular reach downs in sitting alternating each shoulder x 10 Exercise 15: Prone shoulder retraction with bilateral arm extension 10 reps Exercise 19: PROM of R shoulder for increased mobility Modalities: Moist Heat (CPT 02339) Patient Position: Seated Moist heat location: Right, Shoulder Moist heat specified location: R shoulder / upper trap Post treatment skin assessment: Intact Limitations addressed: Tissue extensibility, Pain modulation Untimed (minutes): 10 *Indicates exercise, modality, or manual techniques to be initiated when appropriate Objective Measures: Strength: [x] NT [] MMT completed: ROM: [x] NT [] ROM measurements: Assessment: Assessment: Patient's pain is decreasing of her right shoulder. She is improving in her scapular exercise execution, needing less verbal cues for correction Treatment Diagnosis: R shoulder pain and decreased mobility. Decreased shoulder ROM, decreased shoulder strength, decreased body mechanics with job requirements, decreased posture, increased pain, UEFS 45/80 Therapy Prognosis: Good Activity Tolerance Activity Tolerance Comments: Patient was able to participate in all exercises and activities today without pain of the right shoulder Patient Education: [] NA PT Education: Home Exercise Program Patient Education: Sitting with towel lumbar roll to promote appropriate alignment of her shoulders Post-Pain Assessment: Pain Rating (0-10 pain scale): 0 /10 Location and pain description same as pre-treatment unless indicated. 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 Short Term Goals Completed by 4-5 visits Goal Status STG 1 Pt will exhibit increased R shoulder flexion and abduction to >150 to prevent neck and lumbar hyperextension while reacing overhead in prep for gymnastics Met STG 2 Pt will be independent with HEP In progress STG 3 STG 4 STG 5 Group Home Goals Completed by 9-10 visits Goal Status LTG 1 Pt will exhibit 5/5 shoulder and scapular to safely perform push ups and UE weightbearing as needed for gymnastics In progress LTG 2 Pt will demo correct technique for completion of guarding students with gymnastics as well asdemonstrating correct technique when instructing studentsin order to safely complete job requirements In progress LTG 3 Pt will self correct rounded posture into neutral in order to perform HEP correctly to assistwith decreasing pain complaints. In progress LTG 4 Pain level with decrease to 2/10 or less during UE weightbearing during gymnastics performance In progress LTG 5 Functional mobility to improve via UEFS to 60/80 or more In progress LTG 6 Plan: Frequency/Duration: Plan Plan Frequency: 2 Current Treatment Recommendations: Strengthening, ROM, Endurance training, Manual Therapy - Soft Tissue Mobilization, Manual Therapy - Joint Manipulation, Return to work related activity, Home exercise program, Patient/Caregiver education & training, Modalities, Integrated dry needling Pt to continue current HEP. See objective section for any therapeutic exercise changes, additions or modifications this date. Therapy Time: PT Individual Minutes Time In: 0800 Time Out: 0850 Minutes: 50 Timed Code Treatment Minutes: 40 Minutes Procedure Minutes: 10 minutes moist heat Timed Activity code In/[place] [id number] 40 3 Manual documented [facility] encounterB[facility] Work Phone: 1(277) 263-859307-22-2022 History of Present illness Narrative* Nata Erazo PT - 09/25/2021 8:00 AM EDT [facility] Outpatient Physical Therapy Treatment Note Date: 09/25/2021 Patient: Faby Chaves Angelia : 2000 Confirmed: Yes Referring Provider: Marnie Melara DO Secondary Referring Provider (If applicable): Medical Diagnosis: Pain in right shoulder [M25.511] Acute R shoulder pain Treatment Diagnosis: R shoulder pain and decreased mobility. Decreased shoulder ROM, decreased shoulder strength, decreased body mechanics with job requirements, decreased posture, increased pain, UEFS 45/80 Visit Information: Insurance: Payor: [facility] / Plan: [facility] MEDICAID / Product Type: *No Product type* / PT Visit Information Onset Date: 06/03/21 PT Insurance Information: [facility] Total # of Visits to Date: 17 Plan of Care/Certification Expiration Date: 10/16/21 No Show: 0 Progress Note Due Date: 10/16/21 Canceled Appointment: 5 Progress Note Counter: new approval 24 units by 10/16/2021 0/8 0/24 units Subjective Information: Subjective: Patient reports that she received a cortisone injection yesterday right shoulder and she is now not having any pain. Comments: Injection 09/25/2021 HEP Compliance: [x] Good [] Fair [] Poor [] Reports not doing due to: Pain Screening Patient Currently in Pain: Denies Treatment: Exercises: Exercises Exercise 2: supine RUE flexion to endrange without pain x 10 Exercise 4: supine pec stretch progress to ER w/ towel under arm with 1 lb x 10 and IR with 1 lb ensuring scapular retraction Exercise 5: quadruped A/P weight shifts then reaching with each UE forward, Prone prop on forearms with forward reach on RUE then B scapular retraction x 10, Exercise 6: S/L scapular depression/reaching 5''x10 - pt reports relief w/ this exercise Exercise 7: B scapular retraction with red theraband resistance x 10, unilateral triceps extension with scapular retraction using red theraband resistance x 10 Exercise 9: B scapular pull downs Exercise 11: reaching behind neck then to lumbar region x 10 Exercise 12: wall ball up/down, lateral, clockwise and CCW x 5 in each direction Exercise 13: 3-pt touch w/ 0.5kg ball x5 Exercise 14: scapular reach downs in sitting alternating each shoulder x 10 Exercise 19: PROM of R shoulder for increased mobility x8 mins Treatment Reasoning Limitations addressed: Mobility, Strength, Flexibility Therapist provided: Tactile cuing Progressed: Complexity of movement Modalities: Moist Heat (CPT 19678) Patient Position: Supine Number Minutes Moist Heat: 10 minutes prior to ex per patient request Moist heat location: Right, Shoulder Moist heat specified location: R shoulder / upper trap Post treatment skin assessment: Intact Limitations addressed: Tissue extensibility, Pain modulation Untimed (minutes): 10 *Indicates exercise, modality, or manual techniques to be initiated when appropriate Objective Measures: Strength: [x] NT [] MMT completed: ROM: [] NT [x] ROM measurements: AROM RUE (degrees) R Shoulder Flexion 0-180: 0-170 with scapulohumeral alignment R Shoulder Extension 0-45: 45 R Shoulder ABduction 0-180: 0-160 with scapulohumeral alignment R Shoulder Int Rotation 0-70: 65 R Shoulder Ext Rotation 0-90: 90 Assessment: Body Structures, Functions, Activity Limitations Requiring Skilled Therapeutic Intervention: Decreased ROM, Decreased body mechanics, Decreased tolerance to work activity, Decreased strength, Increased pain, Decreased posture Assessment: Worked with patient today on sitting posture, using a towel roll to stabilize her lowerlumbar area and in turn correct her upper body posture. She was able to tolerate light weights today to strengthen her scapular area. Treatment Diagnosis: R shoulder pain and decreased mobility. Decreased shoulder ROM, decreased shoulder strength, decreased body mechanics with job requirements, decreased posture, increased pain, UEFS 45/80 Therapy Prognosis: Good Activity Tolerance Activity Tolerance: Patient tolerated treatment well Activity Tolerance Comments: Patient was able to participate in all exercises and activities today without pain of the right shoulder Patient Education: [] NA PT Education: Home Exercise Program Patient Education: Sitting with towel lumbar roll to promote appropriate alignment of her shoulders Post-Pain Assessment: Pain Rating (0-10 pain scale): 0/10 Location and pain description same as pre-treatment unless indicated. 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 Short Term Goals Completed by 4-5 visits Goal Status STG 1 Pt will exhibit increased R shoulder flexion and abduction to >150 to prevent neck and lumbar hyperextension while reacing overhead in prep for gymnastics Met STG 2 Pt will be independent with HEP In progress STG 3 STG 4 STG 5 Group Home Goals Completed by 9-10 visits Goal Status LTG 1 Pt will exhibit 5/5 shoulder and scapular to safely perform push ups and UE weightbearing as needed for gymnastics In progress LTG 2 Pt will demo correct technique for completion of guarding students with gymnastics as well asdemonstrating correct technique when instructing studentsin order to safely complete job requirements In progress LTG 3 Pt will self correct rounded posture into neutral in order to perform HEP correctly to assistwith decreasing pain complaints. In progress LTG 4 Pain level with decrease to 2/10 or less during UE weightbearing during gymnastics performance In progress LTG 5 Functional mobility to improve via UEFS to 60/80 or more In progress LTG 6 Plan: Frequency/Duration: Plan Plan Frequency: 2 Pt to continue current HEP. See objective section for any therapeutic exercise changes, additions or modifications this date. Therapy Time: PT Individual Minutes Time In: 0800 Time Out: 0850 Minutes: 50 Timed Code Treatment Minutes: 40 Minutes Procedure Minutes: 10 minutes moist heat Timed Activity code In/[place] [id number] 40 3 Manual documented in this encounterB[facility] [employer] Work Phone: 1([phone]) 995-456107-20-2022 History of Present illness Narrative* Sukhdeep Patton, PT - 09/23/2021 8:00 AM EDT Images from the original note were not included. Therapy Cancellation/No-show Note Date: 09/23/2021 Patient Name: Faby Galan : 2000 Diagnosis: Acute R shoulder pain Visit Information: PT Visit Information Onset Date: 06/03/21 PT [facility] Total # of Visits to Date: 16 Plan of Care/Certification Expiration Date: 10/16/21 No Show: 0 Progress Note Due Date: 10/16/21 Canceled Appointment: 4 Progress Note Counter: new approval 24 units by 10/16/2021 0/6 0/24 units For today's appointment patient: [x] Cancelled [] Rescheduled appointment [] No-show [] Called pt to remind of next appointment Reason given by patient: [x] Patient ill [] Conflicting appointment [] No transportation [] Conflict with work [] No reason given [] Other: [x] Pt has future appointments scheduled, no follow up needed [] Pt requests to be on hold. Reason: If > 2 weeks please discuss with therapist. [] Therapist to call pt for follow up Comments: Signature: documented in this encounterBON [facility] Work Phone: 1(248) 311-324107-13-2022 History of Present illness Narrative* Sukhdeep Patton PT - 09/16/2021 8:00 AM EDT [facility] Outpatient Physical Therapy Treatment Note Date: 09/16/2021 Patient: Faby Galan : 2000 Confirmed: Yes Referring Provider: Marnie Melara DO Secondary Referring Provider (If applicable): Medical Diagnosis: Pain in right shoulder [M25.511] Acute R shoulder pain Treatment Diagnosis: R shoulder pain and decreased mobility. Decreased shoulder ROM, decreased shoulder strength, decreased body mechanics with job requirements, decreased posture, increased pain, UEFS 45/80 Visit Information: Insurance: Payor: [facility] / Plan: [facility] MEDICAID / Product Type: *No Product type* / PT Visit Information Onset Date: 06/03/21 PT Insurance Information: [facility] Total # of Visits to Date: 15 No Show: 0 Progress Note Due Date: 09/18/21 Canceled Appointment: 4 Progress Note Counter: 07/10-8 Subjective Information: Subjective: Pt reports she had a lot of pain last week due to cartwheels and a handstand HEP Compliance: [x] Good [] Fair [] Poor [] Reports not doing due to: Pain Screening Patient Currently in Pain: Denies Best Pain Level: 9 (earlier last week) Pain Location: Shoulder Pain Orientation: Right Pain Descriptors: Aching,Burning,Sharp Treatment: Exercises: Exercises Exercise 1: sidelying abduction without pain and neutral scapular alignm Exercise 2: supine RUE flexion to endrange without pain x 10 Exercise 3: prone rows 2# x5 horizontal abd x 10 w ith 1 lb , lower trap no weight, emphasizing scapular retraction Exercise 4: supine pec stretch progress to ER w/ towel under arm with 1 lb x 10 and IR with 1 lb ensuring scapular retraction Exercise 6: S/L scapular depression/reaching 5''x10 - pt reports relief w/ this exercise Exercise 14: scapular reach downs in sitting alternating each shoulder x 10 Manual: Manual Therapy PNF: resisted scapular retraction x 10 with pt in sidelying Other: Manual cues on scapula facilitating scapular retraction and depression while in sidelying and prone total manual 18 *Indicates exercise, modality, or manual techniques to be initiated when appropriate Objective Measures: Strength: [x] NT [] MMT completed: ROM: [x] NT [] ROM measurements: Observations: [x] NT Assessment: Body Structures, Functions, Activity Limitations Requiring Skilled Therapeutic Intervention: Decreased ROM,Decreased body mechanics,Decreased tolerance to work activity,Decreased strength,Increased pain,Decreased posture Assessment: Paused strengthening progression to emphasize correct scapular mobility during exs. Pt has tendency to pugh arm and shoulder movement with little to no scapular movement. When pt focuses on scapular movement, total RUE movement is smoother and less painful. Tighteness limits endrange flexion and abduction Treatment Diagnosis: R shoulder pain and decreased mobility. Decreased shoulder ROM, decreased shoulder strength, decreased body mechanics with job requirements, decreased posture, increased pain, UEFS 45/80 Therapy Prognosis: Good Patient Education: [x] Reviewed HEP making modifications to scapular alignment during completion Post-Pain Assessment: Pain Rating (0-10 pain scale): 2 /10 Location and pain description same as pre-treatment unless indicated. 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 Short Term Goals Completed by 4-5 visits Goal Status STG 1 Pt will exhibit increased R shoulder flexion and abduction to >150 to prevent neck and lumbar hyperextension while reacing overhead in prep for gymnastics Met STG 2 Pt will be independent with HEP In progress Belt Brander Goals Completed by 9-10 visits Goal Status LTG 1 Pt will exhibit 5/5 shoulder and scapular to safely perform push ups and UE weightbearing as needed for gymnastics In progress LTG 2 Pt will demo correct technique for completion of guarding students with gymnastics as well asdemonstrating correct technique when instructing studentsin order to safely complete job requirements In progress LTG 3 Pt will self correct rounded posture into neutral in order to perform HEP correctly to assistwith decreasing pain complaints. In progress LTG 4 Pain level with decrease to 2/10 or less during UE weightbearing during gymnastics performance In progress LTG 5 Functional mobility to improve via UEFS to 60/80 or more In progress Plan: Frequency/Duration: Plan Plan Frequency: 2 Plan weeks: 3-4 additional Current Treatment Recommendations: Strengthening,ROM,Endurance training,Manual Therapy - Soft Tissue Mobilization,Manual Therapy - Joint Manipulation,Return to work related activity,Home exercise program,Patient/Caregiver education & training,Modalities,Integrated dry needling Pt to continue current HEP. See objective section for any therapeutic exercise changes, additions or modifications this date. Therapy Time: PT Individual Minutes Time In: 0800 Time Out: 0857 Minutes: 57 Timed Code Treatment Minutes: 57 Minutes Procedure Minutes:0 Timed Activity Minutes Units Ther Ex 39 3 Manual 18 1 documented in this encounterB[facility] Work Phone: [phone]) [phone] History of Present illness Narrative* Sukhdeep Patton PT - 09/02/2021 8:00 AM EDT [facility] Outpatient Physical Therapy Treatment Note Date: 09/02/2021 Patient: Faby Galan : 2000 Confirmed: Yes Referring Provider: Marnie Melara DO Secondary Referring Provider (If applicable): Medical Diagnosis: Pain in right shoulder [M25.511] Acute R shoulder pain Treatment Diagnosis: R shoulder pain and decreased mobility. Decreased shoulder ROM, decreased shoulder strength, decreased body mechanics with job requirements, decreased posture, increased pain, UEFS 45/80 Visit Information: Insurance: Payor: [facility] / Plan: [facility] MEDICAID / Product Type: *No Product type* / PT Visit Information Onset Date: 06/03/21 PT Insurance Information: [employer] Total # of Visits to Date: 14 Plan of Care/Certification Expiration Date: 09/18/21 No Show: 0 Progress Note Due Date: 09/18/21 Canceled Appointment: 4 Progress Note Counter: 06/10-8 units Subjective Information: Subjective: Pt reports she was able to notice when her shoulder was not in good alignment and was able to change it HEP Compliance: [x] Good [] Fair [] Poor [] Reports not doing due to: Pain Screening Pain Level: 4 Pain Location: Shoulder Pain Orientation: Right Pain Descriptors: Aching,Burning Treatment: Exercises: Exercises Exercise 1: supine serratus punches x10 with 1 lb(towel rolled up vertically along spine for passive scapular retration Exercise 2: supine RUE flexion to endrange without pain x 10 Exercise 3: prone rows 2# x5 horizontal abd x 10 w ith 1 lb , lower trap no weight, Exercise 4: supine pec stretch progress to ER w/ towel under arm with 1 lb x 10 and IR with 1 lb ensuring scapular retraction Exercise 5: quadruped A/P weight shifts then B scapular retraction x 10, Exercise 6: S/L scapular depression/reaching 5''x10 - pt reports relief w/ this exercise Exercise 7: B scapular retraction with red theraband resistance x 10, unilateral triceps extension with scapular retraction using red theraband resistance x 10 Exercise 8: corner stretch 3x30 Exercise 9: B scapular pull downs Exercise 10: Wall Push Ups emphasizing scapular depression to start and retraction when moving forward x 10 Exercise 11: reaching behind neck then to lumbar region x 10 Exercise 12: wall ball up/down, lateral, clockwise and CCW x 5 in each direction Exercise 13: 3-pt touch w/ 0.5kg ball x5 Treatment Reasoning Limitations addressed: Mobility,Strength,Flexibility Therapist provided: Tactile cuing Progressed: Complexity of movement Manual: Manual Therapy Joint Mobilization: GH joint mobs in inferior plane to increase flexion Other: Manual cues on scapula during strengthening in prone total manual 12 Modalities: Moist Heat (CPT 11127) Number Minutes Moist Heat: 10 post exs Moist heat location: Right,Shoulder Moist heat specified location: R shoulder / upper trap Post treatment skin assessment: Intact Limitations addressed: Tissue extensibility,Pain modulation *Indicates exercise, modality, or manual techniques to be initiated when appropriate Objective Measures: Strength: [] NT [x] MMT completed: Strength RUE Comment: R middle and lower trap 4-/5 R Shoulder Flexion: 5/5 R Shoulder Extension: 5/5 R Shoulder ABduction: 4+/5 R Shoulder Internal Rotation: 5/5 R Shoulder External Rotation: 5/5 R Elbow Flexion: 5/5 R Elbow Extension: 5/5 ROM: [] NT [x] ROM measurements: AROM RUE (degrees) R Shoulder Flexion 0-180: 155 with good scapulohumeral alignment R Shoulder Extension 0-45: 45 R Shoulder ABduction 0-180: 152 with good scapulohumeral alignment R Shoulder Int Rotation 0-70: 62 R Shoulder Ext Rotation 0-90: 80 Observations: [x] NT Assessment: Body Structures, Functions, Activity Limitations Requiring Skilled Therapeutic Intervention: Decreased ROM,Decreased body mechanics,Decreased tolerance to work activity,Decreased strength,Increased pain,Decreased posture Assessment: Weakness more evident in scapular muscles when exercises performed with scapula in neutral vs elevated and protracted. Tactile cues required 50% of the time to ensure alignment. Reviewed positioning of scapula during HEP Treatment Diagnosis: R shoulder pain and decreased mobility. Decreased shoulder ROM, decreased shoulder strength, decreased body mechanics with job requirements, decreased posture, increased pain, UEFS 45/80 Therapy Prognosis: Good Patient Education: [] NA Post-Pain Assessment: Pain Rating (0-10 pain scale): 2 /10 Location and pain description same as pre-treatment unless indicated. 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 Short Term Goals Completed by 4-5 visits Goal Status STG 1 Pt will exhibit increased R shoulder flexion and abduction to >150 to prevent neck and lumbar hyperextension while reacing overhead in prep for gymnastics Met STG 2 Pt will be independent with HEP In progress Belt Brander Goals Completed by 9-10 visits Goal Status LTG 1 Pt will exhibit 5/5 shoulder and scapular to safely perform push ups and UE weightbearing as needed for gymnastics In progress LTG 2 Pt will demo correct technique for completion of guarding students with gymnastics as well asdemonstrating correct technique when instructing studentsin order to safely complete job requirements In progress LTG 3 Pt will self correct rounded posture into neutral in order to perform HEP correctly to assistwith decreasing pain complaints. In progress LTG 4 Pain level with decrease to 2/10 or less during UE weightbearing during gymnastics performance In progress LTG 5 Functional mobility to improve via UEFS to 60/80 or more In progress LTG 6 Plan: Frequency/Duration: Plan Plan weeks: 3-4 additional Specific Instructions for Next Treatment: extend visits Pt to continue current HEP. See objective section for any therapeutic exercise changes, additions or modifications this date. Therapy Time: PT Individual Minutes Time In: 801 Time Out: 904 Minutes: 63 Timed Code Treatment Minutes: 53 Minutes Procedure Minutes:10 min moist heat Timed Activity Minutes Units Ther Ex 41 3 Manual 12 1 documented in this encounterB[facility] Work Phone: 1(441) 303-391406-22-2022 History of Present illness Narrative* Ursula Dick, PAULA - 08/26/2021 9:00 AM EDT [facility] Outpatient Physical Therapy Treatment Note Date: 08/26/2021 Patient: Faby Chaves musa : 2000 Confirmed: Yes Referring Provider: Marnie Melara DO Secondary Referring Provider (If applicable): Medical Diagnosis: Pain in right shoulder [M25.511] Treatment Diagnosis: R shoulder pain and decreased mobility. Decreased shoulder ROM, decreased shoulder strength, decreased body mechanics with job requirements, decreased posture, increased pain, UEFS 45/80 Visit Information: [facility]: [facility] / Product Type: *No Product type* / PT Visit Information Onset Date: 06/03/21 Total # of Visits Approved: (32 units) Total # of Visits to Date: 12 Plan of Care/Certification Expiration Date: 09/18/21 No Show: 0 Progress Note Due Date: 09/18/21 Canceled Appointment: 4 Progress Note Counter: 2/6-8 (6/32 units) Subjective Information: Subjective: Pt reports 5-6/10 pain currently stating turning the steering wheel driving here made it worse. Pt reports pain prior to session 10. Pt reports she saw her PCP prior to PT who orderedan x-ray and MRI of R shoulder. Pt reports mild soreness following last visit. HEP Compliance: [] Good [x] Fair [] Poor [] Reports not doing due to: Pain Screening Patient Currently in Pain: Yes Pain Assessment: 0-10 Pain Level: 6 Pain Type: Acute pain Pain Location: Shoulder Pain Orientation: Right Pain Descriptors: Aching,Sharp Treatment: Exercises: Exercises Exercise 3: prone rows 2# x5 w/ inc pain, 1# x10 w/ tactile cueing; ext x10 1# no pain only fatigue; horizontal abd w/o wt IR and ER x10 - all performed w/ manual/tactile cueing at R scap Exercise 4: supine pec stretch w/ towel roll along spine w/ b/l shoulder ER 30''x3 Exercise 6: S/L scapular depression/reaching 5''x10 - pt reports relief w/ this exercise Exercise 8: corner stretch 3x30 Exercise 9: SL ER, ABD and SA Punch with 1# x 10 ea. - quick pain/fatigue Exercise 14: pulleys x2 mins flex, x2 mins scap Exercise 16: wall slides flex, scap 5''x10 ea Treatment Reasoning Limitations addressed: Mobility,Strength Manual: Manual Therapy Joint Mobilization: R scapular mobilization emphasizing retraction and depression, ant->post GHJmobs grades lll-lV, gentle joint distraction w/ and w/o ossilations Soft Tissue Mobilizaton: STM to R periscapulars; total manual x15 mins Treatment Reasoning Limitations addressed: Joint motion,Tissue extensibility Modalities: Moist Heat (CPT 40460) Patient Position: Seated Number Minutes Moist Heat: 10 Moist heat location: Right,Shoulder Moist heat specified location: R shoulder / upper trap Post treatment skin assessment: Intact Limitations addressed: Tissue extensibility,Pain modulation *Indicates exercise, modality, or manual techniques to be initiated when appropriate Objective Measures: Strength: [x] NT [] MMT completed: ROM: [x] NT [] ROM measurements: Balance: [x] NT Observations: [x] NT Assessment: Body Structures, Functions, Activity Limitations Requiring Skilled Therapeutic Intervention: Decreased ROM,Decreased body mechanics,Decreased tolerance to work activity,Decreased strength,Increased pain,Decreased posture Assessment: Pt continues to experience varying pain w/ therex. Cont'd vocal and tactile cueing needed throughout majority of therex for improved technique and decreased compensation/muscle guarding. Pt reporting relief w/ GHJ distraction and encouraged to perform multiple times troughout the day. Treatment Diagnosis: R shoulder pain and decreased mobility. Decreased shoulder ROM, decreased shoulder strength, decreased body mechanics with job requirements, decreased posture, increased pain, UEFS 45/80 Therapy Prognosis: Good Patient Education: [x] NA Post-Pain Assessment: Pain Rating (0-10 pain scale): 4 /10 Location and pain description same as pre-treatment unless indicated. 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 Short Term Goals Completed by 4-5 visits Goal Status STG 1 Pt will exhibit increased R shoulder flexion and abduction to >150 to prevent neck and lumbar hyperextension while reacing overhead in prep for gymnastics Met STG 2 Pt will be independent with HEP In progress Group Home Goals Completed by 9-10 visits Goal Status LTG 1 Pt will exhibit 5/5 shoulder and scapular to safely perform push ups and UE weightbearing as needed for gymnastics In progress LTG 2 Pt will demo correct technique for completion of guarding students with gymnastics as well asdemonstrating correct technique when instructing studentsin order to safely complete job requirements In progress LTG 3 Pt will self correct rounded posture into neutral in order to perform HEP correctly to assistwith decreasing pain complaints. In progress LTG 4 Pain level with decrease to 2/10 or less during UE weightbearing during gymnastics performance In progress LTG 5 Functional mobility to improve via UEFS to 60/80 or more In progress Plan: Frequency/Duration: Plan Plan Frequency: 2 Plan weeks: 3-4 additional Current Treatment Recommendations: Strengthening,ROM,Endurance training,Manual Therapy - Soft Tissue Mobilization,Manual Therapy - Joint Manipulation,Return to work related activity,Home exercise program,Patient/Caregiver education & training,Modalities,Integrated dry needling Pt to continue current HEP. See objective section for any therapeutic exercise changes, additions or modifications this date. Therapy Time: PT Individual Minutes Time In: 855 Time Out: 951 Minutes: 56 Timed Code Treatment Minutes: 46 Minutes Procedure Minutes: 10 MHP Timed Activity Minutes Units Ther Ex 31 2 Manual 15 1 documented in this encounterB[facility] Work Phone: 1([phone]) 448-115406-20-2022 History of Present illness Narrative* Ursula Dick PTA - 08/24/2021 8:00 AM EDT [facility] Outpatient Physical Therapy Treatment Note Date: 08/24/2021 Patient: Faby Galan : 2000 Confirmed: Yes Referring Provider: Marnie Melara DO Secondary Referring Provider (If applicable): Medical Diagnosis: Pain in right shoulder [M25.511] Treatment Diagnosis: R shoulder pain and decreased mobility. Decreased shoulder ROM, decreased shoulder strength, decreased body mechanics with job requirements, decreased posture, increased pain, UEFS 45/80 Visit Information: Insurance: Payor: [facility] / Plan: [facility] MEDICAID / Product Type: *No Product type* / PT Visit Information Onset Date: 06/03/21 Total # of Visits Approved: (32 units) Total # of Visits to Date: 11 Plan of Care/Certification Expiration Date: 09/18/21 No Show: 0 Progress Note Due Date: 09/18/21 Canceled Appointment: 4 Progress Note Counter: 12/10- (3/32 units) Subjective Information: Subjective: Pt reports cont'd 6-09/13 shoulder pain. Pt reports her shoulder was burning on the way in this AM. 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 HEP Compliance: [x] Good [] Fair [] Poor [] Reports not doing due to: Pain Screening Patient Currently in Pain: Yes Pain Assessment: 0-10 Pain Level: 7 Pain Type: Acute pain Pain Location: Shoulder Pain Orientation: Right Pain Descriptors: Aching,Sharp Treatment: Exercises: Exercises Exercise 3: prone rows 2# x10; ext x5 2# w/ pain ext x10 w/o weight or pain; horizontal abd w/o wt IR and ER x10 - all performed w/ manual/tactile cueing at R scap Exercise 8: corner stretch 3x30 Exercise 9: SL ER, ABD and SA Punch with 1# x 10 ea. - quick pain/fatigue Exercise 14: pulleys x4 mins flex Exercise 16: wall slides flex, scap 5''x10 ea Treatment Reasoning Limitations addressed: Mobility,Strength Manual: Manual Therapy Joint Mobilization: R scapular mobilization emphasizing retraction and depression (painful at end ranges) Muscle Energy: gentle arm pulls on R into distraction Soft Tissue Mobilizaton: trigger point release to the R biceps prior to exs Other: Manual cues on scapula during strengthening in prone total manual 15 Treatment Reasoning Limitations addressed: Joint motion,Tissue extensibility Modalities: Moist Heat (CPT 85921) Patient Position: Seated Number Minutes Moist Heat: 10 Moist heat location: Right,Shoulder Moist heat specified location: R shoulder / upper trap Post treatment skin assessment: Intact Limitations addressed: Tissue extensibility,Pain modulation *Indicates exercise, modality, or manual techniques to be initiated when appropriate Objective Measures: Strength: [x] NT [] MMT completed: ROM: [x] NT [] ROM measurements: Balance: [x] NT Observations: [x] NT Assessment: Body Structures, Functions, Activity Limitations Requiring Skilled Therapeutic Intervention: Decreased ROM,Decreased body mechanics,Decreased tolerance to work activity,Decreased strength,Increased pain,Decreased posture Assessment: Pt cont's to report pain at all end ranges and has significant difficulty relaxing fromprotracted position. Pt also w/ multiple trigger points/ tenderness reported during manual techniques. Contstant manual/tactile cueing during prone scap series for improved/correct technique. Treatment Diagnosis: R shoulder pain and decreased mobility. Decreased shoulder ROM, decreased shoulder strength, decreased body mechanics with job requirements, decreased posture, increased pain, UEFS 45/80 Therapy Prognosis: Good Patient Education: [] NA PT Education: Anatomy of condition Patient Education: cont'd relaxation techniques Post-Pain Assessment: Pain Rating (0-10 pain scale): 4/10 Location and pain description same as pre-treatment unless indicated. 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 Short Term Goals Completed by 4-5 visits Goal Status STG 1 Pt will exhibit increased R shoulder flexion and abduction to >150 to prevent neck and lumbar hyperextension while reacing overhead in prep for gymnastics Met STG 2 Pt will be independent with HEP In progress Belt Brander Goals Completed by 9-10 visits Goal Status LTG 1 Pt will exhibit 5/5 shoulder and scapular to safely perform push ups and UE weightbearing as needed for gymnastics In progress LTG 2 Pt will demo correct technique for completion of guarding students with gymnastics as well asdemonstrating correct technique when instructing studentsin order to safely complete job requirements In progress LTG 3 Pt will self correct rounded posture into neutral in order to perform HEP correctly to assistwith decreasing pain complaints. In progress LTG 4 Pain level with decrease to 2/10 or less during UE weightbearing during gymnastics performance In progress LTG 5 Functional mobility to improve via UEFS to 60/80 or more In progress Plan: Frequency/Duration: Plan Plan Frequency: 2 Plan weeks: 3-4 additional Current Treatment Recommendations: Strengthening,ROM,Endurance training,Manual Therapy - Soft Tissue Mobilization,Manual Therapy - Joint Manipulation,Return to work related activity,Home exercise program,Patient/Caregiver education & training,Modalities,Integrated dry needling Pt to continue current HEP. See objective section for any therapeutic exercise changes, additions or modifications this date. Therapy Time: PT Individual Minutes Time In: 801 Time Out: 851 Minutes: 50 Timed Code Treatment Minutes: 40 Minutes Procedure Minutes: 10 MHP Timed Activity Minutes Units Ther Ex 25 2 Manual 15 1 documented in this encounterBON [facility] Work Phone: [phone] 401-141206-15-2022 History of Present illness Narrative* Sukhdeep Patton, PT - 08/19/2021 8:00 AM EDT [facility] PHYSICAL THERAPY PLAN OF CARE [address] [place] [address] [] Certification [x] Recertification [] Plan of Care [x] Progress Note [] Discharge Referring Provider: Marnie Melara DO From: SUKHDEEP PATTON PT Patient: Faby Galan (21 y.o. female) : 2000 Date: 08/19/2021 Medical Diagnosis: Pain in right shoulder [M25.511] Treatment Diagnosis: R shoulder pain and decreased mobility. Decreased shoulder ROM, decreased shoulder strength, decreased body mechanics with job requirements, decreased posture, increased pain, UEFS 45/80 Plan of Care/Certification Expiration Date: 08/21/21 Progress Report Period from: 08/19/2021 to 08/19/2021 Visits to Date: 10 No Show: 0 Cancelled Appts: 4 OBJECTIVE: Short Term Goals - Time Frame for Short term goals: 4-5 visits Goals Current/Discharge status Status Short term goal 1: Pt will exhibit increased R shoulder flexion and abduction to >150 to preventneck and lumbar hyperextension while reacing overhead in prep for gymnastics 160-170 inconsistentlyMet Short term goal 2: Pt will be independent with HEP Ongoing In progress Belt Brander Goals - Time Frame for correction goals : 9-10 visits Goals Current/ Discharge status Status correction goal 1: Pt will exhibit 5/5 shoulder and scapular to safely perform push ups and UE weightbearing as needed for gymnastics 4+/5 abduction with compensations present with push ups and closedchain exs 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 Inconsistent In progress correction goal 4: Pain level with decrease to 2/10 or less during UE weightbearing during gymnastics performance Highly variable from no pain to 8/10 In progress correction goal 5: Functional mobility to improve via UEFS to 60/80 or more 41/80 In progress Body Structures, Functions, Activity Limitations Requiring Skilled Therapeutic Intervention: Decreased ROM,Decreased body mechanics,Decreased tolerance to work activity,Decreased strength,Increased pain,Decreased posture Assessment: Pt comes in again with high pain level, but with R shoulder elevated and protracted in her resting position. Pt required manual techniques to attain neutral alignment of the R shoulder and scapula and manual cues with several of the exercises to ensure proper alignment. Discussed at length how her activity and positionof the R shoulder is constantly being flared up by elevated and protracted position. Pt to benefit from continued PT to progress ROM and strengthening with pt more consistently holding shoulder in neutral alignment Therapy Prognosis: Good PT Education: Home Exercise Program;Anatomy of condition Patient Education: Discussed pt shoulder position into neutral during rest and leisure/work activity as a pain control measure PLAN: [x] Evaluate and Treat Frequency/Duration: Plan Frequency: 2 Plan weeks: 3-4 additional Current Treatment Recommendations: Strengthening,ROM,Endurance training,Manual Therapy - Soft Tissue Mobilization,Manual Therapy - Joint Manipulation,Return to work related activity,Home exercise program,Patient/Caregiver education & training,Modalities,Integrated dry needling Patient Status:[x] Continue plan of Care [] Discharge PT. Recommend pt continue with HEP. [] Additional visits requested, Please re-certify for additional visits: [] Hold Signature: If you have any questions or concerns, please don't hesitate to call. Thank you for your referral. I have reviewed this plan of care and certify a need for medically necessary rehabilitation services. Physician Signature: Date: Please sign and return * Sukhdeep Patton, PT - 08/19/2021 8:00 AM EDT [facility] Outpatient Physical Therapy Treatment Note Date: 08/19/2021 Patient: Faby Galan : 2000 Confirmed: Yes Referring Provider: Marnie Melara DO Secondary Referring Provider (If applicable): Medical Diagnosis: Pain in right shoulder [M25.511] Treatment Diagnosis: R shoulder pain and decreased mobility. 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 ABD x10 ea Exercise 4: Supine pectoral stretch withR UE off mat 20 sec x 4 Exercise 8: corner stretch 3x30 Exercise 9: SL ER, ABD and SA Punch with 1# x 10 ea. Manual: Manual Therapy Joint Mobilization: R scapular mobilization emphasizing retraction and depression (painful at end ranges) Muscle Energy: gentle arm pulls on R into distraction Soft Tissue Mobilizaton: trigger point release to the R biceps prior to exs Other: Manual cues on scapula during strengthening in prone total manual 25 Modalities: Moist Heat (CPT 27460) Patient Position: Supine Number Minutes Moist Heat: 10 Moist heat location: Right,Shoulder Moist heat specified location: R shoulder / upper trap Post treatment skin assessment: Intact Limitations addressed: Tissue extensibility Untimed (minutes): 10 *Indicates exercise, modality, or manual techniques to be initiated when appropriate Objective Measures: Strength: [] NT [x] MMT completed: Strength RUE R Shoulder Flexion: 5/5 R Shoulder Extension: 5/5 R Shoulder ABduction: 4+/5 R Shoulder Internal Rotation: 5/5 R Shoulder External Rotation: 5/5 R Elbow Flexion: 5/5 R Elbow Extension: 5/5 ROM: [] NT [x] ROM measurements: AROM RUE (degrees) R Shoulder Flexion 0-180: 170 deg no pain R Shoulder ABduction 0-180: 170 deg no pain R Shoulder Int Rotation 0-70: 65 R Shoulder Ext Rotation 0-90: 78 Assessment: Body Structures, Functions, Activity Limitations Requiring Skilled Therapeutic Intervention: Decreased ROM,Decreased body mechanics,Decreased tolerance to work activity,Decreased strength,Increased pain,Decreased posture Assessment: Pt comes in again with high pain level, but with R shoulder elevated and protracted in her resting position. Pt required manual techniques to attain neutral alignment of the R shoulder and scapula and manual cues with several of the exercises to ensure proper alignment. Discussed at length how her activity and positionof the R shoulder is constantly being flared up by elevated and protracted position. Pt to benefit from continued PT to progress ROM and strengthening with pt more consistently holding shoulder in neutral alignment Treatment Diagnosis: R shoulder pain and decreased mobility. Decreased shoulder ROM, decreased shoulder strength, decreased body mechanics with job requirements, decreased posture, increased pain, UEFS 45/80 Therapy Prognosis: Good Patient Education: [] NA PT Education: Home Exercise Program,Anatomy of condition Patient Education: Discussed pt shoulder position into neutral during rest and leisure/work activity as a pain control measure Post-Pain Assessment: Pain Rating (0-10 pain scale): 4-5 /10 Location and pain description same as pre-treatment unless indicated. 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 Short Term Goals Completed by 4-5 visits Goal Status STG 1 Pt will exhibit increased R shoulder flexion and abduction to >150 to prevent neck and lumbar hyperextension while reacing overhead in prep for gymnastics Met STG 2 Pt will be independent with HEP In progress Belt Brander Goals Completed by 9-10 visits Goal Status LTG 1 Pt will exhibit 5/5 shoulder and scapular to safely perform push ups and UE weightbearing as needed for gymnastics In progress LTG 2 Pt will demo correct technique for completion of guarding students with gymnastics as well asdemonstrating correct technique when instructing studentsin order to safely complete job requirements In progress LTG 3 Pt will self correct rounded posture into neutral in order to perform HEP correctly to assistwith decreasing pain complaints. In progress LTG 4 Pain level with decrease to 2/10 or less during UE weightbearing during gymnastics performance In progress LTG 5 Functional mobility to improve via UEFS to 60/80 or more In progress Plan: Frequency/Duration: Plan Plan Frequency: 2 Plan weeks: 3-4 additional Current Treatment Recommendations: Strengthening,ROM,Endurance training,Manual Therapy - Soft Tissue Mobilization,Manual Therapy - Joint Manipulation,Return to work related activity,Home exercise program,Patient/Caregiver education & training,Modalities,Integrated dry needling Pt to continue current HEP. See objective section for any therapeutic exercise changes, additions or modifications this date. Therapy Time: PT Individual Minutes Time In: 801 Time Out: 857 Minutes: 56 Timed Code Treatment Minutes: 46 Minutes Procedure Minutes:10 moist heat Timed Activity Minutes Units Ther Ex 21 1 Manual 25 2 documented in this encounterB[facility] Work Phone: 1([phone]) 383-268206-01-2022 History of Present illness Narrative* Ursula Dick PTA - 08/05/2021 11:00 AM EDT [facility] Outpatient Physical Therapy Treatment Note Date: 08/05/2021 Patient: Faby aGlan : 2000 Confirmed: Yes Referring Provider: Marnie Melara DO Secondary Referring Provider (If applicable): Medical Diagnosis: Pain in right shoulder [M25.511] Treatment Diagnosis: R shoulder pain and decreased mobility. Decreased shoulder ROM, decreased shoulder strength, decreased body mechanics with job requirements, decreased posture, increased pain, UEFS 45/80 Visit Information: Insurance: Payor: [facility] / Plan: [facility] MEDICAID / Product Type: *No Product type* / PT Visit Information Total # of Visits to Date: 6 No Show: 0 Progress Note Due Date: 08/21/21 Canceled Appointment: 3 Progress Note Counter: 08/14 () Subjective Information: Subjective: Pt reports she felt good after her last therapy, but since she missed last week she's been feeling really achy. HEP Compliance: [x] Good [] Fair [] Poor [] Reports not doing due to: Pain Screening Patient Currently in Pain: Yes Pain Assessment: 0-10 Pain Level: 6 Pain Type: Acute pain Pain Location: Shoulder Pain Orientation: Right Pain Descriptors: Aching Treatment: Exercises: Exercises Exercise 1: supine serratus punches x10 (towel rolled up vertically along spine for passive scapular retration Exercise 2: supine RUE flexion to endrange without pain x 10 Exercise 3: Prone Ext, Rows with 1 lb for 10 reps, then no weight, Horz. ABD, ER/IR x10 ea Exercise 4: Supine Chest Pull 2 way x10 ea YTB Exercise 5: Standing Wall slides 5 x 10/ finger ladder 5 X10 Exercise 6: T-band Rows, Lat Pulls, IR, ER Yellow x 15 each Exercise 7: UBE level 1 2'F/2'R Exercise 9: SL ER, ABD and SA Punch with1# x 10 ea. Exercise 10: Wall Push Ups x 10 Exercise 20: HEP: cont current, progress reps Treatment Reasoning Limitations addressed: Mobility,Strength Modalities: Cryotherapy (CPT 73386) Patient Position: Seated Number Minutes Cryotherapy: post ex Cryotherapy location: Right,Shoulder Unbillable time (minutes): 10 Ultrasound (CPT 69390) Patient Position: Seated Ultrasound location: Right,Shoulder Ultrasound specified location: superior anterior aspect of R shoulder Ultrasound frequency: 1 MHz Ultrasound intensity (W/cm2): 1 Ultrasound mode: Continuous Post treatment skin assessment: Redness - no adverse reaction *Indicates exercise, modality, or manual techniques to be initiated when appropriate Objective Measures: Strength: [x] NT [] MMT completed: ROM: [] NT [x] ROM measurements: AROM RUE (degrees) R Shoulder Flexion 0-180: 165 w/ pain R Shoulder ABduction 0-180: 170 R Shoulder Int Rotation 0-70: functional reach T10 w/ min pain R Shoulder Ext Rotation 0-90: functional reach T3 Balance: [x] NT Observations: [x] NT Assessment: Body Structures, Functions, Activity Limitations Requiring Skilled Therapeutic Intervention: Decreased ROM,Decreased body mechanics,Decreased tolerance to work activity,Decreased strength,Increased pain,Decreased posture Assessment: Cont'd w/ tx per POC w/ progression of reps of select ex's for increased strength w/o significant increases in pain. Pt demo's good increase in R shoulder AROM since last measure, though some pain at end range flexion and IR. Treatment Diagnosis: R shoulder pain and decreased mobility. Decreased shoulder ROM, decreased shoulder strength, decreased body mechanics with job requirements, decreased posture, increased pain, UEFS 45/80 Therapy Prognosis: Fair Patient Education: [x] NA Post-Pain Assessment: Pain Rating (0-10 pain scale): 6/10 Location and pain description same as pre-treatment unless indicated. 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 Short Term Goals Completed by 4-5 visits Goal Status STG 1 Pt will exhibit increased R shoulder flexion and abduction to >150 to prevent neck and lumbar hyperextension while reacing overhead in prep for gymnastics In progress STG 2 Pt will be independent with HEP In progress Belt Brander Goals Completed by 9-10 visits Goal Status LTG 1 Pt will exhibit 5/5 shoulder and scapular to safely perform push ups and UE weightbearing as needed for gymnastics In progress LTG 2 Pt will demo correct technique for completion of guarding students with gymnastics as well asdemonstrating correct technique when instructing studentsin order to safely complete job requirements In progress LTG 3 Pt will self correct rounded posture into neutral in order to perform HEP correctly to assistwith decreasing pain complaints. In progress LTG 4 Pain level with decrease to 2/10 or less during UE weightbearing during gymnastics performance In progress LTG 5 Functional mobility to improve via UEFS to 60/80 or more In progress Plan: Frequency/Duration: Plan Plan Frequency: 2 Plan weeks: 5-6 Current Treatment Recommendations: Strengthening,ROM,Endurance training,Manual Therapy - Soft Tissue Mobilization,Manual Therapy - Joint Manipulation,Return to work related activity,Home exercise program,Patient/Caregiver education & training,Modalities,Integrated dry needling Pt to continue current HEP. See objective section for any therapeutic exercise changes, additions or modifications this date. Therapy Time: PT Individual Minutes Time In: 1100 Time Out: 1159 Minutes: 59 Timed Code Treatment Minutes: 49 Minutes Procedure Minutes: 10 CP Timed Activity Minutes Units Ther Ex 41 2 US 8 1 documented in this [facility] [employer] Phone: [phone]) [phone] History of Present illness Narrative* Carmela James, PT - 07/31/2021 2:00 PM EDT Images from the original note were not included. Therapy Cancellation/No-show Note Date: 07/31/2021 Patient: Faby Galan (21 y.o. female) : 2000 Referring Physician: Marnie Melara DO Medical Diagnosis: Pain in right shoulder [M25.511] Visit Information: Visits to Date 5 No Show/Cancelled Appts: 0 / 3 For today's appointment patient: [x] Cancelled [] Rescheduled appointment [] No-show [] Called pt to remind of next appointment Reason given by patient: [] Patient ill [] Conflicting appointment [x] No transportation [] Conflict with work [] No reason given [] Other: [x] Pt has future appointments scheduled, no follow up needed [] Pt requests to be on hold. Reason: If > 2 weeks please discuss with therapist. [] Therapist to call pt for follow up Comments: Signature: documented in this encounterBON [employer] Phone: [phone]) 284-238805-16-2022 History of Present illness Narrative* Sukhdeep Patton, PT - 07/20/2021 11:00 AM EDT [facility] Outpatient Physical Therapy Treatment Note Date: 07/20/2021 Patient: Faby Galan : 2000 Confirmed: Yes Referring Provider: Marnie Melara DO Secondary Referring Provider (If applicable): Medical Diagnosis: Pain in right shoulder [M25.511] Acute R shoulder pain Treatment Diagnosis: R shoulder pain and decreased mobility. Decreased shoulder ROM, decreased shoulder strength, decreased body mechanics with job requirements, decreased posture, increased pain, UEFS 45/80 Visit Information: Insurance: Payor: [facility] / Plan: [facility] MEDICAID / Product Type: *No Product type* / PT Visit Information Onset Date: 06/03/21 PT Insurance Information: inContact Total # of Visits to Date: 4 Plan of Care/Certification Expiration Date: 08/21/21 No Show: 0 Progress Note Due Date: 08/21/21 Canceled Appointment: 1 Progress Note Counter: 06/14 (11/48 units) Subjective Information: Subjective: Pt reporting having the most difficulty with pain at night as well as when spotting kids during gymnastics HEP Compliance: [] Good [x] Fair [] Poor [] Reports not doing due to: Pain Screening Patient Currently in Pain: Yes Pain Assessment: 0-10 Pain Level: 4 Best Pain Level: 1 Worst Pain Level: 10 Pain Location: Shoulder Pain Orientation: Right Pain Descriptors: Aching,Stabbing Pain Frequency: Intermittent Aggravating factors: Lifting,Carrying Pain Management/Relieving Factors: Rest Treatment: Exercises: Exercises Exercise 1: supine serratus punches x10 (towel rolled up vertically along spine for passive scapular retration Exercise 2: supine RUE flexion to endrange without pain x 10 Exercise 3: Prone Ext, Rows with 1 lb for 5 reps, then no weight, Horz. ABD, ER/IR x10 ea Exercise 6: T-band Rows, Lat Pulls Yellow x 10 each Exercise 20: HEP: rows/lats, chest pulls with yellow therabanc Manual: Manual Therapy Joint Mobilization: Righ shoulder posterior/Inferior mobs Soft Tissue Mobilizaton: cross friction massage to R rotator cuff tendons Other: total manual 10 Modalities: Cryotherapy (CPT 35849) Patient Position: Seated Number Minutes Cryotherapy: post ex Cryotherapy location: Right,Shoulder Unbillable time (minutes): 10 Ultrasound (CPT 19690) Patient Position: Seated Ultrasound location: Right,Shoulder Ultrasound specified location: superior anterior aspect of R shoulder Ultrasound frequency: 1 MHz Ultrasound intensity (W/cm2): 1 Ultrasound mode: Continuous Post treatment skin assessment: Redness - no adverse reaction Post treatment skin assessment: healthy pink 1:1 Time (minutes): 8 *Indicates exercise, modality, or manual techniques to be initiated when appropriate Objective Measures: Strength: [x] NT [] MMT completed: ROM: [] NT [x] ROM measurements: AROM RUE (degrees) R Shoulder Flexion 0-180: 148 R Shoulder Extension 0-45: 45 R Shoulder ABduction 0-180: 125 R Shoulder Int Rotation 0-70: 65 R Shoulder Ext Rotation 0-90: 75 Balance: [x] NT Assessment: Body Structures, Functions, Activity Limitations Requiring Skilled Therapeutic Intervention: Decreased ROM,Decreased body mechanics,Decreased tolerance to work activity,Decreased strength,Increased pain,Decreased posture Assessment: Initiated U/S to R rotator cuff tendons as well as cross friction massage to same to facilitate healing of suspected tendinitis. Completed supine strengthening and ROM with towel verticalalong spine to facilitate neutral shoulder alignment during ex completion Treatment Diagnosis: R shoulder pain and decreased mobility. Decreased shoulder ROM, decreased shoulder strength, decreased body mechanics with job requirements, decreased posture, increased pain, UEFS 45/80 Activity Tolerance Activity Tolerance: Patient limited by pain,Patient limited by endurance Patient Education: [] NA PT Education: Home Exercise Program Post-Pain Assessment: Pain Rating (0-10 pain scale): 6 /10 Location and pain description same as pre-treatment unless indicated. 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 Short Term Goals Completed by 4-5 visits Goal Status STG 1 Pt will exhibit increased R shoulder flexion and abduction to >150 to prevent neck and lumbar hyperextension while reacing overhead in prep for gymnastics In progress STG 2 Pt will be independent with HEP In progress Belt Brander Goals Completed by 9-10 visits Goal Status LTG 1 Pt will exhibit 5/5 shoulder and scapular to safely perform push ups and UE weightbearing as needed for gymnastics In progress LTG 2 Pt will demo correct technique for completion of guarding students with gymnastics as well asdemonstrating correct technique when instructing studentsin order to safely complete job requirements In progress LTG 3 Pt will self correct rounded posture into neutral in order to perform HEP correctly to assistwith decreasing pain complaints. In progress LTG 4 Pain level with decrease to 2/10 or less during UE weightbearing during gymnastics performance In progress LTG 5 Functional mobility to improve via UEFS to 60/80 or more In progress Plan: Frequency/Duration: Plan Plan Frequency: 2 Plan weeks: 5-6 Current Treatment Recommendations: Strengthening,ROM,Endurance training,Manual Therapy - Soft Tissue Mobilization,Manual Therapy - Joint Manipulation,Return to work related activity,Home exercise program,Patient/Caregiver education & training,Modalities,Integrated dry needling Pt to continue current HEP. See objective section for any therapeutic exercise changes, additions or modifications this date. Therapy Time: PT Individual Minutes Time In: 1058 Time Out: 1205 Minutes: 67 Timed Code Treatment Minutes: 57 Minutes Procedure Minutes:10 min ice to R shoulder Timed Activity Minutes Units Ther Ex 39 2 Manual U/S 10 8 1 1 documented in this [facility] [employer] Phone: 1(183) [phone] History of Present illness Narrative* Gurdeep Riley PTA - 07/13/2021 11:00 AM EDT Images from the original note were not included. Therapy Cancellation/No-show Note Date: 07/13/2021 Patient: Faby Galan (21 y.o. female) : 2000 Referring Physician: Marnie Melara DO Medical Diagnosis: Pain in right shoulder [M25.511] Visit Information: Visits to Date 2 No Show/Cancelled Appts: 0 For today's appointment patient: [x] Cancelled [] Rescheduled appointment [] No-show [] Called pt to remind of next appointment Reason given by patient: [] Patient ill [] Conflicting appointment [x] No transportation [] Conflict with work [] No reason given [] Other: [x] Pt has future appointments scheduled, no follow up needed Comments: Signature: documented in this [facility] [employer] Phone: [phone]) [phone] History of Present illness Narrative* Gurdeep Riley PTA - 07/09/2021 1:00 PM EDT [facility] Outpatient Physical Therapy Treatment Note Date: 07/09/2021 Patient: Faby Galan : 2000 Confirmed: Yes Referring Provider: Marnie Melara DO Secondary Referring Provider (If applicable): Medical Diagnosis: Pain in right shoulder [M25.511] Treatment Diagnosis: R shoulder pain and decreased mobility. Decreased shoulder ROM, decreased shoulder strength, decreased body mechanics with job requirements, decreased posture, increased pain, UEFS 45/80 Visit Information: Insurance: [facility] / Plan: [facility] [place] MEDICA[place] / Product Type: *No Product type* / PT Visit Information Onset Date: 06/03/21 Total # of Visits Approved: 2 (48 units) Total # of Visits to Date: 2 Plan of Care/Certification Expiration Date: 10/06/21 No Show: 0 Canceled Appointment: 0 Progress Note Counter: 2/2 (3) Subjective Information: Subjective: Pt reports pain intense and 10/10 pain following last tx session. Not as bad today. HEP Compliance: [] Good [] Fair [] Poor [x] Reports not doing due to:HEP provided today Pain Screening Patient Currently in Pain: Yes Pain Assessment: 0-10 Pain Level: 6 Pain Type: Acute pain Pain Location: Shoulder Pain Orientation: Right Pain Descriptors: Aching Treatment: Exercises: Exercises Exercise 1: Supine Chest Press, Flexion, SA Punch with Wand x 10 ea. Exercise 2: S/L ER, ABD x 10 each Exercise 3: Prone Ext, Rows, Horz. ABD in neutral x 10 each, limited ROM due to pain levels. Exercise 4: Supine Chest Pull Yellow T-band. Exercise 5: Standing Wall slides 5 x 10 Exercise 6: T-band Rows, Lat Pulls Yellow x 10 with limited ROM on Lat Pulls Exercise 7: Standing Wand Ext, IR, ABD, ER, Flexion 5 hold x 10 Exercise 12: PROM of Right shoulder to increase pain free mobilty, increased guarding noted with flexion Exercise 20: HEP: Supine flexion with wand, Standing Wall slides flexion. Manual: Modalities: Cryotherapy (CPT 30526) Patient Position: Seated Cryotherapy location: Right,Shoulder Unbillable time (minutes): 10 *Indicates exercise, modality, or manual techniques to be initiated when appropriate Objective Measures: Strength: [x] NT [] MMT completed: ROM: [x] NT [] ROM measurements: Observations: Assessment: Body Structures, Functions, Activity Limitations Requiring Skilled Therapeutic Intervention: Decreased ROM,Decreased body mechanics,Decreased tolerance to work activity,Decreased strength,Increased pain,Decreased posture Assessment: Pt reports increased pain levels with therapy today, with reported pain of 8/10 by end of tx session, Provided pt with copy of HEP with focus on shoulder mobitiy, pt reports good understanding of exercises, no additional questions or concerns at this time with current HEP. Treatment Diagnosis: R shoulder pain and decreased mobility. Decreased shoulder ROM, decreased shoulder strength, decreased body mechanics with job requirements, decreased posture, increased pain, UEFS 45/80 Therapy Prognosis: Fair Patient Education: Post-Pain Assessment: Pain Rating (0-10 pain scale): 8/10 Location and pain description same as pre-treatment unless indicated. 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 Short Term Goals Completed by 4-5 visits Goal Status STG 1 Pt will exhibit increased R shoulder flexion and abduction to >150 to prevent neck and lumbar hyperextension while reacing overhead in prep for gymnastics In progress STG 2 Pt will be independent with HEP In progress Group Home Goals Completed by 9-10 visits Goal Status LTG 1 Pt will exhibit 5/5 shoulder and scapular to safely perform push ups and UE weightbearing as needed for gymnastics In progress LTG 2 Pt will demo correct technique for completion of guarding students with gymnastics as well asdemonstrating correct technique when instructing studentsin order to safely complete job requirements In progress LTG 3 Pt will self correct rounded posture into neutral in order to perform HEP correctly to assistwith decreasing pain complaints. In progress LTG 4 Pain level with decrease to 2/10 or less during UE weightbearing during gymnastics performance In progress LTG 5 Functional mobility to improve via UEFS to 60/80 or more In progress Plan: Frequency/Duration: Plan Plan Frequency: 2 Plan weeks: 5-6 Current Treatment Recommendations: Strengthening,ROM,Endurance training,Manual Therapy - Soft Tissue Mobilization,Manual Therapy - Joint Manipulation,Return to work related activity,Home exercise program,Patient/Caregiver education & training,Modalities,Integrated dry needling Pt to continue current HEP. See objective section for any therapeutic exercise changes, additions or modifications this date. Therapy Time: PT Individual Minutes Time In: 1257 Time Out: 1352 Minutes: 55 Timed Code Treatment Minutes: 45 Minutes Procedure Minutes:10 CP Timed Activity Minutes Units Ther Ex 45 3 documented in this [facility] [employer] Work Phone: [phone]) [phone] History of Present illness Narrative* Sukhdeep Patton PT - 07/06/2021 10:00 AM EDT [facility] PHYSICAL THERAPY PLAN OF CARE [address] [place] [address] [] Certification [] Recertification [x] Plan of Care [] Progress Note [] Discharge Referring Provider: Marnie Melara DO From: SUKHDEEP PATTON, PT Patient: Faby Galan (21 y.o. female) : 2000 Date: 07/06/2021 Medical Diagnosis: Pain in right shoulder [M25.511] Acute R shoulder pain Treatment Diagnosis: R shoulder pain and decreased mobility. Decreased shoulder ROM, decreased shoulder strength, decreased body mechanics with job requirements, decreased posture, increased pain, UEFS 45/80 Plan of Care/Certification Expiration Date: 10/06/21 Progress Report Period from: 07/06/2021 to 07/06/2021 Visits to Date: 1 No Show: 0 Cancelled Appts: 0 OBJECTIVE: Short Term Goals - Time Frame for Short term goals: 4-5 visits Goals Current/Discharge status Status Short term goal 1: Pt will exhibit increased R shoulder flexion and abduction to >150 to preventneck and lumbar hyperextension while reaching overhead in prep for work AROM RUE (degrees) R Shoulder Flexion 0-180: 142 R Shoulder Extension 0-45: 45 R Shoulder ABduction 0-180: 145 R Shoulder Int Rotation 0-70: 70 R Shoulder Ext Rotation 0-90: 75 New Short term goal 2: Pt will be independent with HEP To be initiated New Belt Brander Goals - Time Frame for correction goals : 9-10 visits Goals Current/ Discharge status Status correction goal 1: Pt will exhibit 5/5 shoulder and scapular to safely perform push ups and UE weightbearing as needed for gymnastics Strength RUE R Shoulder Flexion: 4+/5 R Shoulder Extension: 4/5 R Shoulder ABduction: 4+/5 R Shoulder Internal Rotation: 5/5 R Shoulder External Rotation: 4+/5 R lower trap: 4-/5 R middle trap: 4/5 New terminal press operator goal 2: Pt will demo correct technique for completion of guarding students with gymnastics as well as demonstrating correct technique when instructing students in order to safely complete job requirements Unsafe technique demonstrated New terminal press operator goal 3: Pt will self correct rounded posture into neutral in order to perform HEP correctly to assist with decreasing pain complaints. Requires tactile cues to attain neutral New correction goal 4: Pain level will decrease to 2/10 or less during UE weightbearing during gymnastics performance 5/10 New terminal press operator goal 5: Functional mobility to improve via UEFS to 60/80 or more 45/80 New Body Structures, Functions, Activity Limitations Requiring Skilled Therapeutic Intervention: Decreased ROM,Decreased body mechanics,Decreased tolerance to work activity,Decreased strength,Increased pain,Decreased posture Assessment: Pt presents to PT with pain at the R shoulder after performing several attempts at a back handspring in gymnastics. Pt showed video of how the injury occurs and it shows that pt is unableto safely perform a back handspring. It shows her throwing herself backwards without making a full revolution and landing square on her R shoulder. Instructed pt not to attempt to perform, but she stated she has to be able to perform in order to help the younger students. Pt verbalized understanding of not attempting gymnastics until L shoulder is strong enough to safely to bear weight via a plank or supported handstand. 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 Pt to benefit from PT to address these deficits, educate on safe use of UEs during gymnastics, modalities for pain reduction, and HEP instruction. Therapy Prognosis: Fair PT Education: Goals;PT Role;Plan of Care;Evaluative findings PLAN: [x] Evaluate and Treat Frequency/Duration: Plan Frequency: 2 Plan weeks: 5-6 Current Treatment Recommendations: Strengthening,ROM,Endurance training,Manual Therapy - Soft Tissue Mobilization,Manual Therapy - Joint Manipulation,Return to work related activity,Home exercise program,Patient/Caregiver education & training,Modalities,Integrated dry needling Patient Status:[x] Initiate plan of Care [] Discharge PT. Recommend pt continue with HEP. [] Additional visits requested, Please re-certify for additional visits: [] Hold Signature: If you have any questions or concerns, please don't hesitate to call. Thank you for your referral. I have reviewed this plan of care and certify a need for medically necessary rehabilitation services. Physician Signature: Date: Please sign and return * Sukhdeep Patton PT - 07/06/2021 10:00 AM EDT [facility] Physical Therapy: Initial Evaluation Patient: Faby Andie Galan (21 y.o. female) Examination Date: 07/06/2021 Plan of Care Certification Period: 07/06/2021 to Progress Note Counter: 03/08 : 2000 ; Confirmed: Yes CSN: [id number] Insurance: Payor: [facility] / Plan: [facility] MEDICAID / Product Type: *No Product type* / - (Medicaid Managed) Secondary Insurance (if applicable): Referring Physician: Marnie Melara DO PCP: Ricardo Delatorre PA-C Visits to Date/Visits Approved: No Show/Cancelled Appts: 0 / 0 Medical Diagnosis: Pain in right shoulder [M25.511] Acute R shoulder pain Treatment Diagnosis: R shoulder pain and decreased mobility. Decreased shoulder ROM, decreased shoulder strength, decreased body mechanics with job requirements, decreased posture, increased pain, UEFS 45/80 PERTINENT MEDICAL HISTORY Self reported health status:: Fair Medical History: Chart Reviewed: Yes Past Medical History: Diagnosis Date Absence seizure, atypical (HCC) 09/15/2018 Anxiety Attention deficit hyperactivity disorder (ADHD) 10/06/2016 Surgical History: History reviewed. No pertinent surgical history. Medications: Current Outpatient Medications: levothyroxine (SYNTHROID) 50 MCG tablet, Take 1 tablet by mouth daily, Disp: 90 tablet, Rfl: 3 sertraline (ZOLOFT) 100 MG tablet, Take 2.5 tablets by mouth daily, Disp: 75 tablet, Rfl: 2 liothyronine (CYTOMEL) 5 MCG tablet, Take 1 tablet by mouth daily, Disp: 30 tablet, Rfl: 3 lamoTRIgine (LAMICTAL) 150 MG tablet, Take 1 tablet by mouth 2 times daily, Disp: 60 tablet, Rfl: 3 fluticasone (FLONASE) 50 MCG/ACT nasal spray, Instill 1 (ONE) spray IN EACH NOSTRIL DAILY, Disp: 16g, Rfl: 5 loratadine (CLARITIN) 10 MG tablet, Take 1 tablet by mouth daily, Disp: 30 tablet, Rfl: 3 vitamin D3 (CHOLECALCIFEROL) 25 MCG (1000 UT) TABS tablet, Take 1 tablet by mouth daily, Disp: 30 tablet, Rfl: 5 melatonin 5 MG TABS tablet, Take 1 tablet by mouth nightly as needed (insomnia), Disp: 30 tablet, Rfl: 3 lactase (LACTAID) 3000 units tablet, Take 1 tablet by mouth 3 times daily (with meals), Disp: 90 tablet, Rfl: 3 Current Facility-Administered Medications: [START ON 07/29/2021] paliperidone palmitate ER (INVEGA SUSTENNA) IM injection 117 mg, 117 mg, IntraMUSCular, Once, Candace Walsh MD Allergies: Patient has no known allergies. SUBJECTIVE EXAMINATION History obtained from:: Patient, Family/Caregiver Present: No Subjective History: Onset Date: 06/03/21 Subjective: Pt reports she hurt her shoulder while attempting to complete a back handspring Additional Pertinent Hx (if applicable): ADHD, current behavioral health treatment Previous treatments prior to current episode?: Medications Learning/Language: Learning Is an operations lieutenant required?: No Pain Screening Pain Screening Patient Currently in Pain: Yes Pain Assessment: 0-10 Pain Level: 5 Best Pain Level: 1 (with rest and pain medications) Worst Pain Level: 10 Pain Type: Acute pain Pain Location: Shoulder Pain Orientation: Right Pain Descriptors: Aching Pain Frequency: Intermittent Pain Onset: Sudden Functional Status Social History: Social History Type of Home: House Home Layout: Two level Home Access: Stairs to enter with rails Entrance Stairs - Rails: Right Entrance Stairs - Number of Steps: 3 Occupation/Interests: 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 Job Duties: Repetitive or prolonged grasping,Awkward positions,Other (comment) (helping children with gymnastics) Leisure & Hobbies: horse back riding and pickleball Prior Level of Function: 100% Independent Current Level of Function: 25-50% at R shoulder General Work-Related Tasks: Unable to spot gymnasts with handstands or tumbling UE Turning Head: WNL Dominant Hand: : Left OBJECTIVE EXAMINATION Observations: General Observations General Observations: Yes Posture: Other (comment) Description: rounded posture in sit with elevated scapula and forward head Palpation: Right Shoulder Palpation: R clavicle higher than left and painful with superior/inferior joint mobilization Neuro Screen: Tone Shoulder subluxation: No subluxation present Coordination Movements Are Fluid And Coordinated: No Coordination and Movement Description: Tremors (only present at end ranges of flexion, abduction onRUE) Left AROM Right AROM General AROM UE: Other (comment) (values taken in sitting) General AROM UE: Other (comment) (values taken in sitting) AROM RUE (degrees) R Shoulder Flexion 0-180: 142 R Shoulder Extension 0-45: 45 R Shoulder ABduction 0-180: 145 R Shoulder Int Rotation 0-70: 70 R Shoulder Ext Rotation 0-90: 75 General AROM UE: Other (comment) (values taken in sitting) Left PROM Right PROM Left Strength Right Strength General Strength Testing UE: Left WFL,Left WNL L Upper Trapezius: 5/5 L Middle Trapezius: 5/5 L Rhomboids: 5/5 General Strength Testing UE: Left WFL,Left WNL Strength RUE R Shoulder Flexion: 4+/5 R Shoulder Extension: 4/5 R Shoulder ABduction: 4+/5 R Shoulder Internal Rotation: 5/5 R Shoulder External Rotation: 4+/5 R Elbow Flexion: 5/5 R Elbow Extension: 5/5 R Upper Trapezius: 5/5 R Middle Trapezius: 4/5 R Rhomboids: 4/5 R Lower Trapezius: 4-/5 Cervical Assessment AROM Cervical Spine Cervical Spine AROM : WNL Thoracic Assessment AROM Thoracic Spine Thoracic spine general AROM: thoracic rotation to the L causes pain at the R shoulder Trunk Strength grossly 4-/5 Muscle Length/Flexibility: Muscle Length UE General Muscle Length: Other (comment) (shortened R pecs an elongated R cervical paraspinals) Outcomes Score: Exam: UEFS 45/80 Treatment: ASSESSMENT Impression: Assessment: Pt presents to PT with pain at the R shoulder after performing several attempts at a back handspring in gymnastics. Pt showed video of how the injury occurs and it shows that pt is unable to safely perform a back handspring. It shows her throwing herself backwards without making a full revolution and landing square on her R shoulder. Instructed pt not to attempt to perform, but she stated she has to be able to perform in order to help the younger students. Pt verbalized understanding of not attempting gymnastics until L shoulder is strong enough to safely to bear weight via a plank or supported handstand. 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 Pt to benefit from PT to address these deficits, educate on safe use of UEs during gymnastics, modalities for pain reduction, and HEP instruction. Body Structures, Functions, Activity Limitations Requiring Skilled Therapeutic Intervention: Decreased ROM,Decreased body mechanics,Decreased tolerance to work activity,Decreased strength,Increased pain,Decreased posture Statement of Medical Necessity: Physical Therapy is both indicated and medically necessary as outlined in the POC to increase the likelihood of meeting the functionally related goals stated below. 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 Short Term Goals Completed by 4-5 visits Goal Status STG 1Pt will exhibit increased R shoulder flexion and abduction to >150 to prevent neck and lumbar hyperextension while reacing overhead in prep for gymnastics New STG 2 Pt will be independent with HEP New STG 3 STG 4 STG 5 Belt Brander Goals Completed by 9-10 visits Goal Status LTG 1 Pt will exhibit 5/5 shoulder and scapular to safely perform push ups and UE weightbearing as needed for gymnastics New LTG 2 Pt will demo correct technique for completion of guarding students with gymnastics as well asdemonstrating correct technique when instructing studentsin order to safely complete job requirements New LTG 3 Pt will self correct rounded posture into neutral in order to perform HEP correctly to assistwith decreasing pain complaints. New LTG 4 Pain level with decrease to 2/10 or less during UE weightbearing during gymnastics performance New LTG 5 Functional mobility to improve via UEFS to 60/80 or more New LTG 6 TREATMENT PLAN Requires PT Follow-Up: Yes Treatment may include any combination of the following: Strengthening,ROM,Endurance training,ManualTherapy - Soft Tissue Mobilization,Manual Therapy - Joint Manipulation,Return to work related activi ty,Home exercise program,Patient/Caregiver education & training,Modalities,Integrated dry needling Frequency / Duration: Patient to be seen 2 times per week for 5-6 weeks Plan Comment: Eval Complexity: Decision Making: Medium Complexity History: ADD, Anxiety, hx of atypical seizures Examination of body system(s) including body structures and functions, activity limitations, and/orparticipation restrictions: Medium Exam: UEFS 45/80 Clinical Presentation: med Clinical Decision Making : Medium Complexity POST-PAIN Pain Rating (0-10 pain scale): 5 /10 Location and pain description same as pre-treatment unless indicated. Action: [] NA [] Call Physician [] Perform HEP [x] Meds as prescribed Evaluation and patient rights have been reviewed and patient agrees with plan of care. Yes [x] No [] Explain: Sahni Fall Risk Assessment Risk Factor Scale Score History of Falls [] Yes [x] No 25 0 Secondary Diagnosis [] Yes [x] No 15 0 Ambulatory Aid [] Furniture [] Crutches/cane/walker [x] None/bedrest/wheelchair/nurse 30 15 0 IV/Heparin Lock [] Yes [x] No 20 0 Gait/Transferring [] Impaired [] Weak [x] Normal/bedrest/immobile 20 10 0 Mental Status [] Forgets limitations [x] Oriented to own ability 15 0 Total: 0 Based on the Assessment score: check the appropriate box. [x] No intervention needed Low = Score of 0-24 [] Use standard prevention interventions Moderate = Score of 24-44 [] Discuss fall prevention strategies [] Indicate moderate falls risk on eval [] Use high risk prevention interventions High = Score of 45 and higher [] Discuss fall prevention strategies [] Provide supervision during treatment time Minutes: PT Individual Minutes Time In: 1007 Time Out: 1052 Minutes: 45 Timed Code Treatment Minutes: 0 Minutes Procedure Minutes: 45 min mod complexity eval, Eval only per insurance [facility] Phone: [phone] 116-613804-01-2022 Miscellaneous Notes* Telephone Encounter - Danielle Carrera MA - 10/13/2021 3:45 PM EDT Verified name and . Relayed below message. Verbalized understanding. Danielle Carrera CMA * Telephone Encounter - Mark Kenny PA-C - 10/13/2021 2:32 PM EDT Please call patient and give her the following message : x-rays of the ankle do not show a fracture. Please continue with the plan of care that we discussed for sprain. [facility] NoteDischarge Summary PHYSICAL THERAPY Referral/Discharge Information: Date of Discharge: 07/07/20 Date of Last Visit: 05/27/20 Date of Evaluation: 03/19/20 Number of Attended Visits: 9 Referred by: Delfino Ocasio MD Referred for: R knee pain Reason for Discharge: Pt had met most therapy goals and was anticipated to be discharged at her final appointment, however she needed to cancel. Her C9 before she could re- schedule and her referring physician did not order more PT visits, therefore she is being discharged. Signatures Electronically signed by : Pan Riley PT; Jul 07 2020 11:57AM EST (Author) [id number] NoteCommunication Recorded as Task Date: 04/29/2020 08:15 AM, Created By: Dipti Prado Task Name: Miscellaneous Assigned To: Jihan Sousa Regarding Patient: FABY GALAN, Status: Active Comment: Dipti Prado - 29 Apr 2020 8:15 AM TASK CREATED THISPATIENT CALLED THIS MORNING TO CANCEL AND RESCHEDULE HER 9:30AM PHYSICAL THERAPY APPOINTMENT DUE TO BOTH HER GRANDPARENTS BEING SICK AND HER NOT HAVING A RIDE TO GET HERE. Signatures Electronically signed by : Jihan Sousa PTA; Apr 29 2020 9:13AM EST (Author) [id number] NoteCommunication Recorded as Task Date: 04/24/2020 08:12 AM, Created By: Dipti Prado Task Name: Miscellaneous Assigned To: Pan Riley Regarding Patient: FABY GALAN, Status: Active Comment: Dipti Prado - 24 Apr 2020 8:12 AM TASK CREATED This patient's grandfather called this morning to cancel her 8:45am due to having car trouble. FABY MCKEONLISETTEMARIBELL canceled today . Signatures Electronically signed by : Pan Riley PT; Apr 24 2020 9:46AM EST (Author) [id number] NoteCommunication Recorded as Task Date: 04/15/2020 08:08 AM, Created By: Dipti Prado Task Name: Miscellaneous Assigned To: Jihan Sousa Regarding Patient: FABY GALAN, Status: Active Comment: Dipti Prado - 15 Apr 2020 8:08 AM TASK CREATED This patient's mother called to cancel her appointment stating that Faby will not be attending herphysical therapy appointment today due to them having to pugh her grandfather to the hospital. Signatures Electronically signed by : Jihan Sousa PTA; Apr 15 2020 8:44AM EST (Author) [id number] NoteCommunication Recorded as Task Date: 03/21/2020 08:37 AM, Created By: Dipti Prado Task Name: Miscellaneous Assigned To: Pan Riley Regarding Patient: FABY GALAN, Status: Active Comment: Dipti Prado - 21 Mar 2020 8:37 AM TASK CREATED This patient called this morning at 8:35am to cancel her 8:45am appointment. No reason given. Just cannot make it today. FABY GALAN canceled today . Signatures Electronically signed by : Pan Riley PT; Mar 21 2020 8:48AM EST (Author) [id number] History of Present illness Narrative* Darlene Flores R - 10/12/2019 12:45 PM EDT Radiology Service Progress Note PATIENT NAME: Faby Galan DATE OF SERVICE: October 12, 2019 TIME: 1:11 PM PATIENT IDENTITY VERIFICATION COMPLETED USING TWO (2) IDENTIFIERS: Name and Date of confirmedby patient verbally. FALL SCREENING: Has the patient had 2 falls in the last year or 1 fall with injury or currently using an Ambulatory Assistive Device (Walker, Cane, Wheelchair, Crutches, etc.)? No PATIENT GENDER DATA: Female. status: : No status: NO. PATIENT RELEVANT IMPLANT DATA REVIEWED: Not Applicable RADIOLOGY DEPARTMENT: General X-ray: Exam(s) Completed: Lower Extremity X- Ray(s): Ankle, Right and Wt. Bearing and Foot, Right and Wt. 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 Phone: evaluation note* General: Patient is wearing a gown and sitting on the edge edge of her bed.Appearance: Appears stated age.Attitude: Calm, cooperative.Behavior: Appropriate eye contact.Motor Activity: No agitation orretardation. No EPS/TD. Normal gait.Speech: low tone volume.Mood: depressed,Affect: flat, withdrawn.Thought Process: Organized, linear, goal directed. Associations are logical.Thought Content: passive SI, Denies HI and no delusions.Thought Perception: Does not endorse auditory or visual hallucinations, does not appear to be responding to hallucinatory stimuli. Cognition: Alert, oriented x3. No deficits noted. Adequate fund of knowledge. No deficit in recent and remote memory. No deficits in attention, concentration or language.Insight: limitedJudgment: limited [facility]* Diagnosis Acute pain of right shoulder documented in this encounter [facility] [employer] Phone: evaluation note* Diagnosis Sprain of ligament of right ankle, initial encounter- Primary documented in this encounter [facility]* General: 21yo [place] femaleAppearance: Appears stated age. Wearing hospital gown, mask at chin, brown hair in pigtailsAttitude: Calm, cooperative.Behavior: Eyes closed most of the time due to being sleepyMotor Activity: No agitation or retardation. No EPS/TD. Normal gait.Speech: Regular rate, rhythm, volume and tone, spontaneous, fluent. Mood: Sleepy, loweredAffect: Congruent with moodThought Process: Organized, linear, goal directed. Associations are logical.Thought Content: Endorsed passive SI, no plan/ method/ intent; denied HI; no delusions notedThought Perception: Does not endorse auditory or visual hallucinations, does not appear to be responding to hallucinatory stimuli. Cognition: Alert, oriented x3, good historianInsight: Good, as patient recognizes symptoms of illness and need for recommended treatments.Judgment: Can make reasonable decisions about ordinary activities of daily living and necessary medical care recommendations. [facility] note* Diagnosis Chest pain, unspecified type documented in this encounter [facility] [employer] Phone: evaluation noteNo InformationNort [employer] Other Evaluation note* Diagnosis Meralgia paraesthetica, right Paresthesia of right leg Disturbance of skin sensation documented in this encounter [facility] [employer] Phone: [email or web address] noteNo assessment information [facility] Work Phone: Evaluation note* Diagnosis Low back pain with sciatica, sciatica laterality unspecified, unspecified back pain laterality, unspecified chronicity Bilateral leg weakness Other musculoskeletal symptoms referable to limbs documented in this encounter [facility] General CyberneticsFairfield Medical Centertory general Narrative - Reported* Type Description Date Medical History anxiety Medical History Depression Medical History Hypothyroidism [employer] Other Hisjncr general Narrative - Reported* Type Description Date Medical History anxiety Medical History Depression Medical History Hypothyroidism Medical History sciatica [employer] Other Reason for referral (narrative)* Diagnostic Procedure Only (Urgent) - Closed Specialty Diagnoses / Procedures Referred By Jordana aguirre Referred To Contact XR IMAGING Diagnoses Sprain of ligament of right ankle, initial encounter Procedures XR ANKLE GENERAL 3V AP/LAT/OBL RIGHT RADEX ANKLE COMPLETE MINIMUM 3 VIEWS Mark Kenny PA-C [address] [place] [address] Xr Imaging Referral ID Status Reason Start Date Expiration Date V isits Requested Visits Authorized [id number] Closed Auto-Generate d Referral 10/13/2021 11/12/2022 1 1 [facility] for visit Narrative* Diagnostic Procedure Only (Urgent) - Closed Specialty Diagnoses / Procedures Referred By Contac t Referred To Contact XR IMAGING Diagnoses Sprain of ligament of right ankle, initial encounter Procedures XR ANKLE GENERAL 3V AP/LAT/OBL RIGHT RADEX ANKLE COMPLETE MINIMUM 3 VIEWS Mark Kenny PA-C [address] [place] [address] [place] [address] Referral ID Status Reason Start Date Expiration Date V isits Requested Visits Authorized [id number] Closed Auto-Generate d Referral 10/13/2021 11/12/2022 1 1 [facility] Summary Purpose Family History No Family History Records FoundNo Family History Records FoundNo Family History Records FoundNo Family History Records FoundNo Family History Records FoundNo Family History Records FoundNo Family History Records FoundNo Family History Records FoundNo Family History Records FoundNo Family History Records FoundNo Family History Records FoundNo Family History Records Found Advance Directives No Advanced Directives Records FoundDocuments on File Type Date Recorded Patient Mechanical Engineering Technologist Expl anation ACP-Advance Directive ACP-Power of Copy Cutter 10/28/2015 2:06 PM C ourt Custody Documents ACP-Power of Copy Cutter Documents on File Type Date Recorded Patient Mechanical Engineering Technologist Expl anation ACP-Advance Directive ACP-Power of Copy Cutter ACP-Power of Copy Cutter 10/28/2015 2:06 PM C ourt Custody Documents Documents on File Type Date Recorded Patient Mechanical Engineering Technologist Expl anation ACP-Power of Copy Cutter 10/28/2015 2:06 PM C ourt Custody Documents Discharge Instructions * Attachments The following attachments cannot be sent through Care Everywhere. 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 Procedures US HEAD NECK SOFT TISSUE THYROID Miguel Islas PA [address] [address] Specialty Diagnoses / Procedures Referred By Jordana aguirre Referred To Contact Radiology Diagnoses Acute pain of right shoulder Procedures MRI SHOULDER RIGHT WO CONTRAST Ricardo Delatorre PA-C [address] [place] [address] Referral ID Status Reason Start Date Expiration Date Visits Re quested Visits Authorized [id number] Closed 08/26/2021 10/25/2021 1 1 Specialty Diagnoses / Procedures Referred By Contac t Referred To Contact Cardiology Diagnoses Chest pain, unspecified type Procedures ECHO Complete 2D W Doppler W Color Marlena Mcintosh DO [address] [address] Referral ID Status Reason Start Date Expiration Date Visits Re quested Visits Authorized [id number] Closed 11/04/2021 11/04/2022 1 1 Specialty Diagnoses / Procedures Referred By Contac t Referred To Contact Neurology / EMG Diagnoses Meralgia paraesthetica, right Paresthesia of right leg Procedures EMG Nate Garcia MD [address] [place] [address] [facility] Referral ID Status Reason Start Date Expiration Date Visits Re quested Visits Authorized [id number] Open 05/31/2022 05/31/2023 1 1 Specialty Diagnoses / Procedures Referred By Contac t Referred To Contact Neurology Diagnoses Low back pain with sciatica, sciatica laterality unspecified, unspecified back pain laterality, unspecified chronicity Bilateral leg weakness Procedures EMG Ricardo Delatorre PA-C [address] [place] [address] [facility] Referral ID Status Reason Start Date Expiration Date Visits Re quested Visits Authorized [id number] Open 02/16/2023 02/16/2024 1 1 Additional Source Comments INFORMATION SOURCE (unrecogn ized section and content) DATE CREATED AUTHOR 08/25/2017 [facility] DATE CREATED AUTHOR AUTHOR'S ORGANIZ ATION 09/28/2017 [facility] DATE CREATED AUTHOR AUTHOR'S ORGANIZ ATION 04/18/2018 [facility] DATE CREATED AUTHOR AUTHOR'S ORGANIZ ATION 06/16/[address] [facility] DATE CREATED AUTHOR AUTHOR'S ORGANIZ ATION 07/08/2020 [employer] DATE CREATED AUTHOR AUTHOR'S ORGANIZ ATION 10/14/2021 [facility] DATE CREATED AUTHOR AUTHOR'S ORGANIZ ATION 12/04/2021 [facility] DATE CREATED AUTHOR AUTHOR'S ORGANIZ ATION 06/09/2022 [facility] DATE CREATED AUTHOR AUTHOR'S ORGANIZ ATION 12/08/2022 [facility] DATE CREATED AUTHOR AUTHOR'S ORGANIZ ATION 04/14/2023 [facility] DATE CREATED AUTHOR AUTHOR'S ORGANIZ ATION 05/05/2023 [facility] DATE CREATED AUTHOR AUTHOR'S ORGANIZ ATION 09/09/2023 [facility] Reason for Visit (unrecogniz ed section and content) Reason Comments Rash L Forearm x 3 days Status Reason Specialty Diagnoses / Procedures Referre d By Contact Referred To Contact Closed Radiology Diagnoses 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 Procedures US HEAD NECK SOFT TISSUE THYROID Miguel Islas, TEVIN [address] [address] Specialty Diagnoses / Procedures Referred By Contac t Referred To Contact Physical Therapy Diagnoses Acute pain of right shoulder Procedures EVAL ONLY - PLS SCHEDULE (1) APPT 3 DAYS AFTER EVAL EFF 05/05/21 100% MEDICAID ALLOWABLE Marnie Melara DO [address] [place] [address] Chu Suarez, FELECIA Referral ID Status Reason Start Date Expiration Date Visits Requested Visits Authorized Authorized Specialty Services Required 06/24/2021 06/24/2022 1 1 Referral ID Status Reason Start Date Expiration Date V isits Requested Visits Authorized Closed Specialty Services Required 07/09/2021 08/21/2021 1 1 Specialty Diagnoses / Procedures Referred By Contac t Referred To Contact Physical Therapist / Physical Therapy Diagnoses Acute pain of right shoulder Procedures EVAL ONLY - PLS SCHEDULE (1) APPT 3 DAYS AFTER EVAL EFF 05/05/21 100% MEDICAID ALLOWABLE Marnie Melara DO [address] [place] [address] Chu Suarez PT Referral ID Status Reason Start Date Expiration Date V isits Requested Visits Authorized Closed Specialty Services Required 08/24/2021 09/18/2021 1 1 Specialty Diagnoses / Procedures Referred By Contac t Referred To Contact Radiology Diagnoses Acute pain of right shoulder Procedures MRI SHOULDER RIGHT WO CONTRAST Ricardo Delatorre PA-C [address] [place] [address] Referral ID Status Reason Start Date Expiration Date Visits Re quested Visits Authorized [id number] Closed 08/26/2021 10/25/2021 1 1 Referral ID Status Reason Start Date Expiration Date V isits Requested Visits Authorized Closed Specialty Services Required 09/21/2021 10/16/2021 1 1 Reason Comments Results X-rays of the ankle Reason Comments Ankle Pain Right ankle, started hurting this morning. Thinks she overstretched it in gymnastics yesterday Specialty Diagnoses / Procedures Referred By Contac t Referred To Contact Dietitian Registered Diagnoses Weight gain Candace Walsh MD [address] [place] [address] [facility] [address] [place] [address] Referral ID Status Reason Start Date Expiration Date V isits Requested Visits Authorized [id number] Open Specialty Services Required 08/27/2021 08/27/2022 1 1 Specialty Diagnoses / Procedures Referred By Contac t Referred To Contact Cardiology Diagnoses Chest pain, unspecified type Procedures ECHO Complete 2D W Doppler W Color Marlena Mcintosh, DO [address] [address] Referral ID Status Reason Start Date Expiration Date Visits Re quested Visits Authorized [id number] Closed 11/04/2021 11/04/2022 1 1 Specialty Diagnoses / Procedures Referred By Contac t Referred To Contact Neurology / EMG Diagnoses Meralgia paraesthetica, right Paresthesia of right leg Procedures EMG Carissimi, Nate, MD [address] [place] [address] [facility] Referral ID Status Reason Start Date Expiration Date Visits Re quested Visits Authorized [id number] Open 05/31/2022 05/31/2023 1 1 Reason Comments Radiology XR Specialty Diagnoses / Procedures Referred By Contac t Referred To Contact Neurology Diagnoses Low back pain with sciatica, sciatica laterality unspecified, unspecified back pain laterality, unspecified chronicity Bilateral leg weakness Procedures EMG Ricardo Delatorre PA-C [address] [place] [address] [facility] Referral ID Status Reason Start Date Expiration Date Visits Re quested Visits Authorized [id number] Open 02/16/2023 02/16/2024 1 1 Ordered Prescriptions (unrec ognized section and content) Prescription Sig Dispensed Refills Start Date End Da te predniSONE (DELTASONE) 20 MG tablet Take 1 tablet by mouth daily for 4 days 20 tablet 0 06/16/2020 06/20/2020 <item><item><item><item> Privacy Markings (unrecogniz ed section and content) Section Author: Leila Beckman PROHIBITION ON REDISCLOSURE OF CONFIDENTIAL INFORMATION This notice accompanies a disclosure of information concerning a client made to you with the consent of such client. Section Author: Leila Beckman PROHIBITION ON REDISCLOSURE OF CONFIDENTIAL INFORMATION This notice accompanies a disclosure of information concerning a client made to you with the consent of such client. Section Author: Leila Beckman PROHIBITION ON REDISCLOSURE OF CONFIDENTIAL INFORMATION This notice accompanies a disclosure of information concerning a client made to you with the consent of such client. Section Author: Leila Beckman PROHIBITION ON REDISCLOSURE OF CONFIDENTIAL INFORMATION This notice accompanies a disclosure of information concerning a client made to you with the consent of such client. Care Teams (unrecognized sec tion and content) 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 Specialty Start Date End Date Ricardo Delatorre PA-C [address] [place] [address] PCP - General Physician Picker And Packer 09/02/20 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 Specialty Start Date End Date Ricardo Delatorre PA-C [address] [place] [address] PCP - General Physician Picker And Packer 09/02/20 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 Specialty Start Date End Date Ricardo Delatorre PA-C [address] [place] [address] PCP - General Physician Picker And Packer 09/02/20 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 Specialty Start Date End Date GilbertCeciliaRicardo Urias PA-C [address] [place] [address] PCP - General Physician Picker And Packer 09/02/20 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 Specialty Start Date End Date GilbertCeciliaRicardo Urias PA-C [address] [place] [address] PCP - General Physician Picker And Packer 09/02/20 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 Specialty Start Date End Date GilbertCeciliaRicardo Urias PA-C [address] [place] [address] PCP - General Physician Picker And Packer 09/02/20 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 Specialty Start Date End Date GilbertCeciliaRicardo Urias PA-C [address] [place] [address] PCP - General Physician Picker And Packer 09/02/20 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 Specialty Start Date End Date GilbertCeciliaRicardo Urias PA-C [address] [place] [address] PCP - General Physician Picker And Packer 09/02/20 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 Specialty Start Date End Date Ricardo Delatorre PA-C [address] [place] [address] PCP - General Physician Picker And Packer 09/02/20 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 Specialty Start Date End Date Ricardo Delatorre PA-C [address] [place] [address] PCP - General Physician Picker And Packer 09/02/20 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 Specialty Start Date End Date Ricardo Delatorre PA-C [address] [place] [address] PCP - General Physician Picker And Packer 09/02/20 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 Specialty Start Date End Date Ricardo Delatorre PA-C [address] [place] [address] PCP - General Physician Picker And Packer 09/02/20 Team Status: Active Member Role Status Dates [facility] Dept Primary Care Provider Active Team Status: Inactive Member Role Status Dates [facility] Dept Primary Care Provider Active JAIRO Alvares Attending Provider Active 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 Specialty Start Date End Date Ricardo Delatorre PA-C [address] [place] [address] PCP - General Physician Picker And Packer 09/02/20 Source Comments (unrecognize d section and content) In the event this informatio n is protected by the Federal Confidentiality of Alcohol and Drug Abuse Patient Records regulations: The Federal rules restrict any use of the information to criminally investigate or prosecute any alcohol or drug abuse patient.[facility] the event this information is protected by the Federal Confidentiality of Alcohol and Drug Abuse Patient Records regulations: The Federal rules restrict any use of the information to criminally investigate or prosecute any alcohol or drug abuse patient.[facility] the event this information is protected by the Federal Confidentiality of Alcohol and Drug Abuse Patient Records regulations: The Federal rules restrict any use of the information to criminally investigate or prosecute any alcohol or drug abuse patient.[facility] the event this information is protected by the Federal Confidentiality of Alcohol and Drug Abuse Patient Records regulations: The Federal rules restrict any use of the information to criminally investigate or prosecute any alcohol or drug abuse patient.[facility] the event this information is protected by the Federal Confidentiality of Alcohol and Drug Abuse Patient Records regulations: The Federal rules restrict any use of the information to criminally investigate or prosecute any alcohol or drug abuse patient.[facility] Goals (unrecognized section and content) Goals may be documented in a n alternate section FOR RECORDS PERTAINING TO PATIENTS WHO ARE OR HAVE BEEN ENROLLED IN A CHEMICAL DEPENDENCY/SUBSTANCEABUSE PROGRAM, SOME INFORMATION MAY BE OMITTED. This clinical summary was aggregated from multiple sources. Caution should be exercised in using it in the provision of clinical care. This summary normalizes information from multiple sources, and as a consequence, information in this document may materially change the coding, format and clinical context of patient data. In addition, data may be omitted in some cases. CLINICAL DECISIONS SHOULD BE BASED ON THE PRIMARY CLINICAL RECORDS. [facility] [employer] [facility]. provides no warranty or guarantee of the accuracy or completeness of information in this document.
--- NOTE | 2023-09-19 19:58 | ED.LOWEXI1 ---
HPI HPI - Extremity Injury (Lower) General Chief Complaint: Extremity Injury, Lower Stated Complaint: FELL DOWN STEPS, LOOKING TO BE CASTED Time Seen by Provider: 09/19/23 19:33 Source: patient Mode of arrival: walk-in Limitations: no limitations History of Present Illness HPI Narrative: 23-year-old female presents for evaluation of a left foot injury. The patient states she fell down some stairs earlier today and injured her left foot. She was seen in urgent care and told that she has a fracture and a bone in her foot. She did not get a copy of her x-ray report. She was splinted in the urgent care and states that she was told urgent care to come to the emergency department to get casted. She has a posterior one-step splint in place. She has an orthopedic surgeon that she sees in [facility]. She states that she has Mobic and ibuprofen at home for pain but nothing stronger than that. I did review her OARRS report. She does get prescriptions for Ativan and gabapentin but no narcotic analgesics. She denies striking her head. She has no neck or back pain. She was given crutches at urgent care. Related Data Home Medications ?Medication ?Instructions ?Recorded ?Confirmed baclofen 10 mg tablet 10 mg PO Q8H 06/28/23 06/28/23 lamotrigine 200 mg tablet 200 mg PO Q12H 06/28/23 06/28/23 levothyroxine 75 mcg tablet 75 mcg PO DAILY 06/28/23 06/28/23 loratadine 10 mg tablet (Allergy 10 mg PO Q24H 06/28/23 06/28/23 Relief (loratadine)) lorazepam 1 mg tablet 1 mg PO DAILY PRN anxiety 06/28/23 06/28/23 prazosin 5 mg capsule 10 mg PO BEDTIME 06/28/23 06/28/23 pregabalin 25 mg capsule 25 mg PO DAILY 06/28/23 06/28/23 trazodone 100 mg tablet 200 mg PO BEDTIME 06/28/23 06/28/23 vilazodone 20 mg tablet 20 mg PO DAILY 06/28/23 06/28/23 Allergies Allergy/AdvReac Type Severity Reaction Status Date / Time buspirone Allergy Severe Headache Verified 09/19/23 19:31 Opioid HPI Opioid Management Most Recent Pain and Opioid Data: Last Pain Scale 8 01/05/23 09:32 Review of Systems ROS Status of ROS 10 or more systems reviewed and unremarkable except as noted in history and below Exam Narrative Exam Narrative: Vital signs and Nursing Notes reviewed: Patient is afebrile with a normal pulse, normal blood pressure, she is not hypoxic with pulse ox of 96% on room air General: Awake, alert, oriented, no acute distress, lying comfortably on the stretcher HEENT: Normocephalic atraumatic, mucous membranes are moist and pink, eyes are clear, normal conjunctiva, vision is grossly intact Chest: Lungs are clear to auscultation with good air entry, there is no wheezing rhonchi or rales appreciated no accessory muscle use, patient is speaking in complete sentences-no chest wall tenderness to palpation CVS: Regular rate and rhythm S1-S2, no murmurs rubs or gallops, pulses are brisk and equal bilaterally Extremities: The left lower extremity is immobilized in a one-step splint, the splint appears adequate for the injury that the patient describes. Skin: Normal in appearance without rash,pallor, petechiae or purpura Neuro: No focal deficits Constitutional Vital Signs, click to edit/add: Last Vital Signs Temp 98.4 F 09/19/23 19:31 Pulse 96 H 09/19/23 19:31 Resp 16 09/19/23 19:31 BP 121/83 09/19/23 19:31 Pulse Ox 96 09/19/23 19:31 Course Vital Signs Vital signs: Vital Signs Temperature 98.4 F 09/19/23 19:31 Pulse Rate 96 H 09/19/23 19:31 Respiratory Rate 16 09/19/23 19:31 Blood Pressure 121/83 09/19/23 19:31 Pulse Oximetry 96 09/19/23 19:31 Temperature 98.4 F 09/19/23 19:31 Pulse Rate 96 H 09/19/23 19:31 Respiratory Rate 16 09/19/23 19:31 Blood Pressure 121/83 09/19/23 19:31 Pulse Oximetry 96 09/19/23 19:31 MDM - Extremity Injury (Lower) MDM Narrative Medical decision making narrative: This 23-year-old female presents for evaluation of left foot pain after falling down stairs earlier today. She has no additional injuries. She was seen in urgent care and splinted. She states that she was told at urgent care to come to emergency department for definitive casting. I explained to her that we do not cast in the emergency department due to the swelling that happens in the days after an injury such as this. I offered her something for pain and she was given a [place]. I reviewed her OARRS report. She does get prescriptions for gabapentin and Ativan but no narcotics. She states she has orthopedic surgeon in [facility] that she intends to follow-up with. She has crutches. She is otherwise uninjured. She will be given a short course of [place] to take until she can be followed up by her orthopedic surgeon. She is agreeable to this. The splint that she has in place appears appropriate for her injury as she describes. I did not feel it was necessary to remove the splint to reexamine the foot. Discharge Plan Discharge Stand Alone Forms: Portal Instructions Chief Complaint: Extremity Injury, Lower Clinical Impression: Fracture of left foot Patient Disposition: Home, Self-Care Time of Disposition Decision: 19:55 Condition: Good Prescriptions / Home Meds: No Action baclofen 10 mg tablet 10 mg PO Q8H lamotrigine 200 mg tablet 200 mg PO Q12H levothyroxine 75 mcg tablet 75 mcg PO DAILY loratadine [Allergy Relief (loratadine)] 10 mg tablet 10 mg PO Q24H lorazepam 1 mg tablet 1 mg PO DAILY PRN (Reason: anxiety) prazosin 5 mg capsule 10 mg PO BEDTIME pregabalin 25 mg capsule 25 mg PO DAILY trazodone 100 mg tablet 200 mg PO BEDTIME vilazodone 20 mg tablet 20 mg PO DAILY Print Language: Kiswahili Instructions: Foot Fracture in Adults (ED) Additional Instructions: Follow-up with your orthopedic surgeon in [facility] for further evaluation and treatment of your left foot fracture Referrals: Physician,Non-Staff, MD [Primary Care Provider] - 1 week
[2023-09-19] MEDS: HYDROCODONE/ACET 5-325 MG TABLET 1 TAB PO (20:10)
[2023-09-19 20:12] VITALS: BP 114/77; PULSE 93; O2SAT 98
== END 2023-09-19 20:16 | disposition home or self-care (01) ==
PROVIDERS: Emergency Provider Emergency Medicine
DX: S92.902A Unspecified fracture of left foot, initial encounter for closed fracture (principal); W10.9XXA Fall (on) (from) unspecified stairs and steps, initial encounter
CPT/HCPCS: 99283